=== PATIENT | female | born 1960 | race Caucasian/White ===

== ENCOUNTER → 2018-08-31 13:27 | Outpatient (CLI) | payer OTHER, SELFPAY ==
--- NOTE | 2018-08-31 | DI.RAD.S_ITS ---
This blank DEXA report has been sent in error by the PACS system. The correct and complete report will be forthcoming in 1-2 days. Thank you for your patience and understanding. Dictated by: Lamberto Vital M.D. on 08/31/2018 at 15:43 Approved by: Lamberto Vital M.D. on 08/31/2018 at 15:43
--- NOTE | 2018-08-31 | DI.US.S_ITS ---
PROCEDURE: US ABDOMEN COMPLETE INDICATIONS: OSTEOPOROSIS, GALLSTONES TECHNIQUE: Real-time scanning was performed of the abdominal and retroperitoneal organs, with image documentation. COMPARISON: None. FINDINGS: Liver: Liver is normal in size and homogeneous in echotexture. Gallbladder: Enlarged gallbladder. Gallstones and sludge present. No gallbladder wall thickening or pericholecystic fluid. Biliary ducts: Intrahepatic bile ducts are non-dilated. Extrahepatic bile duct caliber measures 10.0 mm. Normal is 6-7 mm or less in diameter, or 10 mm or less post-cholecystectomy. Pancreas: Visualized portions of the pancreas are sonographically normal. Spleen: Spleen is normal in size and homogeneous in echotexture. Kidneys: Kidneys are normal in size and echotexture. Right kidney measures 9.7 cm long; left kidney measures 10.4 cm long. No hydronephrosis or nephrolithiasis. No solid masses. Aorta: Visualized aorta is normal in caliber at less than 3 cm. Iliacs: Proximal common iliac arteries are normal in caliber at less than 2.5 cm. IVC: Intrahepatic inferior vena cava is patent. Miscellaneous: No free abdominal fluid. IMPRESSION: 1. Hydropic appearance of the gallbladder with multiple gallstones and no gallbladder wall thickening. 2. Dilatation of the extrahepatic bile duct. Recommend correlation with LFTs and if indicated, MRCP could be performed.. Dictated by: Aneesh DA SILVA Interpreted: Monica Mauricio MD on 08/31/2018 at 17:19 Approved by: Monica Mauricio MD, PhD on 08/31/2018 at 17:34
== END ==
PROVIDERS: PCP Naturopath; Visit Provider Naturopath
DX: M81.0 Age-related osteoporosis without current pathological fracture (principal); Z78.0 Asymptomatic menopausal state; K80.20 Calculus of gallbladder without cholecystitis without obstruction; K83.8 Other specified diseases of biliary tract; Z85.3 Personal history of malignant neoplasm of breast; Z82.62 Family history of osteoporosis
CPT/HCPCS: 76700; 77080

== ENCOUNTER → 2018-12-14 08:26 | Outpatient (CLI) | payer BC, SELFPAY ==
[2018-12-14 09:19] LABS: Add Manual Diff / Slide Review NO; Basophils Absolute Auto 0 /uL (0-100); Basophils Percent Auto 0.6 % (0-2); Eosinophils Absolute Auto 100 /uL (0-450); Eosinophils Percent Auto 1.9 % (2-4); Hematocrit 40.1 % (36-46); Hemoglobin 13.6 g/dL (12.0-16.0); Lymphocytes Absolute Auto 1700 /uL (1100-4500); Lymphocytes Percent Auto 33.7 % (25-40); Mean Corpuscular HGB Conc 33.9 % (30-36); Mean Corpuscular Hemoglobin 30.8 PG (26-34); Mean Corpuscular Volume 90.9 fL (80-100); Monocytes Absolute Auto 300 /uL (0-900); Monocytes Percent Auto 6.5 % (3-14); Neutrophils Absolute Auto 2800 /uL (1500-7000); Neutrophils Percent Auto 57.3 % (50-75); Platelet Count 305 X10^3/uL (150-400); Red Blood Cell Count 4.41 X10^6/uL (4.0-5.2); Red Cell Distribution Width 13.7 % (11.6-14.8)
[2018-12-14 09:25] LABS: Hemoglobin A1C% w Est Avg Glu 5.2 % (4.0-6.0)
[2018-12-14 09:50] LABS: Alanine Aminotransferase 18 IU/L (9-52); Albumin 4.7 g/dL (3.5-5.0); Albumin Globulin Ratio 1.5 (1.0-2.8); Alkaline Phosphatase 51 U/L (38-126); Aspartate Aminotransferase 23 IU/L (14-36); BUN Creatinine Ratio 21.4 (6-22); Bilirubin Total 0.6 mg/dL (0.2-1.3); Blood Urea Nitrogen 15 mg/dL (7-17); Calcium 9.7 mg/dL (8.4-10.2); Carbon Dioxide 27 mmol/L (22-32); Chloride 105 mmol/L (98-107); Cholesterol 260 mg/dL (140-199); Estimated Glomerular Filt Rate > 60.0 mL/min (>60); Globulin 3.1 g/dL (1.7-4.1); Glucose 91 mg/dL (70-100); HDL Cholesterol 70 mg/dL (40-60); HEMOLYSIS < 15 (0-50); Iron 148 ug/dL (37-170); LDL Cholesterol Calculated 168 mg/dL (<100); Potassium 3.9 mmol/L (3.4-5.1); Sodium 143 mmol/L (137-145); Total Protein 7.8 g/dL (6.3-8.2); Triglycerides 111 mg/dL (35-150)
[2018-12-14 10:03] LABS: Percent Iron Saturation 49 % (15-50); Total Iron Binding Capacity 304 ug/dL (265-497); Transferrin 265 mg/dL (206-381)
[2018-12-14 10:07] LABS: Progesterone, Total 0.85 ng/mL
[2018-12-14 10:13] LABS: Free T3, Triiodothyronine Free 3.79 pg/mL (2.77-5.27); Free T4, Direct Thyroxine 0.98 ng/dL (0.78-2.19)
[2018-12-14 10:23] LABS: Estradiol, Total 8.7 pg/mL
[2018-12-14 10:25] LABS: Ferritin 34.4 ng/mL (11.1-264)
[2018-12-14 10:26] LABS: Thyroid Stimulating Hormone 2.97 uIU/mL (0.47-4.68)
[2018-12-14 10:39] LABS: Vitamin B12 697 pg/mL (239-931)
[2018-12-16 15:11] LABS: Thyroid Peroxidase Antibodies 6 IU/mL (< 9)
[2018-12-16 15:53] LABS: Cancer Antigen 27.29 34 U/mL (< 38)
[2018-12-16 15:55] LABS: CA 15-3 16 U/mL (< 32)
[2018-12-16 16:57] LABS: Glucose-6-Phosphate Dehydrogen 11.6 U/g Hgb (7.0-20.5)
[2018-12-17 08:05] LABS: Sex Hormone Binding Globulin 113 nmol/L (14-73); Testosterone, Bioavailable 2.6 ng/dL (0.5-8.5); Testosterone, Total 31 ng/dL (2-45); Testosterone,Free 1.3 pg/mL (0.2-5.0)
[2018-12-21 10:01] LABS: Albumin 4.5
== END ==
PROVIDERS: PCP Naturopath; Visit Provider Naturopath
DX: R53.82 Chronic fatigue, unspecified (principal); E03.9 Hypothyroidism, unspecified; N95.9 Unspecified menopausal and perimenopausal disorder; D64.89 Other specified anemias
CPT/HCPCS: 36415; 80053; 80061; 82040; 82607; 82670; 82728; 82955; 83036; 83540; 83550; 84144; 84270; 84403; 84439; 84443; 84481; 85025; 86300; 86376

== ENCOUNTER → 2019-01-05 07:49 | Outpatient (CLI) | payer BC, SELFPAY ==
--- NOTE | 2019-01-05 | DI.MG.S_ITS ---
BILATERAL DIGITAL DIAGNOSTIC MAMMOGRAM 3D/2D POST LUMPECTOMY: 01/05/2019 CLINICAL: Left lump. Personal history of breast cancer. Family history of breast cancer. Comparison is made to exams dated: 08/05/2015 mammogram, 08/05/2015 ultrasound, 09/01/2015 breast MRI, 01/05/2016 ultrasound, 08/21/2015 stereotactic biopsy, and 12/10/2016 ultrasound - [facility]. There are scattered fibroglandular elements in both breasts. There is an oval low density focal asymmetry with an indistinct margin and dystrophic calcifications in the right breast at 8 o'clock in the retroareolar region. This is less prominent. This is at the site of prior lumpectomy. Prior US demonstrated a seroma at this site. Possible oval equal density asymmetry measuring 6 mm with an indistinct margin in the left axillary tail. This is more prominent. This is near the palpable abnormality in the left axillay. No definite mammographic abnormality to correspond to the palpable abnormality at the left axilla. No other significant masses or calcifications are seen in either breast. IMPRESSION: INCOMPLETE: NEEDS ADDITIONAL IMAGING EVALUATION The oval low density focal asymmetry in the right breast at 8 o'clock in the retroareolar region is indeterminate. An ultrasound is recommended and will immediately follow. A possible asymmetry in the left axillary tail near the palpable left axillary abnormality is indeterminate. An ultrasound is recommended of the axillary tail as well as the left axilla palpable site and will immediately follow. This exam was interpreted at Station ID: [id number]. NOTE: For mammograms, a report in lay terms will be sent to the patient. Approximately 15% of breast malignancies will not be visualized mammographically. In the management of a palpable breast mass, a negative mammogram must not discourage biopsy of a clinically suspicious lesion. Electronically Signed By: Andrew Clarke M.D. [facility] [place]/:01/17/2019 13:27:46 copy to: SKINNY FULTON BI-RADS Category 0: Incomplete [id number]
--- NOTE | 2019-01-05 | DI.US.S_ITS ---
ULTRASOUND OF LEFT BREAST AND AXILLA: 01/05/2019 CLINICAL: Palpable left axilla lump. Comparison is made to exams dated: 01/05/2019 mammogram - [facility], 12/10/2016 ultrasound, 01/05/2016 ultrasound, 09/01/2015 breast MRI, 08/05/2015 mammogram, and 08/05/2015 ultrasound - [facility]. Color flow and real-time ultrasound of the right breast 8-9 o'clock region and color flow and real-time ultrasound of the left breast axilla and axillary tail were performed. Emerson scale images of the real-time examination were reviewed. There is a benign 4.5 cm x 6.1 cm x 2.7 cm oval post-surgical scar/granulation tissue with a circumscribed margin in the right breast at 8 o'clock anterior depth. This oval post-surgical scar is isoechoic and heterogeneously echogenic with a well-defined boundary and no posterior acoustic shadowing or enhancement. This correlates with mammography findings. Color flow imaging demonstrates that there is no vascularity present. This region previously demonstrated an anechoic post seroma measuring 6.2 x 4 x 2.2 cm. There is 3.3 cm x 1.6 cm x 3.1 cm round enlarged lymph node with uniform cortical thickening with a circumscribed margin in the left axillary tail. This round enlarged lymph node is hypoechoic with no fatty hilum and no posterior acoustic shadowing or enhancement. This correlates as palpated but was not seen on the prior mammogram. Color flow imaging demonstrates that there is vascularity present. There is an adjacent normally appearing lymph node. No additional abnormality in the region of the left axillary tail to correspond to the possible asymmetry seen on mammogram. IMPRESSION: SUSPICIOUS OF MALIGNANCY A 6.1 cm oval post-surgical scar in the right breast at 8 o'clock anterior depth at the lumpectomy site is benign. Round enlarged lymph node with uniform cortical thickening in the left axillary tail corresponding to the palpable abnormality is suspicious of malignancy. An ultrasound guided biopsy is recommended. Exam findings were discussed with the patient by Dr. Cory Godoy. This exam was interpreted at Station ID: [id number]. Electronically Signed By: Andrew Clarke M.D. slc/:01/24/2019 09:55:24 copy to: SKINNY STEINBERG letter sent: Biopsy Required Ultrasound BI-RADS: 4 Suspicious abnormality
--- NOTE | 2019-01-05 | DI.US.S_ITS ---
LIMITED ULTRASOUND OF RIGHT BREAST: 01/05/2019 CLINICAL: Palpable right breast lump. Comparison is made to exams dated: 01/05/2019 mammogram - [facility], 12/10/2016 ultrasound, 01/05/2016 ultrasound, 09/01/2015 breast MRI, 08/05/2015 mammogram, and 08/05/2015 ultrasound - [facility]. Color flow and real-time ultrasound of the right breast 8-9 o'clock region were performed. Emerson scale images of the real-time examination were reviewed. There is a benign 4.5 cm x 6.1 cm x 2.7 cm oval post-surgical scar with a circumscribed margin in the right breast at 8 o'clock anterior depth. This oval post-surgical scar is isoechoic and heterogeneously echogenic with a well-defined boundary and no posterior acoustic shadowing or enhancement. This correlates with mammography findings. Color flow imaging demonstrates that there is no vascularity present. IMPRESSION: BENIGN There is no sonographic evidence of malignancy. The 4.5 cm x 6.1 cm x 2.7 cm oval post-surgical scar in the right breast is benign. A 1 year screening mammogram is recommended. Exam Findings were discussed with the patient by Dr. Cory Godoy. This exam was interpreted at Station ID: [id number] Electronically Signed By: Andrew Clarke M.D. slc/:01/24/2019 09:28:52 copy to: SKINNY STEINBERG letter sent: Normal Exam Ultrasound BI-RADS: 2 Benign
== END ==
PROVIDERS: PCP Naturopath; Visit Provider Naturopath
DX: R92.8 Other abnormal and inconclusive findings on diagnostic imaging of breast (principal); N63.20 Unspecified lump in the left breast, unspecified quadrant; R59.0 Localized enlarged lymph nodes; L90.5 Scar conditions and fibrosis of skin; Z85.3 Personal history of malignant neoplasm of breast; Z80.3 Family history of malignant neoplasm of breast
CPT/HCPCS: 76642; 77066; G0279

== ENCOUNTER → 2019-02-07 07:13 | Outpatient (CLI) | payer BC, SELFPAY ==
--- NOTE | 2019-02-07 | DI.US.S_ITS ---
ULTRASOUND GUIDED BIOPSY LEFT BREAST: 02/07/2019 CLINICAL: Left axillary node biopsy. PATIENT CONSENT: Risks (minor bleeding, infection, vasovagal reaction and repeat procedure), benefits and alternatives were explained to the patient and written informed consent was obtained. Correlation is made to exams dated: 01/05/2019 ultrasound and 01/05/2019 mammogram [facility]. An ultrasound guided biopsy using real-time ultrasound was performed for the palpable circumscribed lobulated solid mass located in the left axilla. This was described on the previous ultrasound report. The skin was prepped in the usual manner. Local anesthetic was administered to the access site. The abnormality was approached from the lateral aspect. A biopsy needle was placed adjacent to the abnormality under ultrasound guidance. Once the needle was documented to be in the correct location, five passes were made using 18 gauge Temno. A skin adhesive was applied to the access site. The specimens were sent to the laboratory for pathological analysis. IMPRESSION: ULTRASOUND GUIDED BIOPSY Ultrasound guided biopsy of the solid mass in the left axilla was successful with no apparent post procedure complications. 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 Pathology findings are concordant with imaging. Surgical and oncology consults are recommended for further evaluation and management. Consider MRI to exclude a breast primary site other than the site of previous lumpectomy. These results will be communicated to the patient's referring provider. This exam was interpreted at Station ID: [id number]. [place],ecl/:02/13/2019 09:26:38 copy to: SKINNY STEINBERG
--- NOTE | 2019-02-07 | PATH_ITS ---
[facility] Accession Number: [id number] . 01 Material submitted: . axilla - LEFT AXILLARY NODE . 01 Clinical history: . MALIGNANT NEOPLASM OF UPPER-OUTER QUADRANT OF LEFT . 01 Diagnosis: Designated as Left Axillary Lymph Node, Biopsy: High-grade adenocarcinoma involving fibrous tissue; see comment. . COMMENT: The histologic findings along with the immunoprofile are consistent with breast origin. There is no lymph node tissue identified, clinical and radiographic correlation is necessary to determine whether this carcinoma represents a primary or a metastatic site. If this is a breast primary site, the carcinoma is a [place] combined histologic grade of 3 of 3 (total score of 8/9). [facility] 02/12/2019 1119 Local . 01 Electronically signed: . Velia Ventura MD, Pathologist NPI- [id number] . 01 Gross description: . LEFT AXILLARY NODE: Received in formalin are multiple fragment(s) of [place], soft tissue measuring 0.2 x 0.1 x 0.1 cm to 1.1 x 0.1 x 0.1 cm which is entirely submitted and submitted entirely in 1 cassette(s) /[facility] 02/07/2019 1915 Local . 01 Microscopic: . The biopsy consists of a poorly differentiated adenocarcinoma involving fibrous, and focally adipose, tissue; the carcinoma has little or no tubular formation (only vague glands are seen), has extensive necrosis, eosinophilic/apocrine cytoplasm with prominent nucleoli, pleomorphism, high nuclear to cytoplasmic ratio, and a brisk mitotic activity. There is limited tumor with multiple cores involved and a contiguous length of 0.2 cm. There is no lymph node tissue identified. If this is breast primary, the carcinoma is a [place] combined histologic grade of 3 of 3 (total score of 8/9). . A panel of immunostains is performed to delineate the carcinoma, and the invasive carcinoma has the following immunoprofile: CK7: Positive. CK20: Negative. GATA3: Positive. GCDFP-15: Focally positive. Mammaglobin: Focally positive. TTF1: Negative. CDX2: Negative. P40: Negative. . Predictive marker immunohistochemical studies are performed on block A1 with the invasive carcinoma showing the following results: . Estrogen receptor (SP1): Negative (0% tumor cells staining). Progesterone receptor (1E2): Negative (0% tumor cells staining). Her2 (4B5): Positive for overexpression (3+). . Cold ischemic time is <5 minutes. The scoring criteria for breast biomarkers by immunohistochemistry is based on the ASCO/CAP guidelines (Chata AC et al J Clin Oncol 2018: 2017 10;36(20):9719-1900 and Andreea HILLIARD et al, Arch Pathol Lab Med 2009;134(6):907-22). Deparaffinized sections of formalin fixed tissue (along with appropriate positive controls) are incubated with the above antibody(s). Using the automated [place] stainer, tissue is incubated with the designated antibody which is then localized by a non-biotin, dual polymer detection system. The external controls are reviewed for appropriate reactivity and found to be adequate. Results on the target cell population are indicated above. These tests have not been validated on decalcified tissue. This test was developed and its performance characteristics determined by [facility]. It has not been cleared or approved by the U.S. Food and Drug Administration. The FDA has determined that such clearance or approval is not necessary. This test is used for clinical purposes. It should not be regarded as investigational or for research. . 01 Pathologist provided ICD-10: C50.412 . 01 CPT . 012315, 091102, 764947, 387187, S91110, G88897 Performed at: 01 [facility] [address] [place] [address] [facility], [place], [place] [id number] MD Sam Segura MD Phone: [phone]
--- NOTE | 2019-02-14 13:42 | ONC.MSW ---
Description: T/C-Initial Navigation Call Activity: Called pt to introduce myself as the MASTER CONTROL SUPERVISOR/SHAHRIAR, discuss resources and supports available, and establish initial rapport. Discussed the role of navigation. She had questions about whether or not our Oncologist's are comfortable working with her referring provider, who's a Naturopathic doctor. MASTER CONTROL SUPERVISOR confirmed that they support people's decisions for alternative treatments in conjuction with ONC treatments, and that this is done regularly here in this clinic. Discussed also the availability of the ONC Medical Relief Fund in order to help support her for medical reimbursement for her supplements, etc. Explained that she will be contacted next by our schedulers to get her in for the next available new pt appt.
== END ==
PROVIDERS: PCP Naturopath; Visit Provider Naturopath
DX: C50.412 Malignant neoplasm of upper-outer quadrant of left female breast (principal); C77.3 Secondary and unspecified malignant neoplasm of axilla and upper limb lymph nodes; Z17.1 Estrogen receptor negative status [ER-]
CPT/HCPCS: 38505; 76942

== ENCOUNTER → 2019-03-28 07:25 | Outpatient (CLI) | payer BC, SELFPAY ==
--- NOTE | 2019-03-28 07:26 | DI.ECHO.S_ITS ---
[facility]---------+ [facility] +---------+ : : [address] : : : : [id number] : : : : Phone: [phone]+ Echocardiogram Report + + :Name: JOHNNIE GARZON Study Date: 03/28/2019 Height: 64 in : :[facility] Weight: 123 lb : : Gender: Female BSA: 1.6 m2 : :: 1960 Age: 58 yrs BP: 110/88 mmHg: :Reason For Study: BREAST CA : : Performed By: Rocky Rowan : :Referring: RAMY CHOWDHURY : + + Interpretation Summary The left ventricle is normal in size. The left ventricular ejection fraction is normal. There are no focal wall motion abnormalities. Diastolic parameters suggest a relaxation abnormality of the left ventricle, consistent with probable normal filling pressures. The right ventricle is normal in size and function. Both atria are normal in size. There is mild mitral valve prolapse. There is mild mitral regurgitation. There is no prior echocardiogram noted for this patient. Procedure: A two-dimensional transthoracic echocardiogram with color flow and Doppler was performed. The study quality was technically good. There is no prior echocardiogram noted for this patient. The patient was in normal sinus rhythm during the exam. Left Ventricle: The left ventricle is normal in size. There is normal left ventricular wall thickness. The ejection fraction is estimated to be 55-60%. The left ventricular ejection fraction is normal. Left ventricular ejection fraction is estimated to be 58% by MOD. There are no focal wall motion abnormalities. Diastolic parameters suggest a relaxation abnormality of the left ventricle, consistent with probable normal filling pressures. Right Ventricle: The right ventricle is normal in size and function. Atria: Both atria are normal in size. Mitral Valve: There is mild mitral valve prolapse. There is prolapse of the posterior mitral valve leaflet(s). There is mild mitral regurgitation. Aortic Valve: The aortic valve is trileaflet. The aortic valve opens well. There is no aortic valve stenosis. No aortic regurgitation is present. Tricuspid Valve: The tricuspid valve is normal in structure and function. There is trace tricuspid regurgitation. Pulmonary artery pressures cannot be estimated because of the lack of a measurable TR jet velocity. Pulmonic Valve: The pulmonic valve is normal in structure and function. There is trace pulmonic regurgitation. Great Vessels: The aortic root is normal size. The dimensions of the ascending aorta are normal. The pulmonary artery is normal size. The IVC is of normal diameter and collapses greater than 50% with a sniff. This suggests a low right atrial pressure of 3 mm Hg. Pericardium/ Pleura There is no pericardial effusion. There is no pleural effusion. MMode/2D Measurements & Calculations LVIDd: 4.6 cm LVOT diam: 2.0 cm LVIDs: 3.0 cm Ao root diam: 2.6 cm FS: 34.9 % Aortic Jxn: 2.3 cm EPSS: 0.34 cm asc Aorta Diam: 2.5 cm IVSd: 0.71 cm Ao Arch Diam (Prox Trans): 2.4 cm LVPWd: 0.72 cm LV serna. diameter/BSA (cm/m^2): 2.9 LV sys. diameter/BSA (cm/m^2): 1.9 LA dimension: 3.0 cm RA long axis: 3.8 cm LA A2 area: 16.7 cm2 RA area: 13.6 cm2 LA A4 area: 15.7 cm2 RA vol: 41.6 ml LA length (vol): 5.2 cm RA : 26.1 ml/m2 LA vol: 42.9 ml IVC diam: 1.9 cm LA vol index: 27.0 ml/m2 LVAd ap4: 25.0 cm2 LVAd ap2: 25.8 cm2 LVAs ap4: 14.4 cm2 LVLd ap2: 7.6 cm LVLs ap4: 6.7 cm LVAs ap2: 14.4 cm2 LVLs ap2: 6.3 cm Doppler Measurements & Calculations Ao V2 max: 125.1 cm/sec LVOT Max Landon: 96.6 cm/sec Ao V2 mean: 91.0 cm/sec LV V1 max P.7 mmHg Ao max P.3 mmHg LV V1 VTI: 20.7 cm Ao mean P.5 mmHg JOSE MANUEL(I,D): 2.3 cm2 Ao V2 VTI: 27.8 cm JOSE MANUEL(V,D): 2.4 cm2 sev ratio: 0.74 JOSE MANUEL indexed to BSA (cm^2/m^2): 1.4 MV E max landon: 66.1 cm/sec PA V2 max: 95.5 cm/sec MV A max landon: 77.2 cm/sec PA V2 mean: 69.5 cm/sec MV E/A: 0.86 PA mean P.1 mmHg Med Peak E' Landon: 7.3 cm/sec PA pr(Accel): 39.1 mmHg E/E' med: 9.0 PA Accel Time: 0.09 sec Lat Peak E' Landon: 8.7 cm/sec E/E' lat: 7.6 E/e' average: 8.3 MV dec time: 0.16 sec SV(LVOT): 63.7 ml Electronically signed by: Iftikhar Burns M.D. on [place] Physician:03/28/2019 09:57 PM
--- NOTE | 2019-03-28 07:26 | DI.MRI.S_ITS ---
BREAST MRI OF BOTH BREASTS- POST LUMPECTOMY: 03/28/2019 CLINICAL: Abnormal mammogram. TECHNIQUE: The patient was placed prone in a dedicated breast imaging coil. Precontrast axial STIR and 3D FLASH without fat saturation sequences were obtained. Both before and after bolus injection of contrast, sequential 1-minute axial 3D FLASH with fat saturation sequences for 3 time points, with subtraction images and maximum intensity projections (MIP's) generated. Delayed sagittal FLASH images with fat saturation were also obtained. Computer-aided detection, including computer algorithm analysis of MRI image data for lesion detection and characterization, pharmacokinetic analysis, with further physician review for interpretation, was performed. COMPARISON: [facility], , MM DIAGNOSTIC MAMMO BI, 01/05/2019, 8:50. [facility], US BIOPSY OF AXILLA ONLY, 02/07/2019, 8:09. [facility], BREAST LT LIMITED, 01/05/2019, 9:26. [facility], BREAST RT LIMITED, 01/05/2019, 9:20. Outside Facility, , MRI BREAST BILATERAL, 09/01/2015, 14:56. Image quality: Excellent. There is minimal background parenchymal enhancement. There is heterogeneous fibroglandular tissue bilaterally. Right breast: Redemonstration of thin rim-enhancing postoperative fluid collection involving the lateral aspect of the right breast measuring approximately 3.6 x 5.8 cm in transverse dimension and 4.6 cm in craniocaudal dimension. There is focal skin thickening involving the anteromedial margin of the surgical site with associated enhancement. This is favored to represent postoperative changes. There is an enhancing 9 mm mass abutting the superficial margin of the anterior chest wall approximately 2.0 cm caudal to the inferior margin of the postoperative fluid collection. There is associated washout kinetics. No other suspicious mass lesions identified in the right breast. No axillary or internal mammary chain adenopathy. No suspicious non-mass enhancement. Left breast: There is a large left axillary lymph node measuring approximately 3.8 x 2.1 cm and correlates with biopsy proven high-grade adenocarcinoma involving fibrous tissue per pathology report. There are numerous smaller, but abnormal appearing lymph nodes in the left axilla extending to the level II lymph nodes of the left chest wall, deep to the lateral aspect of the pectoralis minor muscle. No internal mammary chain adenopathy. No abnormal mass identified in the left breast. No non-mass enhancement. Miscellaneous: Limited evaluation of the anterior mediastinal structures and upper abdomen appear unremarkable. Normal bone marrow signal intensity. IMPRESSION: INCOMPLETE: NEEDS ADDITIONAL IMAGING EVALUATION 1. Suspicious 9 mm enhancing mass abutting the anterior right chest wall at the 6:00 position of the right breast and approximately 2 cm caudal to the inferior margin of the postoperative fluid collection from patient's resected right breast cancer. Findings are concerning for multifocal disease within the right breast. No associated right axillary or internal mammary chain adenopathy. Recommend second look ultrasound of the right breast to evaluate this inferior right breast mass. 2. Left axillary and level II lymphadenopathy adjacent to biopsy-proven lymph node which demonstrated high-grade adenocarcinoma involving fibrous tissue per pathology report. No focal mass or non-mass enhancement identified in the left breast. BIRADS 0, need additional imaging evaluation. COMMENT: The imaging literature indicates that a negative contrast breast MRI examination has a high sensitivity and a moderate specificity for detecting and excluding invasive carcinomas to a detection threshold of 3-5 mm; nonetheless, appropriate clinical and mammographic follow-up are recommended. MRI is not sensitive for detecting DCIS (ductal carcinoma in situ) and may not detect large invasive neoplasms that show only minimal enhancement such as mucinous carcinoma. If there are suspicious calcifications or clinically worrisome palpable masses, then biopsy should still be considered. Invasive neoplasms can be hidden by co-existent and benign enhancement caused by mastitis, hormone therapy effects, radiation therapy, , and recent biopsy or surgery. False positive examinations can occur in a number of circumstances, including breasts that have recently been subject to invasive procedures and those that contain atypical ductal hyperplasia, hormonally stimulated glandular tissue, fat necrosis, or radial scars. This exam was interpreted at Station ID: [id number]. Electronically Signed By: Cong Tilley M.D. aty/:03/28/2019 17:59:18 copy to: SKINNY STEINBERG copy to: MARYBETH WELCH AL, [facility], ph: [phone], fax: [phone] letter sent: Additional Imaging Needed ACR BI-RADS Category 0: Incomplete [id number]
== END ==
PROVIDERS: PCP Naturopath; Referring Provider Naturopath; Visit Provider Internal Medicine Hematology & Oncology
DX: I34.1 Nonrheumatic mitral (valve) prolapse (principal); I34.0 Nonrheumatic mitral (valve) insufficiency; C50.912 Malignant neoplasm of unspecified site of left female breast
CPT/HCPCS: 77049; 93306; A9579

== ENCOUNTER 2019-04-02 14:10 | Day surgery (SDC) | payer BC, SELFPAY ==
[2019-03-27 10:10] VITALS: BMI 22.6
[2019-04-02] VITALS (7 sets, daily range): BP systolic 98–111; BP diastolic 52–73; PULSE 61–73; RESP 10–19; TEMP 36.1–36.8; O2SAT 97–100; BMI 22.6
--- NOTE | 2019-04-02 | DI.RAD.S_ITS ---
PROCEDURE: XR CHEST 1V INDICATIONS: PORT A CATH RIGHT TECHNIQUE: One view of the chest was acquired. COMPARISON: None. FINDINGS: Surgical changes and devices: Right chest port with tip projecting at the mid SVC. Lungs and pleura: Lungs are clear. No pleural effusions or pneumothorax. Mediastinum: Mediastinal contours appear normal. Heart size is normal. Bones and chest wall: No suspicious bony lesions. Overlying soft tissues appear unremarkable. IMPRESSION: Right chest port with the tip projecting in the mid SVC. No pneumothorax Dictated by: Red Devine M.D. on 04/03/2019 at 8:24 Approved by: Red Devine M.D. on 04/03/2019 at 8:26
[2019-04-02] MEDS: LACTATED RINGERS 1,000 ML 100 ML IV (15:59)
--- NOTE | 2019-04-02 16:49 | P.HP_ITS ---
History of Present Illness History of Present Illness Date Patient Seen: 04/02/19 Time Patient Seen: 16:49 Chief complaint: [id number] PORT-A-CATH PLACEMENT Narrative: Patient is a woman who has been treated in the past for right-sided breast cancer. She had a port on the right side because it could not be placed on the left. She states that the doctor told her that he could not make the turn. She has developed a HER2 Zoie positive mass in her left axilla. There is plans for neoadjuvant therapy as she proceeds to metastatic workup. I was asked to place a port. Patient History Medical History Breast cancer, left (Acute ~2018) Breast cancer, right (Acute ~2010) Gallstone (Acute) Hyperlipidemia (Acute) Migraine (Acute) Osteoporosis (Acute) Scoliosis (Acute) Surgical History H/O hemorrhoidectomy (Resolved) H/O hemorrhoidectomy (Acute) H/O rhinoplasty (Resolved) History of lumpectomy of right breast (Acute) Family & Social History Family History Brother Heart disease, hypertensive, benign Hypertension Mother Breast cancer Gallstones Stroke Social History: household members none Tobacco & Substance use: Smoking Status Never smoker alcohol intake never Meds Home Medications and Allergies Home Medications Medication Instructions Recorded Confirmed Type klqpgsfpbz-aqokfvs-qyfzyczg 50 1 cap PO QID PRN 09/25/18 02/26/19 History mg-325 mg-40 mg capsule cholecalciferol (vitamin D3) 1,000 1,000 unit PO DAILY 09/25/18 02/26/19 History unit capsule estrovera PO 09/25/18 09/25/18 History vitamin K2 40 mcg tablet 300 mcg PO DAILY 09/25/18 02/26/19 History lorazepam 0.5 mg PRN PRN 02/26/19 02/26/19 History Allergies Allergy/AdvReac Type Severity Reaction Status Date / Time No Known Drug Allergies Allergy Unverified 04/02/19 15:48 Review of Systems Review of Systems ROS Unobtainable: All systems reviewed & are unremarkable except as noted in HPI and below Gastrointestinal Comments: Patient has symptomatic gallstones but has declined surgical treatment in the past. She continues to do that now. Exam Vital Signs (past 8 hours): - 04/02/19 15:39 Temperature 98.3 F Pulse Rate 66 Respiratory Rate 16 Blood Pressure 109/70 Pulse Oximetry 99 Oxygen Delivery Method Room Air Narrative Exam Narrative: Pleasant cooperative patient no apparent distress. Lungs are clear to auscultation. No rales or rhonchi. Heart regular rate and rhythm no murmur gallop. Abdomen is soft nontender without mass. No rashes on her chest wall. Scar from her prior port is noted in the right infraclavicular area. She has a fixed palpable mass in her left axilla that is about 4 x 4 cm. Patient is alert and oriented x3. Assessment & Plan Assessment & Plan narrative: Patient upon whom neoadjuvant chemotherapy is planned. I was asked to place a port. I have discussed the procedure with her. Risks of bleeding, infection, lung collapse which might necessitate placing a chest tube, thrombosis of the vein with possible arm swelling or pulmonary embolism or all discussed. 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 She wishes to proceed.
--- NOTE | 2019-04-02 16:53 | PM.PREOP ---
Pre-operative Note Interval Note History & Physical reviewed/Exam performed by Physician: Yes Changes to H&P: No
[2019-04-02] MEDS: CEFAZOLIN 2 GM/100 ML FROZ.PIGGY IV (17:16)
--- NOTE | 2019-04-02 17:38 | SUR.OPER ---
Supine on padded OR bed, head on gel donut, arms padded and tucked at sides, legs uncrossed, safety belt at thigh, tape over blanket over lower legs .
[2019-04-02] MEDS: LIDOCAINE 1% 30 ML INJ (17:47)
[2019-04-02] MEDS: HEPARIN 5,000 UNIT, SODIUM CHLORIDE 0.9% 50 ML IV (17:47)
--- NOTE | 2019-04-02 17:59 | PM.OP.1 ---
Operative Date/Time/Diagnoses Date of procedure: 04/02/19 Time of procedure: 17:59 Pre-op diagnosis: Breast cancer Post-op diagnosis: same Procedure & Clinicians Procedure: Placement of right subclavian Port-A-Cath Same procedure as scheduled: Yes Indications: Patient is a woman with a history of right-sided breast cancer who has developed a mass in her left axilla that is breast cancer HER2 Zoie positive. Neoadjuvant therapy is planned as a metastatic workup has been initiated. Surgeon: Aydin Mills Click Yes if Unassisted: Yes Anesthesia Type: General Operative Notes Findings: Patient was not cooperative enough to tolerate simple sedation local anesthetic therefore she underwent general LMA anesthesia. Closure Type: primary Specimen(s): none sent Prosthetic devices, grafts, tissues, transplants, or devices: Port-A-Cath low-profile Estimated Blood Loss (mL): 5 Blood products transfused: none Procedure in detail: The patient is placed supine on the operating table and underwent IV sedation and was prepped and draped in the usual fashion. Local anesthetic was infiltrated in a field block fashion beneath the right clavicle. As I began the operation the patient began to fidgety. She was talking continuously is quite clear that sedation was not going to be adequate therefore she was placed under general anesthesia with use of an LMA. Will continue the operation incision was made paralleling clavicle and carried into the subcu. A pocket was created inferior to this incision. The patient was placed in Trendelenburg a needle was inserted on 1st attempt into the subclavian vein. Guidewire was passed and the needle was removed. Fluoroscopy revealed that the guidewire appeared to be going into the appropriate location. Port was put to get an tapered the dilator and introducer were passed over the guidewire. This was done with the assistance of fluoroscopy. The guidewire and dilator were removed leaving the introducer in place. The catheter was passed through the introducer and it was peeled away leaving the catheter in good position with the tip appearing to be somewhere in the distal SVC. The patient was taken out of Trendelenburg. The port was aspirated and flushed with heparinized saline. There was no difficulty doing this. The port was secured to the chest wall with interrupted 2 0 silk sutures. The subcu was closed with interrupted 3 0 Vicryl and skin was closed running 4 0 Vicryl subcuticular stitch and Steri-Strips. Dressing was applied the patient tolerated the procedure well. Complications: none Post-operative Condition: stable Disposition: PACU Plan for aftercare: Follow-up in the office
== END 2019-04-02 18:40 | disposition home or self-care (01) ==
PROVIDERS: Family Provider Naturopath; PCP Naturopath; Visit Provider Specialist
PROC: (CPT 36561; principal; 2019-04-02 15:45)
DX: C50.912 Malignant neoplasm of unspecified site of left female breast (principal); Z45.2 Encounter for adjustment and management of vascular access device
CPT/HCPCS: 36561; 71045; 76000; C1788; J0690; J1644; J2250; J2704; J3010

== ENCOUNTER → 2019-04-11 07:27 | Outpatient (CLI) | payer BC, SELFPAY ==
--- NOTE | 2019-04-11 07:29 | DI.NM.S_ITS ---
PROCEDURE: NM BONE SCAN WHOLE BODY RADIOPHARMACEUTICAL: 21.0 mCi Tc-99m MDP IV. INDICATIONS: breast cancer TECHNIQUE: Delayed whole-body scintigrams were obtained approximately 3-4 hours after intravenous injection of radiotracer. Anterior and posterior views were acquired from vertex to feet. Additional left and right oblique views of the thorax were obtained. COMPARISON: [facility], CT, CT CHEST ABD PEL W CON, 04/11/2019, 8:29. FINDINGS: No areas of relative intense radiotracer uptake identified in the osseous skeleton that would be concerning for metastatic disease. Increased radiotracer uptake noted in the acromioclavicular joints and sternoclavicular joints bilaterally compatible with osteoarthritis. Small focus of increased radiotracer uptake identified in the lower lumbar spine compatible with osteoporosis. No areas of osteopenia identified in the osseous skeleton. No abnormal soft tissue thickening identified. IMPRESSION: No scintigraphic evidence of osseous metastatic disease. Dictated by: Monica Mauricio MD, PhD on 04/11/2019 at 13:08 Approved by: Monica Mauricio MD, PhD on 04/11/2019 at 13:11
--- NOTE | 2019-04-11 08:46 | DI.CT.S_ITS ---
PROCEDURE: CT CHEST ABD PEL W CON INDICATIONS: breast cancer TECHNIQUE: After the administration of oral and intravenous contrast, 5 mm thick sections acquired from the lung apices to the symphysis. 5 mm coronal and sagittal reformats were performed, with additional 7 mm coronal MIP reformats through the lungs. For radiation dose reduction, the following was used: automated exposure control, adjustment of mA and/or kV according to patient size. COMPARISON: Breast MRI 03/28/2019. Abdominal ultrasound 08/31/2018. Diagnostic mammogram 01/05/2019. Outside Breast MRI 09/01/2015. FINDINGS: Image quality: Excellent. CHEST: Lungs and pleura: -Right apex reticular thickening and mild opacity likely pleural apical scarring possibly due to radiation pneumonitis. This is not present in the left apex. -Small pulmonary nodule along the right major fissure in the upper lobe measuring 3 mm, (3/85). This may represent an intrapulmonary lymph node. No pulmonary mass or additional pulmonary nodules. No pleural effusions or pneumothorax. Central and peripheral airways appear patent and normal in caliber. Mediastinum: Heart size is normal. No pericardial effusion. No mediastinal or hilar adenopathy by size criteria. Thoracic aorta and central pulmonary arteries are normal in size. No central pulmonary embolism. Esophagus is normal in caliber. No hiatal hernia. Chest wall: -Right inferior breast fluid collection measuring 6.3 x 3.1 cm, (2/33), previously 6.3 x 3.5 cm on 03/28/2019. Thickened capsule. -Soft tissue mass along the anterior right chest wall inferior to the above-described fluid collection measuring 0.9 x 0.6 cm (2/38). This was enhancing on breast MRI. -Enhancing soft tissue thickening superficial to the fluid collection measuring 1.5 x 0.7 cm, (2/33). This appeared more nodular on the MRI. This could represent the nipple if not surgically absent or postsurgical change. -Enlarged heterogeneous left axillary lymph node level 1 measuring 3.9 x 2.2 cm (2/13). Several additional small left axillary lymph nodes. One lymph node slightly inferior demonstrates enhancement and small level II sub-pectoralis minor, (2/10). -No enlarged right axillary lymph nodes identified. Mild stranding in the right axilla. -No enlarged internal mammary lymph nodes identified. Right-sided port with the catheter tip terminating in the inferior SVC. Thyroid gland is unremarkable. ABDOMEN: Solid organs: Liver is normal in size and enhancement. No focal lesion. Gallbladder is distended. Layering increased density represent gallstones which were previously seen on ultrasound. Nondependent foci of gas within the gallbladder lumen, (/). There is mild intrahepatic biliary ductal dilatation. The CBD measures 1.2 cm and is dilated, previously measuring 0.9 cm on ultrasound 08/31/2018. The CBD tapers distally. No calcified gallstone identified within the duct. Pancreatic duct is within normal limits. Pancreas enhances normally. Spleen is normal in size and enhancement. No adrenal nodules. Left adrenal gland thickening. Kidneys demonstrate normal size and enhancement, without hydronephrosis. Peritoneum and bowel: Bowel loops demonstrate normal wall thickness and caliber. No free fluid or air. Nodes and vessels: No retroperitoneal or mesenteric adenopathy by size criteria. Aorta and inferior vena cava are normal in size. Miscellaneous: No ventral hernias. PELVIS: Genitourinary: Bladder wall thickness is normal. Small uterus. No free fluid. Miscellaneous: No inguinal hernias or adenopathy. Bones: No suspicious bony lesions. Mild scoliosis. No vertebral body compression fractures. IMPRESSION: 1. Right anterior inferior chest wall soft tissue nodule is suspicious for satellite metastatic disease. -Right breast fluid collection is not significantly changed. 2. Left axillary adenopathy consistent with metastatic disease. Probable small additional left axillary nodes. 3. Asymmetric reticular thickening and mild opacity at the right apex. This could represent radiation pneumonitis or infectious/inflammatory etiology. 4. No metastatic disease identified in the abdomen or pelvis. No suspicious osseous lesion. 5. Hydropic gallbladder with gallstones and small foci of nondependent gas within the gallbladder lumen. This could be a gas producing infectious etiology. However, there is no pericholecystic fluid or stranding. 6. Mild intrahepatic and moderate extrahepatic biliary ductal dilatation which appears increased compared to August 2018. Etiology uncertain. Dictated by: Andrew Clarke M.D. on 04/11/2019 at 9:14 Approved by: Andrew Clarke M.D. on 04/11/2019 at 10:07
== END ==
PROVIDERS: Family Provider Naturopath; PCP Naturopath; Visit Provider Internal Medicine Hematology & Oncology
DX: C50.912 Malignant neoplasm of unspecified site of left female breast (principal); R59.0 Localized enlarged lymph nodes; K80.20 Calculus of gallbladder without cholecystitis without obstruction; K83.8 Other specified diseases of biliary tract; Z17.1 Estrogen receptor negative status [ER-]
CPT/HCPCS: 71260; 74177; 78306; A9503; Q9967

== ENCOUNTER 2019-04-23 09:37 | Observation (INO) | payer BC, SELFPAY ==
[2019-04-23] VITALS (16 sets, daily range): BP systolic 97–142; BP diastolic 58–91; PULSE 72–91; RESP 12–29; TEMP 36–37.7; O2SAT 92–100; BMI 21.3
--- NOTE | 2019-04-23 | PATH_ITS ---
[facility] Accession Number: [id number] . 01 Material submitted: . gallbladder - GALLBLADDER AND CONTENTS . 02 Diagnosis: Gallbladder and Contents, Cholecystectomy: Chronic cholecystitis with cholelithiasis. Negative for dysplasia and malignancy. MRV 04/25/2019 1528 Local . 02 Comment: There is significant autolysis of the epithelial tissues, suggestive of inadequate fixation. . 02 Electronically signed: . Fe Loomis MD, Pathologist NPI- [id number] . 01 Gross description: . Received in formalin, labeled gallbladder and contents, is an opened gallbladder (length-10.5 cm, diameter-3.8 cm) with blue-green smooth shiny serosa and a patent cystic duct. No lymph nodes are present. The lumen contains brown-green viscous bile and multiple hayley-colored friable calculi (4.5 x 4.5 x 2.0 cm in aggregate). The mucosa is trivedi-green, smooth and flat. The wall is up to 0.1 cm thick. No nodules, masses or lesions are identified. Section code: (A1) cystic duct resection margin and two serial sections from the body; (A2) two longitudinal sections from the fundus. ([id number]) /MRV 04/24/2019 1030 Local . 02 Pathologist provided ICD-10: K80.60 . 02 CPT . 736855 Performed at: 01 [facility] [address] [place] [address], [place], [place] [id number] MD Sam Segura MD Phone: [phone] Performed at: 02 [facility] [address] [place], [place] [id number] MD Fe Loomis MD Phone: [phone]
[2019-04-23] MEDS: LACTATED RINGERS 1,000 ML 100 ML IV ×2 (10:05→13:06)
--- NOTE | 2019-04-23 10:07 | PM.HP.1 ---
History of Present Illness History of Present Illness Date Patient Seen: 04/23/19 Time Patient Seen: 10:08 Chief complaint: [id number] Narrative: The patient is woman with symptomatic gallbladder disease and cancer. She has not yet started chemotherapy. She is here for removal of her gallbladder. She found the decided to proceed after discussion with her oncologist. Patient History Medical History Breast cancer, left (Acute ~2018) Breast cancer, right (Acute ~2010) Gallstone (Acute) Hyperlipidemia (Acute) Migraine (Acute) Osteoporosis (Acute) Scoliosis (Acute) Surgical History H/O hemorrhoidectomy (Resolved) H/O hemorrhoidectomy (Acute) H/O rhinoplasty (Resolved) History of lumpectomy of right breast (Acute) Family & Social History Family History Brother Heart disease, hypertensive, benign Hypertension Mother Breast cancer Gallstones Stroke Social History: household members none Tobacco & Substance use: Smoking Status Never smoker alcohol intake never Meds Home Medications and Allergies Home Medications Medication Instructions Recorded Confirmed Type lvsqjczdbz-zvzikgg-wfyghccy 50 1 cap PO QID PRN 09/25/18 04/10/19 History mg-325 mg-40 mg capsule cholecalciferol (vitamin D3) 1,000 1,000 unit PO DAILY 09/25/18 04/10/19 History unit capsule estrovera PO 09/25/18 04/10/19 History vitamin K2 40 mcg tablet 300 mcg PO DAILY 09/25/18 04/10/19 History lorazepam 0.5 mg PRN PRN 02/26/19 04/10/19 History hydrocodone-acetaminophen [[place]] 1 tab PO Q4-6H PRN #7 tab 04/02/19 04/10/19 Rx promethazine 25 mg PO Q6H PRN 04/12/19 04/12/19 History Allergies Allergy/AdvReac Type Severity Reaction Status Date / Time No Known Drug Allergies Allergy Verified 04/23/19 09:48 Review of Systems Review of Systems ROS Unobtainable: All systems reviewed & are unremarkable except as noted in HPI and below Gastrointestinal Comments: Intermittent upper abdominal pain with nausea Exam Vital Signs (past 8 hours): - 12/02/19 09:54 Temperature 97.4 F L Pulse Rate 80 Respiratory Rate 20 Blood Pressure 107/74 Pulse Oximetry 100 Oxygen Delivery Method Room Air Narrative Exam Narrative: Thin cooperative no apparent distress. Healed scar from her port placement. Lungs are clear to auscultation. No rales or rhonchi. Heart regular rate and rhythm without murmur gallop. Abdomen is soft nontender without mass. Alert and oriented x3. Assessment & Plan Assessment & Plan narrative: Will proceed to laparoscopic cholecystectomy. I have discussed the procedure including risks of bleeding, infection, hernia, bile leak, injury to internal organs or ducts which would require major operation to repair. Possibility of a postop ERCP was mention. She appears to understand wishes to proceed.
--- NOTE | 2019-04-23 10:09 | PM.PREOP ---
Pre-operative Note Interval Note History & Physical reviewed/Exam performed by Physician: Yes Changes to H&P: No
[2019-04-23] MEDS: CEFAZOLIN 2 GM/100 ML FROZ.PIGGY IV (10:35)
--- NOTE | 2019-04-23 10:57 | SUR.OPER ---
Supine on padded OR bed, head on pillow, arms secured on padded arm boards at <90 degrees abduction, legs uncrossed, safety belt at thigh, tape over blanket over lower legs.
[2019-04-23] MEDS: BUPIVACAINE 0.5% (PF) VIAL 30 ML INJ (11:09)
[2019-04-23] MEDS: fentaNYL 100 MCG/2 ML INJ IV ×4 (12:46→13:31)
[2019-04-23] MEDS: ONDANSETRON 4 MG/2 ML INJ IV ×2 (13:13→13:36)
--- NOTE | 2019-04-23 13:15 | SUR.PHASEI ---
Bedside report given to RAMAN Bishop at this time. Pt in stable condition, vss. Transferred care of pt to RAMAN Bishop at this time.
[2019-04-23] MEDS: OXYCODONE/ACETAMINOPHEN 5/325 TABLET 1 TAB PO (13:42)
--- NOTE | 2019-04-23 14:05 | PM.OP.1 ---
Operative Date/Time/Diagnoses Date of procedure: 04/23/19 Time of procedure: 14:05 Pre-op diagnosis: Cholelithiasis cholecystitis chronic Post-op diagnosis: same Procedure & Clinicians Procedure: Laparoscopic cholecystectomy Same procedure as scheduled: Yes Indications: Patient with chronic intermittent upper abdominal pain and gallstones Surgeon: Aydin Mills Click Yes if Unassisted: Yes Anesthesia Type: General Operative Notes Findings: Very large gallbladder packed full of small stones Closure Type: primary Specimen(s): other (Gallbladder) Prosthetic devices, grafts, tissues, transplants, or devices: None Estimated Blood Loss (mL): 10 Blood products transfused: none Procedure in detail: The patient was placed supine on the operating room table and underwent general endotracheal anesthesia. The patient was prepped and draped in the usual fashion. Local anesthetic was infiltrated near the umbilicus and curvilinear incision made and carried down through fascia into the peritoneal cavity. Stay sutures of 0 Vicryl were placed in the fascia. A 12 mm port was placed. The abdomen was insufflated. The patient was repositioned. Local anesthetic was infiltrated in 3 areas under the right costal margin and 3 small incisions made followed by placing 3 5 mm ports under direct laparoscopic camera vision internally. The gallbladder was grasped and elevated. Dissection was begun near its end. There were adhesions of omentum to the surface that were taken down bluntly and with cautery. The into the gallbladder was identified. The cystic duct was from surrounding structures and 4 clips were placed across it was divided leaving 3 in the patient. There were other small structures that may have been vascular 1 of which had clips placed across it. The gallbladder was then dissected from its bed in the liver using cautery. There was no spillage of contents. It was detached and removed through the umbilical port with some difficulty due to the large number of stones. I had to scoop them out repeatedly in order to finally bring the gallbladder through the fascial incision. The port sites were all irrigated. The stay sutures at the umbilicus were elevated. A 2 0 PDS suture was placed between them. The Vicryl and PDS sutures were then tied. The skin in all areas was closed with interrupted 4 0 Vicryl subcuticular stitches. Steri-Strips and Mastisol were applied. Band-Aids were placed and the patient was awakened, extubated and taken to the recovery area in good condition. Complications: none Post-operative Condition: stable Disposition: PACU
[2019-04-23] MEDS: SCOPOLAMINE 1 PATCH TOP (14:12)
[2019-04-23] MEDS: KETOROLAC 30 MG/ML VIAL IV (14:31)
[2019-04-23] MEDS: PROCHLORPERAZINE 10 MG/2 ML VIAL IV (14:31)
--- NOTE | 2019-04-23 14:46 | SUR.PHASEII ---
Assumed care of pt, medicated with compazine for nausea and torodol for abdomenal/surgical pain. Pt's brother Reyes brought in, at bedside- supportive. D/C instructions discussed, voiced an understanding- has script for pain meds prefers to fill on way home.
--- NOTE | 2019-04-23 15:01 | SUR.PHASEII ---
Checked on opt, pain 0/10. Nausea resolved.
--- NOTE | 2019-04-23 15:11 | SUR.PHASEII ---
Sleeping, resp even and regular.
--- NOTE | 2019-04-23 16:07 | SUR.PHASEII ---
Pt assessed, denied pain denied nausea, Dr. Garduno called to check on pt, stated she was w/o symptoms. Pt sat on side of bed and had dry heaves and vomited 50mls green/yellow liquid, Dr Mills made aware and pt received orders to be admitted over night. Coordinator made aware, called RN called for report, report given and pt transported upstairs in stable condition.
--- NOTE | 2019-04-23 16:16 | SUR.PHASEII ---
Addendum,: Bandaids c/d/i except for umbilicus bandaid, still with scant amount of serosanguinous drainage.
[2019-04-23] MEDS: DEXTROSE 5%-0.45% NS 1,000 ML 100 ML IV (16:56)
[2019-04-23] MEDS: ZOLPIDEM 5 MG TABLET 10 MG PO (20:51)
--- NOTE | 2019-04-23 21:03 | PC.NURSE ---
TO Dr Mills give 10mg ambian PRN for sleep aid. Per pt request
--- NOTE | 2019-04-23 21:03 | PC.ADMIT ---
[email or web address] Admission Note:Pt arrived to unit without issues 1600. Pt alert and oriented. Pt having slight nausea and small amounts of clear/yellow emesis. Pt reports she is feeling much better after receiving zofran earlier. Pt able to transfer self to bed. SBA to restroom. Skin check completed with Juliana RN. The patient,Elif Sharp,58 y/o, was given written information regarding hospital policies, unit procedures and contact persons. Patient's smoking status: Never smoker. Vital Signs - 8 hr 04/23/19 13:18 04/23/19 13:33 04/23/19 13:48 Temperature 96.8 F L Pulse Rate 91 H 80 78 Respiratory Rate 18 12 14 Blood Pressure 128/87 135/82 127/88 Pulse Oximetry 97 98 95 04/23/19 14:03 04/23/19 14:18 04/23/19 14:29 Temperature 96.8 F L Pulse Rate 74 79 73 Respiratory Rate 15 17 15 Blood Pressure 119/76 113/76 114/65 Pulse Oximetry 98 99 100 04/23/19 15:40 04/23/19 16:31 04/23/19 19:49 Temperature 98.7 F 96.9 F L 97.1 F L Pulse Rate 77 79 77 Respiratory Rate 16 16 16 Blood Pressure 115/67 101/62 97/58 L Pulse Oximetry 99 97 96
[2019-04-24] VITALS: BP 99/56; PULSE 97; RESP 19; TEMP 37.1; O2SAT 97
[2019-04-24] MEDS: DEXTROSE 5%-0.45% NS 1,000 ML 100 ML IV (02:26)
[2019-04-24 04:25] VITALS: BP 89/56; PULSE 72; RESP 17; TEMP 37.2; O2SAT 97
[2019-04-24 05:42] VITALS: BP 110/66; PULSE 79
--- NOTE | 2019-04-24 05:45 | PC.NURSE ---
Addendum entered by Tunde Eduardo R.N. 04/24/19 05:48: Patient refused zofran, she stated I want to see how I feel after eating something. Original Note: Patient has been hypotensive this night, does complain of slight nausea, denies pain. Laproscopic sites are clean, dry and intact, bowel tones present and active. Patient is trying some applesauce at 0545, will monitor for worsening nausea.
[2019-04-24 05:47] LABS: Add Manual Diff / Slide Review NO; Basophils Absolute Auto 0 /uL (0-100); Basophils Percent Auto 0.3 % (0-2); Eosinophils Absolute Auto 0 /uL (0-450); Eosinophils Percent Auto 0.4 % (2-4); Hematocrit 32.9 % (36-46); Lymphocytes Absolute Auto 2700 /uL (1100-4500); Lymphocytes Percent Auto 21.9 % (25-40); Mean Corpuscular HGB Conc 33.4 % (30-36); Mean Corpuscular Hemoglobin 30.9 PG (26-34); Mean Corpuscular Volume 92.4 fL (80-100); Monocytes Absolute Auto 900 /uL (0-900); Neutrophils Absolute Auto 8700 /uL (1500-7000); Neutrophils Percent Auto 70.4 % (50-75); Platelet Count 248 X10^3/uL (150-400); Red Blood Cell Count 3.56 X10^6/uL (4.0-5.2); Red Cell Distribution Width 13.2 % (11.6-14.8); White Blood Cell Count 12.4 X10^3/uL (4.5-11.0)
[2019-04-24 05:51] LABS: Alanine Aminotransferase 85 IU/L (<35); Albumin 3.5 g/dL (3.5-5.0); Albumin Globulin Ratio 1.5 (1.0-2.8); Alkaline Phosphatase 58 U/L (38-126); Aspartate Aminotransferase 99 IU/L (14-36); BUN Creatinine Ratio 18.6 (6-22); Bilirubin Total 0.4 mg/dL (0.2-1.3); Blood Urea Nitrogen 13 mg/dL (7-17); Calcium 8.8 mg/dL (8.4-10.2); Carbon Dioxide 28 mmol/L (22-32); Chloride 106 mmol/L (98-107); Estimated Glomerular Filt Rate > 60.0 mL/min (>60); Globulin 2.4 g/dL (1.7-4.1); Glucose 100 mg/dL (70-100); HEMOLYSIS < 15 (0-50); Potassium 4.2 mmol/L (3.4-5.1); Sodium 140 mmol/L (137-145); Total Protein 5.9 g/dL (6.3-8.2)
[2019-04-24] MEDS: ONDANSETRON 4 MG/2 ML INJ IV (09:15)
[2019-04-24] MEDS: ACETAMINOPHEN 325 MG TABLET 650 MG PO (09:15)
[2019-04-24] MEDS: GABAPENTIN 300 MG CAPSULE PO (09:15)
[2019-04-24] MEDS: ENOXAPARIN 40 MG/0.4 ML SYRINGE SUBCUT (09:16)
[2019-04-24 09:45] VITALS: BP 110/71; PULSE 61; RESP 16; TEMP 36.4; O2SAT 99
--- NOTE | 2019-04-24 10:40 | PC.NURSE ---
Addendum entered by Sandra Buchanan R.N. 04/24/19 14:23: GI/DC - Dr. Mills called and he placed a discharge order, pt had filled a script yesterday, after lunch tolerated, her port cath was deaccessed per protocol, declined any pain medication, reviewed the discharge paperwork, all belongings gathered, including cell phone, battery charger, clothing, pt preferred to ambul to her brother's car and accompanied by ux architect. Original Note: AM NOTE - pt is alert, standby assist to br w/void, tsf to chair for breakfast, started with fluids, hot cereal, did experience some underlying nausea after breakfast, given 4mg iv zofran, also after meal up to br w/medium formed stool, discussed pain mgt and pt preferred to start with mild relievers and given gabapentin and 650 po tylenol after meal and zofran, bandaids x4 cdi.
--- NOTE | 2019-04-24 10:58 | CM.DANOTE ---
DCP: Case received, EMR reviewed and met with patient. Introduced self and role. Was able to meet with patient and obtain baseline history and activity information. DCP assessment completed with information currently available. Patient is a 58 year old female who admitted yesterday morning to the care of the surgical team. PCP: Dr. Muñoz. Payer: confirmed: BS Out of [facility]. Patient came to the hospital for a surgical secondary to cholecystitis. She had a lap. cholecystectomy done. Patient has history of gallbladder disease, as well as cancer, but is not on chemo as of yet. Met with patient in her room. She was sitting up in her chair next to her bed. She is alert and oriented, independent. She resides in [place] alone, but has a brother, Reyes, who lives nearby. She has support of family to help her out if needed. P: DCP to continue to follow. She should be able to go home when she is medically stable. Lizette Pham RN/[employer]
== END 2019-04-24 13:00 | disposition home or self-care (01) ==
LOC: OR 14:12 → AC 04-24 10:23
PROVIDERS: Admitting Provider Specialist; Family Provider Naturopath; PCP Naturopath; Visit Provider Specialist
PROC: 0FT44ZZ Resection of Gallbladder, Percutaneous Endoscopic Approach (ICD-10-PCS; CPT 47562; principal; 2019-04-23 10:15)
DX: K80.10 Calculus of gallbladder with chronic cholecystitis without obstruction (principal); C50.912 Malignant neoplasm of unspecified site of left female breast; E78.5 Hyperlipidemia, unspecified; G43.909 Migraine, unspecified, not intractable, without status migrainosus
CPT/HCPCS: 47562; 36415; 80053; 85025; G0378; J0690; J0780; J1100; J1642; J1650; J1885; J2250; J2405; J2704; J3010

== ENCOUNTER → 2019-04-27 14:40 | Outpatient (CLI) | payer BC, SELFPAY ==
[2019-04-23 16:57] VITALS: BMI 21.3
--- NOTE | 2019-04-27 14:42 | DI.US.S_ITS ---
LIMITED ULTRASOUND OF RIGHT BREAST: 04/27/2019 CLINICAL: Abnormal MRI. Comparison is made to exams dated: 03/28/2019 breast MRI, 02/07/2019 ultrasound biopsy, 01/05/2019 ultrasound, 01/05/2019 [facility], 12/10/2016 ultrasound, and 01/05/2016 ultrasound - [facility]. Color flow ultrasound of the right breast lower aspect was performed. Emerson scale images of the real-time examination were reviewed. Targeted ultrasound of the inferior right breast was performed. There is a partially imaged postoperative fluid collection of the inferior right breast with heterogenously echogenic internal debris and fluid. There is no ultrasound correlate for the suspicious 9 mm enhancing mass abutting the anterior right chest wall at posterior depth at the 6:00 position of the right breast and approximately 2 cm caudal to the inferior margin of the postoperative fluid collection from patient's resected right breast cancer. IMPRESSION: SUSPICIOUS OF MALIGNANCY No ultrasound correlate for the suspicious 9 mm enhancing mass abutting the anterior right chest wall at posterior depth at the 6:00 position of the right breast and approximately 2 cm caudal to the inferior margin of the postoperative fluid collection from patient's resected right breast cancer. While an MRI-guided biopsy would normally be recommended given the lack of an ultrasound correlate, the posterior location of this mass on MRI at posterior depth abutting the chest wall makes this mass likely not amenable to/feasible for MRI-guided biopsy. Recommend clinical follow-up with the patient's surgical and oncology team for possible surgical intervention. Consider follow-up breast MRI to demonstrate stability. These results and recommendations were discussed with the patient at the time of the exam by Dr. Silva by telephone. This exam was interpreted at Station ID: [id number]. Electronically Signed By: Barron Silva M.D. ecl/:04/27/2019 15:27:40 copy to: SKINNY STEINBERG copy to: MARYBETH WEL[place], [facility], ph: [phone], fax: [phone] letter sent: Biopsy Required Ultrasound BI-RADS: 4c High suspicion of malignancy
== END ==
PROVIDERS: Family Provider Naturopath; PCP Naturopath; Visit Provider Internal Medicine Hematology & Oncology
DX: R92.8 Other abnormal and inconclusive findings on diagnostic imaging of breast (principal); C50.911 Malignant neoplasm of unspecified site of right female breast; C50.912 Malignant neoplasm of unspecified site of left female breast
CPT/HCPCS: 76642

== ENCOUNTER → 2019-05-17 15:54 | Outpatient (CLI) | payer BC, SELFPAY ==
[2019-04-23 16:57] VITALS: BMI 21.3
--- NOTE | 2019-05-17 16:24 | DI.CT.S_ITS ---
PROCEDURE: CT ABDOMEN PELVIS W CON INDICATIONS: Rule out bile leak or other postoperative pathology TECHNIQUE: After the administration of oral and intravenous contrast, 5 mm thick sections acquired from the diaphragms to the symphysis. 5 mm thick coronal and sagittal reformats were performed. For radiation dose reduction, the following was used: automated exposure control, adjustment of mA and/or kV according to patient size. COMPARISON: None. FINDINGS: Image quality: Excellent. ABDOMEN: Lung bases: Lung bases are clear. Heart size is normal. Solid organs: Liver is normal in size and enhancement. Gallbladder has been surgically removed. Minimal amount of fluid within the gallbladder fossa. No organized fluid collection/abscess. No free air. Expected postoperative changes from laparoscopic cholecystectomy. Biliary system is non-dilated. Pancreas enhances normally. Spleen is normal in size and enhancement. No adrenal nodules. Kidneys are normal in size and enhancement, without hydronephrosis. Tiny subcentimeter renal hypodensities are too small to characterize but likely represent cysts. Peritoneum and bowel: Stomach, small bowel, and colon loops are normal in caliber and wall thickness. No free fluid or air. Normal appendix. Nonobstructed bowel gas pattern. Nodes and vessels: No retroperitoneal or mesenteric adenopathy. Aorta and inferior vena cava are normal in caliber. Miscellaneous: No ventral hernias. Expected postsurgical changes of laparoscopic cholecystectomy. No evidence for organized fluid collection or postoperative fluid collection. PELVIS: Genitourinary: Bladder wall thickness is normal. Miscellaneous: No inguinal hernias or adenopathy. Bones: No suspicious bony lesions. No vertebral body compression fractures. IMPRESSION: Expected postoperative changes from cholecystectomy. No evidence for organized fluid collection/abscess or free air. Otherwise, no acute abnormalities identified in the abdomen or pelvis. Findings were discussed with Dr. Mills at 1845hrs Dictated by: Cong Tilley M.D. on 05/17/2019 at 18:45 Approved by: Cong Tilley M.D. on 05/17/2019 at 18:50
[2019-05-17 16:30] LABS: Add Manual Diff / Slide Review NO; Basophils Absolute Auto 0 /uL (0-100); Basophils Percent Auto 0.6 % (0-2); Eosinophils Absolute Auto 100 /uL (0-450); Eosinophils Percent Auto 1.4 % (2-4); Hematocrit 37.4 % (36-46); Hemoglobin 12.8 g/dL (12.0-16.0); Lymphocytes Absolute Auto 2100 /uL (1100-4500); Lymphocytes Percent Auto 31.1 % (25-40); Mean Corpuscular HGB Conc 34.2 % (30-36); Mean Corpuscular Hemoglobin 31.2 PG (26-34); Mean Corpuscular Volume 91.2 fL (80-100); Monocytes Absolute Auto 400 /uL (0-900); Monocytes Percent Auto 5.5 % (3-14); Neutrophils Absolute Auto 4200 /uL (1500-7000); Neutrophils Percent Auto 61.4 % (50-75); Platelet Count 302 X10^3/uL (150-400); White Blood Cell Count 6.8 X10^3/uL (4.5-11.0)
[2019-05-17 16:41] LABS: Alanine Aminotransferase 24 IU/L (<35); Albumin 4.9 g/dL (3.5-5.0); Albumin Globulin Ratio 1.6 (1.0-2.8); Alkaline Phosphatase 62 U/L (38-126); Aspartate Aminotransferase 28 IU/L (14-36); BUN Creatinine Ratio 21.4 (6-22); Bilirubin Total 0.2 mg/dL (0.2-1.3); Blood Urea Nitrogen 15 mg/dL (7-17); Carbon Dioxide 24 mmol/L (22-32); Chloride 104 mmol/L (98-107); Estimated Glomerular Filt Rate > 60.0 mL/min (>60); Globulin 3.1 g/dL (1.7-4.1); Glucose 119 mg/dL (70-100); HEMOLYSIS < 15 (0-50); Potassium 3.5 mmol/L (3.4-5.1); Sodium 140 mmol/L (137-145)
== END ==
PROVIDERS: Family Provider Naturopath; PCP Naturopath; Visit Provider Specialist
DX: R11.0 Nausea (principal); G89.18 Other acute postprocedural pain; Z87.19 Personal history of other diseases of the digestive system; Z98.890 Other specified postprocedural states; Z90.49 Acquired absence of other specified parts of digestive tract
CPT/HCPCS: 36415; 74177; 80053; 85025

== ENCOUNTER → 2019-07-03 10:52 | Outpatient (CLI) | payer BC, SELFPAY ==
[2019-04-23 16:57] VITALS: BMI 21.3
--- NOTE | 2019-07-03 11:02 | DIET.PN ---
Dietary Progress Note Assessment: 59y F here to help support weight maintenance during chemotherapy treatment, has completed 2 of 6 this round. Pt had gallbladder out early 05/10, had many gall stones, still having some residual nausea in addition to chemo every three weeks, has Mondays- tue thru tuesday feeling major effects- diarrhea, takes immodium, N/V, gradually tapers off, and medication can control sx mostly from there. HT: 5'3 WT: 117-124# BMI: 21 2011 first round of chemo went up to 177#, had fatty liver, lost 30# with keto diet, then plateaued. dropped 23# in one month after, 117-124# now during chemo, does not want to go lower than this and ultimately settle bw 120-130# Usual Intake: Can tolerate a little fruit- berries, granny hernandez apples, mandarin oranges, a little melon or pineapple either smoothie or yogurt starchy vegetables- new potatoes, sweet potato, spaghetti squash, zucchini little meat/fish- organic grass fed ground beef as taco or burger gianni, spaghetti sauce, salmon patties unsweetened goat milk yogurt cheerios c unsweetened almond milk chickpea noodles PRO jello fluids: green tea, eliseo tea, bedtime tea, almond milk, V8 juice, water, black kee juice Nutrition Diagnosis: unintended wt loss r/t chemo side effects of N/V/D aeb pt on cyclic chemo where appetite <25% EER for 4-7d at a time, pt BMI 21. Interventions: To support weight maintenance, pt will increase healthy fats, protein and complex carbs in diet around the 1w when N/V/D are the worst and focus on electrolyte intake during worst sx. 1. Gave pt resource on good sources of fat/pro, went over in depth and problem solved areas of concern c pt. 2. Gave pt recipe for healing soup with elements to support healthy cell growth including Pro/zinc/vit A/vit C. Monitoring/Evaluations: pt will schedule f/u if weight drops or has questions.
== END ==
PROVIDERS: Family Provider Naturopath; PCP Naturopath; Referring Provider Naturopath; Visit Provider Naturopath
DX: R63.4 Abnormal weight loss (principal); C50.912 Malignant neoplasm of unspecified site of left female breast; R11.2 Nausea with vomiting, unspecified; R19.7 Diarrhea, unspecified; Z71.3 Dietary counseling and surveillance; Z68.21 Body mass index [BMI] 21.0-21.9, adult
CPT/HCPCS: 97802

== ENCOUNTER → 2019-07-26 06:31 | Outpatient (CLI) | payer BC, SELFPAY ==
[2019-04-23 16:57] VITALS: BMI 21.3
--- NOTE | 2019-07-26 06:32 | DI.ECHO.S_ITS ---
[facility]---------+ [facility] +---------+ : : [address] [place] : : : : [id number] : : : : Phone: [phone]---------+ Echocardiogram Report + + :Name: JOHNNIE GARZON Study Date: 07/26/2019 Height: 63 in : :[facility] Weight: 121 lb : : Gender: Female BSA: 1.6 m2 : :: 1960 Age: 59 yrs BP: 122/80 mmHg: :Reason For Study: Herceptin and Perjeta, Breast Cancer : : Performed By: Oneida Lopez : :Referring: RAMY CHOWDHURY : + + Interpretation Summary The left ventricle is normal in size and wall thickness. The ejection fraction is estimated to be 55-60%. There has been no significant change in LV EF since the previous study. Global longitudinal peak systolic strain average of -18.6% The right ventricle is normal in size and function. There is mild mitral valve prolapse. There is prolapse of the posterior mitral valve leaflet. There is mild mitral regurgitation. Compared to the prior echo study, there has been no change in the severity of mitral regurgitation. The IVC is of normal diameter and collapses greater than 50% with a sniff. This suggests a low right atrial pressure of 3 mm Hg. Procedure: A two-dimensional transthoracic echocardiogram with color flow and Doppler was performed. The study quality was technically adequate. Comparison is made with the echocardiogram of 03/28/2019. The patient was in normal sinus rhythm during the exam. Left Ventricle: The left ventricle is normal in size and wall thickness. There is no thrombus. The ejection fraction is estimated to be 55-60%. There has been no significant change since the previous study. Global longitudinal peak systolic strain average of -18.6%. Left ventricular wall motion is normal. Diastolic parameters suggest a relaxation abnormality of the left ventricle, consistent with probable normal filling pressures. Right Ventricle: The right ventricle is normal in size and function. Atria: Both atria are normal in size. Both atria have remained unchanged in size since the prior echo exam. There is no Doppler evidence for an interatrial shunt. Mitral Valve: The mitral valve leaflets appear mildly thickened, but open well. There is mild mitral valve prolapse. There is prolapse of the posterior mitral valve leaflet. There is mild mitral regurgitation. Compared to the prior echo study, there has been no change in the severity of mitral regurgitation. Aortic Valve: The aortic valve is trileaflet. The aortic valve opens well. There is no aortic valve stenosis. No aortic regurgitation is present. Tricuspid Valve: The tricuspid valve is normal in structure and function. Pulmonary artery pressures cannot be estimated because of the lack of a measurable TR jet velocity but the IVC suggests a CVP of around 3 mmHg. There is a trace or physiologic amount of tricuspid regurgitation. Pulmonic Valve: The pulmonic valve is normal in structure and function. There is a trace or physiologic amount of pulmonic regurgitation. Great Vessels: The aortic root is normal size. The ascending aorta is normal in size. The IVC is of normal diameter and collapses greater than 50% with a sniff. This suggests a low right atrial pressure of 3 mm Hg. Pericardium/ Pleura There is no pericardial effusion. There is no pleural effusion. MMode/2D Measurements & Calculations LVIDd: 4.5 cm LVOT diam: 2.0 cm LVIDs: 3.0 cm Ao root diam: 2.4 cm FS: 32.5 % asc Aorta Diam: 2.4 cm EPSS: 0.44 cm Ao Arch Diam (Prox Trans): 2.6 cm IVSd: 0.70 cm LVPWd: 0.75 cm LV serna. diameter/BSA (cm/m^2): 2.9 LV sys. diameter/BSA (cm/m^2): 1.9 LA A2 area: 14.5 cm2 RA long axis: 3.7 cm LA A4 area: 11.3 cm2 RA area: 10.3 cm2 LA length (vol): 4.1 cm RA vol: 24.6 ml LA vol: 33.5 ml RA : 15.8 ml/m2 LA vol index: 21.5 ml/m2 IVC diam: 1.8 cm RVD1 (basal): 3.1 cm TAPSE: 2.2 cm Doppler Measurements & Calculations Ao V2 max: 125.7 cm/sec LVOT Max Landon: 99.3 cm/sec Ao V2 mean: 79.4 cm/sec LV V1 max P.9 mmHg Ao max P.3 mmHg LV V1 VTI: 19.3 cm Ao mean P.0 mmHg JOSE MANUEL(I,D): 2.6 cm2 Ao V2 VTI: 23.6 cm JOSE MANUEL(V,D): 2.5 cm2 sev ratio: 0.82 JOSE MANUEL indexed to BSA (cm^2/m^2): 1.6 MV E max landon: 68.6 cm/sec PA V2 max: 74.3 cm/sec MV A max landon: 72.9 cm/sec PA V2 mean: 54.9 cm/sec MV E/A: 0.94 PA mean P.3 mmHg Med Peak E' Landon: 7.0 cm/sec PA Accel Time: 0.16 sec E/E' med: 9.7 Lat Peak E' Landon: 7.8 cm/sec E/E' lat: 8.8 E/e' average: 9.3 MV dec time: 0.17 sec MV P1/2t: 49.5 msec MV P1/2t max landon: 69.4 cm/sec SV(LVOT): 60.4 ml MVA(P1/2t): 4.4 cm2 Reading Physician:12:43 PM
== END ==
PROVIDERS: Family Provider Naturopath; PCP Naturopath; Referring Provider Internal Medicine Hematology & Oncology; Visit Provider Internal Medicine Hematology & Oncology
DX: I34.0 Nonrheumatic mitral (valve) insufficiency (principal); I34.1 Nonrheumatic mitral (valve) prolapse; C50.912 Malignant neoplasm of unspecified site of left female breast
CPT/HCPCS: 93306

== ENCOUNTER 2019-08-05 10:35 | Emergency (ER) | payer BC, SELFPAY ==
[2019-04-23 16:57] VITALS: BMI 21.3
[2019-08-05 10:36] VITALS: BP 115/74; PULSE 118; RESP 20; TEMP 36.9; O2SAT 100
--- NOTE | 2019-08-05 10:41 | DI.RAD.S_ITS ---
PROCEDURE: XR CHEST 1V INDICATIONS: chest pain TECHNIQUE: One view of the chest was acquired. COMPARISON: [facility], CR, XR CHEST 1V, 04/02/2019, 18:08. FINDINGS: Surgical changes and devices: A stable right-sided chest port is seen. Cholecystectomy clips are seen. Lungs and pleura: Lungs are clear. No pleural effusions or pneumothorax. Mediastinum: Mediastinal contours appear normal. Heart size is normal. Bones and chest wall: No suspicious bony lesions. S-shaped scoliotic curvature is seen. Age-appropriate bony degenerative changes are seen. Overlying soft tissues appear unremarkable. IMPRESSION: Clear lungs. Dictated by: Moses Sal M.D. on 08/05/2019 at 10:18 Approved by: Moses Sal M.D. on 08/05/2019 at 10:19
[2019-08-05] MEDS: ONDANSETRON 4 MG/2 ML INJ 8 MG IV (11:07)
[2019-08-05] MEDS: SODIUM CHLORIDE 0.9% 1,000 ML 1000 ML IV ×3 (11:07→13:45)
--- NOTE | 2019-08-05 11:10 | ED_ITS ---
HPI - Syncope General Chief Complaint: Syncope Stated Complaint: Dizziness Time Seen by Provider: 08/05/19 10:54 Source: patient Mode of arrival: Ambulatory Limitations: no limitations History of Present Illness HPI narrative: HPI: The patient is a 59-year-old female who today states that she has a difficult time staying upright and walking without becoming dizzy and lightheaded. She reports being dehydrated. She has a history of breast cancer that is metastatic to her left axilla and chest wall. Her breast cancer was located on the right side. The patient states that she received her 4th chemotherapy last Tuesday. Six days ago. She stated on Tuesday she received Neupogen. She denies any knowledge of her breast cancer being metastatic to her liver spinal column or brain. She denies any headache. However with her syncopal attack she did fall and strike her head when woke up leaning against the wall. She denies any significant headache any seizure or history of seizures she denies any nasal drainage sinus congestion sore throat cough chest pain but has had palpitations for the last 2 days arm especially when standing up and walking. She has also been dizzy and lightheaded over the last 2 days. She has been short of breath. She has had nausea but no vomiting and she has had continuous intermittent diarrhea without melena or hematochezia. She denies any urinary symptomatology. She denies a history of diabetes mellitus hypertension seizure disorder stroke myocardial infarction. She states that as a youth she did have bronchial asthma. She does not smoke cigarettes or drink alcohol. 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 Related Data Home Medications Medication Instructions Recorded Confirmed yhyevoxxne-ldgvpan-[id number] 50 1 cap PO PRN PRN 09/25/18 07/30/19 mg-325 mg-40 mg capsule cholecalciferol (vitamin D3) 25 1,000 unit PO DAILY 09/25/18 07/30/19 mcg (1,000 unit) capsule vitamin K2 40 mcg tablet 300 mcg PO DAILY 09/25/18 07/30/19 lorazepam 0.5 mg PRN PRN 02/26/19 07/30/19 Previous Rx's Medication Instructions Recorded lidocaine HCl [Aspercreme 1 applic TOPICAL BID #1 unit 05/24/19 (lidocaine)] promethazine 25 mg PO Q6H PRN #60 tab 01/02/20 lidocaine-prilocaine 1 applic TOPICAL PRN PRN #30 gram 05/28/19 dexamethasone [Decadron] 8 mg PO BID #72 tab 05/31/19 mirtazapine 15 mg PO DAILY #30 tab 06/07/19 prochlorperazine maleate 10 mg PO Q6H PRN #90 tab 06/07/19 [Compazine] metoprolol succinate 25 mg PO DAILY #20 each 08/05/19 Allergies Allergy/AdvReac Type Severity Reaction Status Date / Time No Known Drug Allergies Allergy Verified 08/05/19 10:44 Review of Systems Review of Systems Narrative: Review of systems are all negative except for those mentioned above history of present illness. Patient History Medical History Breast cancer, left (Acute ~2018) Breast cancer, right (Acute ~2010) Gallstone (Acute) Hyperlipidemia (Acute) Migraine (Acute) Osteoporosis (Acute) Scoliosis (Acute) Surgical History H/O hemorrhoidectomy (Resolved) H/O hemorrhoidectomy (Acute) H/O rhinoplasty (Resolved) History of lumpectomy of right breast (Acute) Family History Brother Heart disease, hypertensive, benign Hypertension Mother Breast cancer Gallstones Stroke Social History household members: spouse and none occupational status: previously employed Smoking Status: Never smoker alcohol intake: never substance use type: does not use and other (Indica oil for sleeps.) Smoking Status: Never smoker alcohol intake frequency: 0-2 drinks per day Substance Use Type: does not use Exam Narrative Exam Narrative: PHYSICAL EXAM: CONSTITUTIONAL: Awake, Alert, Oriented, Coherent, Cooperative in NAD. The patient has alopecia secondary to her chemotherapy and appears pale with a monitor revealing a sinus tachycardia up to 120 beats per minute. When the patient sat up during her exam she was dizzy and lightheaded. HEAD: AT/NC EENT: PERRL, FROM of eyes, no discharge, No epistaxis or nasal drainage Oral mucosa is moist and pink, posterior pharynx is without erythema or exudate. NECK: Supple, no obvious JVD, Trachea is midline without stridor, no palpable LN or masses. SPINE: No gross deformity, no palpable tenderness of the cervical, thoracic, lumbar or sacral spine. No CVA tenderness. THORAX: No deformity, retractions, chest wall tenderness, the patient has an IV access port in her right chest. LUNGS: Clear with symmetrical breath sounds without respiratory distress HEART: Normal heart tones, regular rhythm tachycardic without murmur ABDOMEN: Soft, non-tender, normal bowel sounds without guarding, rebound, rigidity or palpable mass EXTREMITIES: No edema, cyanosis, deformity or tenderness. SKIN: No rash, bruising, petechiae or purpura. NEURO: Awake, alert, oriented, conversive, cranial nerves II-XII are symmetrical and normal, moves all 4 extremities and is ambulatory Initial Vital Signs Initial Vital Signs: Vital Signs Temperature 98.4 F 08/05/19 10:36 Pulse Rate 118 H 08/05/19 10:36 Respiratory Rate 20 08/05/19 10:36 Blood Pressure 115/74 08/05/19 10:36 Pulse Oximetry 100 08/05/19 10:36 Course Course Course Narrative: [address] Echols the oncologist on-call for Dr. De Jesus who agreed with the plan of therapy. The patient will be hydrated and discharged home to follow-up with Dr. De Jesus the patient may need to be seen in follow-up by Cardiology and have a repeat echocardiogram or even a Holter monitor. At this time I am unaware of the patient's chemotherapeutic regimen in whether not it has a cardiac affect. Her heart rate seems to have improved significantly and slow down with IV fluid hydration. 1342 the patient states that she receives carboplatnum as part of her c hemotherapy. She states that a week ago to 10 days she had an echocardiogram performed and no reported pathology. The patient feels much better after 2 L of fluid and her heart rate has slowed to 100 or 105. She will be administered 1/3 L of fluid after which she will be ambulated. If she continues to have mild tachycardia she will be placed on a low dose of beta-aguilar metoprolol 25 mg as suggested in case the patient is developing SVT which caused her to pass out as result of her chemotherapeutic affects on her conduction system of the heart. 1452 despite 3 L of fluid the patient's heart rate runs from 99-105. She ambulated to the bathroom without difficulty or dizziness. The patient will be discharged to follow-up with Dr. De Jesus. She will be placed on low-dose metoprolol 25 mg q.day. Orders Ordered: ED Orders 08/05/19 10:41 XR chest 1V Stat EKG-12 Lead Stat 08/05/19 11:21 Complete Blood Count AUTO DIFF Stat Comprehensive Metabolic Panel Stat Lipase Stat Magnesium Stat Partial Thromboplastin Time Stat Prothrombin Time INR Stat Troponin & CK Cardiac Panel Stat Discontinued Medications Heparin Sodium (Porcine) (Heparin Flush (Port)) 500 unit IV PRN PRN PRN Reason: Flush Last Admin: 08/05/19 15:10 Dose: 500 unit Documented by: CHU Sodium Chloride (Normal Saline 0.9%) 1,000 mls @ 1,000 mls/hr IV BOLUS ONE Stop: 08/05/19 11:40 Last Infusion: 08/05/19 12:26 Dose: 0 mls/hr Documented by: Admin: 08/05/19 11:07 Dose: 1,000 mls/hr Documented by: CHU Sodium Chloride (Normal Saline 0.9%) 1,000 mls @ 1,000 mls/hr IV BOLUS ONE Stop: 08/05/19 13:15 Last Infusion: 08/05/19 13:39 Dose: 0 mls/hr Documented by: Admin: 08/05/19 12:33 Dose: 1,000 mls/hr Documented by: CHU Sodium Chloride (Normal Saline 0.9%) 1,000 mls @ 1,000 mls/hr IV BOLUS ONE Stop: 08/05/19 14:41 Last Infusion: 08/05/19 14:52 Dose: 0 mls/hr Documented by: Admin: 08/05/19 13:45 Dose: 1,000 mls/hr Documented by: MARIAH Metoprolol Succinate (Toprol Xl) 25 mg PO NOW ONE Stop: 08/05/19 14:54 Last Admin: 08/05/19 15:02 Dose: 25 mg Documented by: CHU Ondansetron HCl (Zofran) 8 mg IV NOW ONE Stop: 08/05/19 10:42 Last Admin: 08/05/19 11:07 Dose: 8 mg Documented by: RSTONE Vital Signs Vital signs: Vital Signs - 8 hr 08/05/19 10:36 08/05/19 12:15 08/05/19 13:00 Temperature 98.4 F Pulse Rate 118 H 105 H 103 H Pulse Rate [Orthostatic Lying] Pulse Rate [Orthostatic Sitting] Pulse Rate [Orthostatic Standing] Respiratory Rate 20 19 13 Blood Pressure 115/74 Blood Pressure [Orthostatic Lying] Blood Pressure [Orthostatic Sitting] Blood Pressure [Orthostatic Standing] Blood Pressure [Right Arm] 120/75 108/71 Pulse Oximetry 100 98 99 08/05/19 14:24 08/05/19 15:02 08/05/19 15:11 Temperature Pulse Rate 105 H 108 H Pulse Rate [Orthostatic Lying] 72 Pulse Rate [Orthostatic Sitting] 112 H Pulse Rate [Orthostatic Standing] 111 H Respiratory Rate 16 Blood Pressure 107/66 Blood Pressure [Orthostatic Lying] 98/57 L Blood Pressure [Orthostatic Sitting] 102/64 Blood Pressure [Orthostatic Standing] 134/99 H Blood Pressure [Right Arm] 116/74 Pulse Oximetry 98 MDM - Syncope Medical Records Attestation: I reviewed the patient's medical records. Lab Data Attestation: I reviewed the patient's lab results. Result diagrams: 08/05/19 11:21 08/05/19 11:21 Labs: Lab Results 08/05/19 08/05/19 08/05/19 Range/Units 11:21 11:21 11:21 WBC 4.8 (4.5-11.0) X10^3/uL RBC 3.25 L (4.0-5.2) X10^6/uL Hgb 10.5 L (12.0-16.0) g/dL Hct 30.5 L (36-46) % MCV 93.9 (80-100) fL MCH 32.4 (26-34) PG MCHC 34.5 (30-36) % RDW 16.5 H (11.6-14.8) % Plt Count 76 L (150-400) X10^3/uL Neut % (Auto) Not Reportable Lymph % (Auto) Not Reportable [place] % (Auto) Not Reportable Eos % (Auto) Not Reportable Baso % (Auto) Not Reportable Lymph # (Auto) Not Reportable [place] # (Auto) Not Reportable Baso # (Auto) Not Reportable Total Counted 100 Seg Neutrophils % 73.0 H (38-70) % Band Neutrophils % 4.0 (3-7) % Lymphocytes % (Manual) 17.0 L (25-45) % Monocytes % (Manual) 3.0 (2-11) % Eosinophils % (Manual) 1.0 L (2-4) % Basophils % (Manual) 1.0 (0-1) % Metamyelocytes % 1.0 H (-0) % Neutrophils # (Manual) 3696 ([id number]) /uL Platelet Estimate Decreased on smear RBC Morphology Normal morphology PT 12.1 (10.1-12.7) SECONDS INR 1.0 (0.9-1.3) APTT 27 (26.4-36.2) SECONDS Sodium 137 (137-145) mmol/L Potassium 3.2 L (3.4-5.1) mmol/L Chloride 99 (98-107) mmol/L Carbon Dioxide 29 (22-32) mmol/L BUN 16 (7-17) mg/dL Creatinine 0.59 (0.52-1.04) mg/dL Estimated GFR > 60.0 (>60) mL/min BUN/Creatinine Ratio 27.1 H (6-22) Glucose 108 H (70-100) mg/dL Calcium 9.5 (8.4-10.2) mg/dL Magnesium 1.6 (1.6-2.3) mg/dL Total Bilirubin 0.5 (0.2-1.3) mg/dL AST 35 (14-36) IU/L ALT 60 H (<35) IU/L Alkaline Phosphatase 102 (38-126) U/L Total Creatine Kinase 32 (30-135) U/L CK-MB (CK-2) TNP CK-MB (CK-2) Rel Index TNP Troponin I < 0.012 (0.01-0.034) ng/mL Total Protein 7.5 (6.3-8.2) g/dL Albumin 4.5 (3.5-5.0) g/dL Globulin 3.0 (1.7-4.1) g/dL Albumin/Globulin Ratio 1.5 (1.0-2.8) Lipase 29 (23-300) U/L ECG Data Attestation: I personally reviewed and interpreted this ECG as follows: Interpretation: The patient's EKG obtained on August 04 at 10:5 5:46 a.m. reveals a sinus tachycardia at 107. The MO interval is a borderline first- degree block with a length of 200 milliseconds. QTC is borderline at 459 milliseconds. [place] is normal. T-waves are inverted in lead III and V 1. The patient has nonspecific slight ST segment elevation in lead V2 and V3. T-waves appear to be inverted in lead V2. There are no other acute diagnostic ST seg ment changes. Discharge Plan Departure Patient Disposition: Home Clinical Impression: Dizziness, Sinus tachycardia Breast cancer Qualifiers: Breast location: unspecified site of breast Estrogen receptor status: positive Patient sex: female Laterality: right Qualified Code(s): C50.911 - Malignant neoplasm of unspecified site of right female breast Syncope Qualifiers: Syncope type: unspecified Qualified Code(s): R55 - Syncope and collapse Discharge Date/Time: 08/05/19 15:41 Instructions: DI for Syncope in Adults (Fainting), DI for Dehydration -- Adult, DI for Tachycardia Activity Restrictions/Additional Instructions: 1. Follow-up with your oncologist Dr. De Jesus. You may need to have a repeat echocardiogram and or possible Holter monitor. 2. You have been rehydrated with 3 L of fluid. Prior to getting up your heart rate had slowed down with the fluid to 90-94. However, when you are up walking her heart rate increased to 113. We are going to prescribe Metoprolol ER 25mg per day 3. If you become dizzy, lightheaded, pass out again or developed fever shortness of breath or chest pain you need to proceed to the nearest emergency department to be re-evaluated. Prescriptions: New metoprolol succinate 25 mg capsule,sprinkle,ER 24hr 25 mg PO DAILY Qty: 20 RF: 0 No Action [id number]-[id number] [Fiorinal] 50-325-40 mg capsule 1 cap PO PRN PRN (Reason: Migraine Headache) RF: 0 cholecalciferol (vitamin D3) 1,000 unit capsule 1,000 unit PO DAILY RF: 0 vitamin K2 40 mcg tablet 300 mcg PO DAILY RF: 0 lorazepam 0.5 mg Tablet 0.5 mg PRN PRN (Reason: Anxiety) RF: 0 promethazine 25 mg Tablet 25 mg PO Q6H PRN (Reason: Nausea) Qty: 60 RF: 0 lidocaine HCl [Aspercreme (lidocaine)] 4 % Cream 1 applic TOPICAL BID Qty: 1 RF: 2 lidocaine-prilocaine 2.5-2.5 % Cream 1 applic topical PRN PRN (Reason: PAIN) Qty: 30 RF: 0 dexamethasone [Decadron] 4 mg Tablet 8 mg PO BID Qty: 72 RF: 0 mirtazapine 15 mg Tablet,Disintegrating 15 mg PO DAILY Qty: 30 RF: 2 prochlorperazine maleate [Compazine] 10 mg Tablet 10 mg PO Q6H PRN (Reason: nauseas and vomiting) Qty: 90 RF: 0 Referrals: Lily Muñoz ND [Primary Care Provider] -
[2019-08-05 11:34] LABS: Hemoglobin 10.5 g/dL (12.0-16.0); White Blood Cell Count 4.8 X10^3/uL (4.5-11.0)
[2019-08-05 11:36] LABS: Prothrombin Time 12.1 SECONDS (10.1-12.7)
[2019-08-05 11:39] LABS: PTT Partial Thromboplastin Tim 27 SECONDS (26.4-36.2)
[2019-08-05 11:40] LABS: Albumin 4.5 g/dL (3.5-5.0); Albumin Globulin Ratio 1.5 (1.0-2.8); Alkaline Phosphatase 102 U/L (38-126); Aspartate Aminotransferase 35 IU/L (14-36); BUN Creatinine Ratio 27.1 (6-22); Bilirubin Total 0.5 mg/dL (0.2-1.3); Blood Urea Nitrogen 16 mg/dL (7-17); Calcium 9.5 mg/dL (8.4-10.2); Carbon Dioxide 29 mmol/L (22-32); Chloride 99 mmol/L (98-107); Creatine Kinase 32 U/L (30-135); Estimated Glomerular Filt Rate > 60.0 mL/min (>60); Glucose 108 mg/dL (70-100); HEMOLYSIS < 15 (0-50); Lipase 29 U/L (23-300); Magnesium 1.6 mg/dL (1.6-2.3); Potassium 3.2 mmol/L (3.4-5.1); Sodium 137 mmol/L (137-145); Total Protein 7.5 g/dL (6.3-8.2)
[2019-08-05 11:42] LABS: Hematocrit 30.5 % (36-46); Mean Corpuscular HGB Conc 34.5 % (30-36); Mean Corpuscular Hemoglobin 32.4 PG (26-34); Mean Corpuscular Volume 93.9 fL (80-100); Red Blood Cell Count 3.25 X10^6/uL (4.0-5.2); Red Cell Distribution Width 16.5 % (11.6-14.8)
[2019-08-05 11:43] LABS: Platelet Count 76 X10^3/uL (150-400)
[2019-08-05 11:44] LABS: Add Manual Diff / Slide Review YES
[2019-08-05 11:52] LABS: Troponin I < 0.012 ng/mL (0.01-0.034)
[2019-08-05 11:56] LABS: Alanine Aminotransferase 60 IU/L (<35)
[2019-08-05 12:15] VITALS: BP 120/75; PULSE 105; RESP 19; O2SAT 98
[2019-08-05 12:22] LABS: Neutrophils Absolute Manual 3696 /uL (3000-5900); Total Cells Counted 100
[2019-08-05 12:25] LABS: Platelet Estimate Decreased on smear; RBC Morphology Normal Morphology
--- NOTE | 2019-08-05 12:38 | PC.NURSE ---
donovan rn assessed right chest port. excellent blood return
[2019-08-05 13:00] VITALS: BP 108/71; PULSE 103; RESP 13; O2SAT 99
[2019-08-05 14:24] VITALS: BP 102/64; BP 134/99; BP 98/57; PULSE 111; PULSE 112; PULSE 72
[2019-08-05 15:02] VITALS: BP 107/66; PULSE 105
[2019-08-05] MEDS: METOPROLOL ER 25 MG TABLET PO (15:02)
[2019-08-05 15:11] VITALS: BP 116/74; PULSE 108; RESP 16; O2SAT 98
== END 2019-08-05 15:41 | disposition home or self-care (01) ==
PROVIDERS: Emergency Provider Emergency Medicine; Family Provider Naturopath; PCP Naturopath
DX: R42 Dizziness and giddiness (principal); R00.0 Tachycardia, unspecified; C50.911 Malignant neoplasm of unspecified site of right female breast; R55 Syncope and collapse; R19.7 Diarrhea, unspecified; R11.0 Nausea
CPT/HCPCS: 36415; 71045; 80053; 82550; 83690; 83735; 84484; 85025; 85610; 85730; 93005; 96361; 96374; 99284; J1642; J2405

== ENCOUNTER → 2019-08-07 08:06 | Outpatient (CLI) | payer BC, SELFPAY ==
[2019-04-23 16:57] VITALS: BMI 21.3
--- NOTE | 2019-08-07 08:07 | DI.US.S_ITS ---
PROCEDURE: US ABDOMEN LIMITED INDICATIONS: TRANSAMINITIS; BREAST CANCER TECHNIQUE: Real-time focused scanning was performed of the abdomen, with image documentation. COMPARISON: None. FINDINGS: The liver appears normal, no hepatic mass lesion is found. Prior cholecystectomy, no operative complications seen. There is, however, unusual prominence of the distal common duct within the pancreas measuring up to 1.2 cm diameter. A distal common duct stone could produce the appearance. IMPRESSION: MR cholangiogram likely is warranted given the unusual prominence of the distal common duct in this patient with prior cholecystectomy. The common duct caliber at the pancreatic head is 1.2 cm. Dictated by: Cory Godoy M.D. on 08/07/2019 at 11:54 Approved by: Cory Godoy M.D. on 08/07/2019 at 11:56
== END ==
PROVIDERS: Family Provider Naturopath; PCP Naturopath; Referring Provider Naturopath; Visit Provider Internal Medicine Hematology & Oncology
DX: C50.912 Malignant neoplasm of unspecified site of left female breast (principal); R74.0 Nonspecific elevation of levels of transaminase and lactic acid dehydrogenase [LDH]; Z90.49 Acquired absence of other specified parts of digestive tract
CPT/HCPCS: 76705

== ENCOUNTER 2019-08-07 22:02 | Emergency (ER) | payer BC, SELFPAY ==
[2019-04-23 16:57] VITALS: BMI 21.3
[2019-08-07 22:16] VITALS: BP 144/84; PULSE 99; RESP 20; TEMP 37.1; O2SAT 99
--- NOTE | 2019-08-07 22:20 | ED_ITS ---
HPI - Extremity Problem General Chief complaint: Extremity Injury, Upper Stated complaint: rt hand and arm swelling Time Seen by Provider: 08/07/19 22:20 Source: patient and family (brother) Mode of arrival: Ambulatory Limitations: no limitations History of Present Illness HPI Narrative: This is a 59-year-old female comes with complaint of right hand upper extremity swelling. Patient states that she has breast cancer, her port was accessed yesterday to give her fluids. She has been getting fluids intermittently because she has been dehydrated recently. She states that they left the access in place yesterday as she is supposed to return tomorrow. Patient states that she noticed swelling during the day and evening afterwards, it improved overnight but then was still present although not as significant to day. She particularly notices in her upper arm but also into her hand. She also noticed a little bit of redness in her arm and hand today. She states there is a little bit of mild pain kind of deep in the arm. She has full range of motion, she does not have any numbness tingling or weakness. She has not had any fevers. She denies any shortness of breath. She denies any chest pain or pressure. She has not noted any changes with the port itself and states there was no difficulty with access yesterday. She has not had any prior blood clots. She is on metoprolol as they noted her heart rate has been elevated persistently when she walks around. She does not have any hypertension or other medical issues besides her cancer. She has had lumpectomy as well as lymph nodes removed on the right axillary region. Related Data Home Medications Medication Instructions Recorded Confirmed ylaruleieo-firzhco-dogannif 50 1 cap PO PRN PRN 09/25/18 07/30/19 mg-325 mg-40 mg capsule cholecalciferol (vitamin D3) 25 1,000 unit PO DAILY 09/25/18 07/30/19 mcg (1,000 unit) capsule vitamin K2 40 mcg tablet 300 mcg PO DAILY 09/25/18 07/30/19 lorazepam 0.5 mg PRN PRN 02/26/19 07/30/19 Previous Rx's Medication Instructions Recorded lidocaine HCl [Aspercreme 1 applic TOPICAL BID #1 unit 05/24/19 (lidocaine)] promethazine 25 mg PO Q6H PRN #60 tab 05/24/19 lidocaine-prilocaine 1 applic TOPICAL PRN PRN #30 gram 05/28/19 dexamethasone [Decadron] 8 mg PO BID #72 tab 05/31/19 mirtazapine 15 mg PO DAILY #30 tab 06/07/19 prochlorperazine maleate 10 mg PO Q6H PRN #90 tab 06/07/19 [Compazine] metoprolol succinate 25 mg PO DAILY #20 each 08/05/19 clindamycin HCl 300 mg PO Q6H #40 cap 08/08/19 Allergies Allergy/AdvReac Type Severity Reaction Status Date / Time No Known Drug Allergies Allergy Verified 08/05/19 10:44 Review of Systems Review of Systems ROS Unobtainable: All systems reviewed & are unremarkable except as noted in HPI and below Patient History Medical History Breast cancer, left (Acute ~2018) Breast cancer, right (Acute ~2010) Gallstone (Acute) Hyperlipidemia (Acute) Migraine (Acute) Osteoporosis (Acute) Scoliosis (Acute) Surgical History H/O hemorrhoidectomy (Resolved) H/O hemorrhoidectomy (Acute) H/O rhinoplasty (Resolved) History of lumpectomy of right breast (Acute) Social History household members: spouse and none occupational status: previously employed Smoking Status: Never smoker alcohol intake: never substance use type: does not use and other (Indica oil for sleeps.) Smoking Status: Never smoker alcohol intake frequency: 0-2 drinks per day Substance Use Type: does not use Exam Narrative Exam Narrative: GENERAL: Alert and oriented x three, well-nourished female in mild distress. HEENT: Head normocephalic, atraumatic, EOMI, pupils reactive, face symmetric, moist mucous membranes NECK: Supple, full range of motion CARDIOVASCULAR: Regular rate and rhythm without murmurs, rubs or gallops. Patient is a catheter in her right anterior chest which has been accessed prior to arrival to the ED does not appear erythematous, nontender to palpation. No swelling. RESPIRATORY: Breath sounds equal bilaterally, no wheezes rales or rhonchi. No tachypnea accessory muscle use. ABDOMEN: Soft, nontender. Normoactive bowel sounds all 4 quadrants. No guarding or rebound, rigidity, no mass : No CVA tenderness EXTREMITIES: Normal range of motion, no clubbing. Patient's right upper extremity does have greater circumference in comparison to the left the majority is in the upper arm but some in the lower. Hand is slightly swollen comparison to the left. There is some very mild erythema over the dorsum of the hand but is faint. Patient has 2+ radial pulse. She has normal sensation throughout. Neurovascularly intact NEUROLOGICAL: Cranial nerves II through XII grossly intact. Moving all extremities SKIN: Warm, dry, no petechiae, no rashes or lesions otherwise noted. Initial Vital Signs Initial Vital Signs: Vital Signs Temperature 98.8 F 08/07/19 22:16 Pulse Rate 99 H 08/07/19 22:16 Respiratory Rate 20 08/07/19 22:16 Blood Pressure 144/84 H 08/07/19 22:16 Pulse Oximetry 99 08/07/19 22:16 Course Orders Ordered: ED Orders 08/07/19 22:29 US periph venous up extrem rt Stat 08/07/19 22:32 XR chest 1V Stat 08/07/19 22:50 Complete Blood Count AUTO DIFF Stat Comprehensive Metabolic Panel Stat Partial Thromboplastin Time Stat Procalcitonin Stat Prothrombin Time INR Stat 08/07/19 23:20 Blood Culture Stat Lactate (Lactic Acid) Stat Discontinued Medications Clindamycin HCl (Cleocin) 300 mg PO NOW ONE Stop: 08/08/19 00:14 Last Admin: 08/08/19 00:17 Dose: 300 mg Documented by: DONI Heparin Sodium (Porcine) (Heparin Flush (Port)) 500 unit IV PRN PRN PRN Reason: Flush Vital Signs Vital signs: Vital Signs - 8 hr 08/07/19 22:16 08/07/19 23:05 08/08/19 00:58 Temperature 98.8 F Pulse Rate 99 H 90 84 Respiratory Rate 20 20 18 Blood Pressure 144/84 H 104/50 L Blood Pressure [Left Arm] 112/48 L Pulse Oximetry 99 99 98 MDM - Extremity (Nontraumatic) Lab Data Attestation: I reviewed the patient's lab results. Result diagrams: 08/07/19 22:50 08/07/19 22:50 Labs: Lab Results 08/07/19 08/07/19 08/07/19 Range/Units 22:50 22:50 22:50 WBC 6.6 D (4.5-11.0) X10^3/uL RBC 2.67 L (4.0-5.2) X10^6/uL Hgb 8.7 L (12.0-16.0) g/dL Hct 25.4 L (36-46) % MCV 95.0 (80-100) fL MCH 32.6 (26-34) PG MCHC 34.3 (30-36) % RDW 16.9 H (11.6-14.8) % Plt Count 84 L (150-400) X10^3/uL Neut % (Auto) 63.9 (50-75) % Lymph % (Auto) 27.7 (25-40) % [place] % (Auto) 7.3 (3-14) % Eos % (Auto) 0.1 L (2-4) % Baso % (Auto) 1.0 (0-2) % Neut # (Auto) 4200 (6480-2872) /uL Lymph # (Auto) 1800 (3467-6047) /uL [place] # (Auto) 500 (0-900) /uL Eos # (Auto) 0 (0-450) /uL Baso # (Auto) 100 (0-100) /uL PT 11.5 (10.1-12.7) SECONDS INR 1.0 (0.9-1.3) APTT (26.4-36.2) SECONDS Sodium (137-145) mmol/L Potassium (3.4-5.1) mmol/L Chloride (98-107) mmol/L Carbon Dioxide (22-32) mmol/L BUN (7-17) mg/dL Creatinine (0.52-1.04) mg/dL Estimated GFR (>60) mL/min BUN/Creatinine Ratio (6-22) Glucose (70-100) mg/dL Lactate (0.7-2.1) mmol/L Calcium (8.4-10.2) mg/dL Total Bilirubin (0.2-1.3) mg/dL AST (14-36) IU/L ALT (<35) IU/L Alkaline Phosphatase (38-126) U/L Total Protein (6.3-8.2) g/dL Albumin (3.5-5.0) g/dL Globulin (1.7-4.1) g/dL Albumin/Globulin Ratio (1.0-2.8) Procalcitonin 0.06 (<0.5) ng/mL 08/07/19 08/07/19 08/07/19 Range/Units 22:50 22:50 23:20 WBC (4.5-11.0) X10^3/uL RBC (4.0-5.2) X10^6/uL Hgb (12.0-16.0) g/dL Hct (36-46) % MCV (80-100) fL MCH (26-34) PG MCHC (30-36) % RDW (11.6-14.8) % Plt Count (150-400) X10^3/uL Neut % (Auto) (50-75) % Lymph % (Auto) (25-40) % [place] % (Auto) (3-14) % Eos % (Auto) (2-4) % Baso % (Auto) (0-2) % Neut # (Auto) (8520-8084) /uL Lymph # (Auto) (9099-5505) /uL [place] # (Auto) (0-900) /uL Eos # (Auto) (0-450) /uL Baso # (Auto) (0-100) /uL PT (10.1-12.7) SECONDS INR (0.9-1.3) APTT 29 D (26.4-36.2) SECONDS Sodium 137 (137-145) mmol/L Potassium 3.0 L (3.4-5.1) mmol/L Chloride 104 (98-107) mmol/L Carbon Dioxide 26 (22-32) mmol/L BUN 11 (7-17) mg/dL Creatinine 0.64 (0.52-1.04) mg/dL Estimated GFR > 60.0 (>60) mL/min BUN/Creatinine Ratio 17.2 (6-22) Glucose 111 H (70-100) mg/dL Lactate 0.8 (0.7-2.1) mmol/L Calcium 9.0 (8.4-10.2) mg/dL Total Bilirubin 0.1 L (0.2-1.3) mg/dL AST 26 (14-36) IU/L ALT 35 H (<35) IU/L Alkaline Phosphatase 81 (38-126) U/L Total Protein 7.1 (6.3-8.2) g/dL Albumin 4.2 (3.5-5.0) g/dL Globulin 2.9 (1.7-4.1) g/dL Albumin/Globulin Ratio 1.4 (1.0-2.8) Procalcitonin (<0.5) ng/mL Imaging Data US - DVT: Radiologist's Impression: negative for dvt. Chest x-ray: Attestation: I personally reviewed and interpreted this imaging study as follows: My Impression: nap MDM Narrative Medical decision making narrative: Patient's lab work showed no elevation white count, hemoglobin is 8.7 decreased from 9.2 yesterday. Patient's platelets are also low in the 80s. Chemistry show potassium of 3, otherwise normal electrolytes with normal renal function. Patient did states she has received 3- 5 L of fluids over the last couple days so she may have had some hemodilution component to her anemia. Procalcitonin is negative as well as lactate. Blood cultures are pending. Discussed with patient she has some mild erythema in her upper extremity. Unclear if this is infectious versus lymphedema, no sign of DVT or clot at this time and no signs of arterial embolism as she has good pulses and normal cap refill. Plan to start antibiotic for possible cellulitis and patient is going to obtain a compression sleeve for her arm. We discussed for her to contact her Oncology office this morning after they are open to discuss to see if they would like to see her sooner as her next appointment is not until next week. We did discuss strict return precautions and patient is comfortable with plan. Discharge Plan Departure Patient Disposition: Home Clinical Impression: Pain and swelling of right upper extremity Discharge Date/Time: 08/08/19 01:01 Activity Restrictions/Additional Instructions: Call to follow-up with your oncologist tomorrow. Take antibiotics as prescribed. Prescription was sent to [facility]. Return the ER for fevers greater 100.4 F, increasing swelling of your upper extremity, increasing pain, redness, blue discoloration or pallor, numbness, tingling or loss of sensation, inability use her upper extremity, new chest pain shortness of breath or other new or concerning symptoms. Prescriptions: New clindamycin HCl 300 mg capsule 300 mg PO Q6H Qty: 40 RF: 0 No Action [id number]-[id number] [Fiorinal] 50-325-40 mg capsule 1 cap PO PRN PRN (Reason: Migraine Headache) RF: 0 cholecalciferol (vitamin D3) 1,000 unit capsule 1,000 unit PO DAILY RF: 0 vitamin K2 40 mcg tablet 300 mcg PO DAILY RF: 0 lorazepam 0.5 mg Tablet 0.5 mg PRN PRN (Reason: Anxiety) RF: 0 promethazine 25 mg Tablet 25 mg PO Q6H PRN (Reason: Nausea) Qty: 60 RF: 0 lidocaine HCl [Aspercreme (lidocaine)] 4 % Cream 1 applic TOPICAL BID Qty: 1 RF: 2 lidocaine-prilocaine 2.5-2.5 % Cream 1 applic topical PRN PRN (Reason: PAIN) Qty: 30 RF: 0 dexamethasone [Decadron] 4 mg Tablet 8 mg PO BID Qty: 72 RF: 0 mirtazapine 15 mg Tablet,Disintegrating 15 mg PO DAILY Qty: 30 RF: 2 prochlorperazine maleate [Compazine] 10 mg Tablet 10 mg PO Q6H PRN (Reason: nauseas and vomiting) Qty: 90 RF: 0 metoprolol succinate 25 mg capsule,sprinkle,ER 24hr 25 mg PO DAILY Qty: 20 RF: 0 Referrals: Lily Muñoz ND [Primary Care Provider] -
--- NOTE | 2019-08-07 22:29 | DI.US.S_ITS ---
PROCEDURE: US PERIPH VENOUS UP EXTREM RT INDICATIONS: RUE EDEMA; PORT ACCESSED YESTERDAY TECHNIQUE: Real-time imaging, as well as color and pulse Doppler interrogation, was performed of the right upper extremity deep veins from the inferior neck to the antecubital fossa. COMPARISON: None. FINDINGS: The internal jugular vein, visualized portions of the subclavian vein, axillary, and brachial veins are free of intraluminal thrombus. Where physically possible, the veins are normally compressible. Color and pulse Doppler demonstrate normal intraluminal flow, with expected phasicity and pulsatility. Additional scanning of the cephalic and basilic veins of the superficial system demonstrate normal compressibility, without thrombus. IMPRESSION: No evidence of DVT in the visualized right upper extremity veins. Dictated by: Lamberto Vital M.D. on 08/08/2019 at 8:34 Approved by: Lamberto Vital M.D. on 08/08/2019 at 8:35
--- NOTE | 2019-08-07 22:32 | DI.RAD.S_ITS ---
PROCEDURE: XR CHEST 1V INDICATIONS: swelling right upper extremity TECHNIQUE: One view of the chest was acquired. COMPARISON: [facility], CR, XR CHEST 1V, 08/05/2019, 11:02. FINDINGS: Surgical changes and devices: Right chest wall Port-A-Cath tip is in SVC. Lungs and pleura: Lungs are clear. No pleural effusions or pneumothorax. Mediastinum: Mediastinal contours appear normal. Heart size is normal. Bones and chest wall: No suspicious bony lesions. Overlying soft tissues appear unremarkable. IMPRESSION: No acute cardiopulmonary pathology. Dictated by: Lamberto Vital M.D. on 08/08/2019 at 8:32 Approved by: Lamberto Vital M.D. on 08/08/2019 at 8:34
[2019-08-07 23:05] VITALS: BP 112/48; PULSE 90; RESP 20; O2SAT 99
[2019-08-07 23:11] LABS: Add Manual Diff / Slide Review NO; Basophils Absolute Auto 100 /uL (0-100); Eosinophils Absolute Auto 0 /uL (0-450); Eosinophils Percent Auto 0.1 % (2-4); Hematocrit 25.4 % (36-46); Hemoglobin 8.7 g/dL (12.0-16.0); Lymphocytes Absolute Auto 1800 /uL (1100-4500); Lymphocytes Percent Auto 27.7 % (25-40); Mean Corpuscular HGB Conc 34.3 % (30-36); Mean Corpuscular Hemoglobin 32.6 PG (26-34); Monocytes Absolute Auto 500 /uL (0-900); Monocytes Percent Auto 7.3 % (3-14); Neutrophils Absolute Auto 4200 /uL (1500-7000); Neutrophils Percent Auto 63.9 % (50-75); Platelet Count 84 X10^3/uL (150-400); Red Blood Cell Count 2.67 X10^6/uL (4.0-5.2); Red Cell Distribution Width 16.9 % (11.6-14.8); White Blood Cell Count 6.6 X10^3/uL (4.5-11.0)
[2019-08-07 23:13] LABS: Prothrombin Time 11.5 SECONDS (10.1-12.7)
--- NOTE | 2019-08-07 23:19 | PC.NURSE ---
Accessed Britt needle that was placed in Oncology 3-16. 10ml blood wasted, 1 set blood cultures drawn with Kurin device..Then 10ml drawn for rainbow lab tubes.Britt Port flushed with NS.Flushed easily,no swelling or discomfort at Port site. Pt tolerated procedure well.Procedure done under sterile conditions.
[2019-08-07 23:20] LABS: Alanine Aminotransferase 35 IU/L (<35); Albumin 4.2 g/dL (3.5-5.0); Albumin Globulin Ratio 1.4 (1.0-2.8); Alkaline Phosphatase 81 U/L (38-126); Aspartate Aminotransferase 26 IU/L (14-36); BUN Creatinine Ratio 17.2 (6-22); Bilirubin Total 0.1 mg/dL (0.2-1.3); Blood Urea Nitrogen 11 mg/dL (7-17); Carbon Dioxide 26 mmol/L (22-32); Chloride 104 mmol/L (98-107); Estimated Glomerular Filt Rate > 60.0 mL/min (>60); Globulin 2.9 g/dL (1.7-4.1); Glucose 111 mg/dL (70-100); HEMOLYSIS < 15 (0-50); Sodium 137 mmol/L (137-145); Total Protein 7.1 g/dL (6.3-8.2)
[2019-08-07 23:23] LABS: PTT Partial Thromboplastin Tim 29 SECONDS (26.4-36.2)
[2019-08-07 23:38] LABS: Procalcitonin 0.06 ng/mL (<0.5)
[2019-08-07 23:41] LABS: Lactate (Lactic Acid) 0.8 mmol/L (0.7-2.1)
[2019-08-08] MEDS: CLINDAMYCIN 150 MG CAPSULE 300 MG PO (00:17)
[2019-08-08 00:58] VITALS: BP 104/50; PULSE 84; RESP 18; O2SAT 98
== END 2019-08-08 01:01 | disposition home or self-care (01) ==
PROVIDERS: Emergency Provider Emergency Medicine; Family Provider Naturopath; PCP Naturopath
DX: M79.601 Pain in right arm (principal); M79.89 Other specified soft tissue disorders; D64.9 Anemia, unspecified; C50.912 Malignant neoplasm of unspecified site of left female breast; R74.0 Nonspecific elevation of levels of transaminase and lactic acid dehydrogenase [LDH]; Z90.49 Acquired absence of other specified parts of digestive tract
CPT/HCPCS: 36415; 71045; 76705; 80053; 83605; 84145; 85025; 85610; 85730; 87040; 93971; 99284; J1642

== ENCOUNTER → 2019-09-06 08:13 | Outpatient (CLI) | payer BC, SELFPAY ==
[2019-04-23 16:57] VITALS: BMI 21.3
--- NOTE | 2019-09-06 08:15 | DI.MRI.S_ITS ---
PROCEDURE: MR ABDOMEN WO/W CON INDICATIONS: dilated pancreatic duct TECHNIQUE: Coronal HASTE, axial 2D FLASH in- and [id number]; axial breath-hold T2 FSE. Dynamic axial VIBE during the administration of contrast; post-contrast coronal VIBE or 2D FLASH with fat saturation from the hepatic dome to the iliac crests. Optional diffusion weighted imaging and ADC may be performed. COMPARISON: [facility], CT, CT CHEST ABD PEL W CON, 04/11/2019, 8:29. [facility], US, US BREAST RT LIMITED, 04/27/2019, 14:49. [facility], CT, CT ABDOMEN PELVIS W CON, 05/17/2019, 17:11. [facility], US, US ABDOMEN LIMITED, 08/07/2019, 8:14. FINDINGS: Image quality: Excellent. Lung bases: No basal pleural effusions. Heart size is normal. Note is made of a ovoid masslike structure previously identified on CT scanning of the chest and breast MRI 04/11/19 and 03/28/19 respectively. The structure now measures 3.3 x 6.2 cm and during breast MR scanning had measured virtually the same. No new mass lesion is found. Solid organs: Liver is normal in size and enhancement. Gallbladder is absent. Biliary system is mildly dilated at 11 mm, previously measured by ultrasound at 12 mm 08/07/19 within the pancreas and distal common duct no mass or common duct stone is found, respectively. Pancreas is normal in morphology. Spleen is normal in size and enhancement. No adrenal nodules. Both kidneys demonstrate normal size and enhancement, without hydronephrosis. Nodes and vessels: No retroperitoneal or mesenteric adenopathy by size criteria. Aorta and inferior vena cava are normal in size. Bowel and peritoneum: Unenhanced bowel loops are normal in caliber. No free fluid. Bones and soft tissues: No ventral hernias. Bone marrow is normal in overall signal. IMPRESSION: 1. Stable appearing ovoid masslike structure at the lateral aspect of the right breast, in an area previously also well-visualized a documented by CT scanning and breast MR scanning in March of 2019. 2. Prior cholecystectomy, previously documented. 3. Mild prominence of the common duct considering prior cholecystectomy but a mass or common duct calculus is not present and this is now considered a normal variant for this patient. Dictated by: Cory Godoy M.D. on 09/06/2019 at 10:58 Approved by: Cory Godoy M.D. on 09/06/2019 at 11:07
== END ==
PROVIDERS: Family Provider Naturopath; PCP Naturopath; Referring Provider Internal Medicine Hematology & Oncology; Visit Provider Internal Medicine Hematology & Oncology
DX: C50.612 Malignant neoplasm of axillary tail of left female breast (principal); K86.89 Other specified diseases of pancreas; N63.15 Unspecified lump in the right breast, overlapping quadrants; Z17.1 Estrogen receptor negative status [ER-]; Z85.3 Personal history of malignant neoplasm of breast
CPT/HCPCS: 74183

== ENCOUNTER → 2019-09-17 | Outpatient (CLI) | payer BC, SELFPAY ==
[2019-04-23 16:57] VITALS: BMI 21.3
--- NOTE | 2019-09-17 11:23 | DI.MRI.S_ITS ---
BREAST MRI OF BOTH BREASTS- POST LUMPECTOMY: 09/17/2019 CLINICAL: Breast cancer. Comparison is made to exams dated: 04/27/2019 ultrasound, 03/28/2019 breast MRI, and 01/05/2019 mammogram - [facility]. Informed consent was obtained from the patient. Axial T1 images were obtained. Bilateral background breast enhancement is minimal. TECHNIQUE: The patient was placed prone in a dedicated breast imaging coil. Precontrast axial STIR and 3D FLASH without fat saturation sequences were obtained. Both before and after bolus injection of contrast, sequential 1-minute axial 3D FLASH with fat saturation sequences for 3 time points, with subtraction images and maximum intensity projections (MIP's) generated. Delayed sagittal FLASH images with fat saturation were also obtained. Computer-aided detection, including computer algorithm analysis of MRI image data for lesion detection and characterization, pharmacokinetic analysis, with further physician review for interpretation, was performed. COMPARISON: [facility], MG, MM DIAGNOSTIC MAMMO BI, 01/05/2019, 8:50. [facility], CR, XR CHEST 1V, 08/07/2019, 22:36. [facility], MR, MR BREAST BI WO/W CON, 03/28/2019, 8:05. FINDINGS: Image quality: Excellent. There is minimal background parenchymal enhancement. There is heterogeneous fibroglandular tissue bilaterally. Right breast: Redemonstration of thin rim-enhancing postoperative fluid collection involving the lateral aspect of the right breast measuring approximately 2.8 x 5.8 cm in transverse dimension and 4.3 cm in craniocaudal dimension. There is focal skin thickening involving the anteromedial margin of the surgical site . This is favored to represent postoperative changes. The previously described enhancing 9 mm mass abutting the superficial margin of the anterior chest wall approximately 2.0 cm caudal to the inferior margin of the postoperative fluid collection is no longer visualized. No new or other suspicious mass lesions identified in the right breast. No axillary or internal mammary chain adenopathy. No suspicious non-mass enhancement. There is susceptibility artifact overlying the right breast secondary to tunneled right port device. Left breast: The previously biopsied left axillary lymph node has decreased substantially in size now measuring approximately 1.4 x 0.9 cm versus 3.8 x 2.1 cm previously. This was a biopsy proven high-grade adenocarcinoma involving fibrous tissue per pathology report. There are numerous persistent but smaller lymph nodes in the left axilla extending to the level II lymph nodes of the left chest wall, deep to the lateral aspect of the pectoralis minor muscle. These demonstrate preservation of a central fatty hilum and uniform cortex. No internal mammary chain adenopathy. No abnormal mass identified in the left breast. No non-mass enhancement. Miscellaneous: Limited evaluation of the anterior mediastinal structures and upper abdomen appear unremarkable. Normal bone marrow signal intensity. IMPRESSION: KNOWN BIOPSY PROVEN MALIGNANCY 1. Interval resolution of previously seen 9 mm enhancing mass abutting the superficial margin of the anterior right chest wall likely representing positive response to treatment. No right-sided axillary or internal mammary chain adenopathy. 2. Relatively stable size and appearance of postoperative fluid collection/seroma of the right breast. 3. Significant interval decrease in size of biopsy proven left axillary adenopathy which demonstrated high-grade adenocarcinoma per pathology report now measuring 1.4 x 0.9 cm versus 3.8 x 2.1 cm previously. Findings are compatible with positive response to treatment. 4. Persistent prominent left axillary and level II lymph nodes which demonstrate preservation of normal reniform morphology, fatty hilum and uniform cortex. COMMENT: The imaging literature indicates that a negative contrast breast MRI examination has a high sensitivity and a moderate specificity for detecting and excluding invasive carcinomas to a detection threshold of 3-5 mm; nonetheless, appropriate clinical and mammographic follow-up are recommended. MRI is not sensitive for detecting DCIS (ductal carcinoma in situ) and may not detect large invasive neoplasms that show only minimal enhancement such as mucinous carcinoma. If there are suspicious calcifications or clinically worrisome palpable masses, then biopsy should still be considered. Invasive neoplasms can be hidden by co-existent and benign enhancement caused by mastitis, hormone therapy effects, radiation therapy, , and recent biopsy or surgery. False positive examinations can occur in a number of circumstances, including breasts that have recently been subject to invasive procedures and those that contain atypical ductal hyperplasia, hormonally stimulated glandular tissue, fat necrosis, or radial scars. A follow-up mammogram and a breast MRI in 6 months is recommended to demonstrate stability. This exam was interpreted at Station ID: [id number]. Electronically Signed By: Cong wood/derek:09/17/2019 14:28:58 copy to: SKINNY STEINBERG copy to: MARYBETH WELCH ND, [facility], ph: [phone], fax: [phone] ACR BI-RADS Category 6: Known biopsy proven malignancy [id number]
== END ==
LOC: MRI 11:22
PROVIDERS: Family Provider Naturopath; PCP Naturopath; Referring Provider Internal Medicine Hematology & Oncology; Visit Provider Internal Medicine Hematology & Oncology
DX: C50.612 Malignant neoplasm of axillary tail of left female breast (principal); R59.0 Localized enlarged lymph nodes; Z17.1 Estrogen receptor negative status [ER-]; Z85.3 Personal history of malignant neoplasm of breast
CPT/HCPCS: 77049; A9579

== ENCOUNTER → 2019-11-17 15:05 | Outpatient (CLI) | payer BC, SELFPAY ==
[2019-04-23 16:57] VITALS: BMI 21.3
[2019-11-18 10:19] LABS: COVID19 Sendout Not Detected (Not Detect)
== END ==
PROVIDERS: Family Provider Naturopath; PCP Naturopath; Visit Provider Physician Assistant
DX: Z11.59 Encounter for screening for other viral diseases (principal)
CPT/HCPCS: 87635

== ENCOUNTER 2019-11-20 11:02 | Observation (INO) | payer BC, SELFPAY ==
[2019-04-23 16:57] VITALS: BMI 21.3
[2019-11-15 08:23] VITALS: BMI 20.7
[2019-11-20] VITALS (16 sets, daily range): BP systolic 109–147; BP diastolic 53–89; PULSE 54–110; RESP 7–23; TEMP 35.8–36.4; O2SAT 92–100; BMI 20.7
--- NOTE | 2019-11-20 | PATH_ITS ---
[facility] Accession Number: [id number] . 01 Material submitted: . PART A: breast - RIGHT BREAST PART B: breast - RIGHT BREAST SUPERIOR MARGIN NEAR PORT PART C: breast - RIGHT BREAST INFERIOR MARGIN PART D: breast - LEFT BREAST PART E: axilla - LEFT AXILLARY LYMPHADENECTOMY . 01 Clinical history: . A: RIGHT BREAST;LONG SUTURE LATERAL, SHORT SUTURE SUPERIOR. B: SUPERIOR MARGIN, RIGHT BREAST C: INFERIOR MARGIN, RIGHT BREAST D: LEFT BREAST LONG STITCH LATERAL SHORT STITCH SUPERIOR. E: LEFT AXCILLARY LYMPHADDENECTOMY . 02 Diagnosis: A. Right Breast, Skin Sparing Mastectomy: No residual carcinoma or [id number] identified. Changes consistent with prior excision, as well as possible treatment effect. . B. Right Breast Superior Margin Near Port: Negative for atypical hyperplasia, in-situ, or invasive carcinoma. . C. Right Breast Inferior Margin: Negative for atypical hyperplasia, in-situ, or invasive carcinoma. . D. Left Breast, Skin Sparing Mastectomy: Negative for atypical hyperplasia, in-situ, or invasive carcinoma. Dense fibrotic breast tissue, suggestive of possible treatment effect. . E. Left Axillary, Lymphadenectomy: Twelve lymph nodes negative for metastatic carcinoma (0/12). Changes consistent with prior procedure or treatment effect are present in 1 lymph node. [facility] 11/28/2019 1236 Local . 02 Comment: The maximum posttreatment pathologic stage is ypT0 in the right breast and ypT0 ypN0 in the left breast. (AJCC 8th edition) . This patient's previous case ([id number]; 02/07/2019) was reviewed. . 02 Diagnosis provided by: . Tamra Ramirez MD, Pathologist NPI- [id number] . 02 Electronically signed: . Fe Loomis MD, Pathologist NPI- [id number] . 01 Gross description: . Specimen A is received in formalin, labeled with patient identification and R breast, long S lateral, short S superior. . Specimen: One right skin sparing mastectomy. Weight: 194 grams. Measurement: 3.5 cm from anterior to posterior, 7.4 cm from superior to inferior, and 10.2 cm from lateral to medial. Skin Ellipse: Present, white-markham, elliptical, measuring 5.0 x 2.1 cm. Nipple/Areola: 1.0 x 0.8 cm everted nipple within a 1.8 cm in diameter areola. No skin lesions are grossly identified. Axillary Tail: Not present. Margins: The specimen is oriented by surgeon with short superior suture and long lateral suture; the posterior surface is covered by fascia and is inked black. The anterior soft tissue margins expose a 5.2 x 2.0 x 2.0 cm encapsulated cavity, which is located between the upper outer quadrant and lower outer quadrant, and underneath the nipple (1.1 cm to the nipple), and abuts the posterior margin. The anterior soft tissue margins are otherwise unremarkable; adjacent to the skin, are inked blue for anterior-superior and green for anterior-inferior. Slices: Serial coronal sections of the specimen are consecutively numbered 1 to 16, from lateral to medial. Lesions: No lesions are grossly identified. The cavity is involved from slide 2 to slide 11. Other: The uninvolved breast parenchyma has a fat to fibrous tissue ratio of approximately 6:4. No additional lesions/multiple blue cysts are identified. . R D Manager sections are submitted as follows: A1 - Nipple to the deep cavity and anterior-superior margin, one piece. A2 - Nipple to deep cavity and anterior-inferior margin, one piece. A3 - R D Manager sections of skin to the cavity, two pieces. A4 - Slice 2, cavity to the closest posterior and anterior-superior margins, one piece. A5 - Slice 4, payable representative fibrous tissue of the upper outer quadrant to cavity, one piece. A6 - Slice 6, payable representative fibrous tissue of upper outer quadrant to cavity, one piece. A7 - Slice 8, payable representative fibrous tissue of the upper outer quadrant to the cavity, one piece. A8 - Slice 4, payable representative fibrous tissue of the lower outer quadrant to the cavity. A9 - Slice 8, payable representative fibrous tissue of the lower outer quadrant to cavity, one piece. A10 - Slice 9, payable representative fibrous tissue of lower inner quadrant to cavity, one piece. A11 - Slice 10, payable representative fibrous tissue of lower inner quadrant to cavity, one piece. A12 - Slice 11, payable representative fibrous tissue of lower inner quadrant to cavity, one piece. A13 - Slice 12, payable representative fibrous tissue of the lower inner quadrant, one piece. A14 - Slice 9, payable representative fibrous tissue of the upper inner quadrant to cavity, one piece. A15 - Slice 10, payable representative fibrous tissue of upper inner quadrant to cavity, one piece. A16 - Slice 11, payable representative fibrous tissue of upper inner quadrant to cavity, one piece. A17 - Slice 12, payable representative fibrous tissue of the upper inner quadrant, one piece. A18-22 - Additional payable representative sections. . Specimen B is received in formalin, labeled with patient identification and superior margin near port, R breast. It consists of five 7.0 gram collectively unoriented yellow-markham and lobulated fibroadipose tissues, measuring 4.5 x 3.2 x 1.3 cm in aggregate. The outer surfaces are inked blue. Sectioning reveals less than 5% of white-markham fibrous tissue and more than 95% of yellow-markham lobulated and focally hemorrhagic adipose tissue. The entire specimen is submitted in eleven cassettes. . Summary of Sections: B1-B4 - The entire piece #1, two pieces each. B5 - The entire piece #2, two pieces. B6 - The entire piece #3, two pieces. B7-B8 - The entire piece #4, three pieces each. B9-B11 - The entire piece #5, three pieces each. . Specimen C is received in formalin, labeled with patient identification and inferior margin, R breast. It consists of a 4 gram yellow-markham lobulated fibroadipose tissue piece measuring 3.5 x 1.8 x 1.2 cm. The outer surface is inked blue. Sectioning reveals less than 1% of white-markham fibrous tissue and more than 99% of the yellow-markham lobulated and focally hemorrhagic adipose tissue. The entire specimen is submitted in five cassettes. . Summary of Sections: C1 - A#1, perpendicular section, three pieces. C2-C4 - Two pieces each. C5 - A#2, perpendicular section, five pieces. . Specimen D is received in formalin, labeled with patient identification and left breast, long stitch lateral, short stitch superior. . Specimen: One left skin sparing mastectomy. Weight: 293 grams. Measurement: 3.3 cm from anterior to posterior, 12.5 cm from lateral to medial, 14.5 cm from superior to inferior. Skin Ellipse: One skin ellipse is present, white-markham, dull, elliptical, measuring 4.5 x 1.7 cm. Nipple/Areolar: 1.1 cm in diameter everted nipple within a 2.0 cm in diameter areola. No skin lesions are grossly identified. Axillary Tail: Not present. Margins: The specimen is oriented by surgeon with short superior suture and long lateral suture; the posterior surface is covered by fascia and is inked black. The anterior soft tissue margins are unremarkable; adjacent to the skin are inked blue for anterior-superior and green for anterior-inferior. Slices: Serial coronal sections of the specimen are consecutively numbered from 1 to 15, from medial to lateral. Lesion: No lesions are grossly identified. Other: The breast parenchyma has a fat to fibrous tissue ratio of approximately 5:5. No additional lesions/multiple blue cysts are grossly identified. . R D Manager sections are submitted as follows: D1 - The entire trisected nipple, three pieces. D2 - R D Manager sections of skin, two pieces. D3-D6 - R D Manager fibrous tissue of the upper inner quadrant, one piece each. D7-D10 - R D Manager fibrous tissue of the inner lower quadrant, one piece each. D11-D14 - R D Manager fibrous tissue of the lower outer quadrant, one piece each. D15-D18 - R D Manager fibrous tissue of the upper outer quadrant, one piece each. D19-D23 - Additional payable representative sections. . Specimen E is received in formalin, labeled with patient identification and left axillary lymphadenectomy. It consists of a 28 gram, 7.2 x 6.0 x 2.5 cm, yellow-markham, lobulated fibroadipose tissue piece. Sectioning reveals multiple lymph node candidates ranging from 0.3 to 1.8 cm in greatest dimension. . Summary of Sections: E1 - The entire one sectioned lymph node candidate, four pieces. E2-E3 - One bisected lymph node candidate in each, two pieces each. E4-E5 - Three intact lymph node candidates in each, three pieces each. E6 - Four additional potential lymph nodes. . Fixation time: The specimen was placed in formalin at 20:01 on 11/20/2019 for a total fixation time of 53 hours and 19 minutes. ([id number]) /[facility] 11/28/2019 1236 Local . 02 Microscopic: . Immunohistochemistry studies were performed to examine the areas of interest. The control stains showed appropriate reactivity. . RESULTS: Blocks E1-E6 ORIANA: Negative. . Interpretation: No evidence of metastatic carcinoma by immunohistochemistry. . * This test was developed and its performance characteristics determined by [facility]. It has not been cleared or approved by the U.S. Food and Drug Administration. The FDA has determined that such clearance or approval is not necessary. This test is used for clinical purposes. It should not be regarded as investigational or for research. . 02 Pathologist provided ICD-10: Z85.3 . 02 CPT . 341364, 713798, 856100, 534250, 670325, F25862 Performed at: 01 [facility] [address] [place] [address], [place], [place] [id number] MD Sam Segura MD Phone: [phone] Performed at: 02 [facility] [place] [id number] [place] [id number] MD Fe Loomis MD Phone: [phone]
[2019-11-20] MEDS: LACTATED RINGERS 1,000 ML 100 ML IV ×3 (12:02→20:58)
--- NOTE | 2019-11-20 14:13 | PM.PREOP ---
Pre-operative Note COVID-19 COVID-19 status: Negative Result date/Date tested (Pos, Neg/Pending): 11/17/19 Interval Note History & Physical reviewed/Exam performed by Physician: Yes Changes to H&P: No
[2019-11-20] MEDS: CEFAZOLIN 2 GM/100 ML FROZ.PIGGY IV (14:30)
[2019-11-20] MEDS: BUPIVACAINE 0.25% W/ EPI 30 ML VIAL INJ (15:36)
[2019-11-20] MEDS: BUPIVACAINE LIPOSOME 266 MG/20 ML VIAL INJ (15:37)
[2019-11-20] MEDS: ACETAMINOPHEN IV 1,000 MG/100 ML VIAL 400 MG IV (16:10)
--- NOTE | 2019-11-20 17:09 | SUR.OPER ---
Supine on padded OR bed, head on pillow, arms secured on padded arm boards at <90 degrees abduction, legs uncrossed, safety belt at thigh, tape over blanket over lower legs.
--- NOTE | 2019-11-20 20:01 | P.OP_ITS ---
Operative Date/Time/Diagnoses Date of procedure: 11/20/19 Time of procedure: 20:01 Pre-op diagnosis: recurrent right breast cancer, left axillary breast cancer Post-op diagnosis: same Procedure & Clinicians Procedure: 1) Right mastectomy 2) left mastectomy 3) left axillary dissection Same procedure as scheduled: Yes Indications: 59 yo woman with history of right lumpectomy and axillary dissection for cancer, with recurrent finding on MRI of right breast. She had a prior lumpectomy on the left, and now has a biopsy proven breast cancer in the axilla with an unknown primary. Surgeon: Rama Martinez Enrollment Management Vice President: Aydin Mills Anesthesia Type: General Operative Notes Findings: Dense fibrous tissue in left chest wall and axilla Large chronic encapsulated hematoma in right breast; radiation changes to skin and breast tissue Estimated Blood Loss (mL): 200 Blood products transfused: none Procedure in detail: The patient was brought into the OR and placed supine on the OR table. Sequential compression devices were placed on both legs and turned on. General anesthesia was induced and the patient was intubated by Dr. Arteaga. Appropriate perioperative antibiotics were given. Surgical time out was performed. Local anesthetic was infiltrated into the skin, and a 15cm transverse modified e liptical incision was made in the skin of the right breast including the nipple areolar complex and the old incisional scar. Beneath the old scar, a chronic cavity of old hematoma was encountered. Skin and subcutaneous tissue changes secondary to radiation were encountered. Flaps were gradually created using cautery, dividing the breast tissue from the subcutaneous tissue of the skin. The upper flap was first created. Dissection was carried superiorly, and the portacath was encountered. This was not to be removed, and so dissection was not continued to the clavicle. Inferiorly, the dissection was carried to the inframammary fold. Medially the breast tissue was dissected to right sternal border.. I then dissected the breast tissue off of the pectoral muscle, taking the pectoral fascia from medial to lateral. When I encountered the old hematoma, I dissected the capsule off of the pectora fascia with [place]. Once we reached the lateral border of the pectoral muscle, dissection was carried superiorly including the tail of Sexton. Once complete, the mastectomy specimen was delivered from the wound and marked with long stitch lateral and short stitch superior. A lap pad was packed into the wound, and attention was turned to the left breast. Local anesthetic was infiltrated into the skin, and a 15cm transverse modified eliptical incision was made in the skin of the left breast including the nipple areolar complex. Flaps were created using cautery, dividing the breast tissue from the subcutaneous tissue of the skin. The upper flap was first created. Dissection was carried all the way to the clavicle superiorly, reaching the pectoral muscle. Inferiorly, the dissection was carried to the inframammary fold. Medially the breast tissue was dissected to the left border of the sternum. I then dissected the breast tissue off of the pectoral muscle, taking the pectoral fascia from medial to lateral. Once we reached the lateral border of the pectoral muscle dense fibrous tissue was encountered. The breast was taken up toward the axilla as far as the clavicle, and divided. Attention was then turned to the axilla. Dr. Mills came in for this part of the operation. He dissected the axiilary fat pad from the axillary vein superiorly, the serratus medially, the latissiumus laterally, and the subscapularis posteriorly. The long thoracic, thoracodorsal, and medial and lateral pectoral nerves were preserved. Once the axillary fat pat and associated lymph nodes were dissected out, they were passed off the table for pathology. The left breast was marked with short stitch superior, and long stitch lateral. Hemostasis was achieved using ties, clips, and cautery as needed. A lap pad was packed in the left chest wound and attention was turned to the right side. A 10 flat HARMAN drain was then placed over the pectoral muscle, exiting the skin inferolaterally from the lateral border of the skin incision. Local anesthetic was infiltrated using 0.25% Marcaine with epi 1/2cc per kilo of ideal body weight, and 10mL of Exparel. This was injected in small aliquots in the subcutaneous fat, skin, muscle, and fascia. The skin was then prepared for closure. The fresh edges of the skin flaps were approximated in layers using 3- 0 Vicryl, and subcuticular 4-0 Monocryl. The drain was sutured in place with 3- 0 Nylon. Steri strips were placed across the incisional closure, and a telfa island dressing was placed over the steri strips, and a 4x4 gauze was placed around the drain. All were secured in place with Tegaderm. A 10 flat HARMAN drain was placed over the pectoral muscle, exiting the skin inferolaterally from the lateral border of the skin incision. A 19 round everett drain was placed into the axilla, exiting through the skin inferior to the incision. Nylon suture was used to secure both drains. Local anesthetic was infiltrated using 0.25% Marcaine with epi 1cc per kilo of ideal body weight, and 10mL of Exparel. This was combined and injected in small aliquots in the subcutaneous fat, skin, muscle, and fascia. The skin was then prepared for closure. The fresh edges of the skin flaps were approximated in layers using 3- 0 Vicryl, and subcuticular 4-0 Monocryl. The drain was sutured in place with 3- 0 Nylon. Steri strips were placed across the incisional closure, and a telfa island dressing was placed over the steri strips, and a 4x4 gauze was placed around the drain. All were secured in place with Tegaderm. The patient was then awakened from anesthesia and extubated. Needle sponge and instrument counts were correct x 2. The patient was transferred to the PACU in stable condition. Complications: none Post-operative Condition: stable Disposition: PACU
[2019-11-20] MEDS: HYDROMORPHONE 2 MG INJ IV (20:13)
[2019-11-20] MEDS: ONDANSETRON 4 MG/2 ML INJ IV (20:31)
[2019-11-20] MEDS: METOCLOPRAMIDE 10 MG/2 ML INJ IV (20:42)
--- NOTE | 2019-11-20 21:09 | SUR.PHASEI ---
report called to floor, pt sleeping, vss. resp unlabored.
[2019-11-20] MEDS: FOSAPREPITANT 150 MG in SODIUM CHLORIDE 0.9% 150 ML 300 ML IV (21:12)
--- NOTE | 2019-11-20 21:36 | SUR.PHASEI ---
1957 late entries - arrived in PACU, very drowsy, restless, pulling at gown, responded readily to voice to relax, but resumed efforts. Idalmis CDI, binder on, HARMAN x3 intact and compressed. SCDs on, skin warm and dry, resp unlabored. denies pain 2012 acknowledged pain 1/10 but continues to be restless, diaphoretic without significant temperature change, otherwise asymptomatic. Skin around port-a-cath site appears a little puffy, confirmed positive placement with excellend blood return prior to giving IV Rx. Response was that she calmed down within a few minutes, dozed intermittently 2030 C/O nausea, queaze-ease and IV rx given, no emesis. Desat into the upper 80s, place on O2 at 4LNP 2037 Dr. Kemp here, speaking to pt/staff. Updated him on her status, discussed nausea control 2041 IV rx for nausea, approved by Dr. kemp in conjunction with the med that he is ordering. Pt sits up easily in bed, cooperative with intermittent hot flashes and diaphoresis which she states is common for her. 2108 Report called to floor. VSS, sleeping intermittently. weaned from O2 2119 to room 225, bed down and locked, call light within reach. Clothing bag x2 to closet. SCD's on. Sitting up in bed, with emesis bag and c/o nausea. Small emesis prior to transfer. Rn calling clearing distribution clerk surgeon to request med. No further questions from pt or staff prior to departure. IV antiemetic infusion started (On an IV pump) prior to transfer and maintained.
[2019-11-20] MEDS: PROCHLORPERAZINE 10 MG/2 ML VIAL IV (21:51)
[2019-11-20] MEDS: SCOPOLAMINE 1 PATCH TOP (21:51)
--- NOTE | 2019-11-20 23:43 | PC.NURSE ---
Admit/Evening Shift Note- nPatient arrived to room via bed from PACU [id number]. Patient alert and oriented and able to make needs known to staff. Pstient complained of nausea. Called Dr Mills and recieved bew order for one dose of iv compazine and a scope patch. Admit [id number] done, physical assessment completed. Respiration christine at 7-10 per minute. Oxygen sat at 100%. Called Dr. Mills again to inform. Continue to closely monitor patient and start IV LR at 80cc/hr. Safety measures in place. bed alarm activated. Call arzola and phone within reach. Will continue to monitor.
[2019-11-21] MEDS: LACTATED RINGERS 1,000 ML 80 ML IV (00:06)
[2019-11-21 00:25] VITALS: BP 143/73; PULSE 58; RESP 18; TEMP 36.2; O2SAT 98
[2019-11-21] MEDS: CEFAZOLIN VIAL 2 GM in SODIUM CHLORIDE 0.9% 100 ML 200 ML IV ×2 (00:34→06:26)
[2019-11-21 05:32] VITALS: BP 96/51; RESP 18; TEMP 37.3; O2SAT 98
[2019-11-21 05:59] LABS: Add Manual Diff / Slide Review NO; Basophils Absolute Auto 0 /uL (0-100); Basophils Percent Auto 0.1 % (0-2); Eosinophils Absolute Auto 0 /uL (0-450); Hemoglobin 7.9 g/dL (12.0-16.0); Lymphocytes Absolute Auto 900 /uL (1100-4500); Lymphocytes Percent Auto 9.4 % (25-40); Mean Corpuscular HGB Conc 35.4 % (30-36); Mean Corpuscular Hemoglobin 36.1 PG (26-34); Monocytes Absolute Auto 500 /uL (0-900); Monocytes Percent Auto 5.8 % (3-14); Neutrophils Absolute Auto 7900 /uL (1500-7000); Neutrophils Percent Auto 84.7 % (50-75); Platelet Count 179 X10^3/uL (150-400); Red Blood Cell Count 2.19 X10^6/uL (4.0-5.2); White Blood Cell Count 9.3 X10^3/uL (4.5-11.0)
[2019-11-21 06:09] LABS: BUN Creatinine Ratio 22.2 (6-22); Blood Urea Nitrogen 14 mg/dL (7-17); Calcium 8.9 mg/dL (8.4-10.2); Carbon Dioxide 25 mmol/L (22-32); Chloride 105 mmol/L (98-107); Estimated Glomerular Filt Rate > 60.0 mL/min (>60); Glucose 97 mg/dL (70-100); HEMOLYSIS < 15 (0-50); Potassium 4.1 mmol/L (3.4-5.1); Sodium 135 mmol/L (137-145)
[2019-11-21 06:11] LABS: Hematocrit 22.3 % (36-46)
[2019-11-21] MEDS: CHOLECALCIFEROL (VITAMIN D3) 1,000 UNIT TABLET 1000 UNIT PO (07:58)
[2019-11-21] MEDS: IBUPROFEN 200 MG TABLET PO (07:59)
[2019-11-21 08:00] VITALS: BP 124/64; PULSE 66; RESP 16; TEMP 36.6; O2SAT 100
[2019-11-21] MEDS: LORazepam 0.5 MG TABLET PO (08:01)
--- NOTE | 2019-11-21 12:39 | PC.NURSE ---
Addendum entered by Rae Villarreal R.N. 11/21/19 13:55: Port left accessed per Pt request, Reviewed d/c teaching including drain care and logging for follow up appt, and pain control. Original Note: Am shift pt is sitting up in bed, mild nausea. Ativan given with ibuprofen. Pain is well controlled. D/c orders for this afternoon.
--- NOTE | 2019-11-21 14:24 | CM.DANOTE ---
DCP Brief Assessment Discharge Home Patient is a 59 year old female who was admitted on 11/20/19 for Double Mastectomy. Pt has [employer] for insurance and her PCP is Dr. Lily Muñoz. EMR was reviewed. Per MD, pt tolerated procedure well and is stable for discharge home today with family and no identified barriers to discharge. Per RN, pt was taught on her drain that will remain in place at d/c until follow up appointment with MD. No concerns at this time and pt was taken down to family POV to home today. DCP bedside assessment not completed due to triage needs and no discharge needs identified. Pt independent at baseline and lives in [place] with her brother and had a hx of Oncology with cancer relapse.. Plan: Patient discharged home today via family POV and no SW needs at this time. KEVIN Lacy
== END 2019-11-21 13:59 | disposition home or self-care (01) ==
LOC: OR 11:03 → AC 11:03
PROVIDERS: Admitting Provider Surgery; Family Provider Naturopath; PCP Naturopath; Referring Provider Surgery; Visit Provider Surgery
PROC: (CPT 19307; principal; 2019-11-20 12:45)
DX: C50.911 Malignant neoplasm of unspecified site of right female breast (principal); C50.612 Malignant neoplasm of axillary tail of left female breast; Z17.0 Estrogen receptor positive status [ER+]; L76.32 Postprocedural hematoma of skin and subcutaneous tissue following other procedure
CPT/HCPCS: 19307; 19303; 80048; 85025; G0378; C9290; J0131; J0690; J0780; J1100; J1170; J1453; J2250; J2405; J2704; J2765; J3010

== ENCOUNTER → 2019-12-31 14:20 | Outpatient (CLI) | payer BC, SELFPAY ==
[2019-11-20 11:27] VITALS: BMI 20.7
== END ==
PROVIDERS: Family Provider Naturopath; PCP Naturopath; Visit Provider Specialist
DX: R50.9 Fever, unspecified (principal)
CPT/HCPCS: 87070; 87075; 87205

== ENCOUNTER → 2020-01-01 14:14 | Outpatient (CLI) | payer BC, SELFPAY ==
[2019-11-20 11:27] VITALS: BMI 20.7
[2020-01-02 19:07] LABS: COVID19 Sendout Not Detected (Not Detect)
== END ==
PROVIDERS: Family Provider Naturopath; PCP Naturopath; Visit Provider Physician Assistant
DX: J02.9 Acute pharyngitis, unspecified (principal); R50.9 Fever, unspecified; R52 Pain, unspecified
CPT/HCPCS: 87635

== ENCOUNTER 2020-01-23 15:02 | Emergency (ER) | payer BC, SELFPAY ==
[2019-11-20 11:27] VITALS: BMI 20.7
[2020-01-23] VITALS (21 sets, daily range): BP systolic 95–122; BP diastolic 57–80; PULSE 89–129; RESP 14–28; TEMP 36.8; O2SAT 91–100
--- NOTE | 2020-01-23 15:26 | ED_ITS ---
HPI - Skin/Abscess/Foreign Bdy General Chief complaint: Skin/Abscess/Foreign Body Stated complaint: states post op infection to right shoulder Time Seen by Provider: 01/23/20 15:15 Source: patient Mode of arrival: Ambulatory Limitations: no limitations History of Present Illness HPI narrative: 59-year-old female history of breast cancer and mastectomy presenting with right breast erythema and swelling. Since her mastectomy she has had repeated seromas have required drainage. This morning she noticed that it was red. She has not been feeling well she has had significant mood changes. She does a nice any fever. She is noted to be tachycardic here in the emergency department. She has not had any fever, although she does feel chilled. Related Data Home Medications Medication Instructions Recorded Confirmed [id number] 50 1 cap PO PRN PRN 09/25/18 01/17/20 mg-325 mg-40 mg capsule cholecalciferol (vitamin D3) 25 1,000 unit PO DAILY 09/25/18 01/17/20 mcg (1,000 unit) capsule vitamin K2 40 mcg tablet 300 mcg PO DAILY 09/25/18 01/17/20 rizatriptan 10 mg tablet 10 mg PO ONCE PRN 11/13/19 01/17/20 ibuprofen 200 mg PO PRN PRN 11/20/19 01/17/20 Previous Rx's Medication Instructions Recorded promethazine 25 mg PO Q6H PRN #60 tab 05/24/19 prochlorperazine maleate 10 mg PO Q6H PRN #90 tab 06/07/19 [Compazine] lorazepam 0.5 mg PO Q6H PRN #60 tab 09/03/19 mirtazapine 15 mg PO DAILY #30 tab 10/18/19 alprazolam [Xanax] 0.25 mg PO TID PRN #30 tab 01/24/20 megestrol 400 mg PO DAILY #500 ml 01/24/20 Allergies Allergy/AdvReac Type Severity Reaction Status Date / Time No Known Drug Allergies Allergy Verified 01/17/20 10:14 Review of Systems Review of Systems Narrative: GENERAL: Denies chills, fatigue, malaise, fever, sweats, travel HEENT: Denies sinus pain, ear pain, sore throat, difficulty swallowing, neck pain RESPIRATORY: Denies dyspnea, cough, wheezing, hemoptysis, sputum. CARDIOVASCULAR: Denies chest pain, palpitations, orthopnea, edema GASTROINTESTINAL: Denies nausea, vomiting, abdominal pain, diarrhea, constipatio n, melena. : Denies dysuria, frequency, incontinence, hematuria, urinary retention, flank pain. MUSCULOSKELETAL: Denies weakness, joint pain, or bony pain SKIN: Erythema NEUROLOGIC: Denies weakness, dizziness, headache, numbness, change in speech, confusion PSYCHIATRIC: No concerning psychosocial issues. 12 point review of systems is negative except for those stated above and HPI Integumentary/Breasts Skin/Breast: Reports as per HPI Patient History Medical History Breast cancer, left (Acute ~2019) Breast cancer, right (Acute ~2010) Gallstone (Acute) Hyperlipidemia (Acute) Migraine (Acute) Osteoporosis (Acute) Scoliosis (Acute) Surgical History H/O hemorrhoidectomy (Resolved) H/O hemorrhoidectomy (Acute) H/O rhinoplasty (Resolved) History of lumpectomy of right breast (Acute) Hx of cholecystectomy (Acute) Hx of LASIK (Acute) Hx of partial mastectomy (Acute 2010) Family History Brother Heart disease, hypertensive, benign Hypertension Mother Breast cancer Gallstones Stroke Father Lung cancer Grandmother Gallstones Social History household members: none occupational status: previously employed Smoking Status: Never smoker alcohol intake: never substance use type: does not use and other Smoking Status: Never smoker alcohol intake frequency: 0-2 drinks per day Substance Use Type: does not use Exam Initial Vital Signs Initial Vital Signs: Vital Signs Temperature 98.2 F 01/23/20 15:08 Pulse Rate 129 H 01/23/20 15:08 Respiratory Rate 24 01/23/20 15:08 Blood Pressure 122/73 01/23/20 15:08 Pulse Oximetry 98 01/23/20 15:08 GENERAL: Chronically ill female HEENT: Head atraumatic,EOMI, pupils reactive, face symmetric, moist mucous membr anes BREAST: Mastectomy noted fluid collection noted in the right breast non tender although she does have some mild surrounding erythema. CARDIOVASCULAR: Regular tachycardic. RESPIRATORY: Breath sounds equal bilaterally, no wheezes rales or rhonchi. ABDOMEN: Soft, nontender. Normoactive bowel sounds all 4 quadrants. No guarding or rebound. EXTREMITIES: Normal range of motion, no clubbing or edema. Neurovascularly intact NEUROLOGICAL: Alert and oriented x4.Normal gait and speech. SKIN: Blanchable erythema noted a right breast. No fluctuation no gross drainage Course Orders Ordered: Discontinued Medications Sodium Chloride (Normal Saline 0.9%) 1,000 mls @ 1,000 mls/hr IV BOLUS ONE Stop: 01/23/20 16:32 Last Infusion: 01/23/20 17:42 Dose: 0 mls/hr Documented by: Admin: 01/23/20 16:08 Dose: 1,000 mls/hr Documented by: CHU Lidocaine/Epinephrine (Xylocaine 1% W/Epi) 1 ml SUBCUT NOW ONE Stop: 01/23/20 18:25 Last Admin: 01/23/20 18:30 Dose: 1 ml Documented by: CHU Lorazepam (Ativan) 0.5 mg IV NOW ONE Stop: 01/23/20 15:37 Last Admin: 01/23/20 16:07 Dose: 0.5 mg Documented by: CHU Ondansetron HCl (Zofran) 4 mg IV NOW ONE Stop: 01/23/20 15:34 Last Admin: 01/23/20 16:08 Dose: 4 mg Documented by: CHU Vital Signs Vital signs: Vital Signs - 8 hr 01/23/20 15:08 01/23/20 15:15 01/23/20 15:29 Temperature 98.2 F Pulse Rate 129 H 119 H 122 H Respiratory Rate 24 23 Blood Pressure 122/73 110/77 Pulse Oximetry 98 91 98 01/23/20 15:30 01/23/20 15:45 01/23/20 16:08 Temperature Pulse Rate 121 H 114 H 102 H Respiratory Rate 25 H 28 H 15 Blood Pressure 109/57 L 121/70 Pulse Oximetry 98 98 98 01/23/20 16:13 01/23/20 16:15 01/23/20 16:30 Temperature Pulse Rate 97 H 93 H 98 H Respiratory Rate 17 22 14 Blood Pressure 110/66 104/61 95/58 L Pulse Oximetry 100 100 98 01/23/20 16:45 01/23/20 17:00 01/23/20 17:15 Temperature Pulse Rate 94 H 96 H Respiratory Rate 14 17 23 Blood Pressure 105/59 L Pulse Oximetry 100 99 01/23/20 17:30 01/23/20 17:38 01/23/20 17:45 Temperature Pulse Rate 103 H 91 H 94 H Respiratory Rate 21 23 17 Blood Pressure 103/77 Pulse Oximetry 97 99 99 01/23/20 18:00 01/23/20 18:15 Temperature Pulse Rate 98 H 96 H Respiratory Rate 14 23 Blood Pressure 105/70 104/66 Pulse Oximetry 98 99 MDM - Skin/Abscess/Foreign Bdy Lab Data Attestation: I reviewed the patient's lab results. Result diagrams: 01/23/20 15:29 01/23/20 15:29 Labs: Lab Results 01/23/20 01/23/20 01/23/20 Range/Units 15:29 15:29 15:29 WBC 9.7 (4.5-11.0) X10^3/uL RBC 3.58 L (4.0-5.2) X10^6/uL Hgb 11.3 L (12.0-16.0) g/dL Hct 33.8 L (36-46) % MCV 94.3 (80-100) fL MCH 31.6 (26-34) PG MCHC 33.5 (30-36) % RDW 12.5 (11.6-14.8) % Plt Count 250 (150-400) X10^3/uL Neut % (Auto) 77.1 H (50-75) % Lymph % (Auto) 16.5 L (25-40) % Allen % (Auto) 6.0 (3-14) % Eos % (Auto) 0.1 L (2-4) % Baso % (Auto) 0.3 (0-2) % Neut # (Auto) 7500 H (8729-0125) /uL Lymph # (Auto) 1600 (8296-3544) /uL Allen # (Auto) 600 (0-900) /uL Eos # (Auto) 0 (0-450) /uL Baso # (Auto) 0 (0-100) /uL PT 11.6 (10.1-12.7) SECONDS INR 1.0 (0.9-1.3) APTT 29 (26.4-36.2) SECONDS Sodium 140 (137-145) mmol/L Potassium 3.8 (3.4-5.1) mmol/L Chloride 107 (98-107) mmol/L Carbon Dioxide 25 (22-32) mmol/L BUN 17 (7-17) mg/dL Creatinine 0.91 (0.52-1.04) mg/dL Estimated GFR > 60.0 (>60) mL/min BUN/Creatinine Ratio 18.7 (6-22) Glucose 109 H (70-100) mg/dL Lactate (0.7-2.1) mmol/L Calcium 9.2 (8.4-10.2) mg/dL Total Bilirubin 0.5 (0.2-1.3) mg/dL AST 30 (14-36) IU/L ALT 23 (<35) IU/L Alkaline Phosphatase 52 (38-126) U/L Total Protein 7.5 (6.3-8.2) g/dL Albumin 4.4 (3.5-5.0) g/dL Globulin 3.1 (1.7-4.1) g/dL Albumin/Globulin Ratio 1.4 (1.0-2.8) Lipase 44 (23-300) U/L 01/23/20 Range/Units 15:29 WBC (4.5-11.0) X10^3/uL RBC (4.0-5.2) X10^6/uL Hgb (12.0-16.0) g/dL Hct (36-46) % MCV (80-100) fL MCH (26-34) PG MCHC (30-36) % RDW (11.6-14.8) % Plt Count (150-400) X10^3/uL Neut % (Auto) (50-75) % Lymph % (Auto) (25-40) % Allen % (Auto) (3-14) % Eos % (Auto) (2-4) % Baso % (Auto) (0-2) % Neut # (Auto) (6483-8211) /uL Lymph # (Auto) (3216-0684) /uL Allen # (Auto) (0-900) /uL Eos # (Auto) (0-450) /uL Baso # (Auto) (0-100) /uL PT (10.1-12.7) SECONDS INR (0.9-1.3) APTT (26.4-36.2) SECONDS Sodium (137-145) mmol/L Potassium (3.4-5.1) mmol/L Chloride (98-107) mmol/L Carbon Dioxide (22-32) mmol/L BUN (7-17) mg/dL Creatinine (0.52-1.04) mg/dL Estimated GFR (>60) mL/min BUN/Creatinine Ratio (6-22) Glucose (70-100) mg/dL Lactate 1.4 (0.7-2.1) mmol/L Calcium (8.4-10.2) mg/dL Total Bilirubin (0.2-1.3) mg/dL AST (14-36) IU/L ALT (<35) IU/L Alkaline Phosphatase (38-126) U/L Total Protein (6.3-8.2) g/dL Albumin (3.5-5.0) g/dL Globulin (1.7-4.1) g/dL Albumin/Globulin Ratio (1.0-2.8) Lipase (23-300) U/L Urine Dip Bedside Urine Glucose Negative Bedside Urine Bilirubin - Negative Bedside Urine Ketone + 15 Urine Specific [place] 1.010 Bedside Urine Occult Blood - Negative Bedside Urine pH 6.0 Bedside Urine Protein +/- 15 Bedside Urine Urobilinogen - Negative Bedside Urine Nitrite - Negative Bedside Urine Leukocytes - Negative Esterase Imaging Data CT scan - head: Radiologist's Impression: PROCEDURE: CT HEAD/BRAIN WO CON INDICATIONS: sudden onset mood swings, h/o breast CA- TECHNIQUE: Noncontrast 4.5 mm thick angled axial sections acquired from the foramen magnum to the vertex, with coronal and sagittal reformats. For radiation dose reduction, the following was used: automated exposure control, adjustment of mA and/or kV according to patient size. COMPARISON: None. FINDINGS: Image quality: Excellent. CSF spaces: Basal cisterns are patent. No extra-axial fluid collections. Ventricles are normal in size and shape. Brain: No midline shift. No intracranial masses or hemorrhage. Emerson-white matter interface is normal. Skull and face: Calvarium and visualized facial bones are intact, without suspicious lesions. Sinuses: Visualized sinuses and mastoids are clear. IMPRESSION: Unremarkable noncontrast head CT, without imaging explanation found for the patient's presenting symptoms. No noncontrast findings of metastatic disease are detected. If there is strong clinical concern for intracranial metastatic disease, then please consider a dedicated brain MRI (without and with contrast) for further evaluation (assuming that there is no contraindication). Dictated by: Moses Sal M.D. on 01/23/2020 at 15:10 Approved by: Moses Sal M.D. on 01/23/2020 at 15:11 CT scan - abdomen/pelvis: Radiologist's Impression: PROCEDURE: CT CHEST ABD PEL W CON INDICATIONS: right fluid collection mastetomy TECHNIQUE: After the administration of intravenous contrast, 5 mm thick sections acquired from the lung apices to the symphysis. 5 mm coronal and sagittal reformats were performed, with additional 7 mm MIP reformats through the lungs. For radiation dose reduction, the following was used: automated exposure control, adjustment of mA and/or kV according to patient size. COMPARISON: [facility], MR, MR ABDOMEN WO/W CON, 09/06/2019, 8:49. [facility], CT, CT ABDOMEN PELVIS W CON, 05/17/2019, 17:11. [facility], CT, CT CHEST ABD PEL W CON, 04/11/2019, 8:29. FINDINGS: Image quality: Excellent. CHEST: Lungs and pleura: Patient's known right apical reticular thickening/scarring is again seen, not significantly changed since previous study. Previously described 3 millimeter right upper lobe nodule along the major fissure is also unchanged series 7, image 115. No new pulmonary nodule is seen. No pleural effusions or pneumothorax. Central and peripheral airways appear patent and normal in caliber. Mediastinum: Heart size is normal. No pericardial effusion. No mediastinal or hilar adenopathy by size criteria. Thoracic aorta and central pulmonary arteries are normal in size. Esophagus is normal in caliber. No hiatal hernia. Chest wall: Right chest wall Port-A-Cath tip is in SVC. No axillary or supraclavicular adenopathy by size criteria. Surgical clips are noted in left axilla. Thyroid gland is within normal limits. Patient's known elongated thin rim enhancing post operative fluid collection involving lateral aspect of right breast now extending to more anterior right chest wall and measures up to 12.6 x 1.8 x 12.4 centimeters in size compared to 2.8 x 5.8 x 4.3 cm in size on most recent study dated 09/17/2019. Peripheral rim enhancement is again seen. No internal solid component is seen. Surgical clips are noted in left chest wall. No left anterior chest santos fluid collection is seen. ABDOMEN: Solid organs: Liver is normal in size and enhancement. Gallbladder is surgically absent. Biliary system is mildly prominent although unchanged from prior studies. Pancreas enhances normally. Spleen is normal in size and enhancement. No adrenal nodules. Kidneys demonstrate normal size and enhancement, without hydronephrosis. Peritoneum and bowel: Bowel loops demonstrate normal wall thickness and caliber. No free fluid or air. Nodes and vessels: No retroperitoneal or mesenteric adenopathy by size criteria. Aorta and inferior vena cava are normal in size. Miscellaneous: No ventral hernias. PELVIS: Genitourinary: Bladder wall thickness is normal. Miscellaneous: No inguinal hernias or adenopathy. Bones: No suspicious bony lesions. No vertebral body compression fractures. IMPRESSION: 1. Compared to most recent MRI of breast study dated 09/17/2019, there is interval further increase in size of patient's known right breast/anterior chest wall rim enhancing fluid collection now measures 12.6 x 1.8 x 12.4 cm in size. Postsurgical changes in left axilla and left breast. No left chest wall fluid collection. 2. Stable appearing right apical reticular thickening/scarring. Stable tiny 3 mm right upper lobe nodule. 3. No lymphadenopathy is seen in chest, abdomen or pelvis. 4. Stable mild biliary ductal dilatation unchanged from prior studies. Prior cholecystectomy. 5. No bowel obstruction. No free fluid or free air. Dictated by: Lamberto Vital M.D. on 01/23/2020 at 16:31 Approved by: Lamberto Vital M.D. on 01/23/2020 at 16:47 MDM Narrative Medical decision making narrative: Patient is initially tachycardic however improved with IV fluids she is afebrile without leukocytosis negative lactic acid. Site actually looks like cellulitis. CT does not show any abscess. Dr. Schuster, patient's surgeon is in ED to see and evaluate patient. Surgical drain is placed. At this time she does not recommend antibiotics she will follow-up closely in clinic. Patient is scheduled to have chest abdomen pelvis CT done tomorrow while in the ED this imaging is done. Head CT is done because she is having significant mood swings and other issues concern for possible metastasis. Discharge Plan Departure Patient Disposition: Home Clinical Impression: Seroma of breast Discharge Date/Time: 01/23/20 19:22 Activity Restrictions/Additional Instructions: *You have been diagnosed with seroma *What to do: At this time and no antibiotics indicated follow-up closely with your surgeon. Please discuss with your oncologist if you should need other anxiety medication *Continue to take medications as directed *Follow up with your primary care provider in 2-3 days *Return to ER if you should have fever greater than 100.4, gross drainage from the drain, increased pain or any new, worsening or concerning symptoms Prescriptions: No Action [id number] [Fiorinal] 50-325-40 mg capsule 1 cap PO PRN PRN (Reason: Migraine Headache) RF: 0 cholecalciferol (vitamin D3) 1,000 unit capsule 1,000 unit PO DAILY RF: 0 vitamin K2 40 mcg tablet 300 mcg PO DAILY RF: 0 rizatriptan [Maxalt] 10 mg tablet 10 mg PO ONCE PRN (Reason: migraine headache) RF: 0 promethazine 25 mg Tablet 25 mg PO Q6H PRN (Reason: Nausea) Qty: 60 RF: 0 prochlorperazine maleate [Compazine] 10 mg Tablet 10 mg PO Q6H PRN (Reason: nauseas and vomiting) Qty: 90 RF: 0 lorazepam 0.5 mg Tablet 0.5 mg PO Q6H PRN (Reason: nausea or vomiting) Qty: 60 RF: 0 mirtazapine 15 mg Tablet,Disintegrating 15 mg PO DAILY Qty: 30 RF: 2 alprazolam [Xanax] 0.25 mg Tablet 0.25 mg PO TID PRN (Reason: Anxiety) Qty: 30 RF: 0 megestrol 400 mg/10 mL (10 mL) Suspension 400 mg PO DAILY Qty: 500 RF: 0 ibuprofen 200 mg Tablet 200 mg PO PRN PRN (Reason: Pain (Scale Score 1-3)) RF: 0 Referrals: Lily Muñoz ND [Primary Care Provider] - Ananth De Jesus MD [Physician] - Rama Martinez MD [Physician] -
--- NOTE | 2020-01-23 15:33 | DI.CT.S_ITS ---
PROCEDURE: CT CHEST ABD PEL W CON INDICATIONS: right fluid collection mastetomy TECHNIQUE: After the administration of intravenous contrast, 5 mm thick sections acquired from the lung apices to the symphysis. 5 mm coronal and sagittal reformats were performed, with additional 7 mm MIP reformats through the lungs. For radiation dose reduction, the following was used: automated exposure control, adjustment of mA and/or kV according to patient size. COMPARISON: [facility], MR, MR ABDOMEN WO/W CON, 09/06/2019, 8:49. [facility], CT, CT ABDOMEN PELVIS W CON, 05/17/2019, 17:11. [facility], CT, CT CHEST ABD PEL W CON, 04/11/2019, 8:29. FINDINGS: Image quality: Excellent. CHEST: Lungs and pleura: Patient's known right apical reticular thickening/scarring is again seen, not significantly changed since previous study. Previously described 3 millimeter right upper lobe nodule along the major fissure is also unchanged series 7, image 115. No new pulmonary nodule is seen. No pleural effusions or pneumothorax. Central and peripheral airways appear patent and normal in caliber. Mediastinum: Heart size is normal. No pericardial effusion. No mediastinal or hilar adenopathy by size criteria. Thoracic aorta and central pulmonary arteries are normal in size. Esophagus is normal in caliber. No hiatal hernia. Chest wall: Right chest wall Port-A-Cath tip is in SVC. No axillary or supraclavicular adenopathy by size criteria. Surgical clips are noted in left axilla. Thyroid gland is within normal limits. Patient's known elongated thin rim enhancing postoperative fluid collection involving lateral aspect of right breast now extending to more anterior right chest wall and measures up to 12.6 x 1.8 x 12.4 centimeters in size compared to 2.8 x 5.8 x 4.3 cm in size on most recent study dated 09/17/2019. Peripheral rim enhancement is again seen. No internal solid component is seen. Surgical clips are noted in left chest wall. No left anterior chest santos fluid collection is seen. ABDOMEN: Solid organs: Liver is normal in size and enhancement. Gallbladder is surgically absent. Biliary system is mildly prominent although unchanged from prior studies. Pancreas enhances normally. Spleen is normal in size and enhancement. No adrenal nodules. Kidneys demonstrate normal size and enhancement, without hydronephrosis. Peritoneum and bowel: Bowel loops demonstrate normal wall thickness and caliber. No free fluid or air. Nodes and vessels: No retroperitoneal or mesenteric adenopathy by size criteria. Aorta and inferior vena cava are normal in size. Miscellaneous: No ventral hernias. PELVIS: Genitourinary: Bladder wall thickness is normal. Miscellaneous: No inguinal hernias or adenopathy. Bones: No suspicious bony lesions. No vertebral body compression fractures. IMPRESSION: 1. Compared to most recent MRI of breast study dated 09/17/2019, there is interval further increase in size of patient's known right breast/anterior chest wall rim enhancing fluid collection now measures 12.6 x 1.8 x 12.4 cm in size. Postsurgical changes in left axilla and left breast. No left chest wall fluid collection. 2. Stable appearing right apical reticular thickening/scarring. Stable tiny 3 mm right upper lobe nodule. 3. No lymphadenopathy is seen in chest, abdomen or pelvis. 4. Stable mild biliary ductal dilatation unchanged from prior studies. Prior cholecystectomy. 5. No bowel obstruction. No free fluid or free air. Dictated by: Lamberto Vital M.D. on 01/23/2020 at 16:31 Approved by: Lamberto Vital M.D. on 01/23/2020 at 16:47
--- NOTE | 2020-01-23 15:37 | DI.CT.S_ITS ---
PROCEDURE: CT HEAD/BRAIN WO CON INDICATIONS: sudden onset mood swings, h/o breast CA- TECHNIQUE: Noncontrast 4.5 mm thick angled axial sections acquired from the foramen magnum to the vertex, with coronal and sagittal reformats. For radiation dose reduction, the following was used: automated exposure control, adjustment of mA and/or kV according to patient size. COMPARISON: None. FINDINGS: Image quality: Excellent. CSF spaces: Basal cisterns are patent. No extra-axial fluid collections. Ventricles are normal in size and shape. Brain: No midline shift. No intracranial masses or hemorrhage. Emerson-white matter interface is normal. Skull and face: Calvarium and visualized facial bones are intact, without suspicious lesions. Sinuses: Visualized sinuses and mastoids are clear. IMPRESSION: Unremarkable noncontrast head CT, without imaging explanation found for the patient's presenting symptoms. No noncontrast findings of metastatic disease are detected. If there is strong clinical concern for intracranial metastatic disease, then please consider a dedicated brain MRI (without and with contrast) for further evaluation (assuming that there is no contraindication). Dictated by: Moses Sal M.D. on 01/23/2020 at 15:10 Approved by: Moses Sal M.D. on 01/23/2020 at 15:11
[2020-01-23 15:43] LABS: Add Manual Diff / Slide Review NO; Basophils Absolute Auto 0 /uL (0-100); Basophils Percent Auto 0.3 % (0-2); Eosinophils Absolute Auto 0 /uL (0-450); Eosinophils Percent Auto 0.1 % (2-4); Hematocrit 33.8 % (36-46); Hemoglobin 11.3 g/dL (12.0-16.0); Lymphocytes Absolute Auto 1600 /uL (1100-4500); Lymphocytes Percent Auto 16.5 % (25-40); Mean Corpuscular HGB Conc 33.5 % (30-36); Mean Corpuscular Hemoglobin 31.6 PG (26-34); Mean Corpuscular Volume 94.3 fL (80-100); Monocytes Absolute Auto 600 /uL (0-900); Neutrophils Absolute Auto 7500 /uL (1500-7000); Neutrophils Percent Auto 77.1 % (50-75); Platelet Count 250 X10^3/uL (150-400); Red Blood Cell Count 3.58 X10^6/uL (4.0-5.2); Red Cell Distribution Width 12.5 % (11.6-14.8); White Blood Cell Count 9.7 X10^3/uL (4.5-11.0)
[2020-01-23 15:46] LABS: Prothrombin Time 11.6 SECONDS (10.1-12.7)
[2020-01-23 15:49] LABS: PTT Partial Thromboplastin Tim 29 SECONDS (26.4-36.2)
[2020-01-23 15:50] LABS: Lactate (Lactic Acid) 1.4 mmol/L (0.7-2.1)
[2020-01-23 15:51] LABS: Alanine Aminotransferase 23 IU/L (<35); Albumin 4.4 g/dL (3.5-5.0); Albumin Globulin Ratio 1.4 (1.0-2.8); Alkaline Phosphatase 52 U/L (38-126); Aspartate Aminotransferase 30 IU/L (14-36); BUN Creatinine Ratio 18.7 (6-22); Bilirubin Total 0.5 mg/dL (0.2-1.3); Blood Urea Nitrogen 17 mg/dL (7-17); Calcium 9.2 mg/dL (8.4-10.2); Carbon Dioxide 25 mmol/L (22-32); Chloride 107 mmol/L (98-107); Estimated Glomerular Filt Rate > 60.0 mL/min (>60); Globulin 3.1 g/dL (1.7-4.1); Glucose 109 mg/dL (70-100); HEMOLYSIS < 15 (0-50); Lipase 44 U/L (23-300); Potassium 3.8 mmol/L (3.4-5.1); Sodium 140 mmol/L (137-145); Total Protein 7.5 g/dL (6.3-8.2)
[2020-01-23] MEDS: LORazepam 2 MG/ML INJ 0.5 MG IV (16:07)
[2020-01-23] MEDS: SODIUM CHLORIDE 0.9% 1,000 ML 1000 ML IV (16:08)
[2020-01-23] MEDS: ONDANSETRON 4 MG/2 ML INJ IV (16:08)
[2020-01-23] MEDS: LIDOCAINE 1% W/EPI 1 ML SUBCUT (18:30)
--- NOTE | 2020-01-23 19:09 | PM.CN ---
History of Present Illness Consult details Date Patient Seen: 01/23/20 Time Patient Seen: 19:09 Chief complaint: states post op infection to right shoulder Reason for consult: breast abscess Narrative: This is a patient who is well-known to me. She is a 59-year-old woman who is about 10 weeks out from bilateral mastectomy. She had a prior lumpectomy and radiation to the right breast, and a chronic nonhealing seroma. She now has a recurrent seroma at the right mastectomy site again. It it was drained twice in the office and continues to recur. She has been wearing a compression garment. Today she did some lifting and straining, and noticed a sudden increase in the fluid. The skin appeared red, and she was concerned about infection. ROS: She has not been feeling well she has had significant mood changes. She does a nice any fever. She is noted to be tachycardic here in the emergency department. She has not had any fever, although she does feel chilled. Thirteen system review is otherwise negative other than as mentioned below and in HPI. PE: GENERAL: Alert, comfortable. Appears stated age. Answers questions promptly and appropriately. Vital signs noted. HENT: Normocephalic, atraumatic. Hearing intact. EYES: Conjunctiva pink, sclera white, no periorbital swelling. CARDIOVASCULAR: Regular rate. No pedal edema. RESPIRATORY: Non-tachypneic, breathing comfortably on room air. GASTROINTESTINAL: Abdomen soft and non-distended GENITALURINARY: No flank tenderness. Breasts: Right mastectomy site is erythematous in the skin, and enlarged with an increased fluid collection as compared to last time I saw her. Left mastectomy site is well-healed. MUSCULOSKELETAL: Equal tone and mass bilaterally. SKIN: Warm, dry, soft, appropriate color for ethnicity. No other lesions, rashes, or wounds. NEURO: Alert and Oriented X 3. No gross sensory deficits, or cognitive issues. PSYCH: Appropriate affect and mood. Meds Home Medications and Allergies Home Medications Medication Instructions Recorded Confirmed Type ivgbqhtxur-wvcjnaz-kmztakjc 50 1 cap PO PRN PRN 09/25/18 01/17/20 History mg-325 mg-40 mg capsule cholecalciferol (vitamin D3) 25 1,000 unit PO DAILY 09/25/18 01/17/20 History mcg (1,000 unit) capsule vitamin K2 40 mcg tablet 300 mcg PO DAILY 09/25/18 01/17/20 History promethazine 25 mg PO Q6H PRN #60 tab 05/24/19 01/17/20 Rx prochlorperazine maleate 10 mg PO Q6H PRN #90 tab 06/07/19 01/17/20 Rx [Compazine] lorazepam 0.5 mg PO Q6H PRN #60 tab 09/03/19 01/17/20 Rx mirtazapine 15 mg PO DAILY #30 tab 10/18/19 01/17/20 Rx rizatriptan 10 mg tablet 10 mg PO ONCE PRN 11/13/19 01/17/20 History ibuprofen 200 mg PO PRN PRN 11/20/19 01/17/20 History Allergies Allergy/AdvReac Type Severity Reaction Status Date / Time No Known Drug Allergies Allergy Verified 01/17/20 10:14 Exam Vital Signs (past 8 hours): - 01/23/20 15:08 01/23/20 15:15 01/23/20 15:29 Temperature 98.2 F Pulse Rate 129 H 119 H 122 H Respiratory Rate 24 23 Blood Pressure 122/73 110/77 Pulse Oximetry 98 91 98 01/23/20 15:30 01/23/20 15:45 01/23/20 16:08 Temperature Pulse Rate 121 H 114 H 102 H Respiratory Rate 25 H 28 H 15 Blood Pressure 109/57 L 121/70 Pulse Oximetry 98 98 98 01/23/20 16:13 01/23/20 16:15 01/23/20 16:30 Temperature Pulse Rate 97 H 93 H 98 H Respiratory Rate 17 22 14 Blood Pressure 110/66 104/61 95/58 L Pulse Oximetry 100 100 98 01/23/20 16:45 01/23/20 17:00 01/23/20 17:15 Temperature Pulse Rate 94 H 96 H Respiratory Rate 14 17 23 Blood Pressure 105/59 L Pulse Oximetry 100 99 01/23/20 17:30 01/23/20 17:38 01/23/20 17:45 Temperature Pulse Rate 103 H 91 H 94 H Respiratory Rate 21 23 17 Blood Pressure 103/77 Pulse Oximetry 97 99 99 01/23/20 18:00 01/23/20 18:15 01/23/20 18:30 Temperature Pulse Rate 98 H 96 H 89 Respiratory Rate 14 23 24 Blood Pressure 105/70 104/66 107/73 Pulse Oximetry 98 99 98 01/23/20 18:45 01/23/20 19:00 Temperature Pulse Rate 95 H 92 H Respiratory Rate 19 15 Blood Pressure 119/73 110/70 Pulse Oximetry 99 99 Oxygen Delivery Method Room Air Objective Imaging CT scan - chest: My impression: Large fluid collection in right mastectomy site Radiologist's impression: [address] [address] [address] Scan Report Signed Patient: Elif Sharp [facility]#: [id number] : 1960Acct:[id number] Age/Sex: 59 / FDate of Service: 01/23/20 Loc: ED Accession Number: [id number] Procedure: CT chest abd pel w con Ordering Provider: Carolyn Lebron D.O. PROCEDURE: CT CHEST ABD PEL W CON INDICATIONS: right fluid collection mastetomy TECHNIQUE: After the administration of intravenous contrast, 5 mm thick sections acquired from the lung apices to the symphysis. 5 mm coronal and sagittal reformats were performed, with additional 7 mm MIP reformats through the lungs. For radiation dose reduction, the following was used: automated exposure control, adjustment of mA and/or kV according to patient size. COMPARISON: [facility], MR, MR ABDOMEN WO/W CON, 09/06/2019, 8:49. [facility], CT, CT ABDOMEN PELVIS W CON, 05/17/2019, 17:11. [facility], CT, CT CHEST ABD PEL W CON, 04/11/2019, 8:29. FINDINGS: Image quality: Excellent. CHEST: Lungs and pleura: Patient's known right apical reticular thickening/scarring is again seen, not significantly changed since previous study. Previously described 3 millimeter right upper lobe nodule along the major fissure is also unchanged series 7, image 115. No new pulmonary nodule is seen. No pleural effusions or pneumothorax. Central and peripheral airways appear patent and normal in caliber. Mediastinum: Heart size is normal. No pericardial effusion. No mediastinal or hilar adenopathy by size criteria. Thoracic aorta and central pulmonary arteries are normal in size. Esophagus is normal in caliber. No hiatal hernia. Chest wall: Right chest wall Port-A-Cath tip is in SVC. No axillary or supraclavicular adenopathy by size criteria. Surgical clips are noted in left axilla. Thyroid gland is within normal limits. Patient's known elongated thin rim enhancing postoperative fluid collection involving lateral aspect of right breast now extending to more anterior right chest wall and measures up to 12.6 x 1.8 x 12.4 centimeters in size compared to 2.8 x 5.8 x 4.3 cm in size on most recent study dated 09/17/2019. Peripheral rim enhancement is again seen. No internal solid component is seen. Surgical clips are noted in left chest wall. No left anterior chest santos fluid collection is seen. ABDOMEN: Solid organs: Liver is normal in size and enhancement. Gallbladder is surgically absent. Biliary system is mildly prominent although unchanged from prior studies. Pancreas enhances normally. Spleen is normal in size and enhancement. No adrenal nodules. Kidneys demonstrate normal size and enhancement, without hydronephrosis. Peritoneum and bowel: Bowel loops demonstrate normal wall thickness and caliber. No free fluid or air. Nodes and vessels: No retroperitoneal or mesenteric adenopathy by size criteria. Aorta and inferior vena cava are normal in size. Miscellaneous: No ventral hernias. PELVIS: Genitourinary: Bladder wall thickness is normal. Miscellaneous: No inguinal hernias or adenopathy. Bones: No suspicious bony lesions. No vertebral body compression fractures. IMPRESSION: 1. Compared to most recent MRI of breast study dated 09/17/2019, there is interval further increase in size of patient's known right breast/anterior chest wall rim enhancing fluid collection now measures 12.6 x 1.8 x 12.4 cm in size. Postsurgical changes in left axilla and left breast. No left chest wall fluid collection. 2. Stable appearing right apical reticular thickening/scarring. Stable tiny 3 mm right upper lobe nodule. 3. No lymphadenopathy is seen in chest, abdomen or pelvis. 4. Stable mild biliary ductal dilatation unchanged from prior studies. Prior cholecystectomy. 5. No bowel obstruction. No free fluid or free air. Dictated by: Lamberto Vital M.D. on 01/23/2020 at 16:31 Approved by: Lamberto Vital M.D. on 01/23/2020 at 16:47 Labs Result Diagrams: 01/23/20 15:29 01/23/20 15:29 Labs: Laboratory Results - last 24 hr 01/23/20 01/23/20 01/23/20 15:29 15:29 15:29 WBC 9.7 RBC 3.58 L Hgb 11.3 L Hct 33.8 L MCV 94.3 MCH 31.6 MCHC 33.5 RDW 12.5 Plt Count 250 Neut % (Auto) 77.1 H Lymph % (Auto) 16.5 L Alger % (Auto) 6.0 Eos % (Auto) 0.1 L Baso % (Auto) 0.3 Neut # (Auto) 7500 H Lymph # (Auto) 1600 Alger # (Auto) 600 Eos # (Auto) 0 Baso # (Auto) 0 PT 11.6 INR 1.0 APTT 29 Sodium 140 Potassium 3.8 Chloride 107 Carbon Dioxide 25 BUN 17 Creatinine 0.91 Estimated GFR > 60.0 BUN/Creatinine Ratio 18.7 Glucose 109 H Lactate Calcium 9.2 Total Bilirubin 0.5 AST 30 ALT 23 Alkaline Phosphatase 52 Total Protein 7.5 Albumin 4.4 Globulin 3.1 Albumin/Globulin Ratio 1.4 Lipase 44 01/23/20 15:29 WBC RBC Hgb Hct MCV MCH MCHC RDW Plt Count Neut % (Auto) Lymph % (Auto) Alger % (Auto) Eos % (Auto) Baso % (Auto) Neut # (Auto) Lymph # (Auto) Alger # (Auto) Eos # (Auto) Baso # (Auto) PT INR APTT Sodium Potassium Chloride Carbon Dioxide BUN Creatinine Estimated GFR BUN/Creatinine Ratio Glucose Lactate 1.4 Calcium Total Bilirubin AST ALT Alkaline Phosphatase Total Protein Albumin Globulin Albumin/Globulin Ratio Lipase Assessment & Plan Assessment and plan (1) Seroma of breast: Status: Acute (2) Status post mastectomy: Status: Acute Assessment & Plan narrative: This 59-year-old woman with a recurrent right breast seroma, after lumpectomy, radiation therapy, and mastectomy for recurrence. She has some some redness of the skin, but she does not have an elevated white blood cell count or any fevers, however the fluid collection is much larger today and tender. Risks and benefits of drain placement were discussed with the patient. Including risk of bleeding, infection, damage to nearby structures, recurrence of the seroma, need for additional procedures. The patient desires to proceed with drain placement. Plan: Drain placement under local anesthetic Follow-up next week in clinic Patient will call if redness, fever, or drain output trend towards infection, and we will then call her in an antibiotic if needed. COVID-19 COVID-19 status: Not tested Time Spent With Patient Time with patient: Greater than 35 minutes
--- NOTE | 2020-01-23 19:19 | P.OP_ITS ---
Operative Date/Time/Diagnoses Date of procedure: 01/23/20 Time of procedure: 19:19 Pre-op diagnosis: Right breast abscess Post-op diagnosis: other (Right breast seroma) Procedure & Clinicians Procedure: Right breast drainage of seroma and percutaneous drain placement Same procedure as scheduled: Yes Indications: Right breast recurrent fluid collection, redness of skin, pain Surgeon: Rama Martinez Click Yes if Unassisted: Yes Anesthesia Type: Local Operative Notes Findings: About 200 mL serosanguineous fluid Specimen(s): none sent Prosthetic devices, grafts, tissues, transplants, or devices: Nineteen round Everett drain with HARMAN bulb Estimated Blood Loss (mL): 1 Procedure in detail: The patient was identified and placed supine with the right chest exposed. The right chest was then prepped and draped in sterile fashion, and a surgical time-out was conducted. At this point local anesthetic was injected using 1% Lidocaine with epi, at the site of the planned incision. A hemostat was then advanced through the anesthetized site, with copious sero sanguinous fluid expressed from the site. A 19 round everett drain was advanced into the mastectomy space and secured to the skin with 3-0 Nylon. The drain was placed to bulb suction with good decompression of the space. A tegaderm was secured over the drain site to help with maintaining suction. A 4x4 dressing was placed at the site and secured with tape. She tolerated the procedure well. Needle sponge and instrument counts were correct x2 at the end of the case. Complications: none Post-operative Condition: stable Disposition: other (Discharged home from ER with office follow up in one week.)
== END 2020-01-23 19:22 | disposition home or self-care (01) ==
PROVIDERS: Emergency Provider Emergency Medicine; Family Provider Naturopath; PCP Naturopath
DX: N64.89 Other specified disorders of breast (principal); M96.843 Postprocedural seroma of a musculoskeletal structure following other procedure; R00.0 Tachycardia, unspecified; Z90.10 Acquired absence of unspecified breast and nipple
CPT/HCPCS: 10140; 36415; 70450; 71260; 74177; 80053; 81003; 83605; 83690; 85025; 85610; 85730; 87040; 96361; 96374; 96375; 99284; J1642; J2060; J2405; Q9967

== ENCOUNTER → 2020-01-30 06:36 | Outpatient (CLI) | payer BC, SELFPAY ==
[2020-01-24 11:00] VITALS: BMI 20.7
--- NOTE | 2020-01-30 07:15 | DI.ECHO.S_ITS ---
Echocardiogram Report + + :Name: JOHNNIE GARZON Study Date: 01/30/2020 Height: 63.5 in: :[facility] Weight: 112 lb : : Gender: Female BSA: 1.5 m2 : :: 1960 Age: 59 yrs BP: 126/88 mmHg: :Reason For Study: PRE CHEMO : :Ordering Physician: TRENTON, : :RAMY Performed By: Oneida Lopez : :Referring: RAMY CHOWDHURY : + + Interpretation Summary The left ventricle is normal in size and wall thickness. Left ventricular ejection fraction is estimated to be 55%. Left ventricular global longitudinal strain average is -18.5%. There has been no significant change since the previous exam. There are no focal wall motion abnormalities. The right ventricle is normal size. The right ventricular systolic function is normal. There is borderline mitral valve prolapse. There is prolapse of the posterior mitral valve leaflet(s). There is mild mitral regurgitation. Compared to the prior echo study, there has been no change in the severity of mitral regurgitation. There is no other significant valvular heart disease. Procedure: A two-dimensional transthoracic echocardiogram with color flow and Doppler was performed in limited views only. The study quality was technically adequate. Comparison is made with the echocardiogram of 07/26/2019. The patient was in sinus rhythm with heart rates between 68-85 bpm during the exam. Left Ventricle: The left ventricle is normal in size and wall thickness. Left ventricular ejection fraction is estimated to be 55%. Left ventricular global longitudinal strain average is -18.5%. There has been no significant change since the previous exam. There are no focal wall motion abnormalities. Right Ventricle: The right ventricle is normal size. The right ventricular systolic function is normal. Atria: The left atrial size is normal. The right atrium is normal in size. Mitral Valve: There is borderline mitral valve prolapse. There is prolapse of the posterior mitral valve leaflet(s). There is mild mitral regurgitation. Compared to the prior echo study, there has been no change in the severity of mitral regurgitation. Aortic Valve: The aortic valve is trileaflet. The aortic valve opens well. Tricuspid Valve: The tricuspid valve is not well visualized, but is grossly normal. Pulmonary artery pressures cannot be estimated because of the lack of a measurable TR jet velocity but the IVC suggests a CVP of around 3 mmHg. Pulmonic Valve: There is no other significant valvular heart disease. Great Vessels: The IVC is of normal diameter and collapses greater than 50% with a sniff. This suggests a low right atrial pressure of 3 mm Hg. MMode/2D Measurements & Calculations LVIDd: 3.8 cm LA A2 area: 13.1 cm2 LVIDs: 3.0 cm LA A4 area: 8.3 cm2 FS: 22.3 % LA length (vol): 4.1 cm IVSd: 0.76 cm LA vol: 22.3 ml LVPWd: 0.82 cm LA vol index: 14.7 ml/m2 LV serna. diameter/BSA (cm/m^2): 2.5 LV sys. diameter/BSA (cm/m^2): 2.0 RA long axis: 3.7 cm RVD1 (basal): 2.8 cm RA area: 9.3 cm2 TAPSE: 1.7 cm RA vol: 19.6 ml RA : 12.9 ml/m2 IVC diam: 1.8 cm Reading Physician:02:54 PM
== END ==
PROVIDERS: Family Provider Naturopath; PCP Naturopath; Referring Provider Internal Medicine Hematology & Oncology; Visit Provider Internal Medicine Hematology & Oncology
DX: Z01.818 Encounter for other preprocedural examination (principal); C50.912 Malignant neoplasm of unspecified site of left female breast; I34.0 Nonrheumatic mitral (valve) insufficiency
CPT/HCPCS: 93307

== ENCOUNTER → 2020-02-12 09:37 | Outpatient (CLI) | payer BC, SELFPAY ==
[2020-01-24 11:00] VITALS: BMI 20.7
[2020-02-13 14:15] LABS: COVID19 Sendout Not Detected (Not Detect)
== END ==
PROVIDERS: Family Provider Naturopath; PCP Family Medicine; Visit Provider Physician Assistant
DX: J02.9 Acute pharyngitis, unspecified (principal); R06.02 Shortness of breath; R50.9 Fever, unspecified; R52 Pain, unspecified
CPT/HCPCS: 87635

== ENCOUNTER → 2020-03-17 09:48 | Outpatient (CLI) | payer BC, SELFPAY ==
[2020-01-24 11:00] VITALS: BMI 20.7
== END ==
PROVIDERS: Family Provider Naturopath; PCP Family Medicine; Referring Provider Surgery; Visit Provider Family Medicine
DX: L59.8 Other specified disorders of the skin and subcutaneous tissue related to radiation (principal); S21.101A Unspecified open wound of right front wall of thorax without penetration into thoracic cavity, initial encounter
CPT/HCPCS: 11042; 99203; 99213

== ENCOUNTER → 2020-03-24 09:31 | Outpatient (CLI) | payer BC, SELFPAY ==
[2020-01-24 11:00] VITALS: BMI 20.7
== END ==
PROVIDERS: Family Provider Naturopath; PCP Family Medicine; Referring Provider Family Medicine; Visit Provider Family Medicine
DX: L59.8 Other specified disorders of the skin and subcutaneous tissue related to radiation (principal); S21.101A Unspecified open wound of right front wall of thorax without penetration into thoracic cavity, initial encounter
CPT/HCPCS: 11042; 99214

== ENCOUNTER → 2020-03-27 15:14 | Outpatient (CLI) | payer BC, SELFPAY ==
[2020-01-24 11:00] VITALS: BMI 20.7
== END ==
PROVIDERS: Family Provider Naturopath; PCP Family Medicine; Referring Provider Family Medicine; Visit Provider Family Medicine
DX: S21.001A Unspecified open wound of right breast, initial encounter (principal)
CPT/HCPCS: 97607

== ENCOUNTER → 2020-03-31 10:21 | Outpatient (CLI) | payer BC, SELFPAY ==
[2020-01-24 11:00] VITALS: BMI 20.7
== END ==
PROVIDERS: Family Provider Naturopath; PCP Family Medicine; Referring Provider Family Medicine; Visit Provider Family Medicine
DX: L59.8 Other specified disorders of the skin and subcutaneous tissue related to radiation (principal); S21.101A Unspecified open wound of right front wall of thorax without penetration into thoracic cavity, initial encounter
CPT/HCPCS: 11042; 97607

== ENCOUNTER → 2020-04-03 13:49 | Outpatient (CLI) | payer BC, SELFPAY ==
[2020-01-24 11:00] VITALS: BMI 20.7
== END ==
PROVIDERS: Family Provider Naturopath; PCP Family Medicine; Referring Provider Family Medicine; Visit Provider Family Medicine
DX: T81.31XA Disruption of external operation (surgical) wound, not elsewhere classified, initial encounter (principal); S21.001A Unspecified open wound of right breast, initial encounter
CPT/HCPCS: 97607

== ENCOUNTER → 2020-04-07 09:19 | Outpatient (CLI) | payer BC, SELFPAY ==
[2020-01-24 11:00] VITALS: BMI 20.7
== END ==
PROVIDERS: Family Provider Naturopath; PCP Family Medicine; Referring Provider Family Medicine; Visit Provider Family Medicine
DX: L59.8 Other specified disorders of the skin and subcutaneous tissue related to radiation (principal); S21.101A Unspecified open wound of right front wall of thorax without penetration into thoracic cavity, initial encounter
CPT/HCPCS: 11042; 97605

== ENCOUNTER → 2020-04-14 09:20 | Outpatient (CLI) | payer BC, SELFPAY ==
[2020-01-24 11:00] VITALS: BMI 20.7
== END ==
PROVIDERS: Family Provider Naturopath; PCP Family Medicine; Referring Provider Family Medicine; Visit Provider Family Medicine
DX: L59.8 Other specified disorders of the skin and subcutaneous tissue related to radiation (principal); S21.001A Unspecified open wound of right breast, initial encounter
CPT/HCPCS: 97607

== ENCOUNTER → 2020-04-21 10:43 | Outpatient (CLI) | payer BC, SELFPAY ==
[2020-01-24 11:00] VITALS: BMI 20.7
== END ==
PROVIDERS: Family Provider Naturopath; PCP Family Medicine; Referring Provider Family Medicine; Visit Provider Family Medicine
DX: L59.8 Other specified disorders of the skin and subcutaneous tissue related to radiation (principal); S21.101A Unspecified open wound of right front wall of thorax without penetration into thoracic cavity, initial encounter
CPT/HCPCS: 11042; 99183; G0277

== ENCOUNTER → 2020-04-22 09:45 | Outpatient (CLI) | payer BC, SELFPAY ==
[2020-01-24 11:00] VITALS: BMI 20.7
== END ==
PROVIDERS: Family Provider Naturopath; PCP Family Medicine; Referring Provider Family Medicine; Visit Provider Family Medicine
DX: L59.8 Other specified disorders of the skin and subcutaneous tissue related to radiation (principal); S21.101A Unspecified open wound of right front wall of thorax without penetration into thoracic cavity, initial encounter
CPT/HCPCS: 99183; G0277

== ENCOUNTER → 2020-04-23 09:04 | Outpatient (CLI) | payer BC, SELFPAY ==
[2020-01-24 11:00] VITALS: BMI 20.7
== END ==
PROVIDERS: Family Provider Naturopath; PCP Family Medicine; Referring Provider Family Medicine; Visit Provider Family Medicine
DX: L59.8 Other specified disorders of the skin and subcutaneous tissue related to radiation (principal); S21.101A Unspecified open wound of right front wall of thorax without penetration into thoracic cavity, initial encounter
CPT/HCPCS: 99183; G0277

== ENCOUNTER → 2020-04-24 09:18 | Outpatient (CLI) | payer BC, SELFPAY ==
[2020-01-24 11:00] VITALS: BMI 20.7
== END ==
PROVIDERS: Family Provider Naturopath; PCP Family Medicine; Referring Provider Family Medicine; Visit Provider Family Medicine
DX: L59.8 Other specified disorders of the skin and subcutaneous tissue related to radiation (principal); S21.101A Unspecified open wound of right front wall of thorax without penetration into thoracic cavity, initial encounter
CPT/HCPCS: 99183; G0277

== ENCOUNTER → 2020-04-25 09:41 | Outpatient (CLI) | payer BC, SELFPAY ==
[2020-01-24 11:00] VITALS: BMI 20.7
== END ==
PROVIDERS: Family Provider Naturopath; PCP Family Medicine; Referring Provider Family Medicine; Visit Provider Family Medicine
DX: L59.8 Other specified disorders of the skin and subcutaneous tissue related to radiation (principal); S21.101A Unspecified open wound of right front wall of thorax without penetration into thoracic cavity, initial encounter
CPT/HCPCS: 99183; G0277

== ENCOUNTER → 2020-04-28 09:02 | Outpatient (CLI) | payer BC, SELFPAY ==
[2020-01-24 11:00] VITALS: BMI 20.7
== END ==
PROVIDERS: Family Provider Naturopath; PCP Family Medicine; Referring Provider Family Medicine; Visit Provider Family Medicine
DX: L59.8 Other specified disorders of the skin and subcutaneous tissue related to radiation (principal); S21.101A Unspecified open wound of right front wall of thorax without penetration into thoracic cavity, initial encounter; T70.0XXA Otitic barotrauma, initial encounter; H65.03 Acute serous otitis media, bilateral; R60.0 Localized edema
CPT/HCPCS: 11042; 97607; 99183; 99214; G0277

== ENCOUNTER → 2020-04-29 09:30 | Outpatient (CLI) | payer BC, SELFPAY ==
[2020-01-24 11:00] VITALS: BMI 20.7
== END ==
PROVIDERS: Family Provider Naturopath; PCP Family Medicine; Referring Provider Family Medicine; Visit Provider Family Medicine
DX: L59.8 Other specified disorders of the skin and subcutaneous tissue related to radiation (principal); S21.101A Unspecified open wound of right front wall of thorax without penetration into thoracic cavity, initial encounter
CPT/HCPCS: 99183; G0277

== ENCOUNTER → 2020-04-30 09:10 | Outpatient (CLI) | payer BC, SELFPAY ==
[2020-01-24 11:00] VITALS: BMI 20.7
== END ==
PROVIDERS: Family Provider Naturopath; PCP Family Medicine; Referring Provider Family Medicine; Visit Provider Family Medicine
DX: L59.8 Other specified disorders of the skin and subcutaneous tissue related to radiation (principal); S21.101A Unspecified open wound of right front wall of thorax without penetration into thoracic cavity, initial encounter
CPT/HCPCS: 99183; G0277

== ENCOUNTER → 2020-05-01 08:50 | Outpatient (CLI) | payer BC, SELFPAY ==
[2020-01-24 11:00] VITALS: BMI 20.7
== END ==
PROVIDERS: Family Provider Naturopath; PCP Family Medicine; Referring Provider Family Medicine; Visit Provider Family Medicine
DX: L59.8 Other specified disorders of the skin and subcutaneous tissue related to radiation (principal); S21.101A Unspecified open wound of right front wall of thorax without penetration into thoracic cavity, initial encounter
CPT/HCPCS: 99183; G0277

== ENCOUNTER → 2020-05-02 09:17 | Outpatient (CLI) | payer BC, SELFPAY ==
[2020-01-24 11:00] VITALS: BMI 20.7
== END ==
PROVIDERS: Family Provider Naturopath; PCP Family Medicine; Referring Provider Family Medicine; Visit Provider Family Medicine
DX: L59.8 Other specified disorders of the skin and subcutaneous tissue related to radiation (principal); S21.101A Unspecified open wound of right front wall of thorax without penetration into thoracic cavity, initial encounter
CPT/HCPCS: 99183; G0277

== ENCOUNTER → 2020-05-05 09:15 | Outpatient (CLI) | payer BC, SELFPAY ==
[2020-01-24 11:00] VITALS: BMI 20.7
== END ==
PROVIDERS: Family Provider Naturopath; PCP Family Medicine; Referring Provider Family Medicine; Visit Provider Family Medicine
DX: L59.8 Other specified disorders of the skin and subcutaneous tissue related to radiation (principal); S21.101A Unspecified open wound of right front wall of thorax without penetration into thoracic cavity, initial encounter; S21.001A Unspecified open wound of right breast, initial encounter; Z96.22 Myringotomy tube(s) status; H95.89 Other postprocedural complications and disorders of the ear and mastoid process, not elsewhere classified
CPT/HCPCS: 11042; 97607; 99183; 99214; G0277

== ENCOUNTER → 2020-05-06 09:16 | Outpatient (CLI) | payer BC, SELFPAY ==
[2020-01-24 11:00] VITALS: BMI 20.7
== END ==
PROVIDERS: Family Provider Naturopath; PCP Family Medicine; Referring Provider Family Medicine; Visit Provider Family Medicine
DX: L59.8 Other specified disorders of the skin and subcutaneous tissue related to radiation (principal); S21.101A Unspecified open wound of right front wall of thorax without penetration into thoracic cavity, initial encounter; Z96.22 Myringotomy tube(s) status; H95.89 Other postprocedural complications and disorders of the ear and mastoid process, not elsewhere classified
CPT/HCPCS: 99183; G0277

== ENCOUNTER → 2020-05-07 08:45 | Outpatient (CLI) | payer BC, SELFPAY ==
[2020-01-24 11:00] VITALS: BMI 20.7
== END ==
PROVIDERS: Family Provider Naturopath; PCP Family Medicine; Referring Provider Family Medicine; Visit Provider Family Medicine
DX: L59.8 Other specified disorders of the skin and subcutaneous tissue related to radiation (principal); S21.101A Unspecified open wound of right front wall of thorax without penetration into thoracic cavity, initial encounter; Z96.22 Myringotomy tube(s) status; H95.89 Other postprocedural complications and disorders of the ear and mastoid process, not elsewhere classified
CPT/HCPCS: 99183; G0277

== ENCOUNTER → 2020-05-08 08:37 | Outpatient (CLI) | payer BC, SELFPAY ==
[2020-01-24 11:00] VITALS: BMI 20.7
== END ==
PROVIDERS: Family Provider Naturopath; PCP Family Medicine; Referring Provider Family Medicine; Visit Provider Family Medicine
DX: L59.8 Other specified disorders of the skin and subcutaneous tissue related to radiation (principal); S21.101A Unspecified open wound of right front wall of thorax without penetration into thoracic cavity, initial encounter; Z96.22 Myringotomy tube(s) status; H95.89 Other postprocedural complications and disorders of the ear and mastoid process, not elsewhere classified
CPT/HCPCS: 99183; G0277

== ENCOUNTER → 2020-05-09 10:35 | Outpatient (CLI) | payer BC, SELFPAY ==
[2020-01-24 11:00] VITALS: BMI 20.7
== END ==
PROVIDERS: Family Provider Naturopath; PCP Family Medicine; Referring Provider Family Medicine; Visit Provider Family Medicine
DX: L59.8 Other specified disorders of the skin and subcutaneous tissue related to radiation (principal); S21.101A Unspecified open wound of right front wall of thorax without penetration into thoracic cavity, initial encounter; Z96.22 Myringotomy tube(s) status; H95.89 Other postprocedural complications and disorders of the ear and mastoid process, not elsewhere classified
CPT/HCPCS: 99183; G0277

== ENCOUNTER → 2020-05-12 13:46 | Outpatient (CLI) | payer BC, SELFPAY ==
[2020-01-24 11:00] VITALS: BMI 20.7
== END ==
PROVIDERS: Family Provider Naturopath; PCP Family Medicine; Referring Provider Family Medicine; Visit Provider Family Medicine
DX: S21.001A Unspecified open wound of right breast, initial encounter (principal)
CPT/HCPCS: 99213

== ENCOUNTER → 2020-05-19 11:24 | Outpatient (CLI) | payer BC, SELFPAY ==
[2020-01-24 11:00] VITALS: BMI 20.7
== END ==
PROVIDERS: Family Provider Naturopath; PCP Family Medicine; Referring Provider Family Medicine; Visit Provider Family Medicine
DX: S21.101A Unspecified open wound of right front wall of thorax without penetration into thoracic cavity, initial encounter (principal); L59.8 Other specified disorders of the skin and subcutaneous tissue related to radiation; Z96.22 Myringotomy tube(s) status
CPT/HCPCS: 11042; 97607; 99183; G0277

== ENCOUNTER → 2020-05-20 08:44 | Outpatient (CLI) | payer BC, SELFPAY ==
[2020-01-24 11:00] VITALS: BMI 20.7
== END ==
PROVIDERS: Family Provider Naturopath; PCP Family Medicine; Referring Provider Family Medicine; Visit Provider Family Medicine
DX: L59.8 Other specified disorders of the skin and subcutaneous tissue related to radiation (principal); S21.101A Unspecified open wound of right front wall of thorax without penetration into thoracic cavity, initial encounter; Z96.22 Myringotomy tube(s) status
CPT/HCPCS: 99183; G0277

== ENCOUNTER → 2020-05-21 08:43 | Outpatient (CLI) | payer BC, SELFPAY ==
[2020-01-24 11:00] VITALS: BMI 20.7
== END ==
PROVIDERS: Family Provider Naturopath; PCP Family Medicine; Referring Provider Family Medicine; Visit Provider Family Medicine
DX: L59.8 Other specified disorders of the skin and subcutaneous tissue related to radiation (principal); S21.101A Unspecified open wound of right front wall of thorax without penetration into thoracic cavity, initial encounter; Z96.22 Myringotomy tube(s) status
CPT/HCPCS: 99183; G0277

== ENCOUNTER → 2020-05-22 09:40 | Outpatient (CLI) | payer BC, SELFPAY ==
[2020-01-24 11:00] VITALS: BMI 20.7
== END ==
PROVIDERS: Family Provider Naturopath; PCP Family Medicine; Referring Provider Family Medicine; Visit Provider Family Medicine
DX: L59.8 Other specified disorders of the skin and subcutaneous tissue related to radiation (principal); S21.101A Unspecified open wound of right front wall of thorax without penetration into thoracic cavity, initial encounter; Z96.22 Myringotomy tube(s) status
CPT/HCPCS: 99183; G0277

== ENCOUNTER → 2020-05-26 09:31 | Outpatient (CLI) | payer BC, SELFPAY ==
[2020-01-24 11:00] VITALS: BMI 20.7
== END ==
PROVIDERS: Family Provider Naturopath; PCP Family Medicine; Referring Provider Family Medicine; Visit Provider Family Medicine
DX: L59.8 Other specified disorders of the skin and subcutaneous tissue related to radiation (principal); S21.101A Unspecified open wound of right front wall of thorax without penetration into thoracic cavity, initial encounter; Z96.22 Myringotomy tube(s) status
CPT/HCPCS: 11042; 99183; G0277

== ENCOUNTER → 2020-06-03 08:54 | Outpatient (CLI) | payer BC, SELFPAY ==
[2020-01-24 11:00] VITALS: BMI 20.7
== END ==
PROVIDERS: Family Provider Naturopath; PCP Family Medicine; Referring Provider Family Medicine; Visit Provider Family Medicine
DX: L59.8 Other specified disorders of the skin and subcutaneous tissue related to radiation (principal); S21.101A Unspecified open wound of right front wall of thorax without penetration into thoracic cavity, initial encounter; Z96.22 Myringotomy tube(s) status
CPT/HCPCS: 11042; 99183; G0277

== ENCOUNTER → 2020-06-05 12:53 | Outpatient (CLI) | payer BC, SELFPAY ==
[2020-01-24 11:00] VITALS: BMI 20.7
== END ==
PROVIDERS: Family Provider Naturopath; PCP Family Medicine; Referring Provider Family Medicine; Visit Provider Family Medicine
DX: L59.8 Other specified disorders of the skin and subcutaneous tissue related to radiation (principal); S21.101A Unspecified open wound of right front wall of thorax without penetration into thoracic cavity, initial encounter; Z96.22 Myringotomy tube(s) status
CPT/HCPCS: 99183; G0277

== ENCOUNTER → 2020-06-06 08:27 | Outpatient (CLI) | payer BC, SELFPAY ==
[2020-01-24 11:00] VITALS: BMI 20.7
== END ==
PROVIDERS: Family Provider Naturopath; PCP Family Medicine; Referring Provider Family Medicine; Visit Provider Family Medicine
DX: L59.8 Other specified disorders of the skin and subcutaneous tissue related to radiation (principal); S21.101A Unspecified open wound of right front wall of thorax without penetration into thoracic cavity, initial encounter; Z96.22 Myringotomy tube(s) status
CPT/HCPCS: 99183; G0277

== ENCOUNTER → 2020-06-09 09:06 | Outpatient (CLI) | payer BC, SELFPAY ==
[2020-01-24 11:00] VITALS: BMI 20.7
== END ==
PROVIDERS: Family Provider Naturopath; PCP Family Medicine; Referring Provider Family Medicine; Visit Provider Family Medicine
DX: L59.8 Other specified disorders of the skin and subcutaneous tissue related to radiation (principal); S21.101A Unspecified open wound of right front wall of thorax without penetration into thoracic cavity, initial encounter; Z96.22 Myringotomy tube(s) status
CPT/HCPCS: 99183; 99212; 99213; G0277

== ENCOUNTER → 2020-06-10 09:07 | Outpatient (CLI) | payer BC, SELFPAY ==
[2020-01-24 11:00] VITALS: BMI 20.7
--- NOTE | 2020-06-10 09:08 | DI.ECHO.S_ITS ---
[place] [facility]---------[facility] +---------+ : : [address] [place] : : : : [id number] : : : : Phone: [phone]+ Echocardiogram Report + + :Name: JOHNNIE GARZON Study Date: 06/10/2020 Height: 63.5 in: :[facility] ReadingLocation: Weight: 129 lb : : Gender: Female BSA: 1.6 m2 : :: 1960 Age: 60 yrs BP: 127/89 mmHg: :Reason For Study: BREAST CANCER, HERCEPTIN : :Ordering Physician: TRENTON, : :RAMY Performed By: Oneida Lopez : :Referring: RAMY CHOWDHURY : + + Interpretation Summary Normal sinus rhythm. The left ventricle is normal in size and wall thickness. Left ventricular ejection fraction is estimated to be 50-55%. Left ventricular global longitudinal strain average is -18.8%. There has been no significant change since the previous exam. There are no focal wall motion abnormalities. The right ventricle is normal size. The right ventricular systolic function is normal. There is borderline mitral valve prolapse. There is prolapse of the posterior mitral valve leaflet(s). There is mild mitral regurgitation. Compared to the prior echo study, dated 01/30/2020 no changes have occurred. Procedure: A two-dimensional transthoracic echocardiogram with color flow and Doppler was performed in limited views only to assess Ejection fraction and Strain.. The study quality was technically adequate. Comparison is made with the echocardiogram of 01/30/2020. The patient was in sinus rhythm with heart rates between 72-80 bpm during the exam. Left Ventricle: The left ventricle is normal in size and wall thickness. The ejection fraction is estimated to be 50-55%. Left ventricular global longitudinal strain average is -18.3 with a previous strain on 01/30/2020 of - 18.5%. Right Ventricle: The right ventricle is normal size. The right ventricular systolic function is normal. Atria: Both atria are normal in size. Mitral Valve: There is prolapse of the posterior mitral valve leaflet(s). There is mild mitral valve prolapse. There is mild mitral regurgitation. Aortic Valve: The aortic valve is trileaflet. The aortic valve opens well. Great Vessels: The IVC is of normal diameter and collapses greater than 50% with a sniff. This suggests a low right atrial pressure of 3 mm Hg. Pericardium/ Pleura There is no pericardial effusion. There is no pleural effusion. MMode/2D Measurements & Calculations LVIDd: 4.6 cm LA A2 area: 16.6 cm2 LVIDs: 3.1 cm LA A4 area: 12.3 cm2 FS: 31.5 % LA length (vol): 4.1 cm IVSd: 0.62 cm LA vol: 42.6 ml LVPWd: 0.79 cm LA vol index: 26.4 ml/m2 LV serna. diameter/BSA (cm/m^2): 2.8 LV sys. diameter/BSA (cm/m^2): 2.0 RA long axis: 4.4 cm RVD1 (basal): 3.0 cm RA area: 11.8 cm2 TAPSE: 1.7 cm RA vol: 27.3 ml RA : 16.9 ml/m2 IVC diam: 1.3 cm Electronically signed by: Chante Can M.D. on Reading Physician:06/10/2020 09:48 PM
== END ==
PROVIDERS: Family Provider Naturopath; PCP Family Medicine; Referring Provider Internal Medicine Hematology & Oncology; Visit Provider Internal Medicine Hematology & Oncology
DX: C50.612 Malignant neoplasm of axillary tail of left female breast (principal); I34.1 Nonrheumatic mitral (valve) prolapse; I34.0 Nonrheumatic mitral (valve) insufficiency
CPT/HCPCS: 93307

== ENCOUNTER → 2020-06-10 10:25 | Outpatient (CLI) | payer BC, SELFPAY ==
[2020-01-24 11:00] VITALS: BMI 20.7
== END ==
PROVIDERS: Family Provider Naturopath; PCP Family Medicine; Referring Provider Family Medicine; Visit Provider Family Medicine
DX: L59.8 Other specified disorders of the skin and subcutaneous tissue related to radiation (principal); S21.101A Unspecified open wound of right front wall of thorax without penetration into thoracic cavity, initial encounter; Z96.22 Myringotomy tube(s) status
CPT/HCPCS: 99183; G0277

== ENCOUNTER → 2020-06-11 08:48 | Outpatient (CLI) | payer BC, SELFPAY ==
[2020-01-24 11:00] VITALS: BMI 20.7
== END ==
PROVIDERS: Family Provider Naturopath; PCP Family Medicine; Referring Provider Family Medicine; Visit Provider Family Medicine
DX: L59.8 Other specified disorders of the skin and subcutaneous tissue related to radiation (principal); S21.101A Unspecified open wound of right front wall of thorax without penetration into thoracic cavity, initial encounter; Z96.22 Myringotomy tube(s) status
CPT/HCPCS: 99183; G0277

== ENCOUNTER → 2020-06-12 08:53 | Outpatient (CLI) | payer BC, SELFPAY ==
[2020-01-24 11:00] VITALS: BMI 20.7
== END ==
PROVIDERS: Family Provider Naturopath; PCP Family Medicine; Referring Provider Family Medicine; Visit Provider Family Medicine
DX: L59.8 Other specified disorders of the skin and subcutaneous tissue related to radiation (principal); S21.101A Unspecified open wound of right front wall of thorax without penetration into thoracic cavity, initial encounter; Z96.22 Myringotomy tube(s) status
CPT/HCPCS: 99183; G0277

== ENCOUNTER → 2020-06-13 11:08 | Outpatient (CLI) | payer BC, SELFPAY ==
[2020-01-24 11:00] VITALS: BMI 20.7
== END ==
PROVIDERS: Family Provider Naturopath; PCP Family Medicine; Referring Provider Family Medicine; Visit Provider Family Medicine
DX: L59.8 Other specified disorders of the skin and subcutaneous tissue related to radiation (principal); S21.101A Unspecified open wound of right front wall of thorax without penetration into thoracic cavity, initial encounter; Z96.22 Myringotomy tube(s) status
CPT/HCPCS: 99183; G0277

== ENCOUNTER → 2020-06-16 10:58 | Outpatient (CLI) | payer BC, SELFPAY ==
[2020-01-24 11:00] VITALS: BMI 20.7
== END ==
PROVIDERS: Family Provider Naturopath; PCP Family Medicine; Referring Provider Family Medicine; Visit Provider Family Medicine
DX: L59.8 Other specified disorders of the skin and subcutaneous tissue related to radiation (principal); S21.101A Unspecified open wound of right front wall of thorax without penetration into thoracic cavity, initial encounter; Z96.22 Myringotomy tube(s) status
CPT/HCPCS: 97597; 99183; G0277

== ENCOUNTER → 2020-06-17 08:34 | Outpatient (CLI) | payer BC, SELFPAY ==
[2020-01-24 11:00] VITALS: BMI 20.7
== END ==
PROVIDERS: Family Provider Naturopath; PCP Family Medicine; Referring Provider Family Medicine; Visit Provider Family Medicine
DX: L59.8 Other specified disorders of the skin and subcutaneous tissue related to radiation (principal); S21.101A Unspecified open wound of right front wall of thorax without penetration into thoracic cavity, initial encounter; Z96.22 Myringotomy tube(s) status
CPT/HCPCS: 99183; G0277

== ENCOUNTER → 2020-06-18 08:56 | Outpatient (CLI) | payer BC, SELFPAY ==
[2020-01-24 11:00] VITALS: BMI 20.7
[2020-06-18 09:43] LABS: COVID19 -Nasal RAPID Negative (Negative)
== END ==
PROVIDERS: Family Provider Naturopath; PCP Family Medicine; Visit Provider Nurse Practitioner
DX: J02.9 Acute pharyngitis, unspecified (principal); Z20.822 Contact with and (suspected) exposure to COVID-19
CPT/HCPCS: 87070; 87635

== ENCOUNTER → 2020-06-19 09:27 | Outpatient (CLI) | payer BC, SELFPAY ==
[2020-01-24 11:00] VITALS: BMI 20.7
== END ==
PROVIDERS: Family Provider Naturopath; PCP Family Medicine; Referring Provider Family Medicine; Visit Provider Family Medicine
DX: L59.8 Other specified disorders of the skin and subcutaneous tissue related to radiation (principal); S21.101A Unspecified open wound of right front wall of thorax without penetration into thoracic cavity, initial encounter; Z96.22 Myringotomy tube(s) status
CPT/HCPCS: 99183; G0277

== ENCOUNTER → 2020-06-23 09:17 | Outpatient (CLI) | payer BC, SELFPAY ==
[2020-01-24 11:00] VITALS: BMI 20.7
== END ==
PROVIDERS: Family Provider Naturopath; PCP Family Medicine; Referring Provider Family Medicine; Visit Provider Family Medicine
DX: L59.8 Other specified disorders of the skin and subcutaneous tissue related to radiation (principal); S21.101A Unspecified open wound of right front wall of thorax without penetration into thoracic cavity, initial encounter; Z96.22 Myringotomy tube(s) status
CPT/HCPCS: 99183; G0277

== ENCOUNTER → 2020-06-24 09:02 | Outpatient (CLI) | payer BC, SELFPAY ==
[2020-01-24 11:00] VITALS: BMI 20.7
== END ==
PROVIDERS: Family Provider Naturopath; PCP Family Medicine; Referring Provider Family Medicine; Visit Provider Family Medicine
DX: L59.8 Other specified disorders of the skin and subcutaneous tissue related to radiation (principal); S21.101A Unspecified open wound of right front wall of thorax without penetration into thoracic cavity, initial encounter; Z96.22 Myringotomy tube(s) status
CPT/HCPCS: 99183; 99212; 99213; G0277

== ENCOUNTER → 2020-06-27 10:51 | Outpatient (CLI) | payer BC, SELFPAY ==
[2020-01-24 11:00] VITALS: BMI 20.7
== END ==
PROVIDERS: Family Provider Naturopath; PCP Family Medicine; Referring Provider Family Medicine; Visit Provider Family Medicine
DX: L59.8 Other specified disorders of the skin and subcutaneous tissue related to radiation (principal); S21.101A Unspecified open wound of right front wall of thorax without penetration into thoracic cavity, initial encounter; Z96.22 Myringotomy tube(s) status
CPT/HCPCS: 99183; G0277

== ENCOUNTER → 2020-06-30 09:11 | Outpatient (CLI) | payer BC, SELFPAY ==
[2020-01-24 11:00] VITALS: BMI 20.7
== END ==
PROVIDERS: Family Provider Naturopath; PCP Family Medicine; Referring Provider Family Medicine; Visit Provider Family Medicine
DX: L59.8 Other specified disorders of the skin and subcutaneous tissue related to radiation (principal); S21.101A Unspecified open wound of right front wall of thorax without penetration into thoracic cavity, initial encounter; Z96.22 Myringotomy tube(s) status
CPT/HCPCS: 99183; G0277

== ENCOUNTER → 2020-07-01 09:02 | Outpatient (CLI) | payer BC, SELFPAY ==
[2020-01-24 11:00] VITALS: BMI 20.7
== END ==
PROVIDERS: Family Provider Naturopath; PCP Family Medicine; Referring Provider Family Medicine; Visit Provider Family Medicine
DX: L59.8 Other specified disorders of the skin and subcutaneous tissue related to radiation (principal); S21.101A Unspecified open wound of right front wall of thorax without penetration into thoracic cavity, initial encounter; Z96.22 Myringotomy tube(s) status
CPT/HCPCS: 99183; G0277

== ENCOUNTER → 2020-07-02 08:47 | Outpatient (CLI) | payer BC, SELFPAY ==
[2020-01-24 11:00] VITALS: BMI 20.7
== END ==
PROVIDERS: Family Provider Naturopath; PCP Family Medicine; Referring Provider Family Medicine; Visit Provider Family Medicine
DX: L59.8 Other specified disorders of the skin and subcutaneous tissue related to radiation (principal); S21.101A Unspecified open wound of right front wall of thorax without penetration into thoracic cavity, initial encounter; Z96.22 Myringotomy tube(s) status
CPT/HCPCS: 11042; 99183; G0277

== ENCOUNTER → 2020-07-03 09:12 | Outpatient (CLI) | payer BC, SELFPAY ==
[2020-01-24 11:00] VITALS: BMI 20.7
== END ==
PROVIDERS: Family Provider Naturopath; PCP Family Medicine; Referring Provider Family Medicine; Visit Provider Family Medicine
DX: L59.8 Other specified disorders of the skin and subcutaneous tissue related to radiation (principal); S21.101A Unspecified open wound of right front wall of thorax without penetration into thoracic cavity, initial encounter; Z96.22 Myringotomy tube(s) status
CPT/HCPCS: 99183; G0277

== ENCOUNTER → 2020-07-04 09:15 | Outpatient (CLI) | payer BC, SELFPAY ==
[2020-01-24 11:00] VITALS: BMI 20.7
== END ==
PROVIDERS: Family Provider Naturopath; PCP Family Medicine; Referring Provider Family Medicine; Visit Provider Family Medicine
DX: L59.8 Other specified disorders of the skin and subcutaneous tissue related to radiation (principal); S21.101A Unspecified open wound of right front wall of thorax without penetration into thoracic cavity, initial encounter; Z96.22 Myringotomy tube(s) status
CPT/HCPCS: 99183; G0277

== ENCOUNTER → 2020-07-08 08:59 | Outpatient (CLI) | payer BC, SELFPAY ==
[2020-01-24 11:00] VITALS: BMI 20.7
== END ==
PROVIDERS: Family Provider Naturopath; PCP Family Medicine; Referring Provider Family Medicine; Visit Provider Family Medicine
DX: L59.8 Other specified disorders of the skin and subcutaneous tissue related to radiation (principal); S21.101A Unspecified open wound of right front wall of thorax without penetration into thoracic cavity, initial encounter; Z96.22 Myringotomy tube(s) status
CPT/HCPCS: 99183; 99212; 99213; G0277

== ENCOUNTER → 2020-07-21 09:37 | Outpatient (CLI) | payer BC, SELFPAY ==
[2020-01-24 11:00] VITALS: BMI 20.7
== END ==
PROVIDERS: Family Provider Naturopath; PCP Family Medicine; Referring Provider Family Medicine; Visit Provider Family Medicine
DX: L59.8 Other specified disorders of the skin and subcutaneous tissue related to radiation (principal); S21.101A Unspecified open wound of right front wall of thorax without penetration into thoracic cavity, initial encounter; I97.2 Postmastectomy lymphedema syndrome
CPT/HCPCS: 97597; 99213

== ENCOUNTER → 2020-11-03 07:36 | Outpatient (CLI) | payer BC, SELFPAY ==
[2020-01-24 11:00] VITALS: BMI 20.7
--- NOTE | 2020-11-03 07:37 | DI.ECHO.S_ITS ---
[facility] +---------+ : : [address] : [address] : : : : [id number] : : : : Phone: [phone]---------+ Echocardiogram Report + + :Name: JOHNNIE GARZON Study Date: 11/03/2020 Height: 63.5 in: :[facility] ReadingLocation: Weight: 140 lb : : Gender: Female BSA: 1.7 m2 : :: 1960 Age: 60 yrs BP: 107/82 mmHg: :Reason For Study: BREAST CANCER, HERCEPTIN : :Ordering Physician: TRENTON, : :RAMY Performed By: Oneida Lopez : :Referring: RAMY CHOWDHURY : + + Interpretation Summary Limited study. Normal left ventricle size with ejection fraction 50-55%. Left ventricular global longitudinal strain average is -17.5% (the previous study was -18.8%). There is prolapse of the posterior mitral valve leaflet(s). Mild mitral regurgitation. Comparison is made with the echocardiogram of 06/10/2020, there has been no significant change. Procedure: A two-dimensional transthoracic echocardiogram with color flow and Doppler was performed in limited views only to assess ejection fraction and strain rate.. Comparison is made with the echocardiogram of 06/10/2020. Left Ventricle: The left ventricle is normal in size and wall thickness. The ejection fraction is estimated to be 50-55%. Left ventricular global longitudinal strain average is -17.5%. Right Ventricle: The right ventricle grossly appears normal in size with probable normal systolic function. Atria: The left atrial size is normal. Right atrial size is normal. Mitral Valve: There is prolapse of the posterior mitral valve leaflet(s). There is mild mitral regurgitation. Great Vessels: The inferior vena cava appeared normal. Pericardium/ Pleura There is no pericardial effusion. There is no pleural effusion. MMode/2D Measurements & Calculations LVIDd: 4.4 cm LVOT diam: 2.0 cm LVIDs: 3.3 cm FS: 25.2 % IVSd: 0.79 cm LVPWd: 0.79 cm LV serna. diameter/BSA (cm/m^2): 2.7 LV sys. diameter/BSA (cm/m^2): 2.0 LA A2 area: 16.9 cm2 RA long axis: 4.5 cm LA A4 area: 11.5 cm2 RA area: 12.0 cm2 LA length (vol): 4.4 cm RA vol: 27.1 ml LA vol: 37.1 ml RA : 16.2 ml/m2 LA vol index: 22.2 ml/m2 IVC diam: 1.6 cm RVD1 (basal): 2.7 cm TAPSE: 1.5 cm Electronically signed by: Tootie Zuleta on Reading Physician:11/03/2020 05:21 PM
== END ==
PROVIDERS: PCP Family Medicine; Referring Provider Internal Medicine Hematology & Oncology; Visit Provider Internal Medicine Hematology & Oncology
DX: C50.919 Malignant neoplasm of unspecified site of unspecified female breast (principal); I34.1 Nonrheumatic mitral (valve) prolapse; I34.0 Nonrheumatic mitral (valve) insufficiency
CPT/HCPCS: 93307

== ENCOUNTER → 2020-11-07 09:08 | Outpatient (CLI) | payer BC, SELFPAY ==
[2020-01-24 11:00] VITALS: BMI 20.7
--- NOTE | 2020-11-07 09:08 | DI.US.S_ITS ---
PROCEDURE: US ABDOMEN COMPLETE INDICATIONS: right upper quaudrant abd pain, breast cancer TECHNIQUE: Real-time scanning was performed of the abdominal and retroperitoneal organs, with image documentation. COMPARISON: [facility], CT, CT CHEST ABD PEL W CON, 01/23/2020, 15:50. [facility], MR, MR ABDOMEN WO/W CON, 09/06/2019, 8:49. [facility], US, US ABDOMEN LIMITED, 08/07/2019, 8:14. FINDINGS: Liver: The liver is mildly prominent size and demonstrates normal echogenicity Gallbladder: Removed Biliary ducts: Intrahepatic bile ducts are non-dilated. Extrahepatic bile duct caliber measures 10 mm. Normal is 6-7 mm or less in diameter, or 10 mm or less post-cholecystectomy. Pancreas: Visualized portions of the pancreas are sonographically normal. Spleen: Spleen is normal in size and homogeneous in echotexture. Kidneys: Kidneys are normal in size and echotexture. Right kidney measures 9.5 cm long; left kidney measures 10.1 cm long. No hydronephrosis or nephrolithiasis. No solid masses. Aorta: Visualized aorta is normal in caliber at less than 3 cm. Iliacs: Proximal common iliac arteries are normal in caliber at less than 2.5 cm. IVC: Intrahepatic inferior vena cava is patent. Miscellaneous: No free abdominal fluid. IMPRESSION: Status post cholecystectomy. The common bile duct measures at the upper limits of normal for a post cholecystectomy patient at 10 mm. Dictated by: Moses Sal M.D. on 11/07/2020 at 13:37 Approved by: Moses Sal M.D. on 11/07/2020 at 13:39
== END ==
PROVIDERS: PCP Family Medicine; Referring Provider Internal Medicine Hematology & Oncology; Visit Provider Internal Medicine Hematology & Oncology
DX: C50.919 Malignant neoplasm of unspecified site of unspecified female breast (principal); R10.11 Right upper quadrant pain; Z90.49 Acquired absence of other specified parts of digestive tract
CPT/HCPCS: 76700

== ENCOUNTER → 2021-01-12 12:31 | Outpatient (CLI) | payer BC, SELFPAY ==
[2020-01-24 11:00] VITALS: BMI 20.7
[2021-01-12 14:25] LABS: COVID19 -Nasal RAPID Negative (Negative)
== END ==
PROVIDERS: PCP Family Medicine; Visit Provider Nurse Practitioner
DX: J02.9 Acute pharyngitis, unspecified (principal); Z20.822 Contact with and (suspected) exposure to COVID-19
CPT/HCPCS: 87070; 87077; 87147; 87635

== ENCOUNTER 2021-02-18 13:45 | Outpatient (RCR) | payer BC, SELFPAY ==
[2020-01-24 11:00] VITALS: BMI 20.7
--- NOTE | 2020-09-01 16:45 | PT.OIE ---
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) Pain in right shoulder (09/01/20) Pain in left shoulder (09/01/20) Stiffness of right shoulder, not elsewhere classified (09/01/20) Stiffness of left shoulder, not elsewhere classified (09/01/20) Soft tissue disorder, unspecified (09/01/20) Past Medical History (Last Reviewed 06/18/20 @ 09:34 by LYNDSAY Hall) Anemia Anxiety Breast cancer, left (~2018) Breast cancer, right (~2010) Gallstone Hyperlipidemia Migraine Mixed anxiety and depressive disorder Osteoporosis Scoliosis SOB (shortness of breath) Symptomatic orthostatic increase in heart rate Underweight Past Surgical History (Last Reviewed 06/18/20 @ 09:34 by LYNDSAY Hall) H/O hemorrhoidectomy H/O hemorrhoidectomy H/O rhinoplasty History of lumpectomy of right breast Hx of cholecystectomy Hx of LASIK Hx of partial mastectomy (2010) Visit Care Team Role Provider Type Ludin Berg MD Primary Care Provider Physician Specialty: Family Practice Address: [address] [place] [address], [id number] Email: [email or web address] Stepan Alston MD Attending Provider Physician Referring Provider Specialty: Wound Care Address: [address] [place] [address], [id number] Email: [email or web address] Physical Therapy Initial Evaluation PT-OP-A Visit Information Start: 09/01/20 08:01 Freq: Status: Active Protocol: Document 09/01/20 09:49 SAK (Rec: 09/01/20 12:17 SAK [id number]) Out-Patient Physical Therapy Visit Information Visit Information Visit Type Initial Evaluation Visit Start Time 09:45 Visit Stop Time 11:12 Total Visit Minutes 87 Visit Number 1 Number of PAPER [employer]E GRADER Visits 0 Evaluation Information Evaluation Date 09/01/20 PT-OP-B Current Condition Start: 09/01/20 08:01 Freq: Status: Active Protocol: Document 09/01/20 09:49 SAK (Rec: 09/01/20 10:08 SAK [id number]) Current Condition History of Current Condition Onset Date September 2019 Current Complaints swelling right UE, cramping right UE shoulder and back, bilateral shoulder History of Current Condition Patient presents to PT with c/ o right UE swelling since prior to mastectomies 10/09; states she had 4L of fluid removed from a seroma. Has history right breast cancer starting 2011 treated with lumpectomy, chemo and radiation at that time. Early 2019 diagnosed with reoccurance breast cancer and underwent right mastectomy, left mastectomy with axillary node dissection with 12 lymph nodes removed. States incision on right had difficulty with healing and she underwent hyperbaric oxygen treatments, still has small scab, very stiff scar on right. Almost done with chemo; 2 more treatments. Has compression sleeve right UE fits loosely on forearm, snug on upper arm, not sure of compression level . States she has sleeve with more firm compression at home in laundry; will bring next session. Ordered the sleeves herself without any guidance. Tried a compression sleeve with strap across chest but doesn't like, tired of having compression on. Has not tried a compression shirt. Patient is right-handed. Currently reports pain and stiffness reaching overhead, across her body, and behind her back and spasms in neck and thoracic spine, shoulder, and chest with use of right UE Prior Treatments and Tests right lumpectomy 2011 with radiation and chemo Future Testing and Treatments Planned 2 more chemotherapy treatments . Treatment Goals Patient/Caregiver Goals minimize swelling and pain, improve ROM to allow full functional use of her UE's Prior Functional Status Baseline Function- ADL's Independent Baseline Function- Mobility Independent Current Functional Impairments (Reported) Functional Limitations- ADL's limited and painful to reach overhead, across her body, behind her back bilateral UE's PT-OP-C Subjective Start: 09/01/20 08:01 Freq: Status: Active Protocol: Document 09/01/20 09:49 LUPE (Rec: 09/01/20 13:14 [facility] [id number]) Patient Questionnaires Lymphedema Life Impact Score Lymphedema Score 54 OP-PT Pain Assessment Pain Assessment Grid Paper Pain Assessment Grid Completed Yes Location right UE, chest, neck, bilateral posterior thorax Intensity 6 Scale Used Numeric (0 - 10) Description Aching,Burning,Spasm,Tender Frequency Frequent Pain Aggravating Factors Activity Pain Alleviating Factors Inactivity PT-OP-F Manual Assessment Start: 09/01/20 08:01 Freq: Status: Active Protocol: Document 09/01/20 09:49 SAK (Rec: 09/01/20 16:42 SAK [id number]) Manual Assessments Soft Tissue Assessment Soft Tissue Mobility Assessment good scar mobility on left mastectomy scar. Right mastectomy scar thickened with poor mobility, adhered to chest wall. PT-OP-J Posture/Palpation/Skin Start: 09/01/20 08:01 Freq: Status: Active Protocol: Document 09/01/20 09:49 SAK (Rec: 09/01/20 13:14 [facility] [id number]) Posture Evaluation Position Sitting Head/C-Spine Posture Forward Head T-Spine Posture Increased Kyphosis Shoulder Posture (L) Rounded,(R) Rounded Scapula Posture (L) Protracted,(R) Protracted Arm Posture (L) Internally Rotated,(R) Internally Rotated PT-OP-K Range of Motion Start: 09/01/20 08:01 Freq: Status: Active Protocol: Document 09/01/20 09:49 [facility] (Rec: 09/01/20 13:19 [facility] [id number]) Cervical Spine Range of Motion Cervical Spine Active Flexion 55 Extension 15 Rotation Left 25 Rotation Right 35 Lateral Flexion Left 40 Lateral Flexion Right 30 ROM Limitations Soft Tissue Tightness,Pain Shoulder Goniometric Range of Motion Shoulder Right Active Shoulder ROM WFL No Testing Position Sitting Flexion 145 Extension 20 Abduction 140 Horizontal Adduction 5 Internal Rotation Behind Back (text) L4 Left Shoulder ROM WFL No Testing Position Sitting Flexion 140 Extension 15 Abduction 135 Horizontal Adduction 5 Internal Rotation Behind Back (text) L5 Elbow/Forearm Range of Motion Elbow/Forearm jose guadalupe Elbow/Forearm ROM WFL Yes PT-OP-N Lymphedema Start: 09/01/20 08:01 Freq: Status: Active Protocol: Document 09/01/20 09:49 [facility] (Rec: 09/01/20 12:17 [facility] [id number]) Lymphedema Measurements Upper Extremity Circumference Measurements Left Unaffected MCP 17.8 cm Dorsum of Hand 18 cm Wrist 15.2 cm 5 cm From Wrist Crease 16.5 cm 10 cm From Wrist Crease 20.5 cm 15 cm From Wrist Crease 24.1 cm 20 cm From Wrist Crease 24.6 cm 25 cm From Wrist Crease 25.9 cm 30 cm From Wrist Crease 28 cm 35 cm From Wrist Crease 28.8 cm 40 cm From Wrist Crease 29.3 cm 45 cm From Wrist Crease 34.3 cm - jose guadalupe subaxillary: 95.8 jose guadalupe chest: 93.8 Right Affected MCP 18.8 cm Dorsum of Hand 19.5 cm Wrist 16.2 cm 5 cm From Wrist Crease 18.4 cm 10 cm From Wrist Crease 22.6 cm 15 cm From Wrist Crease 26.9 cm 20 cm From Wrist Crease 27.3 cm 25 cm From Wrist Crease 30 cm 30 cm From Wrist Crease 31.7 cm 35 cm From Wrist Crease 32 cm 40 cm From Wrist Crease 33 cm Axilla 39.7 cm - jose guadalupe subaxillary 95.8 jose guadalupe chest 93.8 PT-OP-Q Treatments Start: 09/01/20 08:01 Freq: Status: Active Protocol: Document 09/01/20 09:49 [facility] (Rec: 09/01/20 16:42 [facility] [id number]) Lymphedema Treatment Lymphedema Wrapping Body Location right UE Materials Tricofix size E, finger wraps, Artiflex (2 rolls), Comprilan 6,8,10. Other Cetaphil lotion applied to right UE prior to bandaging Patient Education Lymphedema Pathology reviewed using visual aid Lymphedema Prevention issued written information and briefly reviewd Lymphedema Precautions issued written information and briefly reviewed Compression Garments Discussed options, patient given information for looking online Self Manual Lymphatic Drainage issued written information Sequential Lymphedema Exercises issued written instructions, briefly reviewed Other instructed in importance of using right UE while bandaged to facilitate lymphatic flow, remove bandaging if painful or fingers turning purple. Other Other kinesiotape test tape to right chest. PT-OP-T Assessment and Plan Start: 09/01/20 08:01 Freq: Status: Active Protocol: Document 09/01/20 09:49 [facility] (Rec: 09/01/20 16:42 [facility] [id number]) Physical Therapy Assessment Rehab Potential Rehabilitation Potential Good Evaluation Complexity Number of Personal Factors/Comorbidities 1-2 Number of Body Systems Impaired 4 or More Clinical Presentation at Evaluation Evolving Impairments Impairments Activity Tolerance,Edema,ROM, Soft Tissue Mobility Goals Five Impairment lymphedema life impact scale 58% Short Term Goal (STG) decrease lymphedema life impact score to no greater than 40% STG Duration 10/01/20 [facility] Goal (LTG) decrease lymphedem alife impact score to no greater than 20% LTG Duration 11/30/20 Four Impairment poor scar mobility right mastectomy scar [facility] Goal (LTG) Improve soft tissue mobility of right mastectomy scar to at least 75% normal mobility to decrease pain, improve her tolerance for all activities using her right side. LTG Duration 11/30/20 Three Impairment difficulty reaching overhead, behind back and across her body with jose guadalupe UE's Short Term Goal (STG) Patient to be independent and compliant with HEP for purposes of shoulder ROM STG Duration 10/01/20 [employer] Level Business [employer]st Goal (LTG) Improve bilateral shoulder ROM sufficient to allow patient to reach overhead, behind her back, and to maximize lymphatic flow LTG Duration 11/30/20 Two Impairment pain right UE, chest, and bilateral posterior thorax 6/ 10 pain scale Short Term Goal (STG) decrease pain to no greater than 3/10 STG Duration 10/01/20 [employer] Level Business Analyst Goal (LTG) decrease pain to 0-1/10 with all usual activities LTG Duration 11/30/20 One Impairment lymphedema right UE Short Term Goal (STG) Patient to be instructed in all aspects of lymphedema care including skin care, manual lymphatic drainage, lymphedema bandaging, and lymphedema exercises. STG Duration 09/20/20 [facility] Goal (LTG) Reduce lymphedema to stable level (no increase or decrease greater than 1 cm over the course of 1 week). Patient to obtain appropriate compression garment(s) and demonstrate good understanding of all aspects of lymphedema self-care. LTG Duration 11/30/20 Assessment Summary Assessment Patient presents with function -limiting lymphedema right UE, pain right UE, chest, and jose guadalupe posterior thorax. Additionally she has poor scar mobility of right mastectomy scar which appears highly contributory to her pain as it is strongly adhered. The pain in her bilateral shoulders limits her functional use with ADL's including difficulty reaching overhead, behind her back, and across her body. She would benefit from physical therapy for lymphedema management, soft tissue mobilization, ROM, therapeutic exercise, patient education. We will work to reduce the lymphedema in her right UE and help her to obtain appropriate compression garment(s) for her right UE for long-term management. Physical Therapy Plan Frequency and Duration Frequency of Treatment 20 visits Duration of Treatment 12 weeks Plan of Care Start Date 09/01/20 Plan of Care End Date 11/30/20 Therapeutic Interventions Therapeutic Interventions Home Exercise Program, Lymphedema Management,Manual Therapy,Patient/Caregiver Education,Self-Care/Home Management,Soft Tissue Mobilization,Taping, Therapeutic Activities, Therapeutic Exercises Next Visit Focus/Plan Next Note Type Treatment Note Next Visit Plan Evaluate response to lymphedema bandaging including taking circumferential measurements. Initiate MLD with discussion of self-MLD. Review lymphedema exercises with modification as indicated due to shoulder pain. Answer any questions from patient especially as related to issued educational materials. Lymphedema bandaging right UE. End with Biodex or Sci- Fit after bandaging to further facilitate lymphatic flow.
--- NOTE | 2020-09-01 16:45 | PT.OPPOC ---
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) Pain in right shoulder (09/01/20) Pain in left shoulder (09/01/20) Stiffness of right shoulder, not elsewhere classified (09/01/20) Stiffness of left shoulder, not elsewhere classified (09/01/20) Soft tissue disorder, unspecified (09/01/20) Visit Care Team Role Provider Type Ludin Berg MD Primary Care Provider Physician Specialty: Family Practice Address: [address] [place] [address], [facility] Email: [email or web address] Stepan Alston MD Attending Provider Physician Referring Provider Specialty: Wound Care Address: [address] [place] [address], [facility] Email: [email or web address] Plan Of Care PT-OP-T Assessment and Plan Start: 09/01/20 08:01 Freq: Status: Active Protocol: Document 09/01/20 09:49 LUPE (Rec: 09/01/20 16:42 SAK [id number]) Physical Therapy Assessment Rehab Potential Rehabilitation Potential Good Evaluation Complexity Number of Personal Factors/Comorbidities 1-2 Number of Body Systems Impaired 4 or More Clinical Presentation at Evaluation Evolving Impairments Impairments Activity Tolerance,Edema,ROM, Soft Tissue Mobility Goals Five Impairment lymphedema life impact scale 58% Short Term Goal (STG) decrease lymphedema life impact score to no greater than 40% STG Duration 10/01/20 Form[facility] End Finder Goal (LTG) decrease lymphedem alife impact score to no greater than 20% LTG Duration 11/30/20 Four Impairment poor scar mobility right mastectomy scar [facility] End Finder Goal (LTG) Improve soft tissue mobility of right mastectomy scar to at least 75% normal mobility to decrease pain, improve her tolerance for all activities using her right side. LTG Duration 11/30/20 Three Impairment difficulty reaching overhead, behind back and across her body with jose guadalupe UE's Short Term Goal (STG) Patient to be independent and compliant with HEP for purposes of shoulder ROM STG Duration 10/01/20 [facility] End Finder Goal (LTG) Improve bilateral shoulder ROM sufficient to allow patient to reach overhead, behind her back, and to maximize lymphatic flow LTG Duration 11/30/20 Two Impairment pain right UE, chest, and bilateral posterior thorax 6/ 10 pain scale Short Term Goal (STG) decrease pain to no greater than 3/10 STG Duration 10/01/20 [facility] Department End Finder Goal (LTG) decrease pain to 0-1/10 with all usual activities LTG Duration 11/30/20 One Impairment lymphedema right UE Short Term Goal (STG) Patient to be instructed in all aspects of lymphedema care including skin care, manual lymphatic drainage, lymphedema bandaging, and lymphedema exercises. STG Duration 09/20/20 [facility] Department End Finder Goal (LTG) Reduce lymphedema to stable level (no increase or decrease greater than 1 cm over the course of 1 week). Patient to obtain appropriate compression garment(s) and demonstrate good understanding of all aspects of lymphedema self-care. LTG Duration 11/30/20 Assessment Summary Assessment Patient presents with function -limiting lymphedema right UE, pain right UE, chest, and jose guadalupe posterior thorax. Additionally she has poor scar mobility of right mastectomy scar which appears highly contributory to her pain as it is strongly adhered. The pain in her bilateral shoulders limits her functional use with ADL's including difficulty reaching overhead, behind her back, and across her body. She would benefit from physical therapy for lymphedema management, soft tissue mobilization, ROM, therapeutic exercise, patient education. We will work to reduce the lymphedema in her right UE and help her to obtain appropriate compression garment(s) for her right UE for long-term management. Physical Therapy Plan Frequency and Duration Frequency of Treatment 20 visits Duration of Treatment 12 weeks Plan of Care Start Date 09/01/20 Plan of Care End Date 11/30/20 Therapeutic Interventions Therapeutic Interventions Home Exercise Program, Lymphedema Management,Manual Therapy,Patient/Caregiver Education,Self-Care/Home Management,Soft Tissue Mobilization,Taping, Therapeutic Activities, Therapeutic Exercises Next Visit Focus/Plan Next Note Type Treatment Note Next Visit Plan Evaluate response to lymphedema bandaging including taking circumferential measurements. Initiate MLD with discussion of self-MLD. Review lymphedema exercises with modification as indicated due to shoulder pain. Answer any questions from patient especially as related to issued educational materials. Lymphedema bandaging right UE. End with Biodex or Sci- Fit after bandaging to further facilitate lymphatic flow. Plan of Care Dates Plan of Care Start Date 09/01/20 Plan of Care End Date 11/30/20 Electronically Signed by: Yue Harper, PT 09/01/20 [id number] Please Sign and Return: I have reviewed this Plan of Care and certify that the skilled therapy services above are required to meet the patient?s needs. Physician Signature Date Printed Name and Credentials Clinical Instructor Signature Printed Name and Credentials
--- NOTE | 2020-09-01 16:48 | PT.OPPOC ---
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) Pain in right shoulder (09/01/20) Pain in left shoulder (09/01/20) Stiffness of right shoulder, not elsewhere classified (09/01/20) Stiffness of left shoulder, not elsewhere classified (09/01/20) Soft tissue disorder, unspecified (09/01/20) Visit Care Team Role Provider Type Ludin Berg MD Primary Care Provider Physician Specialty: Family Practice Address: [address] [place] [address], [facility] Email: [email or web address] Stepan Alston MD Attending Provider Physician Referring Provider Specialty: Wound Care Address: [address] [place] [address], [facility] Email: [email or web address] Plan Of Care PT-OP-T Assessment and Plan Start: 09/01/20 08:01 Freq: Status: Active Protocol: Document 09/01/20 09:49 LUPE (Rec: 09/01/20 16:42 SAK [id number]) Physical Therapy Assessment Rehab Potential Rehabilitation Potential Good Evaluation Complexity Number of Personal Factors/Comorbidities 1-2 Number of Body Systems Impaired 4 or More Clinical Presentation at Evaluation Evolving Impairments Impairments Activity Tolerance,Edema,ROM, Soft Tissue Mobility Goals Five Impairment lymphedema life impact scale 58% Short Term Goal (STG) decrease lymphedema life impact score to no greater than 40% STG Duration 10/01/20 Animal Nurse Goal (LTG) decrease lymphedem alife impact score to no greater than 20% LTG Duration 11/30/20 Four Impairment poor scar mobility right mastectomy scar Animal Nurse Goal (LTG) Improve soft tissue mobility of right mastectomy scar to at least 75% normal mobility to decrease pain, improve her tolerance for all activities using her right side. LTG Duration 11/30/20 Three Impairment difficulty reaching overhead, behind back and across her body with jose guadalupe UE's Short Term Goal (STG) Patient to be independent and compliant with HEP for purposes of shoulder ROM STG Duration 10/01/20 Animal Nurse Goal (LTG) Improve bilateral shoulder ROM sufficient to allow patient to reach overhead, behind her back, and to maximize lymphatic flow LTG Duration 11/30/20 Two Impairment pain right UE, chest, and bilateral posterior thorax 6/ 10 pain scale Short Term Goal (STG) decrease pain to no greater than 3/10 STG Duration 10/01/20 Animal Nurse Goal (LTG) decrease pain to 0-1/10 with all usual activities LTG Duration 11/30/20 One Impairment lymphedema right UE Short Term Goal (STG) Patient to be instructed in all aspects of lymphedema care including skin care, manual lymphatic drainage, lymphedema bandaging, and lymphedema exercises. STG Duration 09/20/20 Animal Nurse Goal (LTG) Reduce lymphedema to stable level (no increase or decrease greater than 1 cm over the course of 1 week). Patient to obtain appropriate compression garment(s) and demonstrate good understanding of all aspects of lymphedema self-care. LTG Duration 11/30/20 Assessment Summary Assessment Patient presents with function -limiting lymphedema right UE, pain right UE, chest, and jose guadalupe posterior thorax. Additionally she has poor scar mobility of right mastectomy scar which appears highly contributory to her pain as it is strongly adhered. The pain in her bilateral shoulders limits her functional use with ADL's including difficulty reaching overhead, behind her back, and across her body. She would benefit from physical therapy for lymphedema management, soft tissue mobilization, ROM, therapeutic exercise, patient education. We will work to reduce the lymphedema in her right UE and help her to obtain appropriate compression garment(s) for her right UE for long-term management. Physical Therapy Plan Frequency and Duration Frequency of Treatment 20 visits Duration of Treatment 12 weeks Plan of Care Start Date 09/01/20 Plan of Care End Date 11/30/20 Therapeutic Interventions Therapeutic Interventions Home Exercise Program, Lymphedema Management,Manual Therapy,Patient/Caregiver Education,Self-Care/Home Management,Soft Tissue Mobilization,Taping, Therapeutic Activities, Therapeutic Exercises Next Visit Focus/Plan Next Note Type Treatment Note Next Visit Plan Evaluate response to lymphedema bandaging including taking circumferential measurements. Initiate MLD with discussion of self-MLD. Review lymphedema exercises with modification as indicated due to shoulder pain. Answer any questions from patient especially as related to issued educational materials. Lymphedema bandaging right UE. End with Biodex or Sci- Fit after bandaging to further facilitate lymphatic flow. Plan of Care Dates Plan of Care Start Date 09/01/20 Plan of Care End Date 11/30/20 Electronically Signed by: Yue Harper, PT 09/01/20 [id number] Please Sign and Return: I have reviewed this Plan of Care and certify that the skilled therapy services above are required to meet the patient?s needs. Physician Signature Date Printed Name and Credentials Clinical Instructor Signature Printed Name and Credentials
--- NOTE | 2020-09-02 17:06 | PT.OTN ---
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) Pain in right shoulder (09/02/20) Pain in left shoulder (09/02/20) Stiffness of right shoulder, not elsewhere classified (09/02/20) Stiffness of left shoulder, not elsewhere classified (09/02/20) Soft tissue disorder, unspecified (09/02/20) Physical Therapy Treatment Note PT-OP-A Visit Information Start: 09/01/20 08:01 Freq: Status: Active Protocol: Document 09/02/20 15:54 AW (Rec: 09/02/20 16:00 AW [id number]) Out-Patient Physical Therapy Visit Information Visit Information Visit Type Treatment Note Visit Start Time 14:30 Visit Stop Time 15:54 Total Visit Minutes 84 Visit Number 2 Number of LOAN COLLECTOR Visits 0 Evaluation Information Evaluation Date 09/01/20 PT-OP-B Current Condition Start: 09/01/20 08:01 Freq: Status: Active Protocol: Document 09/01/20 09:49 SAK (Rec: 09/01/20 10:08 SAK [id number]) Current Condition History of Current Condition Onset Date September 2019 Current Complaints swelling right UE, cramping right UE shoulder and back, bilateral shoulder History of Current Condition Patient presents to PT with c/ o right UE swelling since prior to mastectomies 10/09; states she had 4L of fluid removed from a seroma. Has history right breast cancer starting 2011 treated with lumpectomy, chemo and radiation at that time. Early 2019 diagnosed with reoccurance breast cancer and underwent right mastectomy, left mastectomy with axillary node dissection with 12 lymph nodes removed. States incision on right had difficulty with healing and she underwent hyperbaric oxygen treatments, still has small scab, very stiff scar on right. Almost done with chemo; 2 more treatments. Has compression sleeve right UE fits loosely on forearm, snug on upper arm, not sure of compression level . States she has sleeve with more firm compression at home in laundry; will bring next session. Ordered the sleeves herself without any guidance. Tried a compression sleeve with strap across chest but doesn't like, tired of having compression on. Has not tried a compression shirt. Patient is right-handed. Currently reports pain and stiffness reaching overhead, across her body, and behind her back and spasms in neck and thoracic spine, shoulder, and chest with use of right UE . 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 Prior Treatments and Tests right lumpectomy 2012 with radiation and chemo Future Testing and Treatments Planned 2 more chemotherapy treatments . Treatment Goals Patient/Caregiver Goals minimize swelling and pain, improve ROM to allow full functional use of her UE's Prior Functional Status Baseline Function- ADL's Independent Baseline Function- Mobility Independent Current Functional Impairments (Reported) Functional Limitations- ADL's limited and painful to reach overhead, across her body, behind her back bilateral UE's PT-OP-C Subjective Start: 09/01/20 08:01 Freq: Status: Active Protocol: Document 09/02/20 15:54 AW (Rec: 09/02/20 16:00 AW [email or web address]) OP-PT Subjective Patient Comments Patient Comments Pt arrived in bandages from yesterday. It was really hard to keep the fingers clean. PT-OP-F Manual Assessment Start: 09/01/20 08:01 Freq: Status: Active Protocol: Document 09/01/20 09:49 SAK (Rec: 09/01/20 16:42 SAK [id number]) Manual Assessments Soft Tissue Assessment Soft Tissue Mobility Assessment good scar mobility on left mastectomy scar. Right mastectomy scar thickened with poor mobility, adhered to chest wall. PT-OP-J Posture/Palpation/Skin Start: 09/01/20 08:01 Freq: Status: Active Protocol: Document 09/01/20 09:49 SAK (Rec: 09/01/20 13:14 SAK [id number]) Posture Evaluation Position Sitting Head/C-Spine Posture Forward Head T-Spine Posture Increased Kyphosis Shoulder Posture (L) Rounded,(R) Rounded Scapula Posture (L) Protracted,(R) Protracted Arm Posture (L) Internally Rotated,(R) Internally Rotated PT-OP-K Range of Motion Start: 09/01/20 08:01 Freq: Status: Active Protocol: Document 09/01/20 09:49 SAK (Rec: 09/01/20 13:19 SAK [id number]) Cervical Spine Range of Motion Cervical Spine Active Flexion 55 Extension 15 Rotation Left 25 Rotation Right 35 Lateral Flexion Left 40 Lateral Flexion Right 30 ROM Limitations Soft Tissue Tightness,Pain Shoulder Goniometric Range of Motion Shoulder Right Active Shoulder ROM WFL No Testing Position Sitting Flexion 145 Extension 20 Abduction 140 Horizontal Adduction 5 Internal Rotation Behind Back (text) L4 Left Shoulder ROM WFL No Testing Position Sitting Flexion 140 Extension 15 Abduction 135 Horizontal Adduction 5 Internal Rotation Behind Back (text) L5 Elbow/Forearm Range of Motion Elbow/Forearm jose guadalupe Elbow/Forearm ROM WFL Yes PT-OP-N Lymphedema Start: 09/01/20 08:01 Freq: Status: Active Protocol: Document 09/02/20 15:54 AW (Rec: 09/02/20 15:54 AW [id number]) Lymphedema Measurements Upper Extremity Circumference Measurements Left Unaffected MCP 17.5 cm Dorsum of Hand 18 cm Wrist 15.3 cm 5 cm From Wrist Crease 16.9 cm 10 cm From Wrist Crease 20.5 cm 15 cm From Wrist Crease 24.1 cm 20 cm From Wrist Crease 24.7 cm 25 cm From Wrist Crease 26.2 cm 30 cm From Wrist Crease 28 cm 35 cm From Wrist Crease 29.1 cm 40 cm From Wrist Crease 29.9 cm Axilla 34.6 cm - jose guadalupe subaxillary: 91.3 jose guadalupe chest: 92.6 Right Affected MCP 18.6 cm Dorsum of Hand 19.1 cm Wrist 16.1 cm 5 cm From Wrist Crease 17.6 cm 10 cm From Wrist Crease 22.5 cm 15 cm From Wrist Crease 26.2 cm 20 cm From Wrist Crease 27.7 cm 25 cm From Wrist Crease 29.1 cm 30 cm From Wrist Crease 32 cm 35 cm From Wrist Crease 32.1 cm 40 cm From Wrist Crease 33.3 cm Axilla 36 cm - jose guadalupe subaxillary 91.3 jose guadalupe chest 92.6 Comments Lymphedema Comments Reduction in right side measurements more appreciable distally. PT-OP-Q Treatments Start: 09/01/20 08:01 Freq: Status: Active Protocol: Document 09/02/20 15:54 AW (Rec: 09/02/20 16:00 AW [email or web address]) Cardio Equipment Recumbent Elliptical (Biodex) Duration (Minutes) 5 Resistance 1 Seat Position 6 Other with bandaging to promote lymphatic flow Lymphedema Treatment Manual Lymphatic Drainage Location right UE Duration 35 min Comments Focus on AAA, AIA, CLAUDETTE Lymphedema Wrapping Body Location right UE Materials Tricofix size E, finger wraps, Artiflex (2 rolls), Comprilan 6,8,10. Other Cetaphil lotion applied to right UE prior to bandaging Sequential Lymphedema Exercises Location right UE Duration 5 minutes Patient Education Lymphedema Pathology discussed MLD rationale and superficial lymphatics Compression Garments Pt brought in bilateral sleeve purchased from [employer] without measurement Other Encouraged pt to use RUE as much as possible. PT-OP-T Assessment and Plan Start: 09/01/20 08:01 Freq: Status: Active Protocol: Document 09/02/20 15:54 AW (Rec: 09/02/20 17:05 AW [email or web address]) Physical Therapy Assessment Impairments Impairments Activity Tolerance,Edema,ROM, Soft Tissue Mobility Goals Five Impairment lymphedema life impact scale 58% Short Term Goal (STG) decrease lymphedema life impact score to no greater than 40% STG Duration 10/01/20 Group Home Goal (LTG) decrease lymphedem alife impact score to no greater than 20% LTG Duration 11/30/20 Four Impairment poor scar mobility right mastectomy scar Welder Apprentice Goal (LTG) Improve soft tissue mobility of right mastectomy scar to at least 75% normal mobility to decrease pain, improve her tolerance for all activities using her right side. LTG Duration 11/30/20 Three Impairment difficulty reaching overhead, behind back and across her body with jose guadalupe UE's Short Term Goal (STG) Patient to be independent and compliant with HEP for purposes of shoulder ROM STG Duration 10/01/20 Welder Apprentice Goal (LTG) Improve bilateral shoulder ROM sufficient to allow patient to reach overhead, behind her back, and to maximize lymphatic flow LTG Duration 11/30/20 Two Impairment pain right UE, chest, and bilateral posterior thorax 6/ 10 pain scale Short Term Goal (STG) decrease pain to no greater than 3/10 STG Duration 10/01/20 Group Home Goal (LTG) decrease pain to 0-1/10 with all usual activities LTG Duration 11/30/20 One Impairment lymphedema right UE Short Term Goal (STG) Patient to be instructed in all aspects of lymphedema care including skin care, manual lymphatic drainage, lymphedema bandaging, and lymphedema exercises. STG Duration 09/20/20 Welder Apprentice Goal (LTG) Reduce lymphedema to stable level (no increase or decrease greater than 1 cm over the course of 1 week). Patient to obtain appropriate compression garment(s) and demonstrate good understanding of all aspects of lymphedema self-care. LTG Duration 11/30/20 Assessment Summary Assessment Spent time educating patient on superficial lymphatic system and rationale for MLD. Pt attentive to and with good questions about technique. Pt complained of mildly increased pain in posterior thorax folllowing bandaging but noted pain reduced after activity. Physical Therapy Plan Frequency and Duration Frequency of Treatment 20 visits Duration of Treatment 12 weeks Plan of Care Start Date 09/01/20 Plan of Care End Date 11/30/20 Therapeutic Interventions Therapeutic Interventions Home Exercise Program, Lymphedema Management,Manual Therapy,Patient/Caregiver Education,Self-Care/Home Management,Soft Tissue Mobilization,Taping, Therapeutic Activities, Therapeutic Exercises Next Visit Focus/Plan Next Note Type Treatment Note Next Visit Plan Evaluate response to MLD and bandaging. Answer any questions from patient especially as related to issued educational materials. Assess response to test K tape
--- NOTE | 2020-09-03 16:35 | PT.OTN ---
Current Diagnoses Postmastectomy lymphedema syndrome (09/03/20) Pain in right shoulder (09/03/20) Pain in left shoulder (09/03/20) Stiffness of right shoulder, not elsewhere classified (09/03/20) Stiffness of left shoulder, not elsewhere classified (09/03/20) Soft tissue disorder, unspecified (09/03/20) Physical Therapy Treatment Note PT-OP-A Visit Information Start: 09/01/20 08:01 Freq: Status: Active Protocol: Document 09/03/20 16:12 SAK (Rec: 09/03/20 16:35 [facility] [id number]) Out-Patient Physical Therapy Visit Information Visit Information Visit Type Treatment Note Visit Start Time 14:30 Visit Stop Time 16:00 Total Visit Minutes 90 Visit Number 3 Number of PET CARE ASSISTANT Visits 0 PT-OP-B Current Condition Start: 09/01/20 08:01 Freq: Status: Active Protocol: Document 09/01/20 09:49 SAK (Rec: 09/01/20 10:08 SAK [id number]) Current Condition History of Current Condition Onset Date September 2019 Current Complaints swelling right UE, cramping right UE shoulder and back, bilateral shoulder History of Current Condition Patient presents to PT with c/ o right UE swelling since prior to mastectomies 10/09; states she had 4L of fluid removed from a seroma. Has history right breast cancer starting 2011 treated with lumpectomy, chemo and radiation at that time. Early 2019 diagnosed with reoccurance breast cancer and underwent right mastectomy, left mastectomy with axillary node dissection with 12 lymph nodes removed. States incision on right had difficulty with healing and she underwent hyperbaric oxygen treatments, still has small scab, very stiff scar on right. Almost done with chemo; 2 more treatments. Has compression sleeve right UE fits loosely on forearm, snug on upper arm, not sure of compression level . States she has sleeve with more firm compression at home in laundry; will bring next session. Ordered the sleeves herself without any guidance. Tried a compression sleeve with strap across chest but doesn't like, tired of having compression on. Has not tried a compression shirt. Patient is right-handed. Currently reports pain and stiffness reaching overhead, across her body, and behind her back and spasms in neck and thoracic spine, shoulder, and chest with use of right UE . 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 Prior Treatments and Tests right lumpectomy 2012 with radiation and chemo Future Testing and Treatments Planned 2 more chemotherapy treatments . Treatment Goals Patient/Caregiver Goals minimize swelling and pain, improve ROM to allow full functional use of her UE's Prior Functional Status Baseline Function- ADL's Independent Baseline Function- Mobility Independent Current Functional Impairments (Reported) Functional Limitations- ADL's limited and painful to reach overhead, across her body, behind her back bilateral UE's PT-OP-C Subjective Start: 09/01/20 08:01 Freq: Status: Active Protocol: Document 09/03/20 16:12 [facility] (Rec: 09/03/20 16:35 [facility] [id number]) OP-PT Subjective Patient Comments Patient Comments Patient reports bandaging too tight from mid forearm to armpit, had to loosen. Wore rubber glove to try to keep fingers clean. Concerned about being able to bandage herself, states her sister-in- law may be able to bandage her . Agreeable to use her cell phone to video bandaging during PT session PT-OP-F Manual Assessment Start: 09/01/20 08:01 Freq: Status: Active Protocol: Document 09/01/20 09:49 SAK (Rec: 09/01/20 16:42 [facility] [id number]) Manual Assessments Soft Tissue Assessment Soft Tissue Mobility Assessment good scar mobility on left mastectomy scar. Right mastectomy scar thickened with poor mobility, adhered to chest wall. PT-OP-J Posture/Palpation/Skin Start: 09/01/20 08:01 Freq: Status: Active Protocol: Document 09/01/20 09:49 SAK (Rec: 09/01/20 13:14 [facility] [id number]) Posture Evaluation Position Sitting Head/C-Spine Posture Forward Head T-Spine Posture Increased Kyphosis Shoulder Posture (L) Rounded,(R) Rounded Scapula Posture (L) Protracted,(R) Protracted Arm Posture (L) Internally Rotated,(R) Internally Rotated PT-OP-K Range of Motion Start: 09/01/20 08:01 Freq: Status: Active Protocol: Document 09/01/20 09:49 SAK (Rec: 09/01/20 13:19 [facility] [id number]) Cervical Spine Range of Motion Cervical Spine Active Flexion 55 Extension 15 Rotation Left 25 Rotation Right 35 Lateral Flexion Left 40 Lateral Flexion Right 30 ROM Limitations Soft Tissue Tightness,Pain Shoulder Goniometric Range of Motion Shoulder Right Active Shoulder ROM WFL No Testing Position Sitting Flexion 145 Extension 20 Abduction 140 Horizontal Adduction 5 Internal Rotation Behind Back (text) L4 Left Shoulder ROM WFL No Testing Position Sitting Flexion 140 Extension 15 Abduction 135 Horizontal Adduction 5 Internal Rotation Behind Back (text) L5 Elbow/Forearm Range of Motion Elbow/Forearm jose guadalupe Elbow/Forearm ROM WFL Yes PT-OP-N Lymphedema Start: 09/01/20 08:01 Freq: Status: Active Protocol: Document 09/03/20 16:12 [facility] (Rec: 09/03/20 16:35 [facility] [id number]) Lymphedema Measurements Upper Extremity Circumference Measurements Right Affected MCP 18.8 cm Dorsum of Hand 19.2 cm Wrist 16.1 cm 5 cm From Wrist Crease 18 cm 10 cm From Wrist Crease 22.4 cm 15 cm From Wrist Crease 27 cm 20 cm From Wrist Crease 27.6 cm 25 cm From Wrist Crease 29.8 cm 30 cm From Wrist Crease 31.2 cm 35 cm From Wrist Crease 32 cm 40 cm From Wrist Crease 33 cm Axilla 36 cm Comments Lymphedema Comments feel loosening of bandaging caused her to have no reduction PT-OP-Q Treatments Start: 09/01/20 08:01 Freq: Status: Active Protocol: Document 09/03/20 16:12 [facility] (Rec: 09/03/20 16:35 [facility] [id number]) Cardio Equipment Recumbent Elliptical (Biodex) Duration (Minutes) 5 Resistance 1 Seat Position 6 Other with bandaging to promote lymphatic flow Therapeutic Exercises Sidelying Exercises sidelying abduction Reps/Minutes 2x Comments end-range deep breathing open book Side bilateral Reps/Minutes 5x Comments cues for segmental movement, deep breathing at end range Manual Therapy Treatment Taping subaxillary Body Location right side Treatment Focus lymphedema reduction Type of Tape kinesiotape fan strip Comments base toward right inguinal lymph nodes, strips into subaxillary region. mastectomy scar Body Location right mastectomy scar Treatment Focus scar mobility Type of Tape kinesiotape Comments I strip avoiding scab lateral scar Lymphedema Treatment Manual Lymphatic Drainage Location right UE Duration 35 min Comments Focus on AAA, AIA, CLAUDETTE Lymphedema Wrapping Body Location right UE Materials Tricofix size E, finger wraps, Artiflex (2 rolls), Comprilan 6,8,10. Other Cetaphil lotion applied to right UE prior to bandaging further education of patient with one trial patient doing most of bandaging with short stretch bandages with PT guidance. During PT wrapping patient used cell phone to video. Patient Education Compression Garments encouraged patient to look online Other as above education in self- bandaging. Other Other patient given YouTube channel for [facility] PT. PT-OP-T Assessment and Plan Start: 09/01/20 08:01 Freq: Status: Active Protocol: Document 09/03/20 16:12 [facility] (Rec: 09/03/20 16:35 [facility] [id number]) Physical Therapy Assessment Impairments Impairments Activity Tolerance,Edema,ROM, Soft Tissue Mobility Goals Five Impairment lymphedema life impact scale 58% Short Term Goal (STG) decrease lymphedema life impact score to no greater than 40% STG Duration 10/01/20 Glue Maker Goal (LTG) decrease lymphedem alife impact score to no greater than 20% LTG Duration 11/30/20 Four Impairment poor scar mobility right mastectomy scar Long-Term Goal (LTG) Improve soft tissue mobility of right mastectomy scar to at least 75% normal mobility to decrease pain, improve her tolerance for all activities using her right side. LTG Duration 11/30/20 Three Impairment difficulty reaching overhead, behind back and across her body with jose guadalupe UE's Short Term Goal (STG) Patient to be independent and compliant with HEP for purposes of shoulder ROM STG Duration 10/01/20 Glue Maker Goal (LTG) Improve bilateral shoulder ROM sufficient to allow patient to reach overhead, behind her back, and to maximize lymphatic flow LTG Duration 11/30/20 Two Impairment pain right UE, chest, and bilateral posterior thorax 6/ 10 pain scale Short Term Goal (STG) decrease pain to no greater than 3/10 STG Duration 10/01/20 Long-Term Goal (LTG) decrease pain to 0-1/10 with all usual activities LTG Duration 11/30/20 One Impairment lymphedema right UE Short Term Goal (STG) Patient to be instructed in all aspects of lymphedema care including skin care, manual lymphatic drainage, lymphedema bandaging, and lymphedema exercises. STG Duration 09/20/20 Long-Term Goal (LTG) Reduce lymphedema to stable level (no increase or decrease greater than 1 cm over the course of 1 week). Patient to obtain appropriate compression garment(s) and demonstrate good understanding of all aspects of lymphedema self-care. LTG Duration 11/30/20 Assessment Summary Assessment Skin tolerated kinesiotape test well so trial use for scar mobilization right mastectomy scar, and for lymphedem reduction subaxillary region. Will need to discuss compression shirts with patient for upper shoulder and subaxillary region. Due to patient having to loosen compression bandaging right away she didn' t have any reduction noted today. Demonstrating good understanding of self-massage. Physical Therapy Plan Frequency and Duration Frequency of Treatment 20 visits Duration of Treatment 12 weeks Plan of Care Start Date 09/01/20 Plan of Care End Date 11/30/20 Therapeutic Interventions Therapeutic Interventions Home Exercise Program, Lymphedema Management,Manual Therapy,Patient/Caregiver Education,Self-Care/Home Management,Soft Tissue Mobilization,Taping, Therapeutic Activities, Therapeutic Exercises Next Visit Focus/Plan Next Note Type Treatment Note Next Visit Plan Evaluate response to kinesiotape, bandaging. Further review and instruction in bandaging, ther ex, self- MLD as indicated. MLD, right UE bandaging. Show options for compression garments.
--- NOTE | 2020-09-04 15:33 | PT.OTN ---
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) Pain in right shoulder (09/04/20) Pain in left shoulder (09/04/20) Stiffness of right shoulder, not elsewhere classified (09/04/20) Stiffness of left shoulder, not elsewhere classified (09/04/20) Soft tissue disorder, unspecified (09/04/20) Physical Therapy Treatment Note PT-OP-A Visit Information Start: 09/01/20 08:01 Freq: Status: Active Protocol: Document 09/04/20 13:39 [facility] (Rec: 09/04/20 14:24 [facility] [id number]) Out-Patient Physical Therapy Visit Information Visit Information Visit Type Treatment Note Visit Start Time 13:45 Total Visit Minutes 90 Visit Number 4 Number of PHOTOGRAPHIC EDITOR Visits 0 PT-OP-B Current Condition Start: 09/01/20 08:01 Freq: Status: Active Protocol: Document 09/01/20 09:49 [facility] (Rec: 09/01/20 10:08 [facility] [id number]) Current Condition History of Current Condition Onset Date September 2019 Current Complaints swelling right UE, cramping right UE shoulder and back, bilateral shoulder History of Current Condition Patient presents to PT with c/ o right UE swelling since prior to mastectomies 10/09; states she had 4L of fluid removed from a seroma. Has history right breast cancer starting 2011 treated with lumpectomy, chemo and radiation at that time. Early 2019 diagnosed with reoccurance breast cancer and underwent right mastectomy, left mastectomy with axillary node dissection with 12 lymph nodes removed. States incision on right had difficulty with healing and she underwent hyperbaric oxygen treatments, still has small scab, very stiff scar on right. Almost done with chemo; 2 more treatments. Has compression sleeve right UE fits loosely on forearm, snug on upper arm, not sure of compression level . States she has sleeve with more firm compression at home in laundry; will bring next session. Ordered the sleeves herself without any guidance. Tried a compression sleeve with strap across chest but doesn't like, tired of having compression on. Has not tried a compression shirt. Patient is right-handed. Currently reports pain and stiffness reaching overhead, across her body, and behind her back and spasms in neck and thoracic spine, shoulder, and chest with use of right UE . 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 Prior Treatments and Tests right lumpectomy 2012 with radiation and chemo Future Testing and Treatments Planned 2 more chemotherapy treatments . Treatment Goals Patient/Caregiver Goals minimize swelling and pain, improve ROM to allow full functional use of her UE's Prior Functional Status Baseline Function- ADL's Independent Baseline Function- Mobility Independent Current Functional Impairments (Reported) Functional Limitations- ADL's limited and painful to reach overhead, across her body, behind her back bilateral UE's PT-OP-C Subjective Start: 09/01/20 08:01 Freq: Status: Active Protocol: Document 09/03/20 16:12 [facility] (Rec: 09/03/20 16:35 [facility] [id number]) OP-PT Subjective Patient Comments Patient Comments Patient reports bandaging too tight from mid forearm to armpit, had to loosen. Wore rubber glove to try to keep fingers clean. Concerned about being able to bandage herself, states her sister-in- law may be able to bandage her . Agreeable to use her cell phone to video bandaging during PT session PT-OP-F Manual Assessment Start: 09/01/20 08:01 Freq: Status: Active Protocol: Document 09/01/20 09:49 [facility] (Rec: 09/01/20 16:42 [facility] [id number]) Manual Assessments Soft Tissue Assessment Soft Tissue Mobility Assessment good scar mobility on left mastectomy scar. Right mastectomy scar thickened with poor mobility, adhered to chest wall. PT-OP-J Posture/Palpation/Skin Start: 09/01/20 08:01 Freq: Status: Active Protocol: Document 09/01/20 09:49 [facility] (Rec: 09/01/20 13:14 [facility] [id number]) Posture Evaluation Position Sitting Head/C-Spine Posture Forward Head T-Spine Posture Increased Kyphosis Shoulder Posture (L) Rounded,(R) Rounded Scapula Posture (L) Protracted,(R) Protracted Arm Posture (L) Internally Rotated,(R) Internally Rotated PT-OP-K Range of Motion Start: 09/01/20 08:01 Freq: Status: Active Protocol: Document 09/01/20 09:49 [facility] (Rec: 09/01/20 13:19 [facility] [id number]) Cervical Spine Range of Motion Cervical Spine Active Flexion 55 Extension 15 Rotation Left 25 Rotation Right 35 Lateral Flexion Left 40 Lateral Flexion Right 30 ROM Limitations Soft Tissue Tightness,Pain Shoulder Goniometric Range of Motion Shoulder Right Active Shoulder ROM WFL No Testing Position Sitting Flexion 145 Extension 20 Abduction 140 Horizontal Adduction 5 Internal Rotation Behind Back (text) L4 Left Shoulder ROM WFL No Testing Position Sitting Flexion 140 Extension 15 Abduction 135 Horizontal Adduction 5 Internal Rotation Behind Back (text) L5 Elbow/Forearm Range of Motion Elbow/Forearm jose guadalupe Elbow/Forearm ROM WFL Yes PT-OP-N Lymphedema Start: 09/01/20 08:01 Freq: Status: Active Protocol: Document 09/03/20 16:12 [facility] (Rec: 09/03/20 16:35 [facility] [id number]) Lymphedema Measurements Upper Extremity Circumference Measurements Right Affected MCP 18.8 cm Dorsum of Hand 19.2 cm Wrist 16.1 cm 5 cm From Wrist Crease 18 cm 10 cm From Wrist Crease 22.4 cm 15 cm From Wrist Crease 27 cm 20 cm From Wrist Crease 27.6 cm 25 cm From Wrist Crease 29.8 cm 30 cm From Wrist Crease 31.2 cm 35 cm From Wrist Crease 32 cm 40 cm From Wrist Crease 33 cm Axilla 36 cm Comments Lymphedema Comments feel loosening of bandaging caused her to have no reduction PT-OP-Q Treatments Start: 09/01/20 08:01 Freq: Status: Active Protocol: Document 09/04/20 13:39 [facility] (Rec: 09/04/20 14:24 [facility] [id number]) Cardio Equipment Recumbent Stepper (Sci-Fit) Duration (Minutes) 8 Resistance 1 Seat Position 8 Other after bandaging to facilitate lymphatic flow Therapeutic Exercises Sidelying Exercises open book Side bilateral Reps/Minutes 5x Comments cues for segmental movement, deep breathing at end range Manual Therapy Treatment Soft Tissue Mobilization mastectomy scar right Mobilization Type Myofascial Release,Rolling Taping subaxillary Comments left on from yesterday; good tolerance, patient to remove Tuesday mastectomy scar Comments removed from scar in order to do MFR. Patient issued chip bag to wear under sports bra Lymphedema Treatment Manual Lymphatic Drainage Location right UE Duration 10 min Comments Focus on AAA, AIA, CLAUDETTE Lymphedema Wrapping Body Location right UE Materials Tricofix size E wrist to axilla , Exosoft Juzo glove with full fingers, Artiflex ( 2 rolls), Comprilan wrist to axilla 8,10. Other Cetaphil lotion applied to right UE prior to bandaging Compression Garment Assessment Compression Garment Assessment Details Patient education: showed patient [employer] website to further discuss compression sleeves, options. Patient to look online on own Patient Education Compression Garments as above Sequential Lymphedema Exercises verbal review, issued written handout for open book exercise . PT-OP-T Assessment and Plan Start: 09/01/20 08:01 Freq: Status: Active Protocol: Document 09/04/20 13:39 [facility] (Rec: 09/04/20 14:24 [facility] [id number]) Physical Therapy Assessment Impairments Impairments Activity Tolerance,Edema,ROM, Soft Tissue Mobility Goals Five Impairment lymphedema life impact scale 58% Short Term Goal (STG) decrease lymphedema life impact score to no greater than 40% STG Duration 10/01/20 Photo Journalist Goal (LTG) decrease lymphedem alife impact score to no greater than 20% LTG Duration 11/30/20 Four Impairment poor scar mobility right mastectomy scar Photo Journalist Goal (LTG) Improve soft tissue mobility of right mastectomy scar to at least 75% normal mobility to decrease pain, improve her tolerance for all activities using her right side. LTG Duration 11/30/20 Three Impairment difficulty reaching overhead, behind back and across her body with jose guadalupe UE's Short Term Goal (STG) Patient to be independent and compliant with HEP for purposes of shoulder ROM STG Duration 10/01/20 Long-Term Goal (LTG) Improve bilateral shoulder ROM sufficient to allow patient to reach overhead, behind her back, and to maximize lymphatic flow LTG Duration 11/30/20 Two Impairment pain right UE, chest, and bilateral posterior thorax 6/ 10 pain scale Short Term Goal (STG) decrease pain to no greater than 3/10 STG Duration 10/01/20 Photo Journalist Goal (LTG) decrease pain to 0-1/10 with all usual activities LTG Duration 11/30/20 One Impairment lymphedema right UE Short Term Goal (STG) Patient to be instructed in all aspects of lymphedema care including skin care, manual lymphatic drainage, lymphedema bandaging, and lymphedema exercises. STG Duration 09/20/20 Photo Journalist Goal (LTG) Reduce lymphedema to stable level (no increase or decrease greater than 1 cm over the course of 1 week). Patient to obtain appropriate compression garment(s) and demonstrate good understanding of all aspects of lymphedema self-care. LTG Duration 11/30/20 Assessment Summary Assessment Circumferential measurements decreased right UE but patient c/o soreness base of 5th finger from bandaging. Issued sample gauntlet with full fingers today for trial and for improved tolerance to compression of right hand. Bandaging of forearm and upper arm as previously with continued patient education. Physical Therapy Plan Frequency and Duration Frequency of Treatment 20 visits Duration of Treatment 12 weeks Plan of Care Start Date 09/01/20 Plan of Care End Date 11/30/20 Therapeutic Interventions Therapeutic Interventions Home Exercise Program, Lymphedema Management,Manual Therapy,Patient/Caregiver Education,Self-Care/Home Management,Soft Tissue Mobilization,Taping, Therapeutic Activities, Therapeutic Exercises Next Visit Focus/Plan Next Note Type Treatment Note Next Visit Plan Continue lymphedema management , scar tissue mobilization. Look at patient measurements to determine if appears patient will be fitting into off the shelf size compression garments.
--- NOTE | 2020-09-08 18:06 | PT.OTN ---
Current Diagnoses Postmastectomy lymphedema syndrome (09/08/20) Pain in right shoulder (09/08/20) Pain in left shoulder (09/08/20) Stiffness of right shoulder, not elsewhere classified (09/08/20) Stiffness of left shoulder, not elsewhere classified (09/08/20) Soft tissue disorder, unspecified (09/08/20) Physical Therapy Treatment Note PT-OP-A Visit Information Start: 09/01/20 08:01 Freq: Status: Active Protocol: Document 09/08/20 09:41 [facility] (Rec: 09/08/20 10:14 [facility] [id number]) Out-Patient Physical Therapy Visit Information Visit Information Visit Type Treatment Note Visit Start Time 13:45 Total Visit Minutes 90 Visit Number 5 Number of SPRING COILER Visits 0 PT-OP-B Current Condition Start: 09/01/20 08:01 Freq: Status: Active Protocol: Document 09/01/20 09:49 [facility] (Rec: 09/01/20 10:08 [facility] [id number]) Current Condition History of Current Condition Onset Date September 2019 Current Complaints swelling right UE, cramping right UE shoulder and back, bilateral shoulder History of Current Condition Patient presents to PT with c/ o right UE swelling since prior to mastectomies 10/09; states she had 4L of fluid removed from a seroma. Has history right breast cancer starting 2011 treated with lumpectomy, chemo and radiation at that time. Early 2019 diagnosed with reoccurance breast cancer and underwent right mastectomy, left mastectomy with axillary node dissection with 12 lymph nodes removed. States incision on right had difficulty with healing and she underwent hyperbaric oxygen treatments, still has small scab, very stiff scar on right. Almost done with chemo; 2 more treatments. Has compression sleeve right UE fits loosely on forearm, snug on upper arm, not sure of compression level . States she has sleeve with more firm compression at home in laundry; will bring next session. Ordered the sleeves herself without any guidance. Tried a compression sleeve with strap across chest but doesn't like, tired of having compression on. Has not tried a compression shirt. Patient is right-handed. Currently reports pain and stiffness reaching overhead, across her body, and behind her back and spasms in neck and thoracic spine, shoulder, and chest with use of right UE . 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 Prior Treatments and Tests right lumpectomy 2012 with radiation and chemo Future Testing and Treatments Planned 2 more chemotherapy treatments . Treatment Goals Patient/Caregiver Goals minimize swelling and pain, improve ROM to allow full functional use of her UE's Prior Functional Status Baseline Function- ADL's Independent Baseline Function- Mobility Independent Current Functional Impairments (Reported) Functional Limitations- ADL's limited and painful to reach overhead, across her body, behind her back bilateral UE's PT-OP-C Subjective Start: 09/01/20 08:01 Freq: Status: Active Protocol: Document 09/08/20 09:41 [facility] (Rec: 09/08/20 10:14 [facility] [id number]) OP-PT Subjective Patient Comments Patient Comments Reports liked compression glove for fingers, though will need one a little longer and needs more compression on back of hand. Self-wrapped over weekend, improving, though didn't get high enough on arm with self-wrapping PT-OP-F Manual Assessment Start: 09/01/20 08:01 Freq: Status: Active Protocol: Document 09/01/20 09:49 [facility] (Rec: 09/01/20 16:42 [facility] [id number]) Manual Assessments Soft Tissue Assessment Soft Tissue Mobility Assessment good scar mobility on left mastectomy scar. Right mastectomy scar thickened with poor mobility, adhered to chest wall. PT-OP-J Posture/Palpation/Skin Start: 09/01/20 08:01 Freq: Status: Active Protocol: Document 09/01/20 09:49 [facility] (Rec: 09/01/20 13:14 [facility] [id number]) Posture Evaluation Position Sitting Head/C-Spine Posture Forward Head T-Spine Posture Increased Kyphosis Shoulder Posture (L) Rounded,(R) Rounded Scapula Posture (L) Protracted,(R) Protracted Arm Posture (L) Internally Rotated,(R) Internally Rotated PT-OP-K Range of Motion Start: 09/01/20 08:01 Freq: Status: Active Protocol: Document 09/01/20 09:49 [facility] (Rec: 09/01/20 13:19 [facility] [id number]) Cervical Spine Range of Motion Cervical Spine Active Flexion 55 Extension 15 Rotation Left 25 Rotation Right 35 Lateral Flexion Left 40 Lateral Flexion Right 30 ROM Limitations Soft Tissue Tightness,Pain Shoulder Goniometric Range of Motion Shoulder Right Active Shoulder ROM WFL No Testing Position Sitting Flexion 145 Extension 20 Abduction 140 Horizontal Adduction 5 Internal Rotation Behind Back (text) L4 Left Shoulder ROM WFL No Testing Position Sitting Flexion 140 Extension 15 Abduction 135 Horizontal Adduction 5 Internal Rotation Behind Back (text) L5 Elbow/Forearm Range of Motion Elbow/Forearm jose guadalupe Elbow/Forearm ROM WFL Yes PT-OP-N Lymphedema Start: 09/01/20 08:01 Freq: Status: Active Protocol: Document 09/08/20 09:41 [facility] (Rec: 09/08/20 10:14 [facility] [id number]) Lymphedema Measurements Upper Extremity Circumference Measurements Right Affected MCP 18.7 cm Dorsum of Hand 19.3 cm Wrist 15.8 cm 5 cm From Wrist Crease 17.9 cm 10 cm From Wrist Crease 22.1 cm 15 cm From Wrist Crease 25.8 cm 20 cm From Wrist Crease 28 cm 25 cm From Wrist Crease 27.9 cm 30 cm From Wrist Crease 30.9 cm 35 cm From Wrist Crease 32 cm 40 cm From Wrist Crease 32.6 cm 45 cm From Wrist Crease 38.6 cm Axilla 38.6 cm - subaxillary 90.4 cm chest 89.9cm PT-OP-Q Treatments Start: 09/01/20 08:01 Freq: Status: Active Protocol: Document 09/08/20 09:41 [facility] (Rec: 09/08/20 18:06 [facility] [id number]) Cardio Equipment Recumbent Stepper (Sci-Fit) Duration (Minutes) 10 Resistance 1 Seat Position 8 Other after bandaging to facilitate lymphatic flow Therapeutic Exercises Sidelying Exercises sidelying abduction Reps/Minutes 2x Comments end-range deep breathing open book Side bilateral Reps/Minutes 5x Comments cues for segmental movement, deep breathing at end range Manual Therapy Treatment Soft Tissue Mobilization mastectomy scar right Mobilization Type Myofascial Release,Rolling Taping subaxillary Comments held today due to mild skin irritation; patient forgot to remove yesterday as instructed mastectomy scar Comments instructed to use Vitamin E oil on scar for softening Lymphedema Treatment Manual Lymphatic Drainage Location right UE Duration 35 min Comments Focus on AAA, AIA, CLAUDETTE Lymphedema Wrapping Body Location right UE Materials Juzo 20-30 mm Hg sample sleeve sample issued for trial , Exosoft Juzo glove with 2/3 fingers, chip bag Other Cetaphil lotion applied to right UE prior to bandaging Patient Education Compression Garments further discussion Other Other Patient education for use of donning assist with donning sleeve PT-OP-T Assessment and Plan Start: 09/01/20 08:01 Freq: Status: Active Protocol: Document 09/08/20 09:41 [facility] (Rec: 09/08/20 10:14 [facility] [id number]) Physical Therapy Assessment Impairments Impairments Activity Tolerance,Edema,ROM, Soft Tissue Mobility Goals Five Impairment lymphedema life impact scale 58% Short Term Goal (STG) decrease lymphedema life impact score to no greater than 40% STG Duration 10/01/20 Alf Goal (LTG) decrease lymphedem alife impact score to no greater than 20% LTG Duration 11/30/20 Four Impairment poor scar mobility right mastectomy scar Alf Goal (LTG) Improve soft tissue mobility of right mastectomy scar to at least 75% normal mobility to decrease pain, improve her tolerance for all activities using her right side. LTG Duration 11/30/20 Three Impairment difficulty reaching overhead, behind back and across her body with jose guadalupe UE's Short Term Goal (STG) Patient to be independent and compliant with HEP for purposes of shoulder ROM STG Duration 10/01/20 Equipment Service Engineer Goal (LTG) Improve bilateral shoulder ROM sufficient to allow patient to reach overhead, behind her back, and to maximize lymphatic flow LTG Duration 11/30/20 Two Impairment pain right UE, chest, and bilateral posterior thorax 6/ 10 pain scale Short Term Goal (STG) decrease pain to no greater than 3/10 STG Duration 10/01/20 Equipment Service Engineer Goal (LTG) decrease pain to 0-1/10 with all usual activities LTG Duration 11/30/20 One Impairment lymphedema right UE Short Term Goal (STG) Patient to be instructed in all aspects of lymphedema care including skin care, manual lymphatic drainage, lymphedema bandaging, and lymphedema exercises. STG Duration 09/20/20 Alf Goal (LTG) Reduce lymphedema to stable level (no increase or decrease greater than 1 cm over the course of 1 week). Patient to obtain appropriate compression garment(s) and demonstrate good understanding of all aspects of lymphedema self-care. LTG Duration 11/30/20 Assessment Summary Assessment circumferential measurements variable some increased and some decreased. Patient improving in self-wrapping though unable to wrap proximally enough which is likely reason for increase in measurement proximal UE. Patient instructed in use of slick donning aid and borrowed sample Juzo 20-30mm Hg sleeve for trial . Has looked online at compression sleeves . Gauntlet will need to be to base of fingernails as sample has shorter fingers and patient noted increase in swelling distal. Chip bag inserted into sample glove for trial per patient request instead of bandaging. Physical Therapy Plan Frequency and Duration Frequency of Treatment 20 visits Duration of Treatment 12 weeks Plan of Care Start Date 09/01/20 Plan of Care End Date 11/30/20 Therapeutic Interventions Therapeutic Interventions Home Exercise Program, Lymphedema Management,Manual Therapy,Patient/Caregiver Education,Self-Care/Home Management,Soft Tissue Mobilization,Taping, Therapeutic Activities, Therapeutic Exercises Next Visit Focus/Plan Next Note Type Treatment Note Next Visit Plan Assess response to sample compression sleeve, chip bag in gauntlet. Continue lymphedema management per POC.
--- NOTE | 2020-09-09 09:00 | PT.OTN ---
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) Pain in right shoulder (09/09/20) Pain in left shoulder (09/09/20) Stiffness of right shoulder, not elsewhere classified (09/09/20) Stiffness of left shoulder, not elsewhere classified (09/09/20) Soft tissue disorder, unspecified (09/09/20) Physical Therapy Treatment Note PT-OP-A Visit Information Start: 09/01/20 08:01 Freq: Status: Active Protocol: Document 09/09/20 12:08 [facility]AK (Rec: 09/09/20 12:23 SAK [id number]) Out-Patient Physical Therapy Visit Information Visit Information Visit Type Treatment Note Visit Start Time 10:30 Visit Stop Time 12:02 Total Visit Minutes 92 Visit Number 6 Number of TRANSONIC ENGINEER Visits 0 PT-OP-B Current Condition Start: 09/01/20 08:01 Freq: Status: Active Protocol: Document 09/01/20 09:49 [facility]AK (Rec: 09/01/20 10:08 SAK [id number]) Current Condition History of Current Condition Onset Date September 2019 Current Complaints swelling right UE, cramping right UE shoulder and back, bilateral shoulder History of Current Condition Patient presents to PT with c/ o right UE swelling since prior to mastectomies 10/09; states she had 4L of fluid removed from a seroma. Has history right breast cancer starting 2011 treated with lumpectomy, chemo and radiation at that time. Early 2019 diagnosed with reoccurance breast cancer and underwent right mastectomy, left mastectomy with axillary node dissection with 12 lymph nodes removed. States incision on right had difficulty with healing and she underwent hyperbaric oxygen treatments, still has small scab, very stiff scar on right. Almost done with chemo; 2 more treatments. Has compression sleeve right UE fits loosely on forearm, snug on upper arm, not sure of compression level . States she has sleeve with more firm compression at home in laundry; will bring next session. Ordered the sleeves herself without any guidance. Tried a compression sleeve with strap across chest but doesn't like, tired of having compression on. Has not tried a compression shirt. Patient is right-handed. Currently reports pain and stiffness reaching overhead, across her body, and behind her back and spasms in neck and thoracic spine, shoulder, and chest with use of right UE . 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 Prior Treatments and Tests right lumpectomy 2012 with radiation and chemo Future Testing and Treatments Planned 2 more chemotherapy treatments . Treatment Goals Patient/Caregiver Goals minimize swelling and pain, improve ROM to allow full functional use of her UE's Prior Functional Status Baseline Function- ADL's Independent Baseline Function- Mobility Independent Current Functional Impairments (Reported) Functional Limitations- ADL's limited and painful to reach overhead, across her body, behind her back bilateral UE's PT-OP-C Subjective Start: 09/01/20 08:01 Freq: Status: Active Protocol: Document 09/09/20 12:08 [facility] (Rec: 09/09/20 12:23 [facility] [id number]) OP-PT Subjective Patient Comments Patient Comments Using chip bag in Juzo soft glove very helpful with compression of hand, states minimal swelling of hand and fingers with use. Juzo Soft sleeve didn't feel like enough compression though liked comfort level. PT-OP-F Manual Assessment Start: 09/01/20 08:01 Freq: Status: Active Protocol: Document 09/01/20 09:49 [facility] (Rec: 09/01/20 16:42 [facility] [id number]) Manual Assessments Soft Tissue Assessment Soft Tissue Mobility Assessment good scar mobility on left mastectomy scar. Right mastectomy scar thickened with poor mobility, adhered to chest wall. PT-OP-J Posture/Palpation/Skin Start: 09/01/20 08:01 Freq: Status: Active Protocol: Document 09/01/20 09:49 [facility] (Rec: 09/01/20 13:14 [facility] [id number]) Posture Evaluation Position Sitting Head/C-Spine Posture Forward Head T-Spine Posture Increased Kyphosis Shoulder Posture (L) Rounded,(R) Rounded Scapula Posture (L) Protracted,(R) Protracted Arm Posture (L) Internally Rotated,(R) Internally Rotated PT-OP-K Range of Motion Start: 09/01/20 08:01 Freq: Status: Active Protocol: Document 09/01/20 09:49 [facility] (Rec: 09/01/20 13:19 SAK [id number]) Cervical Spine Range of Motion Cervical Spine Active Flexion 55 Extension 15 Rotation Left 25 Rotation Right 35 Lateral Flexion Left 40 Lateral Flexion Right 30 ROM Limitations Soft Tissue Tightness,Pain Shoulder Goniometric Range of Motion Shoulder Right Active Shoulder ROM WFL No Testing Position Sitting Flexion 145 Extension 20 Abduction 140 Horizontal Adduction 5 Internal Rotation Behind Back (text) L4 Left Shoulder ROM WFL No Testing Position Sitting Flexion 140 Extension 15 Abduction 135 Horizontal Adduction 5 Internal Rotation Behind Back (text) L5 Elbow/Forearm Range of Motion Elbow/Forearm jose guadalupe Elbow/Forearm ROM WFL Yes PT-OP-N Lymphedema Start: 09/01/20 08:01 Freq: Status: Active Protocol: Document 09/09/20 12:08 [facility] (Rec: 09/09/20 12:23 [facility] [id number]) Lymphedema Measurements Upper Extremity Circumference Measurements Right Affected MCP 19 cm Dorsum of Hand 20 cm Wrist 16.3 cm 5 cm From Wrist Crease 17.8 cm 10 cm From Wrist Crease 22.5 cm 15 cm From Wrist Crease 27.2 cm 20 cm From Wrist Crease 28.1 cm 25 cm From Wrist Crease 29.5 cm 30 cm From Wrist Crease 31.7 cm 35 cm From Wrist Crease 32.4 cm 40 cm From Wrist Crease 33 cm Axilla 37.7 cm - subaxillary 90.4 cm chest 89.9cm PT-OP-Q Treatments Start: 09/01/20 08:01 Freq: Status: Active Protocol: Document 09/09/20 12:08 [facility] (Rec: 09/09/20 12:23 [facility] [id number]) Cardio Equipment Recumbent Stepper (Sci-Fit) Duration (Minutes) 10 Resistance 1 Seat Position 8 Other after bandaging to facilitate lymphatic flow Therapeutic Exercises Sitting Exercises pec stretch Equipment Used ball Reps/Minutes 3x30 pulleys Sitting Exercise Name shoulder flexion and abduction Equipment Used pulleys Reps/Minutes 10x Comments end range stretches Lymphedema Treatment Manual Lymphatic Drainage Location right UE Duration 35 min Comments Focus on AAA, AIA, CLAUDETTE Lymphedema Wrapping Body Location right UE Materials Juzo 20-30 mm Hg Dynamic sample sleeve sample issued for trial , Exosoft Juzo glove with 2/3 fingers, chip bag Other Cetaphil lotion applied to right UE prior to bandaging Patient Education Compression Garments Recommendation for increased containment gament; Juzo Dynamic sample trial Self Manual Lymphatic Drainage review Sequential Lymphedema Exercises verbal review; patient lee good understanding Other Other issued sample Juzo Slippee for donning of arm sleeve after instruction and return demo Issued sample Juzo dynamic sleeve [facility] YouTube channel PT-OP-T Assessment and Plan Start: 09/01/20 08:01 Freq: Status: Active Protocol: Document 09/09/20 12:08 [facility] (Rec: 09/09/20 12:23 [facility] [id number]) Physical Therapy Assessment Impairments Impairments Activity Tolerance,Edema,ROM, Soft Tissue Mobility Goals Five Impairment lymphedema life impact scale 58% Short Term Goal (STG) decrease lymphedema life impact score to no greater than 40% STG Duration 10/01/20 Penitentiary Goal (LTG) decrease lymphedem alife impact score to no greater than 20% LTG Duration 11/30/20 Four Impairment poor scar mobility right mastectomy scar Laborer/Key Man Goal (LTG) Improve soft tissue mobility of right mastectomy scar to at least 75% normal mobility to decrease pain, improve her tolerance for all activities using her right side. LTG Duration 11/30/20 Three Impairment difficulty reaching overhead, behind back and across her body with jose guadalupe UE's Short Term Goal (STG) Patient to be independent and compliant with HEP for purposes of shoulder ROM STG Duration 10/01/20 Laborer/Key Man Goal (LTG) Improve bilateral shoulder ROM sufficient to allow patient to reach overhead, behind her back, and to maximize lymphatic flow LTG Duration 11/30/20 Two Impairment pain right UE, chest, and bilateral posterior thorax 6/ 10 pain scale Short Term Goal (STG) decrease pain to no greater than 3/10 STG Duration 10/01/20 Laborer/Key Man Goal (LTG) decrease pain to 0-1/10 with all usual activities LTG Duration 11/30/20 One Impairment lymphedema right UE Short Term Goal (STG) Patient to be instructed in all aspects of lymphedema care including skin care, manual lymphatic drainage, lymphedema bandaging, and lymphedema exercises. STG Duration 09/20/20 Penitentiary Goal (LTG) Reduce lymphedema to stable level (no increase or decrease greater than 1 cm over the course of 1 week). Patient to obtain appropriate compression garment(s) and demonstrate good understanding of all aspects of lymphedema self-care. LTG Duration 11/30/20 Assessment Summary Assessment Juzo soft garment not adequate containment and compression as evidenced by increase in circumferential measurements ( most measurements). Chip bag decreased hand and finger edema. Much time spent on patient education regarding compression options and rationale, option for layering of compression bandages and garments. Compression velcro wrap also shown to patient as option to help deal with any circumference fluctuations. Physical Therapy Plan Frequency and Duration Frequency of Treatment 20 visits Duration of Treatment 12 weeks Plan of Care Start Date 09/01/20 Plan of Care End Date 11/30/20 Therapeutic Interventions Therapeutic Interventions Home Exercise Program, Lymphedema Management,Manual Therapy,Patient/Caregiver Education,Self-Care/Home Management,Soft Tissue Mobilization,Taping, Therapeutic Activities, Therapeutic Exercises Next Visit Focus/Plan Next Note Type Treatment Note Next Visit Plan Assess response to increased containment with Juzo Dynamic sleeve sample trial with continued Juzo soft glove. Continue lymphedema management .
--- NOTE | 2020-09-09 12:23 | PT.OTN ---
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) Pain in right shoulder (09/09/20) Pain in left shoulder (09/09/20) Stiffness of right shoulder, not elsewhere classified (09/09/20) Stiffness of left shoulder, not elsewhere classified (09/09/20) Soft tissue disorder, unspecified (09/09/20) Physical Therapy Treatment Note PT-OP-A Visit Information Start: 09/01/20 08:01 Freq: Status: Active Protocol: Document 09/09/20 12:08 [facility] (Rec: 09/09/20 12:23 [facility]AK [id number]) Out-Patient Physical Therapy Visit Information Visit Information Visit Type Treatment Note Visit Start Time 10:30 Visit Stop Time 12:02 Total Visit Minutes 92 Visit Number 6 Number of BLASTING CAP ASSEMBLER Visits 0 PT-OP-B Current Condition Start: 09/01/20 08:01 Freq: Status: Active Protocol: Document 09/01/20 09:49 [facility]AK (Rec: 09/01/20 10:08 [facility]AK [id number]) Current Condition History of Current Condition Onset Date September 2019 Current Complaints swelling right UE, cramping right UE shoulder and back, bilateral shoulder History of Current Condition Patient presents to PT with c/ o right UE swelling since prior to mastectomies 10/09; states she had 4L of fluid removed from a seroma. Has history right breast cancer starting 2011 treated with lumpectomy, chemo and radiation at that time. Early 2019 diagnosed with reoccurance breast cancer and underwent right mastectomy, left mastectomy with axillary node dissection with 12 lymph nodes removed. States incision on right had difficulty with healing and she underwent hyperbaric oxygen treatments, still has small scab, very stiff scar on right. Almost done with chemo; 2 more treatments. Has compression sleeve right UE fits loosely on forearm, snug on upper arm, not sure of compression level . States she has sleeve with more firm compression at home in laundry; will bring next session. Ordered the sleeves herself without any guidance. Tried a compression sleeve with strap across chest but doesn't like, tired of having compression on. Has not tried a compression shirt. Patient is right-handed. Currently reports pain and stiffness reaching overhead, across her body, and behind her back and spasms in neck and thoracic spine, shoulder, and chest with use of right UE . 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 Prior Treatments and Tests right lumpectomy 2012 with radiation and chemo Future Testing and Treatments Planned 2 more chemotherapy treatments . Treatment Goals Patient/Caregiver Goals minimize swelling and pain, improve ROM to allow full functional use of her UE's Prior Functional Status Baseline Function- ADL's Independent Baseline Function- Mobility Independent Current Functional Impairments (Reported) Functional Limitations- ADL's limited and painful to reach overhead, across her body, behind her back bilateral UE's PT-OP-C Subjective Start: 09/01/20 08:01 Freq: Status: Active Protocol: Document 09/09/20 12:08 [facility] (Rec: 09/09/20 12:23 [facility] [id number]) OP-PT Subjective Patient Comments Patient Comments Using chip bag in Juzo soft glove very helpful with compression of hand, states minimal swelling of hand and fingers with use. Juzo Soft sleeve didn't feel like enough compression though liked comfort level. PT-OP-F Manual Assessment Start: 09/01/20 08:01 Freq: Status: Active Protocol: Document 09/01/20 09:49 [facility] (Rec: 09/01/20 16:42 [facility] [id number]) Manual Assessments Soft Tissue Assessment Soft Tissue Mobility Assessment good scar mobility on left mastectomy scar. Right mastectomy scar thickened with poor mobility, adhered to chest wall. PT-OP-J Posture/Palpation/Skin Start: 09/01/20 08:01 Freq: Status: Active Protocol: Document 09/01/20 09:49 [facility] (Rec: 09/01/20 13:14 [facility] [id number]) Posture Evaluation Position Sitting Head/C-Spine Posture Forward Head T-Spine Posture Increased Kyphosis Shoulder Posture (L) Rounded,(R) Rounded Scapula Posture (L) Protracted,(R) Protracted Arm Posture (L) Internally Rotated,(R) Internally Rotated PT-OP-K Range of Motion Start: 09/01/20 08:01 Freq: Status: Active Protocol: Document 09/01/20 09:49 [facility] (Rec: 09/01/20 13:19 SAK [id number]) Cervical Spine Range of Motion Cervical Spine Active Flexion 55 Extension 15 Rotation Left 25 Rotation Right 35 Lateral Flexion Left 40 Lateral Flexion Right 30 ROM Limitations Soft Tissue Tightness,Pain Shoulder Goniometric Range of Motion Shoulder Right Active Shoulder ROM WFL No Testing Position Sitting Flexion 145 Extension 20 Abduction 140 Horizontal Adduction 5 Internal Rotation Behind Back (text) L4 Left Shoulder ROM WFL No Testing Position Sitting Flexion 140 Extension 15 Abduction 135 Horizontal Adduction 5 Internal Rotation Behind Back (text) L5 Elbow/Forearm Range of Motion Elbow/Forearm jose guadalupe Elbow/Forearm ROM WFL Yes PT-OP-N Lymphedema Start: 09/01/20 08:01 Freq: Status: Active Protocol: Document 09/09/20 12:08 [facility] (Rec: 09/09/20 12:23 [facility] [id number]) Lymphedema Measurements Upper Extremity Circumference Measurements Right Affected MCP 19 cm Dorsum of Hand 20 cm Wrist 16.3 cm 5 cm From Wrist Crease 17.8 cm 10 cm From Wrist Crease 22.5 cm 15 cm From Wrist Crease 27.2 cm 20 cm From Wrist Crease 28.1 cm 25 cm From Wrist Crease 29.5 cm 30 cm From Wrist Crease 31.7 cm 35 cm From Wrist Crease 32.4 cm 40 cm From Wrist Crease 33 cm Axilla 37.7 cm - subaxillary 90.4 cm chest 89.9cm PT-OP-Q Treatments Start: 09/01/20 08:01 Freq: Status: Active Protocol: Document 09/09/20 12:08 [facility] (Rec: 09/09/20 12:23 [facility] [id number]) Cardio Equipment Recumbent Stepper (Sci-Fit) Duration (Minutes) 10 Resistance 1 Seat Position 8 Other after bandaging to facilitate lymphatic flow Therapeutic Exercises Sitting Exercises pec stretch Equipment Used ball Reps/Minutes 3x30 pulleys Sitting Exercise Name shoulder flexion and abduction Equipment Used pulleys Reps/Minutes 10x Comments end range stretches Lymphedema Treatment Manual Lymphatic Drainage Location right UE Duration 35 min Comments Focus on AAA, AIA, CLAUDETTE Lymphedema Wrapping Body Location right UE Materials Juzo 20-30 mm Hg Dynamic sample sleeve sample issued for trial , Exosoft Juzo glove with 2/3 fingers, chip bag Other Cetaphil lotion applied to right UE prior to bandaging Patient Education Compression Garments Recommendation for increased containment gament; Juzo Dynamic sample trial Self Manual Lymphatic Drainage review Sequential Lymphedema Exercises verbal review; patient lee good understanding Other Other issued sample Juzo Slippee for donning of arm sleeve after instruction and return demo Issued sample Juzo dynamic sleeve [facility] YouTube channel PT-OP-T Assessment and Plan Start: 09/01/20 08:01 Freq: Status: Active Protocol: Document 09/09/20 12:08 [facility] (Rec: 09/09/20 12:23 [facility] [id number]) Physical Therapy Assessment Impairments Impairments Activity Tolerance,Edema,ROM, Soft Tissue Mobility Goals Five Impairment lymphedema life impact scale 58% Short Term Goal (STG) decrease lymphedema life impact score to no greater than 40% STG Duration 10/01/20 Skilled Nursing Goal (LTG) decrease lymphedem alife impact score to no greater than 20% LTG Duration 11/30/20 Four Impairment poor scar mobility right mastectomy scar Java Sql Developer Goal (LTG) Improve soft tissue mobility of right mastectomy scar to at least 75% normal mobility to decrease pain, improve her tolerance for all activities using her right side. LTG Duration 11/30/20 Three Impairment difficulty reaching overhead, behind back and across her body with jose guadalupe UE's Short Term Goal (STG) Patient to be independent and compliant with HEP for purposes of shoulder ROM STG Duration 10/01/20 Java Sql Developer Goal (LTG) Improve bilateral shoulder ROM sufficient to allow patient to reach overhead, behind her back, and to maximize lymphatic flow LTG Duration 11/30/20 Two Impairment pain right UE, chest, and bilateral posterior thorax 6/ 10 pain scale Short Term Goal (STG) decrease pain to no greater than 3/10 STG Duration 10/01/20 Java Sql Developer Goal (LTG) decrease pain to 0-1/10 with all usual activities LTG Duration 11/30/20 One Impairment lymphedema right UE Short Term Goal (STG) Patient to be instructed in all aspects of lymphedema care including skin care, manual lymphatic drainage, lymphedema bandaging, and lymphedema exercises. STG Duration 09/20/20 Skilled Nursing Goal (LTG) Reduce lymphedema to stable level (no increase or decrease greater than 1 cm over the course of 1 week). Patient to obtain appropriate compression garment(s) and demonstrate good understanding of all aspects of lymphedema self-care. LTG Duration 11/30/20 Assessment Summary Assessment Juzo soft garment not adequate containment and compression as evidenced by increase in circumferential measurements ( most measurements). Chip bag decreased hand and finger edema. Much time spent on patient education regarding compression options and rationale, option for layering of compression bandages and garments. Compression velcro wrap also shown to patient as option to help deal with any circumference fluctuations. Physical Therapy Plan Frequency and Duration Frequency of Treatment 20 visits Duration of Treatment 12 weeks Plan of Care Start Date 09/01/20 Plan of Care End Date 11/30/20 Therapeutic Interventions Therapeutic Interventions Home Exercise Program, Lymphedema Management,Manual Therapy,Patient/Caregiver Education,Self-Care/Home Management,Soft Tissue Mobilization,Taping, Therapeutic Activities, Therapeutic Exercises Next Visit Focus/Plan Next Note Type Treatment Note Next Visit Plan Assess response to increased containment with Juzo Dynamic sleeve sample trial with continued Juzo soft glove. Continue lymphedema management .
--- NOTE | 2020-09-10 11:08 | PT.OTN ---
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) Pain in right shoulder (09/10/20) Pain in left shoulder (09/10/20) Stiffness of right shoulder, not elsewhere classified (09/10/20) Stiffness of left shoulder, not elsewhere classified (09/10/20) Soft tissue disorder, unspecified (09/10/20) Physical Therapy Treatment Note PT-OP-A Visit Information Start: 09/01/20 08:01 Freq: Status: Active Protocol: Document 09/10/20 09:45 [facility] (Rec: 09/10/20 10:00 [facility]AK [id number]) Out-Patient Physical Therapy Visit Information Visit Information Visit Type Treatment Note Visit Start Time 09:45 Visit Stop Time 11:10 Total Visit Minutes 85 Visit Number 7 Number of SCREEN CLEANER Visits 0 PT-OP-B Current Condition Start: 09/01/20 08:01 Freq: Status: Active Protocol: Document 09/01/20 09:49 [facility] (Rec: 09/01/20 10:08 [facility] [id number]) Current Condition History of Current Condition Onset Date September 2019 Current Complaints swelling right UE, cramping right UE shoulder and back, bilateral shoulder History of Current Condition Patient presents to PT with c/ o right UE swelling since prior to mastectomies 10/09; states she had 4L of fluid removed from a seroma. Has history right breast cancer starting 2011 treated with lumpectomy, chemo and radiation at that time. Early 2019 diagnosed with reoccurance breast cancer and underwent right mastectomy, left mastectomy with axillary node dissection with 12 lymph nodes removed. States incision on right had difficulty with healing and she underwent hyperbaric oxygen treatments, still has small scab, very stiff scar on right. Almost done with chemo; 2 more treatments. Has compression sleeve right UE fits loosely on forearm, snug on upper arm, not sure of compression level . States she has sleeve with more firm compression at home in laundry; will bring next session. Ordered the sleeves herself without any guidance. Tried a compression sleeve with strap across chest but doesn't like, tired of having compression on. Has not tried a compression shirt. Patient is right-handed. Currently reports pain and stiffness reaching overhead, across her body, and behind her back and spasms in neck and thoracic spine, shoulder, and chest with use of right UE . 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 Prior Treatments and Tests right lumpectomy 2012 with radiation and chemo Future Testing and Treatments Planned 2 more chemotherapy treatments . Treatment Goals Patient/Caregiver Goals minimize swelling and pain, improve ROM to allow full functional use of her UE's Prior Functional Status Baseline Function- ADL's Independent Baseline Function- Mobility Independent Current Functional Impairments (Reported) Functional Limitations- ADL's limited and painful to reach overhead, across her body, behind her back bilateral UE's PT-OP-C Subjective Start: 09/01/20 08:01 Freq: Status: Active Protocol: Document 09/09/20 12:08 [facility] (Rec: 09/09/20 12:23 [facility] [id number]) OP-PT Subjective Patient Comments Patient Comments Using chip bag in Juzo soft glove very helpful with compression of hand, states minimal swelling of hand and fingers with use. Juzo Soft sleeve didn't feel like enough compression though liked comfort level. PT-OP-F Manual Assessment Start: 09/01/20 08:01 Freq: Status: Active Protocol: Document 09/01/20 09:49 [facility] (Rec: 09/01/20 16:42 [facility] [id number]) Manual Assessments Soft Tissue Assessment Soft Tissue Mobility Assessment good scar mobility on left mastectomy scar. Right mastectomy scar thickened with poor mobility, adhered to chest wall. PT-OP-J Posture/Palpation/Skin Start: 09/01/20 08:01 Freq: Status: Active Protocol: Document 09/01/20 09:49 [facility] (Rec: 09/01/20 13:14 [facility] [id number]) Posture Evaluation Position Sitting Head/C-Spine Posture Forward Head T-Spine Posture Increased Kyphosis Shoulder Posture (L) Rounded,(R) Rounded Scapula Posture (L) Protracted,(R) Protracted Arm Posture (L) Internally Rotated,(R) Internally Rotated PT-OP-K Range of Motion Start: 09/01/20 08:01 Freq: Status: Active Protocol: Document 09/01/20 09:49 [facility] (Rec: 09/01/20 13:19 SAK [id number]) Cervical Spine Range of Motion Cervical Spine Active Flexion 55 Extension 15 Rotation Left 25 Rotation Right 35 Lateral Flexion Left 40 Lateral Flexion Right 30 ROM Limitations Soft Tissue Tightness,Pain Shoulder Goniometric Range of Motion Shoulder Right Active Shoulder ROM WFL No Testing Position Sitting Flexion 145 Extension 20 Abduction 140 Horizontal Adduction 5 Internal Rotation Behind Back (text) L4 Left Shoulder ROM WFL No Testing Position Sitting Flexion 140 Extension 15 Abduction 135 Horizontal Adduction 5 Internal Rotation Behind Back (text) L5 Elbow/Forearm Range of Motion Elbow/Forearm jose guadalupe Elbow/Forearm ROM WFL Yes PT-OP-N Lymphedema Start: 09/01/20 08:01 Freq: Status: Active Protocol: Document 09/09/20 12:08 [facility] (Rec: 09/09/20 12:23 [facility] [id number]) Lymphedema Measurements Upper Extremity Circumference Measurements Right Affected MCP 19 cm Dorsum of Hand 20 cm Wrist 16.3 cm 5 cm From Wrist Crease 17.8 cm 10 cm From Wrist Crease 22.5 cm 15 cm From Wrist Crease 27.2 cm 20 cm From Wrist Crease 28.1 cm 25 cm From Wrist Crease 29.5 cm 30 cm From Wrist Crease 31.7 cm 35 cm From Wrist Crease 32.4 cm 40 cm From Wrist Crease 33 cm Axilla 37.7 cm - subaxillary 90.4 cm chest 89.9cm PT-OP-Q Treatments Start: 09/01/20 08:01 Freq: Status: Active Protocol: Document 09/09/20 12:08 [facility] (Rec: 09/09/20 12:23 [facility] [id number]) Cardio Equipment Recumbent Stepper (Sci-Fit) Duration (Minutes) 10 Resistance 1 Seat Position 8 Other after bandaging to facilitate lymphatic flow Therapeutic Exercises Sitting Exercises pec stretch Equipment Used ball Reps/Minutes 3x30 pulleys Sitting Exercise Name shoulder flexion and abduction Equipment Used pulleys Reps/Minutes 10x Comments end range stretches Lymphedema Treatment Manual Lymphatic Drainage Location right UE Duration 35 min Comments Focus on AAA, AIA, CLAUDETTE Lymphedema Wrapping Body Location right UE Materials Juzo 20-30 mm Hg Dynamic sample sleeve sample issued for trial , Exosoft Juzo glove with 2/3 fingers, chip bag Other Cetaphil lotion applied to right UE prior to bandaging Patient Education Compression Garments Recommendation for increased containment gament; Juzo Dynamic sample trial Self Manual Lymphatic Drainage review Sequential Lymphedema Exercises verbal review; patient lee good understanding Other Other issued sample Juzo [place] for donning of arm sleeve after instruction and return demo Issued sample Juzo dynamic sleeve [facility] YouTube channel PT-OP-T Assessment and Plan Start: 09/01/20 08:01 Freq: Status: Active Protocol: Document 09/10/20 09:45 [facility] (Rec: 09/10/20 10:00 SAK [id number]) Physical Therapy Assessment Impairments Impairments Activity Tolerance,Edema,ROM, Soft Tissue Mobility Goals Five Impairment lymphedema life impact scale 58% Short Term Goal (STG) decrease lymphedema life impact score to no greater than 40% STG Duration 10/01/20 Valet Manager Goal (LTG) decrease lymphedem alife impact score to no greater than 20% LTG Duration 11/30/20 Four Impairment poor scar mobility right mastectomy scar [facility] Goal (LTG) Improve soft tissue mobility of right mastectomy scar to at least 75% normal mobility to decrease pain, improve her tolerance for all activities using her right side. LTG Duration 11/30/20 Three Impairment difficulty reaching overhead, behind back and across her body with jose guadalupe UE's Short Term Goal (STG) Patient to be independent and compliant with HEP for purposes of shoulder ROM STG Duration 10/01/20 [facility] Goal (LTG) Improve bilateral shoulder ROM sufficient to allow patient to reach overhead, behind her back, and to maximize lymphatic flow LTG Duration 11/30/20 Two Impairment pain right UE, chest, and bilateral posterior thorax 6/ 10 pain scale Short Term Goal (STG) decrease pain to no greater than 3/10 STG Duration 10/01/20 [facility] Goal (LTG) decrease pain to 0-1/10 with all usual activities LTG Duration 11/30/20 One Impairment lymphedema right UE Short Term Goal (STG) Patient to be instructed in all aspects of lymphedema care including skin care, manual lymphatic drainage, lymphedema bandaging, and lymphedema exercises. STG Duration 09/20/20 [facility] Goal (LTG) Reduce lymphedema to stable level (no increase or decrease greater than 1 cm over the course of 1 week). Patient to obtain appropriate compression garment(s) and demonstrate good understanding of all aspects of lymphedema self-care. LTG Duration 11/30/20 Assessment Summary Assessment Most problematic area remains proximal forearm and distal upper arm, but other circumferential measurements stable or decreased. Good fit of Juzo dynamic size II sample sleeve. Patient instructed to bandage at night but can wear sleeve and glove during the day. Good progress. Interested in Flexitouch pump for lymphatic management at home. Good tolerance for scar mobilization manually, gentle tool assisted more uncomfortable. Poor scar mobility laterally with chest wall adherence, small scab still present so avoided that area. Physical Therapy Plan Frequency and Duration Frequency of Treatment 20 visits Duration of Treatment 12 weeks Plan of Care Start Date 09/01/20 Plan of Care End Date 11/30/20 Therapeutic Interventions Therapeutic Interventions Home Exercise Program, Lymphedema Management,Manual Therapy,Patient/Caregiver Education,Self-Care/Home Management,Soft Tissue Mobilization,Taping, Therapeutic Activities, Therapeutic Exercises Next Visit Focus/Plan Next Note Type Treatment Note Next Visit Plan Patient to bandage at night, wear sleeve during the day. Is going to order Juzo soft glove and Juzo dynamic sleeve as per sample. Continue lymphedema management.
--- NOTE | 2020-09-11 15:06 | PT.OTN ---
Current Diagnoses Postmastectomy lymphedema syndrome (09/11/20) Pain in right shoulder (09/11/20) Pain in left shoulder (09/11/20) Stiffness of right shoulder, not elsewhere classified (09/11/20) Stiffness of left shoulder, not elsewhere classified (09/11/20) Soft tissue disorder, unspecified (09/11/20) Physical Therapy Treatment Note PT-OP-A Visit Information Start: 09/01/20 08:01 Freq: Status: Active Protocol: Document 09/11/20 13:01 [facility] (Rec: 09/11/20 13:14 SAK [id number]) Out-Patient Physical Therapy Visit Information Visit Information Visit Type Treatment Note Visit Start Time 13:00 Total Visit Minutes 85 Visit Number 8 Number of TREE TRIMMER Visits 0 PT-OP-B Current Condition Start: 09/01/20 08:01 Freq: Status: Active Protocol: Document 09/01/20 09:49 [facility]AK (Rec: 09/01/20 10:08 SAK [id number]) Current Condition History of Current Condition Onset Date September 2019 Current Complaints swelling right UE, cramping right UE shoulder and back, bilateral shoulder History of Current Condition Patient presents to PT with c/ o right UE swelling since prior to mastectomies 10/09; states she had 4L of fluid removed from a seroma. Has history right breast cancer starting 2011 treated with lumpectomy, chemo and radiation at that time. Early 2019 diagnosed with reoccurance breast cancer and underwent right mastectomy, left mastectomy with axillary node dissection with 12 lymph nodes removed. States incision on right had difficulty with healing and she underwent hyperbaric oxygen treatments, still has small scab, very stiff scar on right. Almost done with chemo; 2 more treatments. Has compression sleeve right UE fits loosely on forearm, snug on upper arm, not sure of compression level . States she has sleeve with more firm compression at home in laundry; will bring next session. Ordered the sleeves herself without any guidance. Tried a compression sleeve with strap across chest but doesn't like, tired of having compression on. Has not tried a compression shirt. Patient is right-handed. Currently reports pain and stiffness reaching overhead, across her body, and behind her back and spasms in neck and thoracic spine, shoulder, and chest with use of right UE . 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 Prior Treatments and Tests right lumpectomy 2012 with radiation and chemo Future Testing and Treatments Planned 2 more chemotherapy treatments . Treatment Goals Patient/Caregiver Goals minimize swelling and pain, improve ROM to allow full functional use of her UE's Prior Functional Status Baseline Function- ADL's Independent Baseline Function- Mobility Independent Current Functional Impairments (Reported) Functional Limitations- ADL's limited and painful to reach overhead, across her body, behind her back bilateral UE's PT-OP-C Subjective Start: 09/01/20 08:01 Freq: Status: Active Protocol: Document 09/11/20 13:01 [facility] (Rec: 09/11/20 14:45 [facility] [id number]) OP-PT Subjective Patient Comments Patient Comments Patient reports she ordered Juzo glove and sleeve, plus compression alternative wrap. Wearing chest compression strap with chip bag inside. Good compliance to HEP. Patient Reported Progress Improving PT-OP-F Manual Assessment Start: 09/01/20 08:01 Freq: Status: Active Protocol: Document 09/01/20 09:49 [facility] (Rec: 09/01/20 16:42 [facility] [id number]) Manual Assessments Soft Tissue Assessment Soft Tissue Mobility Assessment good scar mobility on left mastectomy scar. Right mastectomy scar thickened with poor mobility, adhered to chest wall. PT-OP-J Posture/Palpation/Skin Start: 09/01/20 08:01 Freq: Status: Active Protocol: Document 09/01/20 09:49 [facility] (Rec: 09/01/20 13:14 [facility] [id number]) Posture Evaluation Position Sitting Head/C-Spine Posture Forward Head T-Spine Posture Increased Kyphosis Shoulder Posture (L) Rounded,(R) Rounded Scapula Posture (L) Protracted,(R) Protracted Arm Posture (L) Internally Rotated,(R) Internally Rotated PT-OP-K Range of Motion Start: 09/01/20 08:01 Freq: Status: Active Protocol: Document 09/01/20 09:49 [facility] (Rec: 09/01/20 13:19 [facility] [id number]) Cervical Spine Range of Motion Cervical Spine Active Flexion 55 Extension 15 Rotation Left 25 Rotation Right 35 Lateral Flexion Left 40 Lateral Flexion Right 30 ROM Limitations Soft Tissue Tightness,Pain Shoulder Goniometric Range of Motion Shoulder Right Active Shoulder ROM WFL No Testing Position Sitting Flexion 145 Extension 20 Abduction 140 Horizontal Adduction 5 Internal Rotation Behind Back (text) L4 Left Shoulder ROM WFL No Testing Position Sitting Flexion 140 Extension 15 Abduction 135 Horizontal Adduction 5 Internal Rotation Behind Back (text) L5 Elbow/Forearm Range of Motion Elbow/Forearm jose guadalupe Elbow/Forearm ROM WFL Yes PT-OP-N Lymphedema Start: 09/01/20 08:01 Freq: Status: Active Protocol: Document 09/11/20 13:01 [facility] (Rec: 09/11/20 14:45 [facility] [id number]) Lymphedema Measurements Upper Extremity Circumference Measurements Right Affected MCP 19.2 cm Dorsum of Hand 19.7 cm Wrist 16.2 cm 5 cm From Wrist Crease 18.4 cm 10 cm From Wrist Crease 22.3 cm 15 cm From Wrist Crease 26.6 cm 20 cm From Wrist Crease 28.2 cm 25 cm From Wrist Crease 28.8 cm 30 cm From Wrist Crease 31.3 cm 35 cm From Wrist Crease 31.8 cm 40 cm From Wrist Crease 32.2 cm Axilla 38 cm - subaxillary 92.8 chest 89.0 PT-OP-Q Treatments Start: 09/01/20 08:01 Freq: Status: Active Protocol: Document 09/11/20 13:01 [facility] (Rec: 09/11/20 15:05 [facility] [id number]) Manual Therapy Treatment Soft Tissue Mobilization mastectomy scar right Mobilization Type Instrument Assisted,Myofascial Release,Rolling Comments suction instruction, medium Lymphedema Treatment Manual Lymphatic Drainage Location right UE Duration 35 min Comments Focus on AAA, AIA, CLAUDETTE Lymphedema Wrapping Body Location right UE Materials Juzo 20-30 mmhg Exosoft glove with 2/3 fingers, chip bag inserted, Tricofix size E, Artiflex, channel foam mid forearm to mid upper arm, Comprilan Other Cetaphil lotion applied to right UE prior to bandaging Patient Education Compression Garments shown L and R Tribute night wrap and issued sample for trial PT-OP-T Assessment and Plan Start: 09/01/20 08:01 Freq: Status: Active Protocol: Document 09/11/20 13:01 [facility] (Rec: 09/11/20 13:14 [facility]AK [id number]) Physical Therapy Assessment Impairments Impairments Activity Tolerance,Edema,ROM, Soft Tissue Mobility Goals Five Impairment lymphedema life impact scale 58% Short Term Goal (STG) decrease lymphedema life impact score to no greater than 40% STG Duration 10/01/20 [facility] Goal (LTG) decrease lymphedem alife impact score to no greater than 20% LTG Duration 11/30/20 Four Impairment poor scar mobility right mastectomy scar [facility] Goal (LTG) Improve soft tissue mobility of right mastectomy scar to at least 75% normal mobility to decrease pain, improve her tolerance for all activities using her right side. LTG Duration 11/30/20 Three Impairment difficulty reaching overhead, behind back and across her body with jose guadalupe UE's Short Term Goal (STG) Patient to be independent and compliant with HEP for purposes of shoulder ROM STG Duration 10/01/20 [facility] Goal (LTG) Improve bilateral shoulder ROM sufficient to allow patient to reach overhead, behind her back, and to maximize lymphatic flow LTG Duration 11/30/20 Two Impairment pain right UE, chest, and bilateral posterior thorax 6/ 10 pain scale Short Term Goal (STG) decrease pain to no greater than 3/10 STG Duration 10/01/20 Indian Nanny Goal (LTG) decrease pain to 0-1/10 with all usual activities LTG Duration 11/30/20 One Impairment lymphedema right UE Short Term Goal (STG) Patient to be instructed in all aspects of lymphedema care including skin care, manual lymphatic drainage, lymphedema bandaging, and lymphedema exercises. STG Duration 09/20/20 Indian Nanny Goal (LTG) Reduce lymphedema to stable level (no increase or decrease greater than 1 cm over the course of 1 week). Patient to obtain appropriate compression garment(s) and demonstrate good understanding of all aspects of lymphedema self-care. LTG Duration 11/30/20 Assessment Summary Assessment Good tolerance for scar mobilization techniques. Patient wearing chest compression wrap with chip bag under. Has ordered compression glove and sleeve as well as compression alternative velcro wrap. Channel foam used for increased compression proximal forearm and distal upper arm as they remain stubborn to lymphedema reduction and have some fibrosis. No palpable axillary cording. Patient issued sample for trial L and R Tribute night garment to try , and instructed can use channel foam inside. Physical Therapy Plan Frequency and Duration Frequency of Treatment 20 visits Duration of Treatment 12 weeks Plan of Care Start Date 09/01/20 Plan of Care End Date 11/30/20 Therapeutic Interventions Therapeutic Interventions Home Exercise Program, Lymphedema Management,Manual Therapy,Patient/Caregiver Education,Self-Care/Home Management,Soft Tissue Mobilization,Taping, Therapeutic Activities, Therapeutic Exercises Next Visit Focus/Plan Next Note Type Treatment Note Next Visit Plan Assess response to today's treatment, trial night compression alternative wrap instead of compression bandaging. ASsess response to channel foam which can be put into compression wrap.
--- NOTE | 2020-09-17 13:55 | PT.OTN ---
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) Pain in right shoulder (09/17/20) Pain in left shoulder (09/17/20) Stiffness of right shoulder, not elsewhere classified (09/17/20) Stiffness of left shoulder, not elsewhere classified (09/17/20) Soft tissue disorder, unspecified (09/17/20) Physical Therapy Treatment Note PT-OP-A Visit Information Start: 09/01/20 08:01 Freq: Status: Active Protocol: Document 09/17/20 09:52 SAK (Rec: 09/17/20 11:14 SAK [id number]) Out-Patient Physical Therapy Visit Information Visit Information Visit Type Treatment Note Visit Start Time 09:45 Visit Stop Time 11:11 Total Visit Minutes 86 Visit Number 9 Number of ORIENTAL RUG STRETCHER Visits 0 PT-OP-B Current Condition Start: 09/01/20 08:01 Freq: Status: Active Protocol: Document 09/01/20 09:49 SAK (Rec: 09/01/20 10:08 SAK [id number]) Current Condition History of Current Condition Onset Date September 2019 Current Complaints swelling right UE, cramping right UE shoulder and back, bilateral shoulder History of Current Condition Patient presents to PT with c/ o right UE swelling since prior to mastectomies 10/09; states she had 4L of fluid removed from a seroma. Has history right breast cancer starting 2011 treated with lumpectomy, chemo and radiation at that time. Early 2019 diagnosed with reoccurance breast cancer and underwent right mastectomy, left mastectomy with axillary node dissection with 12 lymph nodes removed. States incision on right had difficulty with healing and she underwent hyperbaric oxygen treatments, still has small scab, very stiff scar on right. Almost done with chemo; 2 more treatments. Has compression sleeve right UE fits loosely on forearm, snug on upper arm, not sure of compression level . States she has sleeve with more firm compression at home in laundry; will bring next session. Ordered the sleeves herself without any guidance. Tried a compression sleeve with strap across chest but doesn't like, tired of having compression on. Has not tried a compression shirt. Patient is right-handed. Currently reports pain and stiffness reaching overhead, across her body, and behind her back and spasms in neck and thoracic spine, shoulder, and chest with use of right UE . 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 Prior Treatments and Tests right lumpectomy 2012 with radiation and chemo Future Testing and Treatments Planned 2 more chemotherapy treatments . Treatment Goals Patient/Caregiver Goals minimize swelling and pain, improve ROM to allow full functional use of her UE's Prior Functional Status Baseline Function- ADL's Independent Baseline Function- Mobility Independent Current Functional Impairments (Reported) Functional Limitations- ADL's limited and painful to reach overhead, across her body, behind her back bilateral UE's PT-OP-C Subjective Start: 09/01/20 08:01 Freq: Status: Active Protocol: Document 09/17/20 09:52 SAK (Rec: 09/17/20 11:14 SAK [id number]) OP-PT Subjective Patient Comments Patient Comments Got glove, longer and tighter, doesn't need chip bag, good edema control. Still waiting for new sleeve and velcro wrap compression alternative. Forgot to put borrowed wrap on last night. Next to last infusion tomorrow. PT-OP-F Manual Assessment Start: 09/01/20 08:01 Freq: Status: Active Protocol: Document 09/01/20 09:49 [facility] (Rec: 09/01/20 16:42 [facility] [id number]) Manual Assessments Soft Tissue Assessment Soft Tissue Mobility Assessment good scar mobility on left mastectomy scar. Right mastectomy scar thickened with poor mobility, adhered to chest wall. PT-OP-J Posture/Palpation/Skin Start: 09/01/20 08:01 Freq: Status: Active Protocol: Document 09/01/20 09:49 [facility] (Rec: 09/01/20 13:14 [facility] [id number]) Posture Evaluation Position Sitting Head/C-Spine Posture Forward Head T-Spine Posture Increased Kyphosis Shoulder Posture (L) Rounded,(R) Rounded Scapula Posture (L) Protracted,(R) Protracted Arm Posture (L) Internally Rotated,(R) Internally Rotated PT-OP-K Range of Motion Start: 09/01/20 08:01 Freq: Status: Active Protocol: Document 09/01/20 09:49 SAK (Rec: 09/01/20 13:19 [facility] [id number]) Cervical Spine Range of Motion Cervical Spine Active Flexion 55 Extension 15 Rotation Left 25 Rotation Right 35 Lateral Flexion Left 40 Lateral Flexion Right 30 ROM Limitations Soft Tissue Tightness,Pain Shoulder Goniometric Range of Motion Shoulder Right Active Shoulder ROM WFL No Testing Position Sitting Flexion 145 Extension 20 Abduction 140 Horizontal Adduction 5 Internal Rotation Behind Back (text) L4 Left Shoulder ROM WFL No Testing Position Sitting Flexion 140 Extension 15 Abduction 135 Horizontal Adduction 5 Internal Rotation Behind Back (text) L5 Elbow/Forearm Range of Motion Elbow/Forearm jose guadalupe Elbow/Forearm ROM WFL Yes PT-OP-N Lymphedema Start: 09/01/20 08:01 Freq: Status: Active Protocol: Document 09/17/20 09:52 [facility] (Rec: 09/17/20 11:14 [facility] [id number]) Lymphedema Measurements Upper Extremity Circumference Measurements Right Affected MCP 18.8 cm Dorsum of Hand 19.2 cm Wrist 16 cm 5 cm From Wrist Crease 18 cm 10 cm From Wrist Crease 22.4 cm 15 cm From Wrist Crease 26 cm 20 cm From Wrist Crease 27.6 cm 25 cm From Wrist Crease 28.7 cm 30 cm From Wrist Crease 31.3 cm 35 cm From Wrist Crease 31.5 cm 40 cm From Wrist Crease 32.2 cm Axilla 37.8 cm - subaxillary 92.8 chest 89.0 PT-OP-Q Treatments Start: 09/01/20 08:01 Freq: Status: Active Protocol: Document 09/17/20 09:52 [facility] (Rec: 09/17/20 11:14 [facility] [id number]) Manual Therapy Treatment Soft Tissue Mobilization mastectomy scar right Mobilization Type Instrument Assisted,Myofascial Release,Rolling Comments suction instrument, instructed in use of Dycem and given square of Dycem for use at home. Lymphedema Treatment Manual Lymphatic Drainage Location right UE Duration 35 min Comments Focus on AAA, AIA, CLAUDETTE Lymphedema Wrapping Body Location right UE Materials new Juzo 20-30 mmHg Exosoft glove with 3/4 fingers (no chip bag needed), Dynamic Juzo sleeve Compression Garment Assessment Compression Garment Assessment Details good fit of new compression glove, has not yet received new sleeve or compression wrap Patient Education Compression Garments good fit of new compression glove, has not yet received new sleeve or wrap PT-OP-T Assessment and Plan Start: 09/01/20 08:01 Freq: Status: Active Protocol: Document 09/17/20 09:52 [facility] (Rec: 09/17/20 11:14 [facility] [id number]) Physical Therapy Assessment Impairments Impairments Activity Tolerance,Edema,ROM, Soft Tissue Mobility Goals Five Impairment lymphedema life impact scale 58% Short Term Goal (STG) decrease lymphedema life impact score to no greater than 40% STG Duration 10/01/20 Oil Well Perforator Operator Goal (LTG) decrease lymphedem alife impact score to no greater than 20% LTG Duration 11/30/20 Four Impairment poor scar mobility right mastectomy scar Halfway Goal (LTG) Improve soft tissue mobility of right mastectomy scar to at least 75% normal mobility to decrease pain, improve her tolerance for all activities using her right side. LTG Duration 11/30/20 Three Impairment difficulty reaching overhead, behind back and across her body with jose guadalupe UE's Short Term Goal (STG) Patient to be independent and compliant with HEP for purposes of shoulder ROM STG Duration 10/01/20 Halfway Goal (LTG) Improve bilateral shoulder ROM sufficient to allow patient to reach overhead, behind her back, and to maximize lymphatic flow LTG Duration 11/30/20 Two Impairment pain right UE, chest, and bilateral posterior thorax 6/ 10 pain scale Short Term Goal (STG) decrease pain to no greater than 3/10 STG Duration 10/01/20 Halfway Goal (LTG) decrease pain to 0-1/10 with all usual activities LTG Duration 11/30/20 One Impairment lymphedema right UE Short Term Goal (STG) Patient to be instructed in all aspects of lymphedema care including skin care, manual lymphatic drainage, lymphedema bandaging, and lymphedema exercises. STG Duration 09/20/20 Oil Well Perforator Operator Goal (LTG) Reduce lymphedema to stable level (no increase or decrease greater than 1 cm over the course of 1 week). Patient to obtain appropriate compression garment(s) and demonstrate good understanding of all aspects of lymphedema self-care. LTG Duration 11/30/20 Assessment Summary Assessment Good fit and edema reduction in hand with new glove, extends to base of fingernails . Issued Dycem square after instruction in use for self soft tissue mobilization. Cramping persists in chest and lateral thorax. Soft tissue mobility improving though lateral scar where had difficulty healing is adheared to chest wall. Physical Therapy Plan Frequency and Duration Frequency of Treatment 20 visits Duration of Treatment 12 weeks Plan of Care Start Date 09/01/20 Plan of Care End Date 11/30/20 Therapeutic Interventions Therapeutic Interventions Home Exercise Program, Lymphedema Management,Manual Therapy,Patient/Caregiver Education,Self-Care/Home Management,Soft Tissue Mobilization,Taping, Therapeutic Activities, Therapeutic Exercises Next Visit Focus/Plan Next Note Type Treatment Note Next Visit Plan Continue PT with increased emphasis on scar mobilization right chest, continued lymphedema management.
--- NOTE | 2020-09-22 10:43 | PT.OTN ---
Current Diagnoses Postmastectomy lymphedema syndrome (09/22/20) Pain in right shoulder (09/22/20) Pain in left shoulder (09/22/20) Stiffness of right shoulder, not elsewhere classified (09/22/20) Stiffness of left shoulder, not elsewhere classified (09/22/20) Soft tissue disorder, unspecified (09/22/20) Physical Therapy Treatment Note PT-OP-A Visit Information Start: 09/01/20 08:01 Freq: Status: Active Protocol: Document 09/22/20 08:58 SAK (Rec: 09/22/20 10:43 SAK [id number]) Out-Patient Physical Therapy Visit Information Visit Information Visit Type Treatment Note Visit Start Time 09:00 Visit Stop Time 10:30 Total Visit Minutes 90 Visit Number 10 Number of ELECTROMAGNET CRANE OPERATOR Visits 0 PT-OP-B Current Condition Start: 09/01/20 08:01 Freq: Status: Active Protocol: Document 09/01/20 09:49 SAK (Rec: 09/01/20 10:08 SAK [id number]) Current Condition History of Current Condition Onset Date September 2019 Current Complaints swelling right UE, cramping right UE shoulder and back, bilateral shoulder History of Current Condition Patient presents to PT with c/ o right UE swelling since prior to mastectomies 10/09; states she had 4L of fluid removed from a seroma. Has history right breast cancer starting 2011 treated with lumpectomy, chemo and radiation at that time. Early 2019 diagnosed with reoccurance breast cancer and underwent right mastectomy, left mastectomy with axillary node dissection with 12 lymph nodes removed. States incision on right had difficulty with healing and she underwent hyperbaric oxygen treatments, still has small scab, very stiff scar on right. Almost done with chemo; 2 more treatments. Has compression sleeve right UE fits loosely on forearm, snug on upper arm, not sure of compression level . States she has sleeve with more firm compression at home in laundry; will bring next session. Ordered the sleeves herself without any guidance. Tried a compression sleeve with strap across chest but doesn't like, tired of having compression on. Has not tried a compression shirt. Patient is right-handed. Currently reports pain and stiffness reaching overhead, across her body, and behind her back and spasms in neck and thoracic spine, shoulder, and chest with use of right UE . 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 Prior Treatments and Tests right lumpectomy 2012 with radiation and chemo Future Testing and Treatments Planned 2 more chemotherapy treatments . Treatment Goals Patient/Caregiver Goals minimize swelling and pain, improve ROM to allow full functional use of her UE's Prior Functional Status Baseline Function- ADL's Independent Baseline Function- Mobility Independent Current Functional Impairments (Reported) Functional Limitations- ADL's limited and painful to reach overhead, across her body, behind her back bilateral UE's PT-OP-C Subjective Start: 09/01/20 08:01 Freq: Status: Active Protocol: Document 09/22/20 08:58 SAK (Rec: 09/22/20 10:43 SAK [id number]) OP-PT Subjective Patient Comments Patient Comments Wearing sleeve and glove, hasn 't gotten night adjustable garment. Thinks had loaner night garment on too tight; bruises on thumb. PT-OP-F Manual Assessment Start: 09/01/20 08:01 Freq: Status: Active Protocol: Document 09/01/20 09:49 [facility] (Rec: 09/01/20 16:42 [facility] [id number]) Manual Assessments Soft Tissue Assessment Soft Tissue Mobility Assessment good scar mobility on left mastectomy scar. Right mastectomy scar thickened with poor mobility, adhered to chest wall. PT-OP-J Posture/Palpation/Skin Start: 09/01/20 08:01 Freq: Status: Active Protocol: Document 09/01/20 09:49 [facility] (Rec: 09/01/20 13:14 [facility] [id number]) Posture Evaluation Position Sitting Head/C-Spine Posture Forward Head T-Spine Posture Increased Kyphosis Shoulder Posture (L) Rounded,(R) Rounded Scapula Posture (L) Protracted,(R) Protracted Arm Posture (L) Internally Rotated,(R) Internally Rotated PT-OP-K Range of Motion Start: 09/01/20 08:01 Freq: Status: Active Protocol: Document 09/01/20 09:49 SAK (Rec: 09/01/20 13:19 [facility] [id number]) Cervical Spine Range of Motion Cervical Spine Active Flexion 55 Extension 15 Rotation Left 25 Rotation Right 35 Lateral Flexion Left 40 Lateral Flexion Right 30 ROM Limitations Soft Tissue Tightness,Pain Shoulder Goniometric Range of Motion Shoulder Right Active Shoulder ROM WFL No Testing Position Sitting Flexion 145 Extension 20 Abduction 140 Horizontal Adduction 5 Internal Rotation Behind Back (text) L4 Left Shoulder ROM WFL No Testing Position Sitting Flexion 140 Extension 15 Abduction 135 Horizontal Adduction 5 Internal Rotation Behind Back (text) L5 Elbow/Forearm Range of Motion Elbow/Forearm jose guadalupe Elbow/Forearm ROM WFL Yes PT-OP-N Lymphedema Start: 09/01/20 08:01 Freq: Status: Active Protocol: Document 09/22/20 08:58 [facility] (Rec: 09/22/20 10:43 [facility] [id number]) Lymphedema Measurements Upper Extremity Circumference Measurements Right Affected MCP 18.8 cm Dorsum of Hand 19.4 cm Wrist 16.3 cm 5 cm From Wrist Crease 18.3 cm 10 cm From Wrist Crease 22.6 cm 15 cm From Wrist Crease 26.7 cm 20 cm From Wrist Crease 27.7 cm 25 cm From Wrist Crease 29.4 cm 30 cm From Wrist Crease 30.9 cm 35 cm From Wrist Crease 32 cm 40 cm From Wrist Crease 32.7 cm Axilla 36.9 cm - subaxillary 93 nipple line 89 PT-OP-Q Treatments Start: 09/01/20 08:01 Freq: Status: Active Protocol: Document 09/22/20 08:58 [facility] (Rec: 09/22/20 10:43 [facility] [id number]) Manual Therapy Treatment Soft Tissue Mobilization mastectomy scar right Mobilization Type Instrument Assisted,Myofascial Release,Rolling Comments use of Dycem on scar deeper STM distal upper arm regions of fibrosis Lymphedema Treatment Manual Lymphatic Drainage Location right UE Duration 35 min Comments Focus on AAA, AIA, CLAUDETTE Lymphedema Wrapping Body Location right UE Materials new Juzo 20-30 mmHg Exosoft glove with 3/4 fingers (no chip bag needed), Dynamic Juzo sleeve (instructed to insert chip bags as able Compression Garment Assessment Compression Garment Assessment Details Instructed patient to insert chip bags as able with compression sleeve and night garment to decrease fibrotic tissue Patient Education Compression Garments patient to receive night garment today PT-OP-T Assessment and Plan Start: 09/01/20 08:01 Freq: Status: Active Protocol: Document 09/22/20 08:58 [facility] (Rec: 09/22/20 10:43 [facility] [id number]) Physical Therapy Assessment Impairments Impairments Activity Tolerance,Edema,ROM, Soft Tissue Mobility Goals Five Impairment lymphedema life impact scale 58% Short Term Goal (STG) decrease lymphedema life impact score to no greater than 40% 09/22/20: goal progress 50% STG Duration 10/01/20 Correction Goal (LTG) decrease lymphedem alife impact score to no greater than 20% LTG Duration 11/30/20 Four Impairment poor scar mobility right mastectomy scar Production Finisher Goal (LTG) Improve soft tissue mobility of right mastectomy scar to at least 75% normal mobility to decrease pain, improve her tolerance for all activities using her right side. 09/22/20: good goal progress LTG Duration 11/30/20 Three Impairment difficulty reaching overhead, behind back and across her body with jose guadalupe UE's Short Term Goal (STG) Patient to be independent and compliant with HEP for purposes of shoulder ROM 09/22/20: goal met STG Duration 10/01/20 Correction Goal (LTG) Improve bilateral shoulder ROM sufficient to allow patient to reach overhead, behind her back, and to maximize lymphatic flow 09/22/20: able to reach overhead with minimal difficulty LTG Duration 11/30/20 Two Impairment pain right UE, chest, and bilateral posterior thorax 6/ 10 pain scale Short Term Goal (STG) decrease pain to no greater than 3/10 STG Duration 10/01/20 Production Finisher Goal (LTG) decrease pain to 0-1/10 with all usual activities LTG Duration 11/30/20 One Impairment lymphedema right UE Short Term Goal (STG) Patient to be instructed in all aspects of lymphedema care including skin care, manual lymphatic drainage, lymphedema bandaging, and lymphedema exercises. STG Duration 09/20/20 Production Finisher Goal (LTG) Reduce lymphedema to stable level (no increase or decrease greater than 1 cm over the course of 1 week). Patient to obtain appropriate compression garment(s) and demonstrate good understanding of all aspects of lymphedema self-care. LTG Duration 11/30/20 Assessment Summary Assessment Lymphedema distal upper arm and elbow region not reducing further; patient instructed to return to compression bandaging at night with use of chip bags due to fibrosis in distal upper arm. Increased time spent on fibrotic regions ,may need to consider use of Graston tool, further manual techniques. Mastectomy scar softening and fully healed at lateral aspect, no more scab. Physical Therapy Plan Frequency and Duration Frequency of Treatment 20 visits Duration of Treatment 12 weeks Plan of Care Start Date 09/01/20 Plan of Care End Date 11/30/20 Therapeutic Interventions Therapeutic Interventions Home Exercise Program, Lymphedema Management,Manual Therapy,Patient/Caregiver Education,Self-Care/Home Management,Soft Tissue Mobilization,Taping, Therapeutic Activities, Therapeutic Exercises Next Visit Focus/Plan Next Note Type Treatment Note Next Visit Plan Emphasis on fibrotic regions distal UE, use of chip bags, compression bandaging as needed, continued lymphedema management.
--- NOTE | 2020-09-24 14:18 | PT.OTN ---
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) Pain in right shoulder (09/24/20) Pain in left shoulder (09/24/20) Stiffness of right shoulder, not elsewhere classified (09/24/20) Stiffness of left shoulder, not elsewhere classified (09/24/20) Soft tissue disorder, unspecified (09/24/20) Physical Therapy Treatment Note PT-OP-A Visit Information Start: 09/01/20 08:01 Freq: Status: Active Protocol: Document 09/24/20 08:59 SAK (Rec: 09/24/20 09:25 SAK [id number]) Out-Patient Physical Therapy Visit Information Visit Information Visit Type Treatment Note Visit Start Time 09:00 Visit Stop Time 10:30 Total Visit Minutes 90 Visit Number 11 Number of PSYCHIATRIC ARNP Visits 0 PT-OP-B Current Condition Start: 09/01/20 08:01 Freq: Status: Active Protocol: Document 09/01/20 09:49 SAK (Rec: 09/01/20 10:08 SAK [id number]) Current Condition History of Current Condition Onset Date September 2019 Current Complaints swelling right UE, cramping right UE shoulder and back, bilateral shoulder History of Current Condition Patient presents to PT with c/ o right UE swelling since prior to mastectomies 10/09; states she had 4L of fluid removed from a seroma. Has history right breast cancer starting 2011 treated with lumpectomy, chemo and radiation at that time. Early 2019 diagnosed with reoccurance breast cancer and underwent right mastectomy, left mastectomy with axillary node dissection with 12 lymph nodes removed. States incision on right had difficulty with healing and she underwent hyperbaric oxygen treatments, still has small scab, very stiff scar on right. Almost done with chemo; 2 more treatments. Has compression sleeve right UE fits loosely on forearm, snug on upper arm, not sure of compression level . States she has sleeve with more firm compression at home in laundry; will bring next session. Ordered the sleeves herself without any guidance. Tried a compression sleeve with strap across chest but doesn't like, tired of having compression on. Has not tried a compression shirt. Patient is right-handed. Currently reports pain and stiffness reaching overhead, across her body, and behind her back and spasms in neck and thoracic spine, shoulder, and chest with use of right UE . 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 Prior Treatments and Tests right lumpectomy 2012 with radiation and chemo Future Testing and Treatments Planned 2 more chemotherapy treatments . Treatment Goals Patient/Caregiver Goals minimize swelling and pain, improve ROM to allow full functional use of her UE's Prior Functional Status Baseline Function- ADL's Independent Baseline Function- Mobility Independent Current Functional Impairments (Reported) Functional Limitations- ADL's limited and painful to reach overhead, across her body, behind her back bilateral UE's PT-OP-C Subjective Start: 09/01/20 08:01 Freq: Status: Active Protocol: Document 09/24/20 08:59 SAK (Rec: 09/24/20 09:25 SAK [id number]) OP-PT Subjective Patient Comments Patient Comments Got new compression glove, slightly tighter, feels good. Got 2nd sleeve, but is another 20-30 mmHg compression level and is considering 30- 40 mmHg sleeve as recommended by PT. Bought sports bra but it too small. PT-OP-F Manual Assessment Start: 09/01/20 08:01 Freq: Status: Active Protocol: Document 09/01/20 09:49 [facility] (Rec: 09/01/20 16:42 [facility] [id number]) Manual Assessments Soft Tissue Assessment Soft Tissue Mobility Assessment good scar mobility on left mastectomy scar. Right mastectomy scar thickened with poor mobility, adhered to chest wall. PT-OP-J Posture/Palpation/Skin Start: 09/01/20 08:01 Freq: Status: Active Protocol: Document 09/01/20 09:49 [facility] (Rec: 09/01/20 13:14 [facility] [id number]) Posture Evaluation Position Sitting Head/C-Spine Posture Forward Head T-Spine Posture Increased Kyphosis Shoulder Posture (L) Rounded,(R) Rounded Scapula Posture (L) Protracted,(R) Protracted Arm Posture (L) Internally Rotated,(R) Internally Rotated PT-OP-K Range of Motion Start: 09/01/20 08:01 Freq: Status: Active Protocol: Document 09/01/20 09:49 SAK (Rec: 09/01/20 13:19 SAK [id number]) Cervical Spine Range of Motion Cervical Spine Active Flexion 55 Extension 15 Rotation Left 25 Rotation Right 35 Lateral Flexion Left 40 Lateral Flexion Right 30 ROM Limitations Soft Tissue Tightness,Pain Shoulder Goniometric Range of Motion Shoulder Right Active Shoulder ROM WFL No Testing Position Sitting Flexion 145 Extension 20 Abduction 140 Horizontal Adduction 5 Internal Rotation Behind Back (text) L4 Left Shoulder ROM WFL No Testing Position Sitting Flexion 140 Extension 15 Abduction 135 Horizontal Adduction 5 Internal Rotation Behind Back (text) L5 Elbow/Forearm Range of Motion Elbow/Forearm jose guadalupe Elbow/Forearm ROM WFL Yes PT-OP-N Lymphedema Start: 09/01/20 08:01 Freq: Status: Active Protocol: Document 09/24/20 08:59 [facility] (Rec: 09/24/20 14:18 [facility] [id number]) Lymphedema Measurements Upper Extremity Circumference Measurements Right Affected MCP 18.7 cm Dorsum of Hand 19.5 cm Wrist 15.7 cm 5 cm From Wrist Crease 18.2 cm 10 cm From Wrist Crease 22.4 cm 15 cm From Wrist Crease 26 cm 20 cm From Wrist Crease 26.7 cm 25 cm From Wrist Crease 29 cm 30 cm From Wrist Crease 30.6 cm 35 cm From Wrist Crease 31.8 cm 40 cm From Wrist Crease 32.6 cm Axilla 36.8 cm - subaxillary 91.8 nipple line 88.5 PT-OP-Q Treatments Start: 09/01/20 08:01 Freq: Status: Active Protocol: Document 09/24/20 08:59 [facility] (Rec: 09/24/20 09:25 [facility] [id number]) Cardio Equipment Recumbent Stepper (Sci-Fit) Duration (Minutes) 10 Resistance 1 Seat Position 8 Other after application of compression glove and sleeve Gym Equipment Therapeutic Ball pec stretch Exercise Details pec major, pec minor Body Position Supine Reps/Duration 5x 10 Comments 55 cm ball Therapeutic Exercises Sitting Exercises pulleys Sitting Exercise Name shoulder flexion and abduction Equipment Used pulleys Reps/Minutes 10x Comments end range stretches Manual Therapy Treatment Soft Tissue Mobilization mastectomy scar right Mobilization Type Instrument Assisted,Myofascial Release,Rolling Comments use of Dycem on scar deeper STM distal upper arm regions of fibrosis silicon suction on scar Graston tool distal UE Lymphedema Treatment Manual Lymphatic Drainage Location right UE Duration 35 min Comments Focus on AAA, AIA, CLAUDETTE Lymphedema Wrapping Body Location right UE Materials Juzo 20-30 mmHg Exosoft glove with 3/4 fingers, Dynamic Juzo sleeve ( Compression Garment Assessment Compression Garment Assessment Details Patient to bring compression wrap night garment next session Patient Education Compression Garments patient to receive night garment today PT-OP-T Assessment and Plan Start: 09/01/20 08:01 Freq: Status: Active Protocol: Document 09/24/20 08:59 [facility] (Rec: 09/24/20 09:25 SAK [id number]) Physical Therapy Assessment Goals Five Impairment lymphedema life impact scale 58% Short Term Goal (STG) decrease lymphedema life impact score to no greater than 40% 09/22/20: goal progress 50% STG Duration 10/01/20 [facility] Goal (LTG) decrease lymphedem alife impact score to no greater than 20% LTG Duration 11/30/20 Four Impairment poor scar mobility right mastectomy scar Boiling House Oiler Goal (LTG) Improve soft tissue mobility of right mastectomy scar to at least 75% normal mobility to decrease pain, improve her tolerance for all activities using her right side. 09/22/20: good goal progress LTG Duration 11/30/20 Three Impairment difficulty reaching overhead, behind back and across her body with jose guadalupe UE's Short Term Goal (STG) Patient to be independent and compliant with HEP for purposes of shoulder ROM 09/22/20: goal met STG Duration 10/01/20 [facility] Goal (LTG) Improve bilateral shoulder ROM sufficient to allow patient to reach overhead, behind her back, and to maximize lymphatic flow 09/22/20: able to reach overhead with minimal difficulty LTG Duration 11/30/20 Two Impairment pain right UE, chest, and bilateral posterior thorax 6/ 10 pain scale Short Term Goal (STG) decrease pain to no greater than 3/10 STG Duration 10/01/20 [facility] Goal (LTG) decrease pain to 0-1/10 with all usual activities LTG Duration 11/30/20 One Impairment lymphedema right UE Short Term Goal (STG) Patient to be instructed in all aspects of lymphedema care including skin care, manual lymphatic drainage, lymphedema bandaging, and lymphedema exercises. STG Duration 09/20/20 [facility] Goal (LTG) Reduce lymphedema to stable level (no increase or decrease greater than 1 cm over the course of 1 week). Patient to obtain appropriate compression garment(s) and demonstrate good understanding of all aspects of lymphedema self-care. LTG Duration 11/30/20 Assessment Summary Assessment Decrease in circumferential measurements today after use of new compression wrap for night use (Juzo); size XS. Using chip bags inside, going to order Swell spots. Will bring garment next session to show PT. Physical Therapy Plan Frequency and Duration Frequency of Treatment 20 visits Duration of Treatment 12 weeks Plan of Care Start Date 09/01/20 Plan of Care End Date 11/30/20 Therapeutic Interventions Therapeutic Interventions Home Exercise Program, Lymphedema Management,Manual Therapy,Patient/Caregiver Education,Self-Care/Home Management,Soft Tissue Mobilization,Taping, Therapeutic Activities, Therapeutic Exercises Next Visit Focus/Plan Next Note Type Treatment Note Next Visit Plan Emphasis on fibrotic regions distal UE, use of chip bags, compression bandaging as needed, continued lymphedema management.
--- NOTE | 2020-09-29 16:18 | PT.OTN ---
Current Diagnoses Postmastectomy lymphedema syndrome (09/29/20) Pain in right shoulder (09/29/20) Pain in left shoulder (09/29/20) Stiffness of right shoulder, not elsewhere classified (09/29/20) Stiffness of left shoulder, not elsewhere classified (09/29/20) Soft tissue disorder, unspecified (09/29/20) Physical Therapy Treatment Note PT-OP-A Visit Information Start: 09/01/20 08:01 Freq: Status: Active Protocol: Document 09/29/20 09:04 SAK (Rec: 09/29/20 09:26 SAK [id number]) Out-Patient Physical Therapy Visit Information Visit Information Visit Type Treatment Note Visit Start Time 09:03 Visit Stop Time 10:33 Total Visit Minutes 90 Visit Number 12 Number of GUIDE DOG TRAINER Visits 0 PT-OP-B Current Condition Start: 09/01/20 08:01 Freq: Status: Active Protocol: Document 09/01/20 09:49 SAK (Rec: 09/01/20 10:08 SAK [id number]) Current Condition History of Current Condition Onset Date September 2019 Current Complaints swelling right UE, cramping right UE shoulder and back, bilateral shoulder History of Current Condition Patient presents to PT with c/ o right UE swelling since prior to mastectomies 10/09; states she had 4L of fluid removed from a seroma. Has history right breast cancer starting 2011 treated with lumpectomy, chemo and radiation at that time. Early 2019 diagnosed with reoccurance breast cancer and underwent right mastectomy, left mastectomy with axillary node dissection with 12 lymph nodes removed. States incision on right had difficulty with healing and she underwent hyperbaric oxygen treatments, still has small scab, very stiff scar on right. Almost done with chemo; 2 more treatments. Has compression sleeve right UE fits loosely on forearm, snug on upper arm, not sure of compression level . States she has sleeve with more firm compression at home in laundry; will bring next session. Ordered the sleeves herself without any guidance. Tried a compression sleeve with strap across chest but doesn't like, tired of having compression on. Has not tried a compression shirt. Patient is right-handed. Currently reports pain and stiffness reaching overhead, across her body, and behind her back and spasms in neck and thoracic spine, shoulder, and chest with use of right UE . 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 Prior Treatments and Tests right lumpectomy 2012 with radiation and chemo Future Testing and Treatments Planned 2 more chemotherapy treatments . Treatment Goals Patient/Caregiver Goals minimize swelling and pain, improve ROM to allow full functional use of her UE's Prior Functional Status Baseline Function- ADL's Independent Baseline Function- Mobility Independent Current Functional Impairments (Reported) Functional Limitations- ADL's limited and painful to reach overhead, across her body, behind her back bilateral UE's PT-OP-C Subjective Start: 09/01/20 08:01 Freq: Status: Active Protocol: Document 09/29/20 09:04 SAK (Rec: 09/29/20 09:26 SAK [id number]) OP-PT Subjective Patient Comments Patient Comments Reports yesterday her arm was really slender, didn't have to put foam or ship bags in sleeve or wrap. Woke up this am and realized she didn't have anything on her arm, feels more swollen now. Put compression wrap on right away when she realized it was more swollen, didn't feel compression sleeve would fit and wanted to show PT Juzo compression wrap. PT-OP-F Manual Assessment Start: 09/01/20 08:01 Freq: Status: Active Protocol: Document 09/01/20 09:49 [facility] (Rec: 09/01/20 16:42 [facility] [id number]) Manual Assessments Soft Tissue Assessment Soft Tissue Mobility Assessment good scar mobility on left mastectomy scar. Right mastectomy scar thickened with poor mobility, adhered to chest wall. PT-OP-J Posture/Palpation/Skin Start: 09/01/20 08:01 Freq: Status: Active Protocol: Document 09/01/20 09:49 [facility] (Rec: 09/01/20 13:14 [facility] [id number]) Posture Evaluation Position Sitting Head/C-Spine Posture Forward Head T-Spine Posture Increased Kyphosis Shoulder Posture (L) Rounded,(R) Rounded Scapula Posture (L) Protracted,(R) Protracted Arm Posture (L) Internally Rotated,(R) Internally Rotated PT-OP-K Range of Motion Start: 09/01/20 08:01 Freq: Status: Active Protocol: Document 09/01/20 09:49 SAK (Rec: 09/01/20 13:19 [facility] [id number]) Cervical Spine Range of Motion Cervical Spine Active Flexion 55 Extension 15 Rotation Left 25 Rotation Right 35 Lateral Flexion Left 40 Lateral Flexion Right 30 ROM Limitations Soft Tissue Tightness,Pain Shoulder Goniometric Range of Motion Shoulder Right Active Shoulder ROM WFL No Testing Position Sitting Flexion 145 Extension 20 Abduction 140 Horizontal Adduction 5 Internal Rotation Behind Back (text) L4 Left Shoulder ROM WFL No Testing Position Sitting Flexion 140 Extension 15 Abduction 135 Horizontal Adduction 5 Internal Rotation Behind Back (text) L5 Elbow/Forearm Range of Motion Elbow/Forearm jose guadalupe Elbow/Forearm ROM WFL Yes PT-OP-N Lymphedema Start: 09/01/20 08:01 Freq: Status: Active Protocol: Document 09/24/20 08:59 [facility] (Rec: 09/24/20 14:18 [facility] [id number]) Lymphedema Measurements Upper Extremity Circumference Measurements Right Affected MCP 18.7 cm Dorsum of Hand 19.5 cm Wrist 15.7 cm 5 cm From Wrist Crease 18.2 cm 10 cm From Wrist Crease 22.4 cm 15 cm From Wrist Crease 26 cm 20 cm From Wrist Crease 26.7 cm 25 cm From Wrist Crease 29 cm 30 cm From Wrist Crease 30.6 cm 35 cm From Wrist Crease 31.8 cm 40 cm From Wrist Crease 32.6 cm Axilla 36.8 cm - subaxillary 91.8 nipple line 88.5 PT-OP-Q Treatments Start: 09/01/20 08:01 Freq: Status: Active Protocol: Document 09/29/20 09:04 [facility] (Rec: 09/29/20 09:26 [facility] [id number]) Cardio Equipment Recumbent Stepper (Sci-Fit) Duration (Minutes) 10 Resistance 1 Seat Position 8 Other after application of compression glove and sleeve Gym Equipment Therapeutic Ball pec stretch Exercise Details pec major, pec minor Body Position Supine Reps/Duration 5x 10 Comments 55 cm ball Therapeutic Exercises Supine Exercises supine T, Y,I stretch Equipment Used 65 cm therapy ball Reps/Minutes 5x with end-range stretch Sidelying Exercises open book Side bilateral Reps/Minutes 5x Comments cues for segmental movement, deep breathing at end range Manual Therapy Treatment Soft Tissue Mobilization mastectomy scar right Mobilization Type Instrument Assisted,Myofascial Release,Rolling Comments use of Dycem on scar deeper STM distal upper arm regions of fibrosis silicon suction on scar Graston tool distal UE Lymphedema Treatment Manual Lymphatic Drainage Location right UE Duration 35 min Comments Focus on AAA, AIA, CLAUDETTE Lymphedema Wrapping Body Location right UE Materials Patient applied Juzo compression wrap; good fit Compression Garment Assessment Compression Garment Assessment Details good fit, encouraged to use chip bags, channel foam as needed. PT-OP-T Assessment and Plan Start: 09/01/20 08:01 Freq: Status: Active Protocol: Document 09/29/20 09:04 [facility] (Rec: 09/29/20 09:26 [facility] [id number]) Physical Therapy Assessment Goals Five Impairment lymphedema life impact scale 58% Short Term Goal (STG) decrease lymphedema life impact score to no greater than 40% 09/22/20: goal progress 50% STG Duration 10/01/20 Twisthand Goal (LTG) decrease lymphedem alife impact score to no greater than 20% LTG Duration 11/30/20 Four Impairment poor scar mobility right mastectomy scar Twisthand Goal (LTG) Improve soft tissue mobility of right mastectomy scar to at least 75% normal mobility to decrease pain, improve her tolerance for all activities using her right side. 09/22/20: good goal progress LTG Duration 11/30/20 Three Impairment difficulty reaching overhead, behind back and across her body with jose guadalupe UE's Short Term Goal (STG) Patient to be independent and compliant with HEP for purposes of shoulder ROM 09/22/20: goal met STG Duration 10/01/20 [facility] Goal (LTG) Improve bilateral shoulder ROM sufficient to allow patient to reach overhead, behind her back, and to maximize lymphatic flow 09/22/20: able to reach overhead with minimal difficulty LTG Duration 11/30/20 Two Impairment pain right UE, chest, and bilateral posterior thorax 6/ 10 pain scale Short Term Goal (STG) decrease pain to no greater than 3/10 STG Duration 10/01/20 Twisthand Goal (LTG) decrease pain to 0-1/10 with all usual activities LTG Duration 11/30/20 One Impairment lymphedema right UE Short Term Goal (STG) Patient to be instructed in all aspects of lymphedema care including skin care, manual lymphatic drainage, lymphedema bandaging, and lymphedema exercises. STG Duration 09/20/20 Twisthand Goal (LTG) Reduce lymphedema to stable level (no increase or decrease greater than 1 cm over the course of 1 week). Patient to obtain appropriate compression garment(s) and demonstrate good understanding of all aspects of lymphedema self-care. LTG Duration 11/30/20 Assessment Summary Assessment Circumferential measurements increased today as per patient report. Confirmed with patient she had addressed correctly by getting compression on [place] this am when realized more swollen and that that is how she will need to monitor and address lymphedema moving forward. Physical Therapy Plan Frequency and Duration Frequency of Treatment 20 visits Duration of Treatment 12 weeks Plan of Care Start Date 09/01/20 Plan of Care End Date 11/30/20 Therapeutic Interventions Therapeutic Interventions Home Exercise Program, Lymphedema Management,Manual Therapy,Patient/Caregiver Education,Self-Care/Home Management,Soft Tissue Mobilization,Taping, Therapeutic Activities, Therapeutic Exercises Next Visit Focus/Plan Next Note Type Treatment Note Next Visit Plan Continue lymphedema management .
--- NOTE | 2020-10-07 08:07 | PT.OTN ---
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) Pain in right shoulder (10/06/20) Pain in left shoulder (10/06/20) Stiffness of right shoulder, not elsewhere classified (10/06/20) Stiffness of left shoulder, not elsewhere classified (10/06/20) Soft tissue disorder, unspecified (10/06/20) Physical Therapy Treatment Note PT-OP-A Visit Information Start: 09/01/20 08:01 Freq: Status: Active Protocol: Document 10/06/20 09:03 SAK (Rec: 10/06/20 09:18 SAK [id number]) Out-Patient Physical Therapy Visit Information Visit Information Visit Type Treatment Note Visit Start Time 09:03 Visit Stop Time 10:33 Total Visit Minutes 90 Visit Number 14 Number of STATION HELPER Visits 0 PT-OP-B Current Condition Start: 09/01/20 08:01 Freq: Status: Active Protocol: Document 09/01/20 09:49 SAK (Rec: 09/01/20 10:08 SAK [id number]) Current Condition History of Current Condition Onset Date September 2019 Current Complaints swelling right UE, cramping right UE shoulder and back, bilateral shoulder History of Current Condition Patient presents to PT with c/ o right UE swelling since prior to mastectomies 10/09; states she had 4L of fluid removed from a seroma. Has history right breast cancer starting 2011 treated with lumpectomy, chemo and radiation at that time. Early 2019 diagnosed with reoccurance breast cancer and underwent right mastectomy, left mastectomy with axillary node dissection with 12 lymph nodes removed. States incision on right had difficulty with healing and she underwent hyperbaric oxygen treatments, still has small scab, very stiff scar on right. Almost done with chemo; 2 more treatments. Has compression sleeve right UE fits loosely on forearm, snug on upper arm, not sure of compression level . States she has sleeve with more firm compression at home in laundry; will bring next session. Ordered the sleeves herself without any guidance. Tried a compression sleeve with strap across chest but doesn't like, tired of having compression on. Has not tried a compression shirt. Patient is right-handed. Currently reports pain and stiffness reaching overhead, across her body, and behind her back and spasms in neck and thoracic spine, shoulder, and chest with use of right UE . 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 Prior Treatments and Tests right lumpectomy 2012 with radiation and chemo Future Testing and Treatments Planned 2 more chemotherapy treatments . Treatment Goals Patient/Caregiver Goals minimize swelling and pain, improve ROM to allow full functional use of her UE's Prior Functional Status Baseline Function- ADL's Independent Baseline Function- Mobility Independent Current Functional Impairments (Reported) Functional Limitations- ADL's limited and painful to reach overhead, across her body, behind her back bilateral UE's PT-OP-C Subjective Start: 09/01/20 08:01 Freq: Status: Active Protocol: Document 10/06/20 09:03 [facility] (Rec: 10/06/20 09:18 SAK [id number]) OP-PT Subjective Patient Comments Patient Comments Reports swollen after mowing the lawn yesterday 30 min, first time she has done it. Also, removed glove in middle of the night as it was irritating her pinky finger; thinks she might need to order a different glove, hand more swollen. PT-OP-F Manual Assessment Start: 09/01/20 08:01 Freq: Status: Active Protocol: Document 09/01/20 09:49 [facility] (Rec: 09/01/20 16:42 [facility] [id number]) Manual Assessments Soft Tissue Assessment Soft Tissue Mobility Assessment good scar mobility on left mastectomy scar. Right mastectomy scar thickened with poor mobility, adhered to chest wall. PT-OP-J Posture/Palpation/Skin Start: 09/01/20 08:01 Freq: Status: Active Protocol: Document 09/01/20 09:49 [facility] (Rec: 09/01/20 13:14 [facility] [id number]) Posture Evaluation Position Sitting Head/C-Spine Posture Forward Head T-Spine Posture Increased Kyphosis Shoulder Posture (L) Rounded,(R) Rounded Scapula Posture (L) Protracted,(R) Protracted Arm Posture (L) Internally Rotated,(R) Internally Rotated PT-OP-K Range of Motion Start: 09/01/20 08:01 Freq: Status: Active Protocol: Document 09/01/20 09:49 SAK (Rec: 09/01/20 13:19 SAK [id number]) Cervical Spine Range of Motion Cervical Spine Active Flexion 55 Extension 15 Rotation Left 25 Rotation Right 35 Lateral Flexion Left 40 Lateral Flexion Right 30 ROM Limitations Soft Tissue Tightness,Pain Shoulder Goniometric Range of Motion Shoulder Right Active Shoulder ROM WFL No Testing Position Sitting Flexion 145 Extension 20 Abduction 140 Horizontal Adduction 5 Internal Rotation Behind Back (text) L4 Left Shoulder ROM WFL No Testing Position Sitting Flexion 140 Extension 15 Abduction 135 Horizontal Adduction 5 Internal Rotation Behind Back (text) L5 Elbow/Forearm Range of Motion Elbow/Forearm jose guadalupe Elbow/Forearm ROM WFL Yes PT-OP-N Lymphedema Start: 09/01/20 08:01 Freq: Status: Active Protocol: Document 10/01/20 09:00 [facility] (Rec: 10/01/20 16:14 [facility] [id number]) Lymphedema Measurements Upper Extremity Circumference Measurements Right Affected MCP 18.9 cm Dorsum of Hand 19.7 cm Wrist 16.1 cm 5 cm From Wrist Crease 17.8 cm 10 cm From Wrist Crease 22.3 cm 15 cm From Wrist Crease 25.9 cm 20 cm From Wrist Crease 26.9 cm 25 cm From Wrist Crease 28.8 cm 30 cm From Wrist Crease 30.7 cm 35 cm From Wrist Crease 32.3 cm 40 cm From Wrist Crease 32.5 cm Axilla 35.9 cm - subaxillary 91.5 nipple line 88.8 PT-OP-Q Treatments Start: 09/01/20 08:01 Freq: Status: Active Protocol: Document 10/06/20 09:03 [facility] (Rec: 10/06/20 09:18 [facility] [id number]) Cardio Equipment Recumbent Stepper (Sci-Fit) Duration (Minutes) 10 Resistance 1 Seat Position 8 Other after application of compression glove and sleeve Gym Equipment Therapeutic Ball pec stretch Exercise Details pec major, pec minor Body Position Supine Reps/Duration 5x 10 Comments 55 cm ball Therapeutic Exercises Supine Exercises supine T, Y,I stretch Equipment Used 65 cm therapy ball Reps/Minutes 5x with end-range stretch Manual Therapy Treatment Soft Tissue Mobilization mastectomy scar right Mobilization Type Instrument Assisted,Myofascial Release,Rolling Intensity/Depth Moderate Comments use of Dycem on scar deeper STM distal upper arm regions of fibrosis silicon suction on scar Graston tool distal UE Lymphedema Treatment Manual Lymphatic Drainage Location right UE Duration 35 min Comments Focus on AAA, AIA, CLAUDETTE. Increased time spent on hand MLD due to increased swelling. Lymphedema Wrapping Other problem-solved sample loaner Tribute night garment donning with patient as she considers night garment. PT-OP-T Assessment and Plan Start: 09/01/20 08:01 Freq: Status: Active Protocol: Document 10/06/20 09:03 [facility] (Rec: 10/06/20 09:18 [facility] [id number]) Physical Therapy Assessment Goals Five Impairment lymphedema life impact scale 58% Short Term Goal (STG) decrease lymphedema life impact score to no greater than 40% 09/22/20: goal progress 50% STG Duration 10/01/20 Correction Goal (LTG) decrease lymphedem alife impact score to no greater than 20% LTG Duration 11/30/20 Four Impairment poor scar mobility right mastectomy scar Correction Goal (LTG) Improve soft tissue mobility of right mastectomy scar to at least 75% normal mobility to decrease pain, improve her tolerance for all activities using her right side. 09/22/20: good goal progress LTG Duration 11/30/20 Three Impairment difficulty reaching overhead, behind back and across her body with jose guadalupe UE's Short Term Goal (STG) Patient to be independent and compliant with HEP for purposes of shoulder ROM 09/22/20: goal met STG Duration 10/01/20 Correction Goal (LTG) Improve bilateral shoulder ROM sufficient to allow patient to reach overhead, behind her back, and to maximize lymphatic flow 09/22/20: able to reach overhead with minimal difficulty LTG Duration 11/30/20 Two Impairment pain right UE, chest, and bilateral posterior thorax 6/ 10 pain scale Short Term Goal (STG) decrease pain to no greater than 3/10 STG Duration 10/01/20 Correction Goal (LTG) decrease pain to 0-1/10 with all usual activities LTG Duration 11/30/20 One Impairment lymphedema right UE Short Term Goal (STG) Patient to be instructed in all aspects of lymphedema care including skin care, manual lymphatic drainage, lymphedema bandaging, and lymphedema exercises. STG Duration 09/20/20 Correction Goal (LTG) Reduce lymphedema to stable level (no increase or decrease greater than 1 cm over the course of 1 week). Patient to obtain appropriate compression garment(s) and demonstrate good understanding of all aspects of lymphedema self-care. LTG Duration 11/30/20 Assessment Summary Assessment Patient demonstrates increased swelling right UE after mowing lawn, and after removing glove in the middle of the night. She demonstrated good understanding of the need to more slowly increase her activity as well as if removes glove, Physical Therapy Plan Frequency and Duration Frequency of Treatment 20 visits Duration of Treatment 12 weeks Plan of Care Start Date 09/01/20 Plan of Care End Date 11/30/20 Therapeutic Interventions Therapeutic Interventions Home Exercise Program, Lymphedema Management,Manual Therapy,Patient/Caregiver Education,Self-Care/Home Management,Soft Tissue Mobilization,Taping, Therapeutic Activities, Therapeutic Exercises Next Visit Focus/Plan Next Note Type Treatment Note Next Visit Plan Continue lymphedema management , soft tissue mobilization, problem-solve any further issues with compression garments.
--- NOTE | 2020-11-04 17:14 | PT.OTN ---
Current Diagnoses Postmastectomy lymphedema syndrome (11/04/20) Pain in right shoulder (11/04/20) Pain in left shoulder (11/04/20) Stiffness of right shoulder, not elsewhere classified (11/04/20) Stiffness of left shoulder, not elsewhere classified (11/04/20) Soft tissue disorder, unspecified (11/04/20) Physical Therapy Treatment Note PT-OP-A Visit Information Start: 09/01/20 08:01 Freq: Status: Active Protocol: Document 11/04/20 09:05 SAK (Rec: 11/04/20 10:30 SAK [id number]) Out-Patient Physical Therapy Visit Information Visit Information Visit Type Treatment Note Visit Start Time 09:02 Visit Stop Time 10:07 Total Visit Minutes 65 Visit Number 16 Number of PAPER [employer] P[employer]P [employer] 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 Has history right breast cancer starting 2011 treated with lumpectomy, chemo and radiation at that time. Early 2019 diagnosed with reoccurance breast cancer and underwent right mastectomy, left mastectomy with axillary node dissection with 12 lymph nodes removed. States incision on right had difficulty with healing and she underwent hyperbaric oxygen treatments, still has small scab, very stiff scar on right. Almost done with chemo; 2 more treatments. Has compression sleeve right UE fits loosely on forearm, snug on upper arm, not sure of compression level . States she has sleeve with more firm compression at home in laundry; will bring next session. Ordered the sleeves herself without any guidance. Tried a compression sleeve with strap across chest but doesn't like, tired of having compression on. Has not tried a compression shirt. Patient is right-handed. Currently reports pain and stiffness reaching overhead, across her body, and behind her back and spasms in neck and thoracic spine, shoulder, and chest with use of right UE . 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 Prior Treatments and Tests right lumpectomy 2012 with radiation and chemo Future Testing and Treatments Planned 2 more chemotherapy treatments . Treatment Goals Patient/Caregiver Goals minimize swelling and pain, improve ROM to allow full functional use of her UE's Prior Functional Status Baseline Function- ADL's Independent Baseline Function- Mobility Independent Current Functional Impairments (Reported) Functional Limitations- ADL's limited and painful to reach overhead, across her body, behind her back bilateral UE's PT-OP-C Subjective Start: 09/01/20 08:01 Freq: Status: Active Protocol: Document 11/04/20 09:05 SAK (Rec: 11/04/20 10:30 SAK [id number]) OP-PT Subjective Patient Comments Patient Comments Swelling about the same despite continued compliance to self-care including skin care, compression, self- massage, ther ex. Spasms right UE are worse, extending into neck and back when she uses right UE. Wearing compression sleeve and glove 20-30mm Hg, is going to order another one, wondering if should get 30-40 mm Hg as discussed previusly with PT. Using gauntlet and compression wrap at night, going to start gentle yoga tomorrow. Doing self-massage including use of suction tools. Willing to get kinesiotape to try for edema reduction and improving soft tissue mobility. Frustrated by second denial of Flexitouch pump, as good compliance to all recommendations for skin care, self-MLD, ther ex, and compression haven't further reduced her right UE. Doesn't feel she can tolerate regular PT sessions right now due to fatigue. PT-OP-F Manual Assessment Start: 09/01/20 08:01 Freq: Status: Active Protocol: Document 09/01/20 09:49 SAK (Rec: 09/01/20 16:42 [facility] [id number]) Manual Assessments Soft Tissue Assessment Soft Tissue Mobility Assessment good scar mobility on left mastectomy scar. Right mastectomy scar thickened with poor mobility, adhered to chest wall. PT-OP-J Posture/Palpation/Skin Start: 09/01/20 08:01 Freq: Status: Active Protocol: Document 09/01/20 09:49 SAK (Rec: 09/01/20 13:14 [facility] [id number]) Posture Evaluation Position Sitting Head/C-Spine Posture Forward Head T-Spine Posture Increased Kyphosis Shoulder Posture (L) Rounded,(R) Rounded Scapula Posture (L) Protracted,(R) Protracted Arm Posture (L) Internally Rotated,(R) Internally Rotated PT-OP-K Range of Motion Start: 09/01/20 08:01 Freq: Status: Active Protocol: Document 09/01/20 09:49 [facility] (Rec: 09/01/20 13:19 [facility] [id number]) Cervical Spine Range of Motion Cervical Spine Active Flexion 55 Extension 15 Rotation Left 25 Rotation Right 35 Lateral Flexion Left 40 Lateral Flexion Right 30 ROM Limitations Soft Tissue Tightness,Pain Shoulder Goniometric Range of Motion Shoulder Right Active Shoulder ROM WFL No Testing Position Sitting Flexion 145 Extension 20 Abduction 140 Horizontal Adduction 5 Internal Rotation Behind Back (text) L4 Left Shoulder ROM WFL No Testing Position Sitting Flexion 140 Extension 15 Abduction 135 Horizontal Adduction 5 Internal Rotation Behind Back (text) L5 Elbow/Forearm Range of Motion Elbow/Forearm jose guadalupe Elbow/Forearm ROM WFL Yes PT-OP-N Lymphedema Start: 09/01/20 08:01 Freq: Status: Active Protocol: Document 11/04/20 09:05 [facility] (Rec: 11/04/20 10:30 [facility] [id number]) Lymphedema Measurements Upper Extremity Circumference Measurements Right Affected MCP 20 cm Dorsum of Hand 21.2 cm Wrist 16.5 cm 5 cm From Wrist Crease 17.7 cm 10 cm From Wrist Crease 22.5 cm 15 cm From Wrist Crease 26 cm 20 cm From Wrist Crease 27.4 cm 25 cm From Wrist Crease 28.3 cm 30 cm From Wrist Crease 30.2 cm 35 cm From Wrist Crease 31.6 cm 40 cm From Wrist Crease 31.9 cm 45 cm From Wrist Crease 36 cm Axilla 36 cm - jose guadalupe subaxillary 92.5 jose guadalupe chest 89.5 PT-OP-Q Treatments Start: 09/01/20 08:01 Freq: Status: Active Protocol: Document 11/04/20 09:05 [facility] (Rec: 11/04/20 10:30 [facility] [id number]) Manual Therapy Treatment Taping proximal shoulder Body Location base at subaxillary region Comments 2 fan strips, extending into proximal right UE to overlap under compression sleeve. subaxillary Treatment Focus edema reduction, soft tissue mobility Type of Tape kinesiotape Skin Inspection intact Comments from right thoracic spine with 1 fan strip to anterior chest mastectomy scar Treatment Focus improve soft tissue mobility Type of Tape kinesiotape Skin Inspection intact Other Other Manual Treatments circumferential measurements right UE taken Lymphedema Treatment Lymphedema Wrapping Other instructed in option for Cresia foam garment under short stretch bandages for option with wrapping at night. Also shown swell spot for wearing under a sports bra to address soft tissue mobilization and edema reduction breast and subaxillary area. Compression Garment Assessment Compression Garment Assessment Details Recommend patient try 30-40 mm Hg compression sleeve. Other Other Instructed in HEP of postural stab and scapular strengthening with theraband: row, shoulder ext, shoulder ER , issued L1 and L2 theraband. PT-OP-T Assessment and Plan Start: 09/01/20 08:01 Freq: Status: Active Protocol: Document 11/04/20 09:05 [facility] (Rec: 11/04/20 10:30 [facility] [id number]) Physical Therapy Assessment Impairments Impairments Activity Tolerance,Edema,ROM, Soft Tissue Mobility Goals Five Impairment lymphedema life impact scale 58% Short Term Goal (STG) decrease lymphedema life impact score to no greater than 40% 09/22/20: goal progress 50% 11/04/20: no further goal progress STG Duration 10/01/20 Granulator Goal (LTG) decrease lymphedem alife impact score to no greater than 20% LTG Duration 11/30/20 Four Impairment poor scar mobility right mastectomy scar Intermediate Goal (LTG) Improve soft tissue mobility of right mastectomy scar to at least 75% normal mobility to decrease pain, improve her tolerance for all activities using her right side. 09/22/20: good goal progress 11/04/20: scar right chest remains limited in mobility with patient reporting spasms throughout chest and neck. Recommend swell spot foam, kinesiotape; instructed in use of both, kinesiotape applied today. LTG Duration 11/30/20 Three Impairment difficulty reaching overhead, behind back and across her body with jose guadalupe UE's Short Term Goal (STG) Patient to be independent and compliant with HEP for purposes of shoulder ROM 09/22/20: goal met STG Duration goal met Intermediate Goal (LTG) Improve bilateral shoulder ROM sufficient to allow patient to reach overhead, behind her back, and to maximize lymphatic flow 09/22/20: able to reach overhead with minimal difficulty 10/04/20: goal met, mile tightness in shoulder LTG Duration goal met Two Impairment pain right UE, chest, and bilateral posterior thorax 6/ 10 pain scale Short Term Goal (STG) decrease pain to no greater than 3/10 STG Duration goal met Intermediate Goal (LTG) decrease pain to 0-1/10 with all usual activities 11/04/20: goal not met, increase in spasms likely due to scar tightness as well as weakness postural musculature. LTG Duration 11/30/20 One Impairment lymphedema right UE Short Term Goal (STG) Patient to be instructed in all aspects of lymphedema care including skin care, manual lymphatic drainage, lymphedema bandaging, and lymphedema exercises. STG Duration goal met Intermediate Goal (LTG) Reduce lymphedema to stable level (no increase or decrease greater than 1 cm over the course of 1 week). Patient to obtain appropriate compression garment(s) and demonstrate good understanding of all aspects of lymphedema self-care. LTG Duration 11/30/20 Assessment Summary Assessment Patient has been highly compliant to all aspects of lymphedema care, frustrated by lack of any further improvement. Patient instructed to try compression sleeve with increased compression level of 30-40 mm Hg if tolerated, use swell spot under sports bra for increased compression lateral thorax and chest, obtain and use kinesiotape if taping done today is tolerated. Shoulder ROM is WNL, scar mobility still very limited with adherence to chest wall despite patient doing self- massage and using suction tools. Etiology of spasms uncertain, possibly due to continued pull from scar tissue as well as postural muscle imbalance so instructed in postural strengthening exercises with theraband today . Discussed patient continuing with above changes and modifications and return for another follow-up in 3-4 weeks, for re-evaluation, determine need for further PT. Continue to feel she would benefit highly from Flexitouch sequential pneumatic pump for home use including trunk component due to trunkal and UE edema, patient fatigue, lack of further progress despite adherence to self-care . Physical Therapy Plan Frequency and Duration Frequency of Treatment 20 visits Duration of Treatment 12 weeks Plan of Care Start Date 09/01/20 Plan of Care End Date 11/30/20 Therapeutic Interventions Therapeutic Interventions Home Exercise Program, Lymphedema Management,Manual Therapy,Patient/Caregiver Education,Self-Care/Home Management,Soft Tissue Mobilization,Taping, Therapeutic Activities, Therapeutic Exercises Next Visit Focus/Plan Next Note Type Re-Evaluation Next Visit Plan See patient again in 1 month, assess whether increase compression to 30-40 mm Hg, kinesiotape, use of swell spot has any effect on decreasing swelling further. Assess response to new postural ex on spasms and pain, or if physician recommended anything further including medication.
--- NOTE | 2020-12-01 17:20 | PT.OTRE ---
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) Pain in right shoulder (12/01/20) Pain in left shoulder (12/01/20) Stiffness of right shoulder, not elsewhere classified (12/01/20) Stiffness of left shoulder, not elsewhere classified (12/01/20) Soft tissue disorder, unspecified (12/01/20) Past Medical History (Last Reviewed 06/18/20 @ 09:34 by LYNDSAY Hall) Anemia Anxiety Breast cancer, left (~2018) Breast cancer, right (~2010) Gallstone H/O hemorrhoidectomy H/O hemorrhoidectomy H/O rhinoplasty History of lumpectomy of right breast Hx of cholecystectomy Hx of LASIK Hx of partial mastectomy (2010) Hyperlipidemia Migraine Mixed anxiety and depressive disorder Osteoporosis Scoliosis SOB (shortness of breath) Symptomatic orthostatic increase in heart rate Underweight Surgical History (Last Reviewed 06/18/20 @ 09:34 by LYNDSAY Hall) H/O hemorrhoidectomy H/O hemorrhoidectomy H/O rhinoplasty History of lumpectomy of right breast Hx of cholecystectomy Hx of LASIK Hx of partial mastectomy (2010) Visit Care Team Role Provider Type Ludin Berg MD Primary Care Provider Physician Specialty: Family Practice Address: [address] [place] [address], [id number] Email: [email or web address] Stepan Alston MD Attending Provider Physician Referring Provider Specialty: Wound Care Address: [address] [place] [address], [id number] Email: [email or web address] Physical Therapy Re-Evaluation PT-OP-A Visit Information Start: 09/01/20 08:01 Freq: Status: Active Protocol: Document 12/01/20 15:07 LUPE (Rec: 12/01/20 15:23 LUPE [id number]) Out-Patient Physical Therapy Visit Information Visit Information Visit Type Treatment Note Visit Start Time 15:15 Visit Stop Time 16:20 Total Visit Minutes 65 Visit Number 17 Number of RADAR SIGNAL PROCESSING ENGINEER Visits 0 PT-OP-B Current Condition Start: 09/01/20 08:01 Freq: Status: Active Protocol: Document 09/01/20 09:49 SAK (Rec: 09/01/20 10:08 [facility] [id number]) Current Condition History of Current Condition Onset Date September 2019 Current Complaints swelling right UE, cramping right UE shoulder and back, bilateral shoulder History of Current Condition Patient presents to PT with c/ o right UE swelling since prior to mastectomies 10/09; states she had 4L of fluid removed from a seroma. Has history right breast cancer starting 2011 treated with lumpectomy, chemo and radiation at that time. Early 2019 diagnosed with reoccurance breast cancer and underwent right mastectomy, left mastectomy with axillary node dissection with 12 lymph nodes removed. States incision on right had difficulty with healing and she underwent hyperbaric oxygen treatments, still has small scab, very stiff scar on right. Almost done with chemo; 2 more treatments. Has compression sleeve right UE fits loosely on forearm, snug on upper arm, not sure of compression level . States she has sleeve with more firm compression at home in laundry; will bring next session. Ordered the sleeves herself without any guidance. Tried a compression sleeve with strap across chest but doesn't like, tired of having compression on. Has not tried a compression shirt. Patient is right-handed. Currently reports pain and stiffness reaching overhead, across her body, and behind her back and spasms in neck and thoracic spine, shoulder, and chest with use of right UE . 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 Prior Treatments and Tests right lumpectomy 2011 with radiation and chemo Future Testing and Treatments Planned 2 more chemotherapy treatments . Treatment Goals Patient/Caregiver Goals minimize swelling and pain, improve ROM to allow full functional use of her UE's Prior Functional Status Baseline Function- ADL's Independent Baseline Function- Mobility Independent Current Functional Impairments (Reported) Functional Limitations- ADL's limited and painful to reach overhead, across her body, behind her back bilateral UE's PT-OP-C Subjective Start: 09/01/20 08:01 Freq: Status: Active Protocol: Document 12/01/20 15:07 SAK (Rec: 12/01/20 15:23 SAK [id number]) OP-PT Subjective Patient Comments Patient Comments Cramping continued lateral chest, shoulder blade so physician switched her from Gabapentin to Lyrica; not sure if helping. Has new sleeve 30-40mm Hg but hasn't received new glove yet so is wrapping hand at night. States she tried not wrapping 2 nights ago and and was so swollen yesterday she couldn't make a fist after not wrapping at night. Got worse throughout the day even after removing sleeve. I won't make that mistake again. States did a lot of self- massage and decreased the swelling some. Continues with therapeutic exercises, skin care, compression but if anything feels her swelling has gone up. Hasn't heard back from [employer] regarding second appeal. Going to gentle yoga 1x/wk but at times due to cramping has to stop and rest, same with activity around the home. Hasn 't gotten new swell spot for chest yet. Hasn't been able to find comfortable glove yet and waiting for new one; supply chain issues. Has also ordered sleeve with shoulder cap for more coverage . Cresia padding is on wish list, already has ordered and spent a lot of money. PT-OP-F Manual Assessment Start: 09/01/20 08:01 Freq: Status: Active Protocol: Document 09/01/20 09:49 [facility] (Rec: 09/01/20 16:42 [facility] [id number]) Manual Assessments Soft Tissue Assessment Soft Tissue Mobility Assessment good scar mobility on left mastectomy scar. Right mastectomy scar thickened with poor mobility, adhered to chest wall. PT-OP-J Posture/Palpation/Skin Start: 09/01/20 08:01 Freq: Status: Active Protocol: Document 09/01/20 09:49 [facility] (Rec: 09/01/20 13:14 [facility] [id number]) Posture Evaluation Position Sitting Head/C-Spine Posture Forward Head T-Spine Posture Increased Kyphosis Shoulder Posture (L) Rounded,(R) Rounded Scapula Posture (L) Protracted,(R) Protracted Arm Posture (L) Internally Rotated,(R) Internally Rotated PT-OP-K Range of Motion Start: 09/01/20 08:01 Freq: Status: Active Protocol: Document 09/01/20 09:49 [facility] (Rec: 09/01/20 13:19 [facility] [id number]) Cervical Spine Range of Motion Cervical Spine Active Flexion 55 Extension 15 Rotation Left 25 Rotation Right 35 Lateral Flexion Left 40 Lateral Flexion Right 30 ROM Limitations Soft Tissue Tightness,Pain Shoulder Goniometric Range of Motion Shoulder Measured in Degrees Right Active Shoulder ROM WFL No Testing Position Sitting Flexion 145 Extension 20 Abduction 140 Horizontal Adduction 5 Internal Rotation Behind Back (text) L4 Left Shoulder ROM WFL No Testing Position Sitting Flexion 140 Extension 15 Abduction 135 Horizontal Adduction 5 Internal Rotation Behind Back (text) L5 Elbow/Forearm Range of Motion Elbow/Forearm Measured in Degrees jose guadalupe Elbow/Forearm ROM WFL Yes PT-OP-N Lymphedema Start: 09/01/20 08:01 Freq: Status: Active Protocol: Document 12/01/20 15:07 [facility] (Rec: 12/01/20 17:19 [facility] [id number]) Lymphedema Measurements Upper Extremity Circumference Measurements Right Affected MCP 19.2 cm Dorsum of Hand 19.7 cm Wrist 16 cm 5 cm From Wrist Crease 17.9 cm 10 cm From Wrist Crease 22.5 cm 15 cm From Wrist Crease 26.5 cm 20 cm From Wrist Crease 27.5 cm 25 cm From Wrist Crease 28.2 cm 30 cm From Wrist Crease 31.4 cm 35 cm From Wrist Crease 32.2 cm 40 cm From Wrist Crease 36.7 cm Axilla 36.7 cm - jose guadalupe subax 93.3 nipple line 88.4 PT-OP-Q Treatments Start: 09/01/20 08:01 Freq: Status: Active Protocol: Document 12/01/20 15:07 [facility] (Rec: 12/01/20 15:23 [facility] [id number]) Therapeutic Exercises Sitting Exercises pulleys Sitting Exercise Name shoulder flexion and abduction Equipment Used pulleys Reps/Minutes 10x Comments end range stretches Manual Therapy Treatment Manual Techniques scapular mobilization, rib mobilization Comments supine rib springing , sidelying scapular med/lat glide to improve mobility, decrease cramping right upper quadrant Gr II-III Other Other Manual Treatments circumferential measurements right UE taken Lymphedema Treatment Manual Lymphatic Drainage Location right UE Duration 35 min Comments Focus on AAA, AIA, CLAUDETTE. Increased time spent on hand MLD due to increased swelling. Lymphedema Wrapping Body Location right hand Materials elastamole 6 cm flexible gauze to fingers and hand, assisted patient in donning new 30-40 mm sleeve, good fit achieved. Patient to use 6 Comprilan on right hand at home. Other Discussed compression options Patient Education Lymphedema Precautions reviewed Compression Garments discussed options Self Manual Lymphatic Drainage reviewed Sequential Lymphedema Exercises reviewed Other Other reviewed HEP PT-OP-T Assessment and Plan Start: 09/01/20 08:01 Freq: Status: Active Protocol: Document 12/01/20 15:07 LUPE (Rec: 12/01/20 15:23 SAK [id number]) Physical Therapy Assessment Impairments Impairments Activity Tolerance,Edema,ROM, Soft Tissue Mobility Goals Five Impairment lymphedema life impact scale 58% Short Term Goal (STG) decrease lymphedema life impact score to no greater than 40% 09/22/20: goal progress 50% 11/04/20: no further goal progress STG Duration 10/01/20 [facility] Goal (LTG) decrease lymphedema alife impact score to no greater than 20% 11/30/20: no further goal progress LTG Duration 01/30/21 Four Impairment poor scar mobility right mastectomy scar Product Support Sales Representative Goal (LTG) Improve soft tissue mobility of right mastectomy scar to at least 75% normal mobility to decrease pain, improve her tolerance for all activities using her right side. 09/22/20: good goal progress 11/04/20: scar right chest remains limited in mobility with patient reporting spasms throughout chest and neck. Recommend swell spot foam, kinesiotape; instructed in use of both, kinesiotape applied today. 11/30/20: some improvement in mobility, decreased tenderness LTG Duration 01/30/21 Three Impairment difficulty reaching overhead, behind back and across her body with jose guadalupe UE's Short Term Goal (STG) Patient to be independent and compliant with HEP for purposes of shoulder ROM 09/22/20: goal met STG Duration goal met Penitentiary Goal (LTG) Improve bilateral shoulder ROM sufficient to allow patient to reach overhead, behind her back, and to maximize lymphatic flow 09/22/20: able to reach overhead with minimal difficulty 10/04/20: goal met, mild tightness in shoulder LTG Duration goal met Two Impairment pain right UE, chest, and bilateral posterior thorax 6/ 10 pain scale Short Term Goal (STG) decrease pain to no greater than 3/10 STG Duration goal met Product Support Sales Representative Goal (LTG) decrease pain to 0-1/10 with all usual activities 11/04/20: goal not met, increase in spasms likely due to scar tightness as well as weakness postural musculature. 11/30/20: patient compliant in postural exercises, has changed medications, continues to have function-limiting spasms LTG Duration 01/30/21 One Impairment lymphedema right UE Short Term Goal (STG) Patient to be instructed in all aspects of lymphedema care including skin care, manual lymphatic drainage, lymphedema bandaging, and lymphedema exercises. STG Duration goal met Product Support Sales Representative Goal (LTG) Reduce lymphedema to stable level (no increase or decrease greater than 1 cm over the course of 1 week). Patient to obtain appropriate compression garment(s) and demonstrate good understanding of all aspects of lymphedema self-care. 11/30/20: Patient continues to try different compression and foam options as none have been fully successful and several areas of her right UE as well as subaxillary area showed 1 cm increases today. [employer] device so far has been denied. LTG Duration 01/30/21 Assessment Summary Assessment Patient continues to be highly compliant to all aspects of lymphedema care, though is running up against cost limitations as she has ordered several compression garments and sleeves, uses chip bags and compression wrap right UE. Awaiting second appeal for sequential pneumatic device from [employer] as feel patient would benefit highly from the use of that device due to the stubbord nature of her right UE lymphedema; feel it would decrease her risk of medical complications including cellulitis. We discussed further compression and foam options, patient awaiting new compression glove . She plans to call and check on status of [employer]. Her scar mobility is some improved with decrease in tenderness, using suction tools as instructed for scar mobilization. Plan follow-up again in 3-4 weeks to assess status and determine need for further PT. Patient will email in the interim if has questions or needs to discuss any aspects of her self- management for lymphedema. Physical Therapy Plan Frequency and Duration Frequency of Treatment 3 Duration of Treatment 8 weeks Plan of Care Start Date 12/01/20 Plan of Care End Date 01/30/21 Therapeutic Interventions Therapeutic Interventions Home Exercise Program, Lymphedema Management,Manual Therapy,Patient/Caregiver Education,Self-Care/Home Management,Soft Tissue Mobilization,Taping, Therapeutic Activities, Therapeutic Exercises Next Visit Focus/Plan Next Note Type Treatment Note Next Visit Plan Follow-up appointment in 3-4 weeks to determine response to continued self-care with some modifications as discussed today, possible [employer] use if approved. Continue lymphedema management as indicated.
--- NOTE | 2020-12-01 17:20 | PT.OPPOC ---
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 Email: [email or web address] Stepan Alston MD Attending Provider Physician Referring Provider Specialty: Wound Care Address: [address] [place] [address], [facility] Email: [email or web address] Plan Of Care PT-OP-T Assessment and Plan Start: 09/01/20 08:01 Freq: Status: Active Protocol: Document 12/01/20 15:07 LUPE (Rec: 12/01/20 15:23 SAK [id number]) Physical Therapy Assessment Impairments Impairments Activity Tolerance,Edema,ROM, Soft Tissue Mobility Goals Five Impairment lymphedema life impact scale 58% Short Term Goal (STG) decrease lymphedema life impact score to no greater than 40% 09/22/20: goal progress 50% 11/04/20: no further goal progress STG Duration 10/01/20 Md Physician Dermatologist Goal (LTG) decrease lymphedema alife impact score to no greater than 20% 11/30/20: no further goal progress LTG Duration 01/30/21 Four Impairment poor scar mobility right mastectomy scar Md Physician Dermatologist Goal (LTG) Improve soft tissue mobility of right mastectomy scar to at least 75% normal mobility to decrease pain, improve her tolerance for all activities using her right side. 09/22/20: good goal progress 11/04/20: scar right chest remains limited in mobility with patient reporting spasms throughout chest and neck. Recommend swell spot foam, kinesiotape; instructed in use of both, kinesiotape applied today. 11/30/20: some improvement in mobility, decreased tenderness LTG Duration 01/30/21 Three Impairment difficulty reaching overhead, behind back and across her body with jose guadalupe UE's Short Term Goal (STG) Patient to be independent and compliant with HEP for purposes of shoulder ROM 09/22/20: goal met STG Duration goal met Nursing Home Goal (LTG) Improve bilateral shoulder ROM sufficient to allow patient to reach overhead, behind her back, and to maximize lymphatic flow 09/22/20: able to reach overhead with minimal difficulty 10/04/20: goal met, mild tightness in shoulder LTG Duration goal met Two Impairment pain right UE, chest, and bilateral posterior thorax / 10 pain scale Short Term Goal (STG) decrease pain to no greater than 3/10 STG Duration goal met Nursing Home Goal (LTG) decrease pain to 0-1/10 with all usual activities 11/04/20: goal not met, increase in spasms likely due to scar tightness as well as weakness postural musculature. 11/30/20: patient compliant in postural exercises, has changed medications, continues to have function-limiting spasms LTG Duration 01/30/21 One Impairment lymphedema right UE Short Term Goal (STG) Patient to be instructed in all aspects of lymphedema care including skin care, manual lymphatic drainage, lymphedema bandaging, and lymphedema exercises. STG Duration goal met Md Physician Dermatologist Goal (LTG) Reduce lymphedema to stable level (no increase or decrease greater than 1 cm over the course of 1 week). Patient to obtain appropriate compression garment(s) and demonstrate good understanding of all aspects of lymphedema self-care. 11/30/20: Patient continues to try different compression and foam options as none have been fully successful and several areas of her right UE as well as subaxillary area showed 1 cm increases today. [employer] device so far has been denied. LTG Duration 01/30/21 Assessment Summary Assessment Patient continues to be highly compliant to all aspects of lymphedema care, though is running up against cost limitations as she has ordered several compression garments and sleeves, uses chip bags and compression wrap right UE. Awaiting second appeal for sequential pneumatic device from [employer] as feel patient would benefit highly from the use of that device due to the stubbord nature of her right UE lymphedema; feel it would decrease her risk of medical complications including cellulitis. We discussed further compression and foam options, patient awaiting new compression glove . She plans to call and check on status of [employer]. Her scar mobility is some improved with decrease in tenderness, using suction tools as instructed for scar mobilization. Plan follow-up again in 3-4 weeks to assess status and determine need for further PT. Patient will email in the interim if has questions or needs to discuss any aspects of her self- management for lymphedema. Physical Therapy Plan Frequency and Duration Frequency of Treatment 3 Duration of Treatment 8 weeks Plan of Care Start Date 12/01/20 Plan of Care End Date 01/30/21 Therapeutic Interventions Therapeutic Interventions Home Exercise Program, Lymphedema Management,Manual Therapy,Patient/Caregiver Education,Self-Care/Home Management,Soft Tissue Mobilization,Taping, Therapeutic Activities, Therapeutic Exercises Next Visit Focus/Plan Next Note Type Treatment Note Next Visit Plan Follow-up appointment in 3-4 weeks to determine response to continued self-care with some modifications as discussed today, possible [employer] use if approved. Continue lymphedema management as indicated. Plan of Care Dates Plan of Care Start Date 12/01/20 Plan of Care End Date 01/30/21 Electronically Signed by: Yue Harper, PT 12/01/20 [id number] Please Sign and Return: I have reviewed this Plan of Care and certify that the skilled therapy services above are required to meet the patient?s needs. Physician Signature Date Printed Name and Credentials Clinical Instructor Signature Printed Name and Credentials
--- NOTE | 2021-01-22 17:32 | PT.OTRE ---
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) Pain in right shoulder (01/22/21) Pain in left shoulder (01/22/21) Stiffness of right shoulder, not elsewhere classified (01/22/21) Stiffness of left shoulder, not elsewhere classified (01/22/21) Soft tissue disorder, unspecified (01/22/21) Past Medical History (Last Reviewed 01/12/21 @ 14:22 by LYNDSAY Hall) Anemia Anxiety Breast cancer, left (~2018) Breast cancer, right (~2010) Gallstone H/O hemorrhoidectomy H/O hemorrhoidectomy H/O rhinoplasty History of lumpectomy of right breast Hx of cholecystectomy Hx of LASIK Hx of partial mastectomy (2010) Hyperlipidemia Migraine Mixed anxiety and depressive disorder Osteoporosis Scoliosis SOB (shortness of breath) Symptomatic orthostatic increase in heart rate Underweight Surgical History (Last Reviewed 01/12/21 @ 14:22 by LYNDSAY Hall) H/O hemorrhoidectomy H/O hemorrhoidectomy H/O rhinoplasty History of lumpectomy of right breast Hx of cholecystectomy Hx of LASIK Hx of partial mastectomy (2010) Visit Care Team Role Provider Type Ludin Berg MD Primary Care Provider Physician Specialty: Family Practice Address: [address] [place] [address], [id number] Email: [email or web address] Stepan Alston MD Attending Provider Physician Referring Provider Specialty: Wound Care Address: [address] [place] [address], [id number] Email: [email or web address] Physical Therapy Re-Evaluation PT-OP-A Visit Information Start: 09/01/20 08:01 Freq: Status: Active Protocol: Document 01/22/21 09:55 LUPE (Rec: 01/22/21 10:30 LUPE [id number]) Out-Patient Physical Therapy Visit Information Visit Information Visit Type Treatment Note Visit Start Time 09:45 Visit Stop Time 10:10 Total Visit Minutes 25 Visit Number 18 Number of UNDERLAY STITCHER Visits 0 PT-OP-B Current Condition Start: 09/01/20 08:01 Freq: Status: Active Protocol: Document 09/01/20 09:49 SAK (Rec: 09/01/20 10:08 [facility] [id number]) Current Condition History of Current Condition Onset Date September 2019 Current Complaints swelling right UE, cramping right UE shoulder and back, bilateral shoulder History of Current Condition Patient presents to PT with c/ o right UE swelling since prior to mastectomies 10/09; states she had 4L of fluid removed from a seroma. Has history right breast cancer starting 2011 treated with lumpectomy, chemo and radiation at that time. Early 2019 diagnosed with reoccurance breast cancer and underwent right mastectomy, left mastectomy with axillary node dissection with 12 lymph nodes removed. States incision on right had difficulty with healing and she underwent hyperbaric oxygen treatments, still has small scab, very stiff scar on right. Almost done with chemo; 2 more treatments. Has compression sleeve right UE fits loosely on forearm, snug on upper arm, not sure of compression level . States she has sleeve with more firm compression at home in laundry; will bring next session. Ordered the sleeves herself without any guidance. Tried a compression sleeve with strap across chest but doesn't like, tired of having compression on. Has not tried a compression shirt. Patient is right-handed. Currently reports pain and stiffness reaching overhead, across her body, and behind her back and spasms in neck and thoracic spine, shoulder, and chest with use of right UE . 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 Prior Treatments and Tests right lumpectomy 2011 with radiation and chemo Future Testing and Treatments Planned 2 more chemotherapy treatments . Treatment Goals Patient/Caregiver Goals minimize swelling and pain, improve ROM to allow full functional use of her UE's Prior Functional Status Baseline Function- ADL's Independent Baseline Function- Mobility Independent Current Functional Impairments (Reported) Functional Limitations- ADL's limited and painful to reach overhead, across her body, behind her back bilateral UE's PT-OP-C Subjective Start: 09/01/20 08:01 Freq: Status: Active Protocol: Document 01/22/21 09:55 SAK (Rec: 01/22/21 10:30 [facility] [id number]) OP-PT Subjective Patient Comments Patient Comments Reports muscle spasms lateral chest persist, swelling persists, is variable for no known reason, compliant with self-wrapping at night and wearing compression during day . Frustrated by difficulty controlling her lymphedema despite this compliance. Still wearing 30-40 mm Hg sleeve and glove as well as chest binder. States she feels her arm and under arm area is more swollen since she was last seen. States Flexitouch was denied despite her insurance saying they anticipated approving when received all measuremnts which have been sent. Discussed with patient and patient gave PT nurse advocate's contact information. PT-OP-F Manual Assessment Start: 09/01/20 08:01 Freq: Status: Active Protocol: Document 09/01/20 09:49 SAK (Rec: 09/01/20 16:42 SAK [id number]) Manual Assessments Soft Tissue Assessment Soft Tissue Mobility Assessment good scar mobility on left mastectomy scar. Right mastectomy scar thickened with poor mobility, adhered to chest wall. PT-OP-J Posture/Palpation/Skin Start: 09/01/20 08:01 Freq: Status: Active Protocol: Document 09/01/20 09:49 SAK (Rec: 09/01/20 13:14 [facility] [id number]) Posture Evaluation Position Sitting Head/C-Spine Posture Forward Head T-Spine Posture Increased Kyphosis Shoulder Posture (L) Rounded,(R) Rounded Scapula Posture (L) Protracted,(R) Protracted Arm Posture (L) Internally Rotated,(R) Internally Rotated PT-OP-K Range of Motion Start: 09/01/20 08:01 Freq: Status: Active Protocol: Document 09/01/20 09:49 SAK (Rec: 09/01/20 13:19 SAK [id number]) Cervical Spine Range of Motion Cervical Spine Active Flexion 55 Extension 15 Rotation Left 25 Rotation Right 35 Lateral Flexion Left 40 Lateral Flexion Right 30 ROM Limitations Soft Tissue Tightness,Pain Shoulder Goniometric Range of Motion Shoulder Measured in Degrees Right Active Shoulder ROM WFL No Testing Position Sitting Flexion 145 Extension 20 Abduction 140 Horizontal Adduction 5 Internal Rotation Behind Back (text) L4 Left Shoulder ROM WFL No Testing Position Sitting Flexion 140 Extension 15 Abduction 135 Horizontal Adduction 5 Internal Rotation Behind Back (text) L5 Elbow/Forearm Range of Motion Elbow/Forearm Measured in Degrees jose guadalupe Elbow/Forearm ROM WFL Yes PT-OP-N Lymphedema Start: 09/01/20 08:01 Freq: Status: Active Protocol: Document 01/22/21 09:55 SAK (Rec: 01/22/21 17:26 [facility] [id number]) Lymphedema Measurements Upper Extremity Circumference Measurements Right Affected MCP 19.5 cm Dorsum of Hand 20.5 cm Wrist 16 cm 5 cm From Wrist Crease 18.2 cm 10 cm From Wrist Crease 22.5 cm 15 cm From Wrist Crease 26 cm 20 cm From Wrist Crease 27.2 cm 25 cm From Wrist Crease 29.6 cm 30 cm From Wrist Crease 31 cm 35 cm From Wrist Crease 32.4 cm 40 cm From Wrist Crease 33.4 cm Axilla 40.2 cm - jose guadalupe subax: 95.4 cm nipple line: 88.4 cm PT-OP-Q Treatments Start: 09/01/20 08:01 Freq: Status: Active Protocol: Document 01/22/21 09:55 [facility] (Rec: 01/22/21 17:26 [facility] [id number]) Self-Care/Home Management Treatment Education Other Education continue to pursue Flexitouch pending information from nurse advocate, continue all self- care techniques, compression shirt alternative for axilla, can consult at [facility] regarding any other compression alternatives, contact PT with any questions. Follow-up in 1 month. Lymphedema Treatment Patient Education Compression Garments discussed options PT-OP-T Assessment and Plan Start: 09/01/20 08:01 Freq: Status: Active Protocol: Document 01/22/21 09:55 [facility] (Rec: 01/22/21 10:30 [facility] [id number]) Physical Therapy Assessment Goals Five Impairment lymphedema life impact scale 58% Short Term Goal (STG) decrease lymphedema life impact score to no greater than 40% 09/22/20: goal progress 50% 11/04/20: no further goal progress 01/22/21: 51% Management Trainee [employer] Goal (LTG) decrease lymphedema alife impact score to no greater than 20% 11/30/20: no further goal progress 01/22/21: worsened by 1% at 51% LTG Duration 02/21/21 Four Impairment poor scar mobility right mastectomy scar [employer] Goal (LTG) Improve soft tissue mobility of right mastectomy scar to at least 75% normal mobility to decrease pain, improve her tolerance for all activities using her right side. 09/22/20: good goal progress 11/04/20: scar right chest remains limited in mobility with patient reporting spasms throughout chest and neck. Recommend swell spot foam, kinesiotape; instructed in use of both, kinesiotape applied today. 11/30/20: some improvement in mobility, decreased tenderness LTG Duration goal met 01/22/21 Three Impairment difficulty reaching overhead, behind back and across her body with jose guadalupe UE's Short Term Goal (STG) Patient to be independent and compliant with HEP for purposes of shoulder ROM 09/22/20: goal met STG Duration goal met [facility] Goal (LTG) Improve bilateral shoulder ROM sufficient to allow patient to reach overhead, behind her back, and to maximize lymphatic flow 09/22/20: able to reach overhead with minimal difficulty 10/04/20: goal met, mild tightness in shoulder LTG Duration goal met Two Impairment pain right UE, chest, and bilateral posterior thorax 6/ 10 pain scale Short Term Goal (STG) decrease pain to no greater than 3/10 STG Duration goal met [employer] Goal (LTG) decrease pain to 0-1/10 with all usual activities 11/04/20: goal not met, increase in spasms likely due to scar tightness as well as weakness postural musculature. 11/30/20: patient compliant in postural exercises, has changed medications, continues to have function-limiting spasms 01/22/21: pain still at 3/10 LTG Duration 02/21/21 One Impairment lymphedema right UE Short Term Goal (STG) Patient to be instructed in all aspects of lymphedema care including skin care, manual lymphatic drainage, lymphedema bandaging, and lymphedema exercises. STG Duration goal met [employer] Goal (LTG) Reduce lymphedema to stable level (no increase or decrease greater than 1 cm over the course of 1 week). Patient to obtain appropriate compression garment(s) and demonstrate good understanding of all aspects of lymphedema self-care. 11/30/20: Patient continues to try different compression and foam options as none have been fully successful and several areas of her right UE as well as subaxillary area showed 1 cm increases today. Flexitouch device so far has been denied. LTG Duration 01/30/21 Assessment Summary Assessment Circumferential measurements taken which reveal increase in hand and wrist and distal upper arm, stable forearm and chest. Patient demonstrates high compliance and to and good understanding of all lymphedema self-care at home including self-manual lymphatic drainage, scar massage, sequential lymphedema exercises and wearing of compression as recommended. Patient wrapping with short stretch compression bandages over compression alternative wrap at night and PT evaluated wrapping technique today; appeared to be done very well. Proximal right UE and subaxillary area showed increase in circumference; difficulty clearing or reducing these areas, which I feel would be helped tremendously by the use of uSampitouch sequential pneumatic pump with trunk component which patient could use at home, and long-term would be a more cost effective method of self-management of patient's lymphedema. Spoke with nurse advocate Gabby Avendano who stated no more internal appeals can be done until May due to [employer] submitting information incorrectly. Option left at this point is for patient to have her physician do external appeal; I emailed patient this information. I recommend we follow-up with another PT visit in 3-4 weeks to assess patient's lymphedema and her self-management response, and continue to assist as needed for her to obtain a sequential pneumatic pump. Physical Therapy Plan Frequency and Duration Frequency of Treatment 1 visit Duration of Treatment 4 weeks Plan of Care Start Date 01/22/21 Plan of Care End Date 02/21/21 Therapeutic Interventions Therapeutic Interventions Home Exercise Program, Lymphedema Management,Manual Therapy,Patient/Caregiver Education,Self-Care/Home Management,Soft Tissue Mobilization,Taping, Therapeutic Activities, Therapeutic Exercises Next Visit Focus/Plan Next Note Type Treatment Note Next Visit Plan Follow-up appointment in 3-4 weeks for monitoring of lymphedema and self-care, continued assistance and guidance with compression recommendations and options, facilitation of patient obtaining pneumatic compression pump with trunk component.
--- NOTE | 2021-02-18 16:03 | PT.OTN ---
Current Diagnoses Postmastectomy lymphedema syndrome (02/18/21) Pain in right shoulder (02/18/21) Pain in left shoulder (02/18/21) Stiffness of right shoulder, not elsewhere classified (02/18/21) Stiffness of left shoulder, not elsewhere classified (02/18/21) Soft tissue disorder, unspecified (02/18/21) Physical Therapy Treatment Note PT-OP-A Visit Information Start: 09/01/20 08:01 Freq: Status: Active Protocol: Document 01/22/21 09:55 SAK (Rec: 01/22/21 10:30 SAK [id number]) Out-Patient Physical Therapy Visit Information Visit Information Visit Type Treatment Note Visit Start Time 09:45 Visit Stop Time 10:10 Total Visit Minutes 25 Visit Number 18 Number of VERTICAL CONTOUR BAND SAW OPERATOR Visits 0 PT-OP-B Current Condition Start: 09/01/20 08:01 Freq: Status: Active Protocol: Document 09/01/20 09:49 SAK (Rec: 09/01/20 10:08 SAK [id number]) Current Condition History of Current Condition Onset Date September 2019 Current Complaints swelling right UE, cramping right UE shoulder and back, bilateral shoulder History of Current Condition Patient presents to PT with c/ o right UE swelling since prior to mastectomies 10/09; states she had 4L of fluid removed from a seroma. Has history right breast cancer starting 2011 treated with lumpectomy, chemo and radiation at that time. Early 2019 diagnosed with reoccurance breast cancer and underwent right mastectomy, left mastectomy with axillary node dissection with 12 lymph nodes removed. States incision on right had difficulty with healing and she underwent hyperbaric oxygen treatments, still has small scab, very stiff scar on right. Almost done with chemo; 2 more treatments. Has compression sleeve right UE fits loosely on forearm, snug on upper arm, not sure of compression level . States she has sleeve with more firm compression at home in laundry; will bring next session. Ordered the sleeves herself without any guidance. Tried a compression sleeve with strap across chest but doesn't like, tired of having compression on. Has not tried a compression shirt. Patient is right-handed. Currently reports pain and stiffness reaching overhead, across her body, and behind her back and spasms in neck and thoracic spine, shoulder, and chest with use of right UE . 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 Prior Treatments and Tests right lumpectomy 2012 with radiation and chemo Future Testing and Treatments Planned 2 more chemotherapy treatments . Treatment Goals Patient/Caregiver Goals minimize swelling and pain, improve ROM to allow full functional use of her UE's Prior Functional Status Baseline Function- ADL's Independent Baseline Function- Mobility Independent Current Functional Impairments (Reported) Functional Limitations- ADL's limited and painful to reach overhead, across her body, behind her back bilateral UE's PT-OP-C Subjective Start: 09/01/20 08:01 Freq: Status: Active Protocol: Document 02/18/21 13:50 SAK (Rec: 02/18/21 14:29 SAK [id number]) OP-PT Subjective Patient Comments Patient Comments Has been fairly stable, though last couple days felt a bit more swollen. Doing massage 2 times per day, reports gets sore on incision even when really gentle. Has done some yoga. No compression shirt yet. No appointment yet with [facility], wants to get more compression in armpit. States nighttime wrapping gets too uncomfortable at night, asks if maybe wrapping too tight. PT-OP-F Manual Assessment Start: 09/01/20 08:01 Freq: Status: Active Protocol: Document 09/01/20 09:49 SAK (Rec: 09/01/20 16:42 SAK [id number]) Manual Assessments Soft Tissue Assessment Soft Tissue Mobility Assessment good scar mobility on left mastectomy scar. Right mastectomy scar thickened with poor mobility, adhered to chest wall. PT-OP-J Posture/Palpation/Skin Start: 09/01/20 08:01 Freq: Status: Active Protocol: Document 09/01/20 09:49 SAK (Rec: 09/01/20 13:14 [facility] [id number]) Posture Evaluation Position Sitting Head/C-Spine Posture Forward Head T-Spine Posture Increased Kyphosis Shoulder Posture (L) Rounded,(R) Rounded Scapula Posture (L) Protracted,(R) Protracted Arm Posture (L) Internally Rotated,(R) Internally Rotated PT-OP-K Range of Motion Start: 09/01/20 08:01 Freq: Status: Active Protocol: Document 09/01/20 09:49 SAK (Rec: 09/01/20 13:19 SAK [id number]) Cervical Spine Range of Motion Cervical Spine Active Flexion 55 Extension 15 Rotation Left 25 Rotation Right 35 Lateral Flexion Left 40 Lateral Flexion Right 30 ROM Limitations Soft Tissue Tightness,Pain Shoulder Goniometric Range of Motion Shoulder Right Active Shoulder ROM WFL No Testing Position Sitting Flexion 145 Extension 20 Abduction 140 Horizontal Adduction 5 Internal Rotation Behind Back (text) L4 Left Shoulder ROM WFL No Testing Position Sitting Flexion 140 Extension 15 Abduction 135 Horizontal Adduction 5 Internal Rotation Behind Back (text) L5 Elbow/Forearm Range of Motion Elbow/Forearm jose guadalupe Elbow/Forearm ROM WFL Yes PT-OP-N Lymphedema Start: 09/01/20 08:01 Freq: Status: Active Protocol: Document 02/18/21 13:50 SAK (Rec: 02/18/21 14:29 SAK [id number]) Lymphedema Measurements Upper Extremity Circumference Measurements Right Affected MCP 19.5 cm Dorsum of Hand 21.1 cm Wrist 16.3 cm 5 cm From Wrist Crease 17.6 cm 10 cm From Wrist Crease 22.3 cm 15 cm From Wrist Crease 25.6 cm 20 cm From Wrist Crease 26.7 cm 25 cm From Wrist Crease 28.5 cm 30 cm From Wrist Crease 30.6 cm 35 cm From Wrist Crease 31.7 cm 40 cm From Wrist Crease 32.4 cm Axilla 38.9 cm - jose guadalupe subax: 91.8 nipple line 89.5 PT-OP-Q Treatments Start: 09/01/20 08:01 Freq: Status: Active Protocol: Document 02/18/21 13:50 SAK (Rec: 02/18/21 14:29 SAK [id number]) Self-Care/Home Management Treatment Education Other Education Will pursue in May when [facility]. Continue self-management, obtain compression shirt, try Tribute wrap (given loaner for trial today, patient to return), bandage arm looser at night. Lymphedema Treatment Manual Lymphatic Drainage Comments Patient doing self MLD at home Lymphedema Wrapping Materials Assisted patient to don sleeve , used Juzo donning gloves donated, helpful so given to patient. PT-OP-T Assessment and Plan Start: 09/01/20 08:01 Freq: Status: Active Protocol: Document 02/18/21 13:50 SAK (Rec: 02/18/21 14:29 SAK [id number]) Physical Therapy Assessment Goals Five Impairment lymphedema life impact scale 58% Short Term Goal (STG) decrease lymphedema life impact score to no greater than 40% 09/22/20: goal progress 50% 11/04/20: no further goal progress 01/22/21: 51% 02/18/21: no further improvement Group Home Goal (LTG) decrease lymphedema alife impact score to no greater than 20% 11/30/20: no further goal progress 01/22/21: worsened by 1% at 51% 02/18/21: no further improvement LTG Duration 02/21/21 Four Impairment poor scar mobility right mastectomy scar Group Home Goal (LTG) Improve soft tissue mobility of right mastectomy scar to at least 75% normal mobility to decrease pain, improve her tolerance for all activities using her right side. 09/22/20: good goal progress 11/04/20: scar right chest remains limited in mobility with patient reporting spasms throughout chest and neck. Recommend swell spot foam, kinesiotape; instructed in use of both, kinesiotape applied today. 11/30/20: some improvement in mobility, decreased tenderness LTG Duration goal met 01/22/21 Three Impairment difficulty reaching overhead, behind back and across her body with jose guadalupe UE's Short Term Goal (STG) Patient to be independent and compliant with HEP for purposes of shoulder ROM 09/22/20: goal met STG Duration goal met Group Home Goal (LTG) Improve bilateral shoulder ROM sufficient to allow patient to reach overhead, behind her back, and to maximize lymphatic flow 09/22/20: able to reach overhead with minimal difficulty 10/04/20: goal met, mild tightness in shoulder LTG Duration goal met Two Impairment pain right UE, chest, and bilateral posterior thorax 6/ 10 pain scale Short Term Goal (STG) decrease pain to no greater than 3/10 STG Duration goal met Group Home Goal (LTG) decrease pain to 0-1/10 with all usual activities 11/04/20: goal not met, increase in spasms likely due to scar tightness as well as weakness postural musculature. 11/30/20: patient compliant in postural exercises, has changed medications, continues to have function-limiting spasms 01/22/21: pain still at 3/10 02/18/21: no further improvement LTG Duration 02/21/21 One Impairment lymphedema right UE Short Term Goal (STG) Patient to be instructed in all aspects of lymphedema care including skin care, manual lymphatic drainage, lymphedema bandaging, and lymphedema exercises. STG Duration goal met Heavy Equipment Operator Goal (LTG) Reduce lymphedema to stable level (no increase or decrease greater than 1 cm over the course of 1 week). Patient to obtain appropriate compression garment(s) and demonstrate good understanding of all aspects of lymphedema self-care. 11/30/20: Patient continues to try different compression and foam options as none have been fully successful and several areas of her right UE as well as subaxillary area showed 1 cm increases today. Flexitouch device so far has been denied. 02/18/21: Patient continues to be highly compliant to HEP, self-bandaging and manual lymphatic drainage. Making use of educational videos recommended to her by PT for lymphedema managment. Some improvement in measurement and softness of her arm tissue today. She borrowed trial Tribute wrap for use at night to see if that would be tolerated better. She will be consulting with fitter at [facility] for other options for compression. LTG Duration 01/30/21 Assessment Summary Assessment Issued Tribute regular Right for trial, patient to make appointment with [facility]. Compliant to home management, measurements improved today. At this time have decided to discharge her to self- management, she can email with questions. Consider follow- up after ther first of the year, assess start Physical Therapy Plan Discharge Physical Therapy Discharge Comments Patient independent with self- management, consulting with Fitter regarding additional options for compression. Stable at this time. No further need at this time.
== END 2021-03-10 09:10 ==
LOC: PHYS 13:45
PROVIDERS: PCP Family Medicine; Referring Provider Family Medicine; Visit Provider Family Medicine
DX: I97.2 Postmastectomy lymphedema syndrome (principal); M79.9 Soft tissue disorder, unspecified; M25.611 Stiffness of right shoulder, not elsewhere classified; M25.612 Stiffness of left shoulder, not elsewhere classified; M25.511 Pain in right shoulder; M25.512 Pain in left shoulder
CPT/HCPCS: 29584; 97110; 97140; 97162; 97535

== ENCOUNTER 2021-03-07 20:04 | Emergency (ER) | payer BC, SELFPAY ==
[2020-01-24 11:00] VITALS: BMI 20.7
[2021-03-07 20:46] VITALS: BP 132/80; PULSE 99; RESP 14; TEMP 36.2; O2SAT 97; BMI 26.5
[2021-03-07 21:49] VITALS: BP 112/68; PULSE 95; O2SAT 99
[2021-03-07] MEDS: AMOXICILLIN/CLAV 875/125 MG 1 TAB PO (22:15)
--- NOTE | 2021-03-08 05:48 | ED_ITS ---
HPI - Animal Bite General Chief Complaint: Animal Bite Stated Complaint: cat bite, swelling, redness, warm Time Seen by Provider: 03/07/21 21:44 Source: patient Mode of arrival: Ambulatory Limitations: no limitations History of Present Illness HPI narrative: 60-year-old female nonsmoker with noncontributory medical history presents with a chief complaint of a cat bite earlier in the day of dorsum of her left wrist. She states her tetanus shot is up-to-date. She was handling her own cat who shots are up-to-date and miss handled her a bit while brushing which caused her to bite her on the wrist. Otherwise her CT is acting appropriate and concern would be observed over the next 10 days. Patient denies any systemic symptoms such as fever, chills nor nausea or vomiting. She denies any numbness or tingling in her fingers or hand. She has 2 puncture wounds on the dorsum of her left wrist with some surrounding erythema Related Data Home Medications Medication Instructions Recorded Confirmed cholecalciferol (vitamin D3) 25 1,000 unit PO DAILY 09/25/18 02/26/21 mcg (1,000 unit) capsule vitamin K2 40 mcg tablet 300 mcg PO DAILY 09/25/18 02/26/21 ibuprofen 200 mg tablet 200 mg PO PRN PRN 11/20/19 02/26/21 Previous Rx's Medication Instructions Recorded promethazine 25 mg tablet 25 mg PO Q6H PRN #60 tab 05/24/19 prochlorperazine maleate 5 mg 5 mg PO QID PRN #100 tab 05/15/20 tablet (Compazine) rizatriptan 10 mg tablet (Maxalt) 10 mg PO ONCE PRN #30 tab 11/18/20 [id number]-nzflqgo-mloyxdpf 50 See Rx Instructions .ROUTE 11/26/20 mg-325 mg-40 mg capsule .COMPLEX #30 cap pregabalin 50 mg capsule (Lyrica) 50 mg PO TID #90 cap 11/27/20 ondansetron 4 mg disintegrating 4 mg PO Q6H PRN #60 tab 12/01/20 tablet amoxicillin 875 mg-potassium 1 tab PO BID #20 tab 03/07/21 clavulanate 125 mg tablet (Augmentin) Allergies Allergy/AdvReac Type Severity Reaction Status Date / Time No Known Drug Allergies Allergy Verified 03/07/21 20:46 Review of Systems Review of Systems Narrative: GENERAL: Denies chills, fatigue, malaise, fever, sweats. HEENT: Denies sinus pain, ear pain, sore throat, difficulty swallowing, dizziness. RESPIRATORY: Denies dyspnea, cough, wheezing, hemoptysis, sputum. CARDIOVASCULAR: Denies chest pain, palpitations, orthopnea, edema, GASTROINTESTINAL: Denies nausea, vomiting, abdominal pain, diarrhea, constipation, melena. : Denies dysuria, frequency, incontinence, hematuria, urinary retention. MUSCULOSKELETAL: denies weakness, joint pain, or bony pain SKIN: See HPI NEUROLOGIC: Denies weakness, headache, numbness, change in speech, confusion, seizures, incoordination. PSYCHIATRIC: No concerning psychosocial issues. 12 point review of systems is negative except for those stated above Patient History Medical History Anemia Anxiety Breast cancer, left (~2018) Breast cancer, right (~2010) Gallstone Hyperlipidemia Migraine Mixed anxiety and depressive disorder Osteoporosis Scoliosis SOB (shortness of breath) Symptomatic orthostatic increase in heart rate Underweight Surgical History H/O hemorrhoidectomy H/O hemorrhoidectomy H/O rhinoplasty History of lumpectomy of right breast Hx of cholecystectomy Hx of LASIK Hx of partial mastectomy (2010) Family History Brother Heart disease, hypertensive, benign Hypertension Mother Breast cancer Gallstones Stroke Father Lung cancer Grandmother Gallstones Social History household members: none occupational status: previously employed Smoking Status: Never smoker alcohol intake: never substance use type: does not use and other Smoking Status: Never smoker alcohol intake frequency: 0-2 drinks per day Substance Use Type: does not use Exam Narrative Exam Narrative: GEN: AOx3 and in mild distress EYES: Pupils are equal, round, and reactive to light and accommodation. Extraoccular muscles are intact bilaterally. There is no subconjunctival hemorrhage or exudate. CHEST: Lungs are clear to auscultation bilaterally and free of wheezes, rales, or rhonchi. Heart rate is regular rhythm, there are no murmurs, clicks, rubs, or gallops. There is no chest wall tenderness. ABD: Abdomen is soft and nontender. There is no guarding or rebound. Bowel sounds are normal in all 4 quadrants. There is no mass or organomegaly. EXT: Full but painful range of motion at left wrist. Two puncture wounds noted, no drainage, fluctuance or induration. There is no swelling of the hand itself, there is surrounding erythema and the beginning of mild lymphangitis. SKIN: Warm, pink, and dry. No erythema or rash Initial Vital Signs Initial Vital Signs: Vital Signs Temperature 97.1 F L 03/07/21 20:46 Pulse Rate 99 H 03/07/21 20:46 Respiratory Rate 14 03/07/21 20:46 Blood Pressure 132/80 03/07/21 20:46 Pulse Oximetry 97 03/07/21 20:46 Course Orders Ordered: Discontinued Medications Amoxicillin/Clavulanate Potassium (Amoxicillin/Clav 875/125 Mg) 1 tab PO NOW ONE Stop: 03/07/21 22:11 Last Admin: 03/07/21 22:15 Dose: 1 tab Documented by: ALIYAH Vital Signs Vital signs: Vital Signs - 8 hr 03/07/21 21:49 Pulse Rate 95 H Blood Pressure 112/68 Pulse Oximetry 99 MDM - Animal Bite MDM Narrative Medical decision making narrative: Patient with cat bite has developed some erythema without suggestion of underlying abscess. She has no systemic findings and stable vitals. No indication for labs or imaging. Return precautions given and questions answered to her apparent satisfaction Discharge Plan Departure Patient Disposition: Home Clinical Impression: Cat bite Qualifiers: Encounter type: initial encounter Qualified Code(s): W55.01XA - Bitten by cat, initial encounter Instructions: DI for Cat Bite Activity Restrictions/Additional Instructions: *You have been diagnosed with [cat bite on left wrist, no evidence of abscess. *What to do: *Please continue to take your regular medications as directed. [x ] New medication prescriptions sent to your pharmacy: [[facility]] [ ] New medication written as a paper prescription [ ] No new medications given *Please follow up with your primary care provider in 2-3 days, call for an appointment. Let them know you were seen in the Emergency Department and that we ask that you be seen in follow up. We will electronically transmit a record of today's note if your PCP is in our system *If you do not have a primary care provider please contact the [facility] Resource line at [phone]. They will ask some questions about your medical history and help get you set up with a doctor in the community. *Return to Emergency Department if you should have any new, worsening or concerning symptoms, such as [fever greater than 101 F, shaking chills, worsening pain, persistent vomiting or other bothersome symptoms] Prescriptions: New amoxicillin-pot clavulanate [Augmentin] 875-125 mg tablet 1 tab PO BID Qty: 20 RF: 0 No Action rizatriptan [Maxalt] 10 mg tablet 10 mg PO ONCE PRN (Reason: migraine headache) Qty: 30 RF: 2 aziuqkwlde-yssbzry-rscdjdla 50-325-40 mg capsule See Rx Instructions .ROUTE .COMPLEX Qty: 30 RF: 0 cholecalciferol (vitamin D3) 1,000 unit capsule 1,000 unit PO DAILY RF: 0 vitamin K2 40 mcg tablet 300 mcg PO DAILY RF: 0 promethazine 25 mg Tablet 25 mg PO Q6H PRN (Reason: Nausea) Qty: 60 RF: 0 prochlorperazine maleate [Compazine] 5 mg Tablet 5 mg PO QID PRN (Reason: nausea, chemotherapy) Qty: 100 RF: 1 pregabalin [Lyrica] 50 mg Capsule 50 mg PO TID Qty: 90 RF: 3 ondansetron 4 mg Tablet,Disintegrating 4 mg PO Q6H PRN (Reason: Nausea) Qty: 60 RF: 2 ibuprofen 200 mg Tablet 200 mg PO PRN PRN (Reason: Pain (Scale Score 1-3)) RF: 0 Referrals: Ludin Berg MD [Primary Care Provider] -
== END 2021-03-07 22:19 | disposition home or self-care (01) ==
PROVIDERS: Emergency Provider Emergency Medicine; PCP Family Medicine
DX: S61.552A Open bite of left wrist, initial encounter (principal); W55.01XA Bitten by cat, initial encounter
CPT/HCPCS: 99283

== ENCOUNTER → 2021-09-16 12:40 | Outpatient (CLI) | payer BC, SELFPAY ==
[2021-08-10 12:43] VITALS: BMI 20.7
--- NOTE | 2021-09-16 13:09 | DIET.CONS ---
Dietary Consultation Note Assessment: 61[address] visit for help with abnormal weight gain and reports of hair falling out. Pt has had complex oncology hx, breast cancer with several surgeries and chemotherapy. Prior to cancer dx pt weighed 150-175# (lower with help of ketogenic diet). Weight after chemo: 110# dropped in 3-4mo. Pt brought in diet diary for 1w. 3 cups tea c cream c orange 2 eggs and 2 castelan 4oz steak c big salad and evoo Supplements: methylated B complex, MVI daily, D3 c K2, ceylon cinnamon, berberine Pt reports getting wiped out easily, had been tolerating yoga during second chemo but now too tired. Pts iron panel shows borderline low ferritin and hgb. Ht: 5'3 Wt: 160-166# UBW: 150-175# prior to diagnosis, desired weight 125-135# RD Impression: Pt was diagnosed c Severe Protein Calorie Malnutrition, dropping 40# in 3-4mo losing quite a lot of muscle mass leading to slowing of basal metabolic rate. Pt eating low to moderate amount of food at this time but has regained 50# and continues to gain. Goal is to increase iron containing foods to support energy levels and oxygen transport, have pt go on keto diet x6w to spur body fat loss (focus on green fats like olives, olive oil, avocados, avocado oils over animal based), with increase in strength training to try to build lean body mass to lemon picker metabolic rate. Nutrition Diagnosis: abnormal weight gain r/t reduced resting metabolic rate aeb pt with severe PCM oncology related, loss of LBM, pt gained 50# while eating less than EER, pt with fatigue. Interventions: 1. Discussed rapid weight loss effects on metabolic rate. Importance of adequate dietary protein and strength training to increase LBM and support metabolism. 2. Discussed iron containing foods with handout. Pt will increase consumption clams, oysters, red meat, pumpkin seeds to support iron stores and continue consuming warming spices and nitric oxide producing foods (beets, celery) to support oxygen transport. 3. Discussed pts previous success losing weight with keto diet. Keto diet is not contraindicated in oncology. Recc pt limit castelan, cheese, focus intake on Mediterranean diet aligned olive oil, avocado. Pt feels confident she can follow through once she eats groceries that are currently in her home. Pt plan to start in 7 days. EER: 30g CHO daily, 12mg iron from food daily Monitoring/Evaluations: f/u in 4w to assess progress Electronically Signed by: Lexi Nicole 09/16/21 13:09 Clinical Dietitian [address] [address]
== END ==
PROVIDERS: PCP Family Medicine; Referring Provider Family Medicine; Visit Provider Family Medicine
DX: R63.5 Abnormal weight gain (principal); E43 Unspecified severe protein-calorie malnutrition; C50.919 Malignant neoplasm of unspecified site of unspecified female breast; Z68.28 Body mass index [BMI] 28.0-28.9, adult
CPT/HCPCS: 97802

== ENCOUNTER → 2021-09-22 13:04 | Outpatient (CLI) | payer BC, SELFPAY ==
[2021-09-21 15:33] VITALS: BMI 20.7
[2021-09-22 13:29] LABS: COVID19 -Nasal RAPID Negative (Negative)
== END ==
PROVIDERS: PCP Family Medicine; Visit Provider Surgery
DX: Z01.812 Encounter for preprocedural laboratory examination (principal); Z20.822 Contact with and (suspected) exposure to COVID-19
CPT/HCPCS: 87635; C9803

== ENCOUNTER 2021-09-24 08:46 | Day surgery (SDC) | payer BC, SELFPAY ==
[2021-09-21 15:33] VITALS: BMI 20.7
[2021-09-24] MEDS: LACTATED RINGERS 1,000 ML 84 ML IV (09:13)
[2021-09-24 09:18] VITALS: BP 114/84; PULSE 81; RESP 16; TEMP 36.2; O2SAT 98; BMI 29.0
--- NOTE | 2021-09-24 10:08 | PM.HP.1 ---
History of Present Illness History of Present Illness Date Patient Seen: 09/24/21 Time Patient Seen: 10:08 Chief complaint: SCREENING COLONOSCOPY Narrative: 61-year-old woman who has never had a colonoscopy before. She has never had rectal bleeding or melena. She has a history of breast cancer Patient History Medical History (Updated 09/24/21 @ 10:09 by Rafi Taylor MD) Anemia Anxiety Breast cancer, left (~2018) Breast cancer, right (~2010) Gallstone Hyperlipidemia Migraine Mixed anxiety and depressive disorder Osteoporosis Scoliosis SOB (shortness of breath) Symptomatic orthostatic increase in heart rate Underweight Surgical History H/O hemorrhoidectomy H/O hemorrhoidectomy H/O rhinoplasty History of lumpectomy of right breast Hx of cholecystectomy Hx of LASIK Hx of partial mastectomy (2010) Family & Social History Family History Brother Heart disease, hypertensive, benign Hypertension Mother Breast cancer Gallstones Stroke Father Lung cancer Grandmother Gallstones Social History: household members none Tobacco & Substance use: Smoking Status Never smoker alcohol intake current alcohol intake frequency holiday/special occasion Substance Use Type marijuana Meds Home Medications and Allergies Home Medications Medication Instructions Recorded Confirmed Type cholecalciferol (vitamin D3) 25 1,000 unit PO DAILY 09/25/18 09/24/21 History mcg (1,000 unit) capsule vitamin K2 40 mcg tablet 300 mcg PO DAILY 09/25/18 09/24/21 History promethazine 25 mg tablet 25 mg PO Q6H PRN #60 tab 05/24/19 09/24/21 Rx ibuprofen 200 mg tablet 200 mg PO PRN PRN 11/20/19 09/24/21 History ondansetron 4 mg disintegrating 4 mg PO Q6H PRN #60 tab 12/01/20 09/24/21 Rx tablet rizatriptan 10 mg tablet (Maxalt) 10 mg PO ONCE PRN #30 tab 04/29/21 09/24/21 Rx ucncjhnrjk-yotlduv-hyevmipk 50 1 cap PO TID PRN #30 cap 06/16/21 09/24/21 Rx mg-325 mg-40 mg capsule Allergies Allergy/AdvReac Type Severity Reaction Status Date / Time No Known Drug Allergies Allergy Verified 09/24/21 09:14 Exam Vital Signs (past 8 hours): - 09/24/21 09:18 Temperature 97.2 F L Pulse Rate 81 Respiratory Rate 16 Blood Pressure 114/84 Pulse Oximetry 98 Oxygen Delivery Method Room Air Const General: No acute distress Resp Effort & Inspection: normal respiratory effort GI Palpation: soft Assessment & Plan Assessment and plan (1) Colon cancer screening: Status: Acute Plan 61-year-old woman here for colon cancer screening. We reviewed the risks and benefits and she would like to proceed. COVID-19 COVID-19 status: Negative Result date/Date tested (Pos, Neg/Pending): 09/23/21 Time Spent With Patient Critical Care time: I spent a total of [] minutes of critical care time on this patient's care today; this time is exclusive of procedural time.
[2021-09-24] MEDS: ONDANSETRON 4 MG/2 ML INJ IV (10:15)
[2021-09-24] MEDS: fentaNYL 250 MCG/5 ML INJ 150 MCG IV (10:28)
[2021-09-24] MEDS: MIDAZOLAM 5 MG/5 ML VIAL 6 MG IV (10:38)
--- NOTE | 2021-09-24 10:43 | PM.OP.COLON ---
Operative Date/Time/Diagnoses Date of procedure: 09/24/21 Time of procedure: 10:43 Pre-op diagnosis: Colon cancer screening Post-op diagnosis: same Procedure & Clinicians Study performed: Colonoscopy Same procedure as scheduled: Yes Procedure Notes Procedure in detail: Surgeon: Rafi Taylor MD Procedure: The patient was brought to the endoscopy suite, placed in left lateral decubitus position. The patient was connected to monitoring devices. A time-out was performed. Sedation was administered. Once the patient was adequately sedated, a digital rectal exam was performed and was normal. The scope was then inserted and advanced to the cecum where the appendiceal orifice was identified and photographed. The scope was then slowly withdrawn over greater than 6 minutes. Mucosa was thoroughly inspected. There were rare diverticula in the sigmoid colon. No polyps were noted. The scope was retroflexed in the rectum. No abnormalities were noted. The scope was straightened and removed. The patient was awakened and brought to recovery. Versed: 6 mg Fentanyl: 150 mcg EBL: 0 Findings: Rare diverticula in the sigmoid colon Scope withdrawal time: 7 Sedation minutes: 19 Findings: divertiulosis Post-procedure Recommendations: Colonoscopy in 10 years Disposition: PACU
[2021-09-24 10:46] VITALS: BP 121/82; PULSE 81; RESP 12; TEMP 36.6; O2SAT 98
[2021-09-24 10:51] VITALS: BP 121/88; PULSE 77; RESP 16; O2SAT 93
[2021-09-24 10:54] VITALS: BP 115/82; PULSE 82; RESP 16; O2SAT 93
[2021-09-24 11:38] VITALS: BP 116/80; PULSE 88; RESP 16; TEMP 36.7; O2SAT 99
== END 2021-09-24 11:38 | disposition home or self-care (01) ==
PROVIDERS: PCP Family Medicine; Referring Provider Surgery; Visit Provider Surgery
PROC: 0DJD8ZZ Inspection of Lower Intestinal Tract, Via Natural or Artificial Opening Endoscopic (ICD-10-PCS; CPT 45378; principal; 2021-09-24 10:00)
DX: Z12.11 Encounter for screening for malignant neoplasm of colon (principal); K57.30 Diverticulosis of large intestine without perforation or abscess without bleeding
CPT/HCPCS: 45378; 99152; J2250; J2405; J3010

== ENCOUNTER → 2021-09-30 12:53 | Outpatient (CLI) | payer BC, SELFPAY ==
[2021-09-21 15:33] VITALS: BMI 20.7
--- NOTE | 2021-09-30 12:55 | DI.CT.S_ITS ---
PROCEDURE: CT ABDOMEN PELVIS W CON INDICATIONS: iron deficiency, abdominal pain TECHNIQUE: After the administration of oral and IV contrast, axial sections were acquired from the lung bases to the pubic symphysis. Coronal and sagittal reformats were performed. For radiation dose reduction, the following was used: automated exposure control, adjustment of mA and/or kV according to patient size. COMPARISON: [facility], CT, CT CHEST ABD PEL W CON, 01/23/2020, 15:50. [facility], CT, CT ABDOMEN PELVIS W CON, 05/17/2019, 17:11. FINDINGS: Image quality: Excellent. Lung bases: Unremarkable. Heart: No significant findings. ABDOMEN: Liver: Unremarkable. Hepatic steatosis. Gallbladder: Surgically absent. Biliary ducts: No intrahepatic biliary duct dilatation. Dilatation of the CBD, measuring up to 1.6 cm. Pancreas: Unremarkable. Spleen: Unremarkable. Adrenal Glands: Unremarkable. Kidneys and Ureters: Symmetric enhancement without evidence of obstructive uropathy. Bilateral scattered hypoattenuating lesions are seen measuring up to 1.2 cm, most consistent with cysts. Stomach and Bowel: No evidence of intestinal obstruction. Moderate stool burden throughout the colon. Sigmoid diverticulosis. Peritoneum: No abnormal intraperitoneal fluid. No free air. Ventral Wall: No hernia. Abdominal Nodes: No retroperitoneal or mesenteric adenopathy by size criteria. Vessels: Aorta and inferior vena cava are normal in size. PELVIS: Pelvic Organs: Unremarkable. Bladder: Unremarkable. Pelvic Nodes: No enlarged lymph nodes. Miscellaneous: No inguinal hernias are seen. Bones: Multifocal degenerative change. IMPRESSION: No significant abnormality. Dictated by: Jayce Tejada M.D. on 09/30/2021 at 14:04 Approved by: Jayce Tejada M.D. on 09/30/2021 at 14:11
== END ==
PROVIDERS: PCP Family Medicine; Referring Provider Internal Medicine Hematology & Oncology; Visit Provider Internal Medicine Hematology & Oncology
DX: C50.911 Malignant neoplasm of unspecified site of right female breast (principal); R10.9 Unspecified abdominal pain; D50.9 Iron deficiency anemia, unspecified
CPT/HCPCS: 74177; Q9967

== ENCOUNTER → 2022-02-15 10:45 | Outpatient (CLI) | payer BC, SELFPAY ==
[2021-09-21 15:33] VITALS: BMI 20.7
[2022-02-15 13:26] LABS: COVID19 -Nasal RAPID Negative (Negative)
== END ==
PROVIDERS: Family Provider Internal Medicine Hematology & Oncology; PCP Family Medicine; Visit Provider Surgery
DX: Z20.822 Contact with and (suspected) exposure to COVID-19 (principal); Z01.812 Encounter for preprocedural laboratory examination
CPT/HCPCS: 87635; C9803

== ENCOUNTER 2022-02-16 07:24 | Day surgery (SDC) | payer BC, SELFPAY ==
[2021-09-21 15:33] VITALS: BMI 20.7
[2022-02-16] MEDS: LACTATED RINGERS 1,000 ML 42 ML IV (07:49)
[2022-02-16 08:09] VITALS: BP 113/68; PULSE 83; RESP 16; O2SAT 98; BMI 29.0
--- NOTE | 2022-02-16 09:30 | PM.HP.1 ---
History of Present Illness History of Present Illness Date Patient Seen: 02/16/22 Time Patient Seen: 09:30 Chief complaint: PORT-A-CATH REMOVAL Narrative: Elif is a 61-year-old woman with history of breast cancer who has a right Port-A-Cath that has been in place for approximately 3 years. It is no longer needed and she would like to have it removed. She has had prior Port-A-Cath in the same location proceeding recurrent Port-A-Cath. Patient History Medical History (Updated 01/08/22 @ 06:33 by Ananth De Jesus MD) Anemia Anxiety Breast cancer, left (~2018) Breast cancer, right (~2010) Gallstone Hyperlipidemia Migraine Mixed anxiety and depressive disorder Osteoporosis Scoliosis SOB (shortness of breath) Symptomatic orthostatic increase in heart rate Underweight Surgical History (Updated 02/11/22 @ 09:10 by Barby Hernández RN) H/O hemorrhoidectomy H/O hemorrhoidectomy H/O rhinoplasty History of lumpectomy of right breast Hx of bilateral mastectomy (11/20/19) Hx of cholecystectomy (04/23/19) Hx of colonoscopy (09/24/21) Hx of LASIK Hx of partial mastectomy (2010) Family & Social History Family History Brother Heart disease, hypertensive, benign Hypertension Mother Breast cancer Gallstones Stroke Father Lung cancer Grandmother Gallstones Social History: household members none Tobacco & Substance use: Smoking Status Never smoker alcohol intake current alcohol intake frequency holiday/special occasion Substance Use Type marijuana Meds Home Medications and Allergies Home Medications Medication Instructions Recorded Confirmed Type cholecalciferol (vitamin D3) 25 1,000 unit PO DAILY 09/25/18 02/16/22 History mcg (1,000 unit) capsule vitamin K2 40 mcg tablet 300 mcg PO DAILY 09/25/18 02/16/22 History promethazine 25 mg tablet 25 mg PO Q6H PRN Nausea #60 tabs 05/24/19 02/11/22 Rx ibuprofen 200 mg tablet 200 mg PO PRN PRN Pain (Scale 11/20/19 02/16/22 History Score 1-3) ondansetron 4 mg disintegrating 4 mg PO Q6H PRN Nausea #60 tabs 12/01/20 02/16/22 Rx tablet rizatriptan 10 mg tablet (Maxalt) 10 mg PO ONCE PRN migraine 04/29/21 02/16/22 Rx headache #30 tabs jwukqycfjn-ockqclt-zjzctkfg 50 1 cap PO TID PRN pain #30 caps 06/16/21 02/16/22 Rx mg-325 mg-40 mg capsule metformin 500 mg tablet 500 mg PO DAILY 02/16/22 02/16/22 History thyroid (pork) 60 mg tablet ([employer]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 Assessment & Plan Assessment and plan (1) Port-A-Cath in place: Status: Acute Plan Plan to remove the existing Port-A-Cath in the operating room in case there is excess of scar tissue holding it in place. I told her there is a small possibility we would have to use 2 incisions if the existing catheter goes through the ligamentous tissue under the clavicle and there has been calcification. No antibiotics are needed. Time Spent With Patient Critical Care time: I spent a total of [] minutes of critical care time on this patient's care today; this time is exclusive of procedural time.
[2022-02-16] MEDS: BUPIVACAINE 0.5% W/ EPI (PF) 30 ML VIAL INJ (10:10)
[2022-02-16] MEDS: ACETAMINOPHEN IV 1,000 MG/100 ML VIAL 400 MG IV (10:12)
--- NOTE | 2022-02-16 10:14 | SUR.OPER ---
Supine on padded OR bed, head on pillow, arms secured on padded arm boards at <90 degrees abduction, legs uncrossed, safety belt at thigh.
[2022-02-16 10:36] VITALS: BP 105/59; PULSE 79; RESP 13; TEMP 36.3; O2SAT 98
--- NOTE | 2022-02-16 10:39 | PM.OP.1 ---
Operative Date/Time/Diagnoses Date of procedure: 02/16/22 Time of procedure: 10:39 Pre-op diagnosis: Unwanted port Post-op diagnosis: same Procedure & Clinicians Procedure: Port-A-Cath removal Same procedure as scheduled: Yes Surgeon: Rafi Taylor Anesthesia Type: MAC +/- Operative Notes Procedure in detail: The patient was brought to the operating room and placed on the table in the supine position. Monitored anesthesia was induced. No antibiotic was indicated. The right upper pectoral region was prepped and draped in the usual fashion. A time-out was performed. Local was injected into the skin and subcutaneous tissue around the old scar. A 4 cm incision was made with a 15 blade scalpel through the old scar just above the port. The capsule was incised sharply with a 15 blade scalpel. There were 2 silk sutures that were cut and removed. Port slid out easily. Few bleeders were cauterized and a single 3-0 Vicryl silk stitch was placed to close off the tract. Once the wound was hemostatic we then closed with multiple interrupted 3-0 Vicryl dermal sutures followed by a running 4-0 Monocryl subcuticular closure. Steri-Strips and a bandage were applied. EBL: 10 mL Post-operative Condition: stable Disposition: PACU
[2022-02-16 10:40] VITALS: BP 99/59; PULSE 82; RESP 11; O2SAT 99
[2022-02-16 10:42] VITALS: BP 101/67; PULSE 78; RESP 11; O2SAT 98
[2022-02-16 10:45] VITALS: BP 107/63; PULSE 77; RESP 11; O2SAT 98
== END 2022-02-16 11:15 | disposition home or self-care (01) ==
PROVIDERS: Family Provider Internal Medicine Hematology & Oncology; PCP Family Medicine; Referring Provider Surgery; Visit Provider Surgery
PROC: (CPT 36590; principal; 2022-02-16 09:15)
DX: Z45.2 Encounter for adjustment and management of vascular access device (principal); Z85.3 Personal history of malignant neoplasm of breast
CPT/HCPCS: 36590; 00400; 82962; J0131; J2405; J2704

== ENCOUNTER → 2023-07-01 07:32 | Outpatient (CLI) | payer BC, SELFPAY ==
[2021-09-21 15:33] VITALS: BMI 20.7
[2023-07-01 08:49] LABS: Add Manual Diff / Slide Review NO; Basophils Absolute Auto 0 /uL (0-100); Basophils Percent Auto 0.8 % (0-2); Eosinophils Absolute Auto 200 /uL (0-450); Eosinophils Percent Auto 4.2 % (2-4); Hematocrit 36.4 % (36-46); Hemoglobin 12.3 g/dL (12.0-16.0); Lymphocytes Absolute Auto 1700 /uL (1100-4500); Lymphocytes Percent Auto 36.8 % (25-40); Mean Corpuscular HGB Conc 33.9 % (30-36); Mean Corpuscular Hemoglobin 30.8 PG (26-34); Mean Corpuscular Volume 90.9 fL (80-100); Monocytes Absolute Auto 300 /uL (0-900); Monocytes Percent Auto 7.3 % (3-14); Neutrophils Absolute Auto 2300 /uL (1500-7000); Neutrophils Percent Auto 50.9 % (50-75); Platelet Count 310 X10^3/uL (150-400); Red Blood Cell Count 4.01 X10^6/uL (4.0-5.2); White Blood Cell Count 4.6 X10^3/uL (4.5-11.0)
[2023-07-01 09:01] LABS: Alanine Aminotransferase 22 IU/L (<35); Albumin 4.2 g/dL (3.5-5.0); Albumin Globulin Ratio 1.4 (1.0-2.8); Alkaline Phosphatase 43 U/L (38-126); Aspartate Aminotransferase 24 IU/L (14-36); BUN Creatinine Ratio 19.5 (6-22); Bilirubin Total 0.7 mg/dL (0.2-1.3); Blood Urea Nitrogen 15 mg/dL (7-17); Calcium 9.2 mg/dL (8.4-10.2); Carbon Dioxide 25 mmol/L (22-32); Chloride 106 mmol/L (98-107); Cholesterol 264 mg/dL (140-199); Estimated Glomerular Filt Rate > 60 mL/min (>60); Globulin 2.9 g/dL (1.7-4.1); Glucose 99 mg/dL (80-110); HDL Cholesterol 66 mg/dL (40-60); HEMOLYSIS < 15 (0-50); LDL Cholesterol Calculated 177 mg/dL (<100); Potassium 4.3 mmol/L (3.4-5.1); Sodium 140 mmol/L (137-145); Total Protein 7.1 g/dL (6.3-8.2); Triglycerides 103 mg/dL (35-150)
[2023-07-01 09:34] LABS: TSH w/ Reflex to FT4 0.81 uIU/mL (0.47-4.68)
[2023-07-03 09:40] LABS: Apolipoprotein B 129 mg/dL (<90); x Labcorp Estim. Avg Glu (eAG) 105 mg/dL (.); x Labcorp Hemoglobin A1c 5.3 % (4.8-5.6)
[2023-07-05 12:41] LABS: Lipoprotein (a) 19.2 nmol/L (<75.0)
== END ==
PROVIDERS: Family Provider Internal Medicine Hematology & Oncology; PCP Family Medicine; Referring Provider Family Medicine; Visit Provider Family Medicine
DX: C50.919 Malignant neoplasm of unspecified site of unspecified female breast (principal); E78.5 Hyperlipidemia, unspecified; D50.9 Iron deficiency anemia, unspecified; Z12.11 Encounter for screening for malignant neoplasm of colon
CPT/HCPCS: 36415; 80053; 80061; 82172; 83036; 83695; 84443; 85025

== ENCOUNTER → 2023-07-22 06:53 | Outpatient (CLI) | payer BC, SELFPAY ==
[2021-09-21 15:33] VITALS: BMI 20.7
--- NOTE | 2023-07-22 06:54 | DI.ECHO.S_ITS ---
[facility]---------+ [facility] +---------+ : : [address] : : : : [id number] : : : : Phone: [phone]---------+ Echocardiogram Report + + :Name: JOHNNIE GARZON Study Date: 07/22/2023 Height: 63 in : :[facility] ReadingLocation: Weight: 145 lb : : Gender: Female BSA: 1.7 m2 : :: 1960 Age: 63 yrs BP: 123/86 mmHg: :Reason For Study: NONRHEUMATIC MITRAL VALVE INSUFFICIENCY : :Ordering Physician: DARYL, : :RON Performed By: Levar Palencia : :Referring: RON BRITO : + + Interpretation Summary The left ventricle is normal in size and wall thickness. Left ventricular systolic function appears normal without focal wall motion abnormalities. The ejection fraction is estimated to be 50-55%. Left ventricular global longitudinal strain average is normal at -19.7% (normal is more negative than -20%). Diastolic parameters suggest a relaxation abnormality of the left ventricle, consistent with probable normal filling pressures. The right ventricle is normal in size and function. There is mild mitral regurgitation. There is borderline mitral valve prolapse. There is no other significant valvular heart disease. The aortic root is normal size. Procedure: A two-dimensional transthoracic echocardiogram with color flow and Doppler was performed. The study quality was technically adequate. Comparison is made with the echocardiogram of 11/03/2020. The patient was in normal sinus rhythm during the exam. The heart rate ranged between 78-87 bpm during the study. Left Ventricle: The left ventricle is normal in size and wall thickness. Left ventricular systolic function appears normal without focal wall motion abnormalities. The ejection fraction is estimated to be 50-55%. Left ventricular global longitudinal strain average is normal at -19.7% (normal is more negative than -20%). Diastolic parameters suggest a relaxation abnormality of the left ventricle, consistent with probable normal filling pressures. Right Ventricle: The right ventricle is normal in size and function. Atria: The left atrial size is normal. Right atrial size is normal. The interatrial septum grossly appears intact with no obvious evidence for an atrial septal defect. Mitral Valve: The mitral valve is normal in structure and function. There is borderline mitral valve prolapse. There is no mitral valve stenosis. There is mild mitral regurgitation. Aortic Valve: The aortic valve is trileaflet. There is no aortic valve stenosis. No aortic regurgitation is present. Tricuspid Valve: The tricuspid valve is normal in structure and function. There is no tricuspid stenosis. No tricuspid regurgitation. Pulmonic Valve: The pulmonic valve is not well visualized. There is no pulmonic valvular stenosis. There is a trace or physiologic amount of pulmonic regurgitation. There is no other significant valvular heart disease. Great Vessels: The aortic root is normal size. The dimensions of the ascending aorta are normal. The IVC is of normal diameter and collapses greater than 50% with a sniff. This suggests a low right atrial pressure of 3 mm Hg. Pericardium/ Pleura There is no pericardial effusion. There is no pleural effusion. MMode/2D Measurements & Calculations LVIDd: 4.2 cm LVOT diam: 2.0 cm LVIDs: 3.0 cm Ao root diam: 2.5 cm FS: 28.4 % asc Aorta Diam: 2.5 cm IVSd: 0.84 cm Ao Arch Diam (Prox Trans): 2.3 cm LVPWd: 0.74 cm LV serna. diameter/BSA (cm/m^2): 2.5 LV sys. diameter/BSA (cm/m^2): 1.8 LA A2 area: 11.9 cm2 RA long axis: 3.6 cm LA A4 area: 14.3 cm2 RA area: 11.6 cm2 LA length (vol): 4.6 cm RA vol: 31.7 ml LA vol: 31.3 ml RA : 18.8 ml/m2 LA vol index: 18.5 ml/m2 IVC diam: 2.0 cm RVD1 (basal): 3.1 cm RVD2 (mid): 2.7 cm TAPSE: 2.4 cm Doppler Measurements & Calculations Ao V2 max: 151.6 cm/sec LVOT Max Landon: 115.5 cm/sec Ao V2 mean: 100.2 cm/sec LV V1 max P.3 mmHg Ao max P.2 mmHg LV V1 VTI: 24.6 cm Ao mean P.7 mmHg JOSE MANUEL(I,D): 2.5 cm2 Ao V2 VTI: 30.5 cm JOSE MANUEL(V,D): 2.4 cm2 sev ratio: 0.81 JOSE MANUEL indexed to BSA (cm^2/m^2): 1.5 MV E max landon: 78.6 cm/sec PA V2 max: 102.4 cm/sec MV A max landon: 97.9 cm/sec PA V2 mean: 69.1 cm/sec MV E/A: 0.80 PA mean P.2 mmHg Med Peak E' Landon: 7.1 cm/sec PA pr(Accel): 13.9 mmHg E/E' med: 11.0 Lat Peak E' Landon: 7.2 cm/sec E/E' lat: 10.9 E/e' average: 11.0 MV dec time: 0.14 sec SV(LVOT): 76.8 ml Reading Physician:09:28 AM
== END ==
LOC: ECHO 06:53
PROVIDERS: Family Provider Internal Medicine Hematology & Oncology; PCP Family Medicine; Referring Provider Family Medicine; Visit Provider Family Medicine
DX: I34.0 Nonrheumatic mitral (valve) insufficiency (principal)
CPT/HCPCS: 93306

== ENCOUNTER → 2024-06-22 08:15 | Outpatient (CLI) | payer BC, SELFPAY ==
[2021-09-21 15:33] VITALS: BMI 20.7
--- NOTE | 2024-06-22 | DI.RAD.S_ITS ---
PROCEDURE: XR CHEST 2V INDICATIONS: history of breast cancer, post-mastectomy TECHNIQUE: 2 views of the chest were acquired. COMPARISON: [facility], CR, XR CHEST 1V, 08/07/2019, 22:36. FINDINGS: Surgical changes and devices: None. Lungs and pleura: Patient is status post left and right mastectomy. The heart is normal in size and configuration. The central pulmonary vascularity is unchanged from earlier exam. Lungs are clear. There is no evidence of infiltrate or mass. No pleural effusions or pneumothorax. Mediastinum: Mediastinal contours are normal. Bones and chest wall: No suspicious bony abnormalities. Stable levoscoliosis. Soft tissues appear unremarkable. IMPRESSION: No acute cardiopulmonary abnormality is seen. Dictated by: Dheeraj Fair M.D. on 06/22/2024 at 8:49 Approved by: Dheeraj Fair M.D. on 06/22/2024 at 8:55
[2024-06-22 09:01] LABS: Add Manual Diff / Slide Review NO; Basophils Absolute Auto 0 /uL (0-100); Basophils Percent Auto 0.5 % (0-2); Eosinophils Absolute Auto 200 /uL (0-450); Eosinophils Percent Auto 3.1 % (2-4); Hematocrit 38.3 % (36-46); Lymphocytes Absolute Auto 1100 /uL (1100-4500); Mean Corpuscular Volume 91.1 fL (80-100); Monocytes Absolute Auto 600 /uL (0-900); Monocytes Percent Auto 10.3 % (3-14); Neutrophils Absolute Auto 4000 /uL (1500-7000); Neutrophils Percent Auto 68.1 % (50-75); Platelet Count 288 X10^3/uL (150-400); Red Cell Distribution Width 13.4 % (11.6-14.8); White Blood Cell Count 5.9 X10^3/uL (4.5-11.0)
[2024-06-22 09:05] LABS: Prothrombin Time 11.1 SECONDS (9.4-12.5)
[2024-06-22 09:06] LABS: Hemoglobin A1C% w Est Avg Glu 4.9 % (4.0-6.0)
[2024-06-22 09:07] LABS: PTT Partial Thromboplastin Tim 33 SECONDS (25.1-36.5)
--- NOTE | 2024-06-22 09:09 | EKG_ITS ---
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
[2024-06-22 09:14] LABS: Alanine Aminotransferase 28 IU/L (<35); Albumin 4.6 g/dL (3.5-5.0); Albumin Globulin Ratio 1.7 (1.0-2.8); Alkaline Phosphatase 61 U/L (38-126); Aspartate Aminotransferase 31 IU/L (14-36); BUN Creatinine Ratio 13.9 (6-22); Bilirubin Total 0.4 mg/dL (0.2-1.3); Blood Urea Nitrogen 11 mg/dL (7-17); Calcium 9.3 mg/dL (8.4-10.2); Carbon Dioxide 21 mmol/L (22-32); Chloride 108 mmol/L (98-107); Estimated Glomerular Filt Rate > 60 mL/min (>60); Globulin 2.7 g/dL (1.7-4.1); Glucose 106 mg/dL (80-110); HEMOLYSIS < 15 (0-50); Potassium 4.1 mmol/L (3.4-5.1); Sodium 137 mmol/L (137-145); Total Protein 7.3 g/dL (6.3-8.2)
== END ==
LOC: LAB 08:19
PROVIDERS: Family Provider Internal Medicine Hematology & Oncology; PCP Family Medicine
DX: Z42.1 Encounter for breast reconstruction following mastectomy (principal); Z85.3 Personal history of malignant neoplasm of breast; Z80.3 Family history of malignant neoplasm of breast; L59.9 Disorder of the skin and subcutaneous tissue related to radiation, unspecified; Z90.13 Acquired absence of bilateral breasts and nipples
CPT/HCPCS: 36415; 71046; 80053; 83036; 85025; 85610; 85730; 93005

== ENCOUNTER → 2024-06-22 09:21 | Outpatient (CLI) | payer BC, SELFPAY ==
[2021-09-21 15:33] VITALS: BMI 20.7
--- NOTE | 2024-06-22 | DI.CT.S_ITS ---
PROCEDURE: CT ANGIO ABDOMEN PELVIS INDICATIONS: EVAL SIZE LOC OF THE DEEP INFERIOR EPIGAST PERFS TECHNIQUE: After the administration of intravenous contrast, 2.5 mm sections acquired from the diaphragm to the iliac crests. 10 mm maximum intensity projection (MIP) coronal and sagittal reformats were then performed. For radiation dose reduction, the following was used: automated exposure control. COMPARISON: [facility], CT, CT ABDOMEN PELVIS W CON, 09/30/2021, 13:44. FINDINGS: Image quality: Diagnostic Lower chest: Basal atelectasis. Liver: Possible hepatic steatosis Gallbladder and biliary system: Cholecystectomy clips. CBD is dilated as before measuring up to 1.6 cm. Pancreas: Ectatic pancreatic duct at the head and body, the head portion measuring up to 4 mm Spleen: Nonenlarged Adrenals: No discrete nodules Kidneys: No solid mass or hydronephrosis. Vessels and lymph nodes: No abdominal aortic aneurysm. The major mesenteric vessels and renal arteries appear patent. There is no high-grade stenosis. No pathologic lymph nodes by size criteria. Type 1 inferior epigastric arteries bilaterally (no bifurcation or trifurcation). On the right, there are 2 major perforators medially (image 12/249, 274). There is also a major metal rolling mill operator above the umbilicus medially, with a long intra rectus course (12/218) Another metal rolling mill operator is seen superficial to the inferior epigastric vessel, (12/245) extending laterally On the left, 1 metal rolling mill operator seen below the umbilicus medially (12/252). Another major metal rolling mill operator is seen just above the umbilicus medially (12/228). Just above the umbilical level, there is major metal rolling mill operator just lateral to the inferior epigastric (12/225) Bowel and peritoneum: No bowel obstruction. No pathologic ascites.1 colonic diverticula are seen. Body wall: Unremarkable Pelvis: Bladder is unremarkable. Reproductive organs are unremarkable on limited CT evaluation Bones: There are degenerative osseous changes. IMPRESSION: Inferior epigastric metal rolling mill operator anatomy as above. Dilated CBD is again seen, likely related to post cholecystectomy state, similar to 2021. Correlate LFTs. The pancreatic duct is also ectatic, measuring 4 mm at the pancreatic head. No definite obstructing mass is seen on this CT. No significant incidental findings otherwise. Dictated by: Paco Goode M.D. on 06/25/2024 at 8:10 Approved by: Paco Goode M.D. on 06/25/2024 at 8:20
== END ==
PROVIDERS: Family Provider Internal Medicine Hematology & Oncology; PCP Family Medicine; Referring Provider Surgery Plastic and Reconstructive Surgery; Visit Provider Surgery Plastic and Reconstructive Surgery
DX: K86.89 Other specified diseases of pancreas (principal); K83.8 Other specified diseases of biliary tract; L59.9 Disorder of the skin and subcutaneous tissue related to radiation, unspecified; Z42.1 Encounter for breast reconstruction following mastectomy; Z85.3 Personal history of malignant neoplasm of breast; Z90.13 Acquired absence of bilateral breasts and nipples; Z80.3 Family history of malignant neoplasm of breast
CPT/HCPCS: 36415; 71046; 74174; 80053; 83036; 85025; 85610; 85730; 93005; Q9967

== ENCOUNTER → 2024-11-01 08:37 | Outpatient (CLI) | payer BC, SELFPAY ==
[2021-09-21 15:33] VITALS: BMI 20.7
[2024-11-01 09:06] LABS: Add Manual Diff / Slide Review NO; Basophils Absolute Auto 0 /uL (0-100); Basophils Percent Auto 0.8 % (0-2); Eosinophils Absolute Auto 100 /uL (0-450); Eosinophils Percent Auto 3.4 % (2-4); Hematocrit 36.2 % (36-46); Hemoglobin 12.1 g/dL (12.0-16.0); Lymphocytes Absolute Auto 1500 /uL (1100-4500); Lymphocytes Percent Auto 34.2 % (25-40); Mean Corpuscular HGB Conc 33.5 % (30-36); Mean Corpuscular Hemoglobin 28.6 PG (26-34); Mean Corpuscular Volume 85.4 fL (80-100); Monocytes Absolute Auto 400 /uL (0-900); Monocytes Percent Auto 9.7 % (3-14); Neutrophils Absolute Auto 2200 /uL (1500-7000); Neutrophils Percent Auto 51.9 % (50-75); Platelet Count 349 X10^3/uL (150-400); Red Blood Cell Count 4.24 X10^6/uL (4.0-5.2); White Blood Cell Count 4.3 X10^3/uL (4.5-11.0)
[2024-11-01 09:42] LABS: Alanine Aminotransferase 24 IU/L (<35); Albumin 4.4 g/dL (3.5-5.0); Albumin Globulin Ratio 1.6 (1.0-2.8); Alkaline Phosphatase 58 U/L (38-126); Aspartate Aminotransferase 30 IU/L (14-36); BUN Creatinine Ratio 17.5 (6-22); Bilirubin Total 0.4 mg/dL (0.2-1.3); Blood Urea Nitrogen 14 mg/dL (7-17); Calcium 9.3 mg/dL (8.4-10.2); Carbon Dioxide 27 mmol/L (22-32); Chloride 104 mmol/L (98-107); Cholesterol 232 mg/dL (140-199); Estimated Glomerular Filt Rate > 60 mL/min (>60); Globulin 2.7 g/dL (1.7-4.1); Glucose 98 mg/dL (70-99); HDL Cholesterol 79 mg/dL (40-60); HEMOLYSIS < 15 (0-50); LDL Cholesterol Calculated 140 mg/dL (<100); Potassium 4.6 mmol/L (3.4-5.1); Sodium 138 mmol/L (137-145); Total Protein 7.1 g/dL (6.3-8.2); Triglycerides 65 mg/dL (35-150)
[2024-11-01 09:46] LABS: HEMOLYSIS < 15 (0-50); Iron 81 ug/dL (37-170)
[2024-11-01 09:57] LABS: Percent Iron Saturation 21 % (15-50); Total Iron Binding Capacity 389 ug/dL (265-497); Transferrin 338 mg/dL (206-381)
[2024-11-01 10:13] LABS: TSH w/ Reflex to FT4 0.18 uIU/mL (0.47-4.68)
[2024-11-01 10:16] LABS: Ferritin 7 ng/mL (11-264)
[2024-11-01 10:42] LABS: Free T4, Direct Thyroxine 1.07 ng/dL (0.78-2.19)
[2024-11-02 03:39] LABS: Apolipoprotein B 107 mg/dL (<90)
== END ==
PROVIDERS: Family Provider Internal Medicine Hematology & Oncology; PCP Family Medicine; Referring Provider Family Medicine; Visit Provider Family Medicine
DX: C50.911 Malignant neoplasm of unspecified site of right female breast (principal); K80.10 Calculus of gallbladder with chronic cholecystitis without obstruction; K62.5 Hemorrhage of anus and rectum; F41.8 Other specified anxiety disorders; E78.5 Hyperlipidemia, unspecified; D64.9 Anemia, unspecified; Z17.0 Estrogen receptor positive status [ER+]
CPT/HCPCS: 36415; 80053; 80061; 82172; 82728; 83540; 83550; 83695; 84439; 84443; 85025

== ENCOUNTER → 2024-12-05 08:49 | Outpatient (CLI) | payer BC, SELFPAY ==
[2021-09-21 15:33] VITALS: BMI 20.7
[2024-12-05 09:47] LABS: Add Manual Diff / Slide Review NO; Hematocrit 39.2 % (36-46); Hemoglobin 13.0 g/dL (12.0-16.0); Lymphocytes Absolute Auto 1600 /uL (1100-4500); Mean Corpuscular HGB Conc 33.3 % (30-36); Mean Corpuscular Hemoglobin 28.7 PG (26-34); Mean Corpuscular Volume 86.3 fL (80-100); Platelet Count 320 X10^3/uL (150-400)
[2024-12-05 09:59] LABS: Hemoglobin A1C% w Est Avg Glu 5.1 % (4.0-6.0)
[2024-12-05 10:05] LABS: Alanine Aminotransferase 24 IU/L (<35); Albumin 4.7 g/dL (3.5-5.0); Albumin Globulin Ratio 1.7 (1.0-2.8); Alkaline Phosphatase 58 U/L (38-126); Blood Urea Nitrogen 18 mg/dL (7-17); Calcium 9.5 mg/dL (8.4-10.2); Carbon Dioxide 25 mmol/L (22-32); Chloride 105 mmol/L (98-107); Estimated Glomerular Filt Rate > 60 mL/min (>60); Globulin 2.8 g/dL (1.7-4.1); Glucose 90 mg/dL (70-99); HEMOLYSIS < 15 (0-50); Potassium 4.5 mmol/L (3.4-5.1); Sodium 139 mmol/L (137-145); Total Protein 7.5 g/dL (6.3-8.2)
== END ==
PROVIDERS: Family Provider Internal Medicine Hematology & Oncology; PCP Family Medicine; Referring Provider Surgery Plastic and Reconstructive Surgery; Visit Provider Surgery Plastic and Reconstructive Surgery
DX: M95.9 Acquired deformity of musculoskeletal system, unspecified (principal); N65.0 Deformity of reconstructed breast; N65.1 Disproportion of reconstructed breast; Z85.3 Personal history of malignant neoplasm of breast
CPT/HCPCS: 36415; 80053; 83036; 85025